=== PATIENT | female | born 1990 | race African-American/Black ===

== ENCOUNTER 2016-03-29 20:14 | Emergency (ER) | payer MEDICAID ==
[~2016-03-29] VITALS: Ht 154.9 cm; Wt 78.0 kg
[~2016-03-29 20:14] MED LIST: DOXYCYCLINE100 M3 PO; DOXYCYCLINE100 M7 IV; KEPPRA XR500 MG PO
[2016-03-29 20:16] VITALS: BP 146/78
--- NOTE | 2016-03-29 21:44 | NUR ---
PT TAKEN TO BED 7
--- NOTE | 2016-03-29 21:50 | NUR ---
Patient being evaluated by at bedside.
--- NOTE | 2016-03-29 21:51 | NUR ---
25Y/F PATIENT PRESENTS TO ED WITH C/O CHEST PAIN X 5 DAYS . PT STATES PAIN START 5 DAYS AGO, ONAND OFF, ALSO STATES FEELING DIZZINESS. DENIES N/V/D; SKIN IS PINK/WARM/DRY; AAOX4 WITH EVEN AND STEADY GAIT; LUNGS CLEAR BL; HR EVEN AND REGULAR; PT DENIES ANY FEVER, SOB, OR COUGH AT THIS TIME; PATIENT STATES PAIN OF 6/10 AT THIS TIME; VSS; PATIENT POSITIONED FOR COMFORT; HOB ELEVATED; BEDRAILS UP X2; BED DOWN. ER MD MADE AWARE OF PT STATUS.
[2016-03-29 22:30] VITALS: BP 130/80
--- NOTE | 2016-03-29 22:30 | NUR ---
Patient discharged with v/s stable. Written and verbal after care instructions given and explained. Patient verbalized understanding. Ambulatory with steady gait. All questions addressed prior to discharge. Advised to follow up with PMD.
== END 2016-03-29 22:30 | disposition home or self-care (01) ==
LOC: MED 20:14
DX: R07.89 Other chest pain (principal); F17.200 Nicotine dependence, unspecified, uncomplicated; Z71.6 Tobacco abuse counseling; Z91.018 Allergy to other foods

== ENCOUNTER 2016-06-04 23:13 | Emergency (ER) | payer MEDICAID ==
[~2016-06-04] VITALS: Ht 154.9 cm; Wt 81.6 kg
[~2016-06-04 23:13] MED LIST changes: +DOXY100C9 PO; -DOXYCYCLINE100 M3 PO; -DOXYCYCLINE100 M7 IV; -KEPPRA XR500 MG PO; +LEVE500T9 PO
[2016-06-04 23:22] VITALS: BP 101/57
--- NOTE | 2016-06-05 01:20 | NUR ---
PATIENT TO ER BED 5
--- NOTE | 2016-06-05 01:23 | NUR ---
25 Y/O F W/C/O ABD PAIN WHICH RADIATES TO THE BACK, URGENCY AND FREQUENCY WITH URINATION, PAIN WITH INTERCOURSE AND BROWN VAGINAL DISCHARGE X 1 WK. ER MD MADE AWARE, NO S/S OF DISTRESS NOTED AT THE MOMENT.
[2016-06-05] MEDS ORDERED: ONDANSETRON 4 MG ODT PO ONE (02:15)
[2016-06-05] MEDS ORDERED: KETOROLAC 30 MG/ML VIAL IM ONE (02:15)
[2016-06-05 02:26] LABS: APPEARANCE,URINE CLEAR (CLEAR); BILIRUBIN,URINE NEGATIVE (NEGATIVE); BLOOD, URINE TRACE-I (NEGATIVE); COLOR,URINE YELLOW (YELLOW); LEUKOCYTE ESTERASE ,URINE NEGATIVE (NEGATIVE); NITRITE, URINE NEGATIVE (NEGATIVE); PROTEIN,URINE NEGATIVE (NEGATIVE); UGLUCOSE NEGATIVE (NEGATIVE); UROBILINOGEN,URINE 0.2 EU/dL (0.2 - 1)
--- NOTE | 2016-06-05 02:30 | NUR ---
Patient being evaluated by at bedside.
--- NOTE | 2016-06-05 02:35 | NUR ---
Female Visitor Services Assistant accompanied female patient for Pelvic Exam. DR. LOZADA
[2016-06-05 02:38] LABS: BACTERIA,URINE 3+ /HPF (None Seen); WBC,URINE 0-5 (RARE) /HPF (0-5)
[2016-06-05 02:39] LABS: MUCUS,URINE 4+ /LPF (None Seen)
[2016-06-05] MEDS ORDERED: HYDROcodone/APAP 5/325 MG 1 TAB TAB PO ONE (03:00)
--- NOTE | 2016-06-05 03:18 | NUR ---
PT TAKEN FOR ULTRASOUND VIA WHEEL CHAIR.
--- NOTE | 2016-06-05 03:50 | NUR ---
RECEIVED REPORT FROM JOCELYN BOWER FOR TRANSFER OF CARE. PT JUST ARRIVED BACK ON UNIT FROM US. TAKEN TO BED 8.
--- NOTE | 2016-06-05 03:50 | NUR ---
TAKEN TO ER BED 8 FROM
--- NOTE | 2016-06-05 03:59 | NUR ---
PT STATING STOMACH PAIN OF 12/04. ER MD MADE AWARE. WILL FOLLOW UP WITH ORDERS.
[2016-06-05] MEDS ORDERED: HYDROmorphone 1 MG/ML AMP IM ONE (04:00)
[2016-06-05] MEDS ORDERED: DICYCLOMINE HCL LIQUID 20 MG, ALUMINUM HYD/MAG/SIMETHICONE 30 ML, LIDOCAINE VISCOUS 2% ... PO ONE ×3 (05:20)
[2016-06-05] MEDS ORDERED: LIDOCAINE VISCOUS 2% 20 ML UDC ONE (05:34)
[2016-06-05] MEDS ORDERED: ALUMINUM HYD/MAG/SIMETHICONE 30 ML UDC ONE (05:34)
[2016-06-05] MEDS ORDERED: DICYCLOMINE HCL LIQUID 10 MG/5 ML UDC ONE (05:44)
--- NOTE | 2016-06-05 05:51 | NUR ---
PT RESTING IN BED. NO SOB NOTED AT THIS TIME. MOTHER AT BEDSIDE. WILL CONTINUE TO MONITOR.
[2016-06-05 06:44] VITALS: BP 116/58
--- NOTE | 2016-06-05 06:45 | NUR ---
Patient discharged with v/s stable. Written and verbal after care instructions given and explained. Patient alert, oriented and verbalized understanding of instructions. Ambulatory with steady gait. All questions addressed prior to discharge. ID band removed. Patient advised to follow up with PMD. Rx of NORCO AND MYLANTA given. Patient educated on indication of medication including possible reaction and side effects. Opportunity to ask questions provided and answered.
[2016-06-07 07:15] LABS: CHLAMYDIA TRACHOMATIS AMP DNA NEGATIVE (NEGATIVE)
== END 2016-06-05 06:44 | disposition home or self-care (01) ==
LOC: MED 23:13
DX: R10.2 Pelvic and perineal pain (principal); Z91.018 Allergy to other foods; R10.30 Lower abdominal pain, unspecified; R10.10 Upper abdominal pain, unspecified
CPT/HCPCS: 36415; 76830; 81001; 81025; 87086; 87210; 87491; 96372; 99285; J1170; J1885; J7030; S0119

== ENCOUNTER 2016-06-13 21:16 | Emergency (ER) | payer MEDICAID ==
[~2016-06-13] VITALS: Ht 154.9 cm; Wt 82.6 kg
[2016-06-13 21:25] VITALS: BP 120/70
--- NOTE | 2016-06-13 23:16 | NUR ---
PATIENT LEFT WITHOUT BEING SEEN BY DR. Alonzo. NO FURTHER CARE PROVIDED FOR PATIENT.
== END 2016-06-13 23:16 | disposition left against medical advice (07) ==
LOC: MED 21:16
DX: R10.30 Lower abdominal pain, unspecified (principal); Z53.21 Procedure and treatment not carried out due to patient leaving prior to being seen by health care provider

== ENCOUNTER 2016-06-14 22:11 | Emergency (ER) | payer SELFPAY ==
--- NOTE | 2016-06-14 22:30 | NUR ---
PATIENT LEFT WITHOUT BEING SEEN BY DR. LOZADA. NO FURTHER CARE PROVIDED FOR PATIENT.
== END 2016-06-14 22:30 | disposition left against medical advice (07) ==
LOC: MED 22:11
DX: R10.9 Unspecified abdominal pain (principal); Z53.21 Procedure and treatment not carried out due to patient leaving prior to being seen by health care provider

== ENCOUNTER 2016-08-13 09:50 | Emergency (ER) | payer MEDICAID ==
[~2016-08-13] VITALS: Ht 154.9 cm; Wt 82.3 kg
[2016-08-13 09:52] VITALS: BP 121/63
--- NOTE | 2016-08-13 10:00 | NUR ---
25/F PRESENT TO ER C/O ABD PAIN x ONE WEEK. . DENIES V/D; SKIN IS PINK/WARM/DRY; AAOX4 WITH EVEN AND STEADY GAIT; LUNGS CLEAR BL; HR EVEN AND REGULAR; PT DENIES ANY FEVER, CP, SOB, OR COUGH AT THIS TIME; PATIENT STATES PAIN OF 10/10 AT THIS TIME; VSS; PATIENT POSITIONED FOR COMFORT; HOB ELEVATED; BEDRAILS UP X2; BED DOWN. ER MD MADE AWARE OF PT STATUS.
--- NOTE | 2016-08-13 10:20 | NUR ---
AAO PT BEING ASSESS BY DR HEATH AT BEDSIDE
[2016-08-13] MEDS ORDERED: KETOROLAC 60 MG/2 ML VIAL IM ONE ×2 (10:30→10:37)
--- NOTE | 2016-08-13 10:50 | NUR ---
Patient discharged with v/s stable. Written and verbal after care instructions given and explained. Patient alert, oriented and verbalized understanding of instructions. Ambulatory with steady gait. All questions addressed prior to discharge. ID band removed. Patient advised to follow up with PMD. Rx of PRILOSEC given. Patient educated on indication of medication including possible reaction and side effects. Opportunity to ask questions provided and answered.
[2016-08-13 10:55] VITALS: BP 130/76
== END 2016-08-13 10:50 | disposition home or self-care (01) ==
LOC: MED 09:50
DX: R10.32 Left lower quadrant pain (principal); F17.200 Nicotine dependence, unspecified, uncomplicated; Z90.49 Acquired absence of other specified parts of digestive tract
CPT/HCPCS: 81002; 81025; 99283; J1885

== ENCOUNTER 2016-09-10 22:08 | Emergency (ER) | payer MEDICAID ==
[~2016-09-10] VITALS: Ht 157.5 cm; Wt 85.4 kg
[2016-09-10 22:14] VITALS: BP 137/86
--- NOTE | 2016-09-10 23:23 | NUR ---
PT TAKEN TO BED 6
--- NOTE | 2016-09-10 23:30 | NUR ---
25F BIB MOTHER C/O RIGHT ABDOMINAL PAIN, SORE THROAT, LOWER BACK PAIN, AND MIGRAINE HEADACHE X TODAY. HX: ASTHMA, OVARIAN CYST, RX: PT DENIES. SKIN IS PINK/WARM/DRY; AAOX4 WITH EVEN AND STEADY GAIT; PATIENT STATES PAIN OF 10/10 AT THIS TIME; VSS; PATIENT POSITIONED FOR COMFORT; HOB ELEVATED; BEDRAILS UP X2; BED DOWN. ER MD MADE AWARE OF PT STATUS.
--- NOTE | 2016-09-10 23:40 | NUR ---
Dr. Antonio evaluating patient at bedside.
[2016-09-10] MEDS ORDERED: KETOROLAC 30 MG/ML VIAL IM ONE (23:45)
[2016-09-10] MEDS ORDERED: ACETAMIN/CODEINE 120/12MG-5ML 5 ML UDC PO ONE (23:45)
--- NOTE | 2016-09-11 | NUR ---
PT TOLERATED MED WELL
[2016-09-11 00:28] VITALS: BP 131/91
--- NOTE | 2016-09-11 00:28 | NUR ---
Patient discharged with v/s stable. Written and verbal after care instructions given and explained. Patient alert, oriented and verbalized understanding of instructions. Ambulatory with steady gait. All questions addressed prior to discharge. ID band removed. Patient advised to follow up with PMD. Rx of NAPROSYN 500MG TAB, TYLENOL WITH CODEINE NO. 3 TAB, AMOXICILLIN 500MG TAB given. Patient educated on indication of medication including possible reaction and side effects. Opportunity to ask questions provided and answered.
== END 2016-09-11 00:28 | disposition home or self-care (01) ==
LOC: MED 22:08
DX: J02.9 Acute pharyngitis, unspecified (principal); Z91.018 Allergy to other foods; Z90.49 Acquired absence of other specified parts of digestive tract
CPT/HCPCS: 81002; 81025; 96372; 99283; J1885

== ENCOUNTER 2017-03-10 22:32 | Emergency (ER) | payer MEDICAID ==
[~2017-03-10] VITALS: Ht 154.9 cm; Wt 84.8 kg
[2017-03-10 22:35] VITALS: BP 127/80
--- NOTE | 2017-03-10 22:44 | NUR ---
TO LOBBY, A/W BED, VSDomo ,ELVA , ERMGraciela NOTED
--- NOTE | 2017-03-10 23:25 | NUR ---
PATIENT LEFT WITHOUT BEING SEEN BY DR. Alonzo. NO FURTHER CARE PROVIDED FOR PATIENT.
== END 2017-03-10 23:25 | disposition left against medical advice (07) ==
LOC: MED 22:32
DX: F41.9 Anxiety disorder, unspecified (principal); Z53.21 Procedure and treatment not carried out due to patient leaving prior to being seen by health care provider

== ENCOUNTER 2017-05-05 01:46 | Emergency (ER) | payer MEDICAID ==
[~2017-05-05] VITALS: Ht 157.5 cm; Wt 86.2 kg
[2017-05-05 01:48] VITALS: BP 149/78
--- NOTE | 2017-05-05 03:05 | NUR ---
PT TAKEN TO CHAIR D
--- NOTE | 2017-05-05 03:07 | NUR ---
PATIENT IS A 26 Y/O FEMALE WHO PRESENTS TO THE ED C/O OVERDOSE. PT STATES, "I TOOK AN EXTRA SEROQUEL AND MY HEART IS BEATING. PT REPORTS 7/10 SORE THROAT PAIN THAT DOES NOT RADIATE. PT DENIES CP, SOB, N/V/D. PT AAOX3, RR EVEN/UNLABORED. PT REPOSITIONED FOR COMFORT, PT SITTING IN CHAIR. RAMON SANTIAGO NOTIFIED. WILL CONTINUE TO MONITOR. Addendum: 05/05/17 at 0338 by [email or web address] PATIENT IS A 26 Y/O FEMALE WHO PRESENTS TO THE ED C/O OVERDOSE. PT STATES, "I TOOK AN EXTRA SEROQUEL AND MY HEART IS BEATING. PT REPORTS TAKING 8 SEROQUEL. PT REPORTS 7/10 SORE THROAT PAIN THAT DOES NOT RADIATE. PT DENIES CP, SOB, N/V/D. PT AAOX3, RR EVEN/UNLABORED. PT REPOSITIONED FOR COMFORT, PT SITTING IN CHAIR. RAMON SANTIAGO NOTIFIED. WILL CONTINUE TO MONITOR. Addendum: 05/05/17 at 0641 by [email or web address] PATIENT IS A 26 Y/O FEMALE WHO PRESENTS TO THE ED C/O OVERDOSE. PT STATES, "I TOOK AN EXTRA SEROQUEL AND MY HEART IS BEATING. PT REPORTS TAKING 800MG SEROQUEL. PT REPORTS 710 SORE THROAT PAIN THAT DOES NOT RADIATE. PT DENIES CP, SOB, N/V/D. PT AAOX3, RR EVEN/UNLABORED. PT REPOSITIONED FOR COMFORT, PT SITTING IN CHAIR. ER MD DR. SANTIAGO NOTIFIED. WILL CONTINUE TO MONITOR.
--- NOTE | 2017-05-05 03:10 | NUR ---
Poison control recommendations forwarded to Dr Tapia.
--- NOTE | 2017-05-05 03:10 | NUR ---
Call to poison control. Recommended EKG, spinning machine operator, drug screen, tylenol, and aspirin levels. Seroguel is a alpha chely and a Na+ hcely, so observe for hypotension and intervals of wide QRS. If wide QRS is observed, treat with Na bicarb.
--- NOTE | 2017-05-05 03:25 | NUR ---
PT MOVED TO BED 1
[2017-05-05 03:27] LABS: BARBITURATE, URINE NEG. ng/ml (NEG <=200); BENZODIAZEPINE, URINE NEG. ng/mL (NEG <=200); CANNABINOID, URINE NEG. ng/mL (NEG <=50); COCAINE, URINE NEG. ng/mL (NEG <=300); OPIATE, URINE NEG. ng/mL (NEG <=2000); PHENCYCLIDINE SCREEN,URINE NEG. ng/mL (NEG <=25)
[2017-05-05 03:36] LABS: BASOPHILS # (AUTO) 0.3 K/uL (0.00-0.22); BASOPHILS % (AUTO) 4.6 % (0.0-2.0); EOSINOPHILS # (AUTO) 0.2 K/uL (0-0.4); EOSINOPHILS % (AUTO) 2.9 % (0.0-4.0); HEMATOCRIT 38.9 % (36-48); HEMOGLOBIN 12.7 g/dL (12.0-16.0); LYMPHOCYTES # (AUTO) 2.1 K/uL (2.5-16.5); LYMPHOCYTES % (AUTO) 34.5 % (20.5-51.1); MEAN CORPUSCULAR HEMOGLOBIN 26 pg (27-31); MEAN CORPUSCULAR HGB CONC 33 g/dL (33-37); MEAN CORPUSCULAR VOLUME 81 fL (80-94); MONOCYTES # (AUTO) 0.4 K/uL (0.8-1.0); MONOCYTES % (AUTO) 6.3 % (1.7-9.3); NEUTROPHILS # (AUTO) 3.1 K/uL (1.8-7.7); NEUTROPHILS % (AUTO) 51.7 % (42.2-75.2); PLATELET COUNT (AUTO) 232 K/uL (140-450); RED BLOOD CELL COUNT(AUTO) 4.82 MIL/uL (4.20-5.40); RED CELL DISTRIBUTION WIDTH 13.4 % (11.6-13.7); WHITE BLOOD COUNT (AUTO) 6.1 K/uL (4.8-10.8)
--- NOTE | 2017-05-05 03:41 | NUR ---
PT RESTING IN BED, STATES FEELS DIZZY, VSS. WILL CONT TO MONITOR.
[2017-05-05 03:49] LABS: APPEARANCE,URINE CLEAR (CLEAR); BILIRUBIN,URINE NEGATIVE (NEGATIVE); BLOOD, URINE NEGATIVE (NEGATIVE); COLOR,URINE YELLOW (YELLOW); LEUKOCYTE ESTERASE ,URINE NEGATIVE (NEGATIVE); NITRITE, URINE NEGATIVE (NEGATIVE); UGLUCOSE NEGATIVE (NEGATIVE)
[2017-05-05 03:52] LABS: ANION GAP 15.5 (8-16); CHLORIDE 102 mmol/L (98-107); CREATININE 0.8 mg/dL (0.6-1.3); GFR ARICAN-AMERICAN 113 mL/min (>90); GLUCOSE 154 mg/dL (74-106); POTASSIUM 3.5 mmol/L (3.5-5.1); SODIUM SERUM 139 mmol/L (136-145); UREA NITROGEN, BLOOD 14 mg/dL (7-18)
[2017-05-05 03:58] LABS: ALBUMIN 3.8 g/dL (3.4-5.0); ASPARTATE AMINOTRANSFERASE 20 U/L (15-37); LIPASE 128 U/L (73-393); SALICYLATE < 2.8 mg/dL (2.8-20.0); TOTAL BILIRUBIN 0.3 mg/dL (0.0-1.0)
--- NOTE | 2017-05-05 05:13 | NUR ---
RESIDENT RESTING COMFORTABLY IN BED V/S T 99.5 P95 R16 B/P 93/43.
--- NOTE | 2017-05-05 06:43 | NUR ---
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 PER PT'S MOTHER SHE WILL BE HERE JEN. PT NOTIFIED.
[2017-05-05 06:53] VITALS: BP 114/56
--- NOTE | 2017-05-05 06:56 | NUR ---
Patient discharged with v/s stable. Written and verbal after care instructions given and explained. Patient alert, oriented and verbalized understanding of instructions. Ambulatory with steady gait. All questions addressed prior to discharge. ID band removed. Patient advised to follow up with PMD. Rx of AMOXICIILIN given. Patient educated on indication of medication including possible reaction and side effects. Opportunity to ask questions provided and answered.
--- NOTE | 2017-05-05 09:15 | NUR ---
SPOKE WITH POISON CONTROL; INFORMED POISON CONTROL PT D/C.
== END 2017-05-05 06:59 | disposition home or self-care (01) ==
LOC: MED 01:46
DX: T43.591A Poisoning by other antipsychotics and neuroleptics, accidental (unintentional), initial encounter (principal); J03.90 Acute tonsillitis, unspecified; J45.909 Unspecified asthma, uncomplicated; Z79.899 Other long term (current) drug therapy; Z91.018 Allergy to other foods; Y92.89 Other specified places as the place of occurrence of the external cause
CPT/HCPCS: 36415; 80053; 80305; 81003; 83690; 85025; 93005; 99285; G0480

== ENCOUNTER 2018-02-24 01:17 | Emergency (ER) | payer MEDICAID ==
[~2018-02-24] VITALS: Ht 154.9 cm; Wt 90.7 kg
[2018-02-24 01:26] VITALS: BP 142/87
--- NOTE | 2018-02-24 01:30 | NUR ---
PT TAKEN TO BED 7
--- NOTE | 2018-02-24 01:32 | NUR ---
PATIENT PRESENTS TO ED WITH C/O PAIN TO THE RIGHT UPPER Q ABDOMEN X 1 DAY . PT STATES SHE HAS A FATTY LIVER AND A POSSIBLE CYST AND HAS OPP. FOR FURTHUR TESTING. DENIES N/V/D; SKIN IS PINK/WARM/DRY; AAOX4 WITH EVEN AND STEADY GAIT;NO FEVER AT THIS TIME. PATIENT STATES PAIN OF 10/10 AT THIS TIME; VSS; PATIENT POSITIONED FOR COMFORT; HOB ELEVATED; BEDRAILS UP X2; BED DOWN. ER MD MADE AWARE OF PT STATUS.
--- NOTE | 2018-02-24 01:40 | NUR ---
Dr. Vernon evaluating patient at bedside.
[2018-02-24] MEDS ORDERED: NACL 0.9% 1,000 ML IV SCH (01:42)
[2018-02-24] MEDS ORDERED: MORPHINE SULFATE 4 MG/ML SYR IVP ONE (01:45)
[2018-02-24] MEDS ORDERED: ONDANSETRON 4 MG/2 ML VIAL IVP ONE (01:45)
[2018-02-24 02:34] LABS: BASOPHILS % (AUTO) 0.3 % (0.0-2.0); EOSINOPHILS # (AUTO) 0.1 K/uL (0-0.4); EOSINOPHILS % (AUTO) 1.6 % (0.0-4.0); HEMATOCRIT 44.4 % (36-48); HEMOGLOBIN 14.5 g/dL (12.0-16.0); LYMPHOCYTES % (AUTO) 48.6 % (20.5-51.1); MEAN CORPUSCULAR HEMOGLOBIN 27 pg (27-31); MEAN CORPUSCULAR HGB CONC 33 g/dL (33-37); MEAN CORPUSCULAR VOLUME 80.9 fL (80-94); MONOCYTES # (AUTO) 0.5 K/uL (0.8-1.0); MONOCYTES % (AUTO) 5.5 % (1.7-9.3); NEUTROPHILS # (AUTO) 3.6 K/uL (1.8-7.7); PLATELET COUNT (AUTO) 253 K/uL (140-450); RED BLOOD CELL COUNT(AUTO) 5.49 MIL/uL (4.20-5.40); RED CELL DISTRIBUTION WIDTH 13.6 % (11.6-13.7); WHITE BLOOD COUNT (AUTO) 8.2 K/uL (4.8-10.8)
[2018-02-24 02:44] LABS: ANION GAP 17.8 (8-16); CARBON DIOXIDE 24.6 mmol/L (21-32); CREATININE 0.8 mg/dL (0.6-1.3); POTASSIUM 3.4 mmol/L (3.5-5.1)
[2018-02-24 02:49] LABS: APPEARANCE,URINE CLOUDY (CLEAR); BILIRUBIN,URINE NEGATIVE (NEGATIVE); BLOOD, URINE NEGATIVE (NEGATIVE); COLOR,URINE YELLOW (YELLOW); LEUKOCYTE ESTERASE ,URINE NEGATIVE (NEGATIVE); NITRITE, URINE NEGATIVE (NEGATIVE); UGLUCOSE NEGATIVE (NEGATIVE)
[2018-02-24 02:50] LABS: ALBUMIN 4.3 g/dL (3.4-5.0); TOTAL BILIRUBIN 0.4 mg/dL (0.0-1.0)
--- NOTE | 2018-02-24 03:11 | NUR ---
PT WENT TO CT
--- NOTE | 2018-02-24 03:20 | NUR ---
PT RETURN FROM CT
--- NOTE | 2018-02-24 03:35 | NUR ---
U/S AT PT BEDSIDE.
--- NOTE | 2018-02-24 03:35 | NUR ---
Sariah mejia in [facility] - 02/24/18 at 0342 by [email or web address] PT AT U/S BEDSIDE
--- NOTE | 2018-02-24 03:43 | NUR ---
PT SLEEPING IN BED, VSS
[2018-02-24] MEDS ORDERED: KETOROLAC 30 MG/ML VIAL IVP ONE (04:55)
--- NOTE | 2018-02-24 05:04 | NUR ---
Patient discharged with v/s stable. Written and verbal after care instructions given and explained. Patient alert, oriented and verbalized understanding of instructions. Ambulatory with steady gait. All questions addressed prior to discharge. ID band removed. Patient advised to follow up with PMD. Rx of COLACE AND BENTYL WERE given. Patient educated on indication of medication including possible reaction and side effects. Opportunity to ask questions provided and answered.
[2018-02-24 05:08] VITALS: BP 138/82
== END 2018-02-24 05:04 | disposition home or self-care (01) ==
LOC: MED 01:17
DX: K59.00 Constipation, unspecified (principal); R30.0 Dysuria; Z88.8 Allergy status to other drugs, medicaments and biological substances; Z91.018 Allergy to other foods; J45.909 Unspecified asthma, uncomplicated; Z90.49 Acquired absence of other specified parts of digestive tract; Z79.899 Other long term (current) drug therapy
CPT/HCPCS: 36415; 74176; 80053; 81003; 81025; 83690; 84703; 85025; 96374; 96375; 99284; J2270; J2405; J7030; J1885

== ENCOUNTER 2018-06-18 18:37 | Emergency (ER) | payer MEDICAID ==
[~2018-06-18] VITALS: Ht 154.9 cm; Wt 94.8 kg
[2018-06-18 18:57] VITALS: BP 128/88
--- NOTE | 2018-06-18 19:35 | NUR ---
PT AMBULATED TO BED 9
--- NOTE | 2018-06-18 20:10 | NUR ---
PT PRESENTS TO ED W/C/O GENERALIZED ABD PAIN SINCE YESTERDAY ASSOCIATED WITH N/V. PT DENIES EATING ANYTHING DIFFERENT. PT STATES THE PAIN GOT WORSE TODAY WHICH PROMPTED HER TO COME IN. PT STATES 10/10 PAIN IN ABD. AAOX4, GCS 15. NAD NOTED. RR EVEN/UNLABORED. PT ON CELL PHONE AT THIS TIME. PT UPDATED ON POC WILL CONTINUE TO MONITOR
[2018-06-18] MEDS ORDERED: NACL 0.9% 500 ML IV ONE (20:52)
[2018-06-18] MEDS ORDERED: KETOROLAC 30 MG/ML VIAL IVP ONE (20:55)
[2018-06-18] MEDS ORDERED: PANTOPRAZOLE 40 MG INJ VIAL IVP ONE (20:55)
[2018-06-18] MEDS ORDERED: ONDANSETRON 4 MG/2 ML VIAL IVP ONE (20:55)
--- NOTE | 2018-06-18 21:07 | NUR ---
PT TAKEN TO XRAY
--- NOTE | 2018-06-18 21:24 | NUR ---
PT RESTING IN BED. IV FLUIDS RUNNING, PATENT AND INTACT.
[2018-06-18 21:25] LABS: BASOPHILS % (AUTO) 0.6 % (0.0-2.0); EOSINOPHILS # (AUTO) 0.1 K/uL (0-0.4); EOSINOPHILS % (AUTO) 1.5 % (0.0-4.0); HEMATOCRIT 41.9 % (36-48); LYMPHOCYTES # (AUTO) 3.2 K/uL (2.5-16.5); LYMPHOCYTES % (AUTO) 41.4 % (20.5-51.1); MEAN CORPUSCULAR HEMOGLOBIN 28 pg (27-31); MEAN CORPUSCULAR HGB CONC 33 g/dL (33-37); MEAN CORPUSCULAR VOLUME 82.7 fL (80-94); MONOCYTES # (AUTO) 0.4 K/uL (0.8-1.0); MONOCYTES % (AUTO) 5.8 % (1.7-9.3); NEUTROPHILS # (AUTO) 3.9 K/uL (1.8-7.7); NEUTROPHILS % (AUTO) 50.7 % (42.2-75.2); PLATELET COUNT (AUTO) 279 K/uL (140-450); RED BLOOD CELL COUNT(AUTO) 5.07 MIL/uL (4.20-5.40); RED CELL DISTRIBUTION WIDTH 13.9 % (11.6-13.7); WHITE BLOOD COUNT (AUTO) 7.7 K/uL (4.8-10.8)
[2018-06-18 21:45] LABS: ANION GAP 11.2 (8-16); CARBON DIOXIDE 31.9 mmol/L (21-32); CREATININE 0.9 mg/dL (0.6-1.3); POTASSIUM 4.1 mmol/L (3.5-5.1)
[2018-06-18 21:55] LABS: ALBUMIN 3.8 g/dL (3.4-5.0); TOTAL BILIRUBIN 0.2 mg/dL (0.0-1.0)
[2018-06-18] MEDS ORDERED: MORPHINE SULFATE 2 MG/ML SYR IVP ONE (22:35)
--- NOTE | 2018-06-18 22:36 | NUR ---
PT WILL RECEIVE NEW MEDICATIONS BEFORE D/C. AWAITING ORDERS FROM MD.
--- NOTE | 2018-06-18 22:42 | NUR ---
PT STATES THAT MOTHER WILL PICK HER UP.
[2018-06-18 22:58] VITALS: BP 137/47
--- NOTE | 2018-06-18 22:58 | NUR ---
Patient discharged with v/s stable. Written and verbal after care instructions given and explained. Patient alert, oriented and verbalized understanding of instructions. Ambulatory with steady gait. All questions addressed prior to discharge. ID band removed. Patient advised to follow up with PMD. Rx of BENTYL 20MG AND ZOFRAN 4MG ODT given. Patient educated on indication of medication including possible reaction and side effects. Opportunity to ask questions provided and answered.
== END 2018-06-18 22:58 | disposition home or self-care (01) ==
LOC: MED 18:37
DX: R10.84 Generalized abdominal pain (principal); R11.0 Nausea; G43.909 Migraine, unspecified, not intractable, without status migrainosus; Z90.49 Acquired absence of other specified parts of digestive tract; Z79.899 Other long term (current) drug therapy
CPT/HCPCS: 36415; 74022; 80053; 81002; 81025; 83690; 85025; 96374; 96375; 99284; C9113; J1885; J2270; J2405; J7030

== ENCOUNTER 2018-09-03 20:20 | Emergency (ER) | payer MEDICAID ==
[~2018-09-03] VITALS: Ht 154.9 cm; Wt 95.3 kg
[2018-09-03 20:46] VITALS: BP 117/72
--- NOTE | 2018-09-03 21:14 | NUR ---
PT AMBULATED TO BED 01.
--- NOTE | 2018-09-03 21:35 | NUR ---
PT BIB SELF C/O RIGHT KNEE PAIN. PT STATES SHE WAS PLAYING VOLLEYBALL ON SATURDAY AND HEARD AND SOUND AND FELT A SUDDEN ONSET OF PAIN. +MILD SWELLING, NO DEFORMITY NOTED TO SITE; AROM; CMS INTACT; CAP REFIL <2. PT ACTING APPROPRIATLY, SPEAKING IN CLEAR AND COMPLETE SENTENCES. BREATHING EQUAL AND UNLABORED. PENDING ERMD EVAL. --PT STATES SHE IS ALSO HAVING SOME ABD CRAMPING FROM TAKEN THE PLAN B PILL TODAY. PMH: ASTHMA, OVARIAN CYST
[2018-09-03] MEDS ORDERED: MORPHINE SULFATE 4 MG/ML SYR IM ONE (22:50)
--- NOTE | 2018-09-03 22:55 | NUR ---
Note roberto in EDM - 09/03/18 at 2300 by [email or web address] HEART RATE 155 BY DOPPLER TO LOWER MEDIAL ABD. ERMD AWARE.
[2018-09-03 23:20] VITALS: BP 121/73
--- NOTE | 2018-09-03 23:20 | NUR ---
Patient discharged with v/s stable. Written and verbal after care instructions given and explained. Patient alert, oriented and verbalized understanding of instructions. Ambulatory with steady gait. All questions addressed prior to discharge. ID band removed. Patient advised to follow up with PMD. Rx of MOTRIN AND NORCO given. Patient educated on indication of medication including possible reaction and side effects. Opportunity to ask questions provided and answered.
== END 2018-09-03 23:20 | disposition home or self-care (01) ==
LOC: MED 20:20
DX: S83.91XA Sprain of unspecified site of right knee, initial encounter (principal); J45.909 Unspecified asthma, uncomplicated; Z91.018 Allergy to other foods; Z91.048 Other nonmedicinal substance allergy status; Z88.1 Allergy status to other antibiotic agents; Z88.8 Allergy status to other drugs, medicaments and biological substances; Z90.49 Acquired absence of other specified parts of digestive tract; Z98.890 Other specified postprocedural states; X58.XXXA Exposure to other specified factors, initial encounter; Y93.68 Activity, volleyball (beach) (court); Y92.39 Other specified sports and athletic area as the place of occurrence of the external cause; Y99.8 Other external cause status
CPT/HCPCS: 73562; 96372; 99283; J2270; 81002; 81025

== ENCOUNTER 2018-10-10 21:50 | Emergency (ER) | payer MEDICAID ==
[~2018-10-10] VITALS: Ht 154.9 cm; Wt 91.6 kg
[2018-10-10 22:01] VITALS: BP 129/88
[2018-10-10] MEDS ORDERED: PANTOPRAZOLE 40 MG TABEC PO ONE (22:55)
[2018-10-10] MEDS ORDERED: LIDOCAINE VISCOUS 2% 20 ML UDC PO ONE (22:55)
[2018-10-10] MEDS ORDERED: DICYCLOMINE HCL LIQUID 10 MG/5 ML UDC PO ONE (22:55)
[2018-10-10] MEDS ORDERED: ALUMINUM HYD/MAG/SIMETHICONE 30 ML UDC PO ONE (22:55)
[2018-10-11] MEDS ORDERED: MORPHINE SULFATE 2 MG/ML SYR IM ONE (00:35)
[2018-10-11 01:30] VITALS: BP 124/85
== END 2018-10-11 01:30 | disposition home or self-care (01) ==
LOC: MED 21:50
DX: K29.70 Gastritis, unspecified, without bleeding (principal); N94.89 Other specified conditions associated with female genital organs and menstrual cycle; N93.9 Abnormal uterine and vaginal bleeding, unspecified; J45.909 Unspecified asthma, uncomplicated; Z79.2 Long term (current) use of antibiotics; Z79.899 Other long term (current) drug therapy; Z91.018 Allergy to other foods; Z91.09 Other allergy status, other than to drugs and biological substances
CPT/HCPCS: 74018; 76856; 81002; 81025; 96372; 99284; J2270; Q0092

== ENCOUNTER 2018-10-29 21:15 | Emergency (ER) | payer MEDICAID ==
[~2018-10-29] VITALS: Ht 154.9 cm; Wt 89.8 kg
[2018-10-29 21:25] VITALS: BP 145/79
[2018-10-29] MEDS ORDERED: cefTRIAXone 1,000 MG in LIDOCAINE MPF 1% - 5 mL VIAL 2.1 ML IM ONE (22:20)
[2018-10-29 22:43] VITALS: BP 145/79
== END 2018-10-29 22:43 | disposition home or self-care (01) ==
LOC: MED 21:15
DX: N39.0 Urinary tract infection, site not specified (principal); Z76.5 Malingerer [conscious simulation]; J45.909 Unspecified asthma, uncomplicated; Z90.49 Acquired absence of other specified parts of digestive tract; Z79.2 Long term (current) use of antibiotics; Z79.899 Other long term (current) drug therapy; Z91.018 Allergy to other foods; Z91.09 Other allergy status, other than to drugs and biological substances
CPT/HCPCS: 81002; 81025; 96372; 99283; J0696; J2001

== ENCOUNTER 2019-03-02 18:56 | Emergency (ER) | payer MEDICAID ==
[~2019-03-02] VITALS: Ht 154.9 cm; Wt 93.0 kg
[2019-03-02 19:31] VITALS: BP 143/94
[2019-03-02] MEDS: MORPHINE SULFATE 4 MG/ML SYR IM ONE (21:55)
[2019-03-02] MEDS: KETOROLAC 30 MG/ML VIAL IM ONE (21:56)
[2019-03-02 22:10] VITALS: BP 136/88
== END 2019-03-02 22:47 | disposition home or self-care (01) ==
LOC: MED 18:56
DX: G89.29 Other chronic pain (principal); G43.909 Migraine, unspecified, not intractable, without status migrainosus; R10.2 Pelvic and perineal pain; J45.909 Unspecified asthma, uncomplicated; K21.9 Gastro-esophageal reflux disease without esophagitis; Z98.890 Other specified postprocedural states; Z79.899 Other long term (current) drug therapy
CPT/HCPCS: 81025; 87804; 96372; 99283; J1885; J2270; 81002

== ENCOUNTER 2019-05-03 10:15 | Emergency (ER) | payer MEDICAID ==
[~2019-05-03] VITALS: Ht 154.9 cm; Wt 93.4 kg
[2019-05-03 10:28] VITALS: BP 112/77
--- NOTE | 2019-05-03 10:30 | NUR ---
PT AMBULATED TO ER BED 11
--- NOTE | 2019-05-03 10:35 | NUR ---
28 Y/O F PRESENTS TO ER C/O EPIGASTRIC PAIN NAUSEA AND DIARRHEA X 2 DAYS. pER PT SHE HAD 5-6 EPISODES diarrhea. Pain level 10/10. Pt awake and alert. Vital Signs Stable. Dr. Mckeon at pt bedside. Allergies: NKA Med hx: gastritis, ovarian cyst, fibroids, colecystectomy, asthma, and acid reflux.
[2019-05-03 10:37] VITALS: BP 112/77
--- NOTE | 2019-05-03 10:37 | NUR ---
Patient discharged by Dr. Mckeon with v/s stable. Written and verbal after care instructions given and explained. Patient alert, oriented and verbalized understanding of instructions. Ambulatory with steady gait. All questions addressed prior to discharge. ID band removed. Patient advised to follow up with PMD. Rx of Bactrim DS 800mg and Zofran 4mg was given. Patient educated on indication of medication including possible reaction and side effects. Opportunity to ask questions provided and answered.
== END 2019-05-03 10:37 | disposition home or self-care (01) ==
LOC: MED 10:15
DX: K52.9 Noninfective gastroenteritis and colitis, unspecified (principal); J45.909 Unspecified asthma, uncomplicated; K21.9 Gastro-esophageal reflux disease without esophagitis; R56.9 Unspecified convulsions; Z98.890 Other specified postprocedural states; Z79.899 Other long term (current) drug therapy
CPT/HCPCS: 99283

== ENCOUNTER 2019-06-03 01:06 | Emergency (ER) | payer MEDICAID ==
[~2019-06-03] VITALS: Ht 160 cm; Wt 93.9 kg
[2019-06-03 01:15] VITALS: BP 123/82
[2019-06-03] MEDS ORDERED: ONDANSETRON 4 MG ODT PO ONE (01:55)
[2019-06-03] MEDS ORDERED: MORPHINE SULFATE 4 MG/ML SYR IM ONE (01:55)
[2019-06-03 02:17] VITALS: BP 123/82
== END 2019-06-03 02:40 | disposition home or self-care (01) ==
LOC: MED 01:06
DX: R10.2 Pelvic and perineal pain (principal); J45.909 Unspecified asthma, uncomplicated; I10 Essential (primary) hypertension; D64.9 Anemia, unspecified; Z79.899 Other long term (current) drug therapy
CPT/HCPCS: 81002; 81025; 96372; 99283; J2270; Q0162

== ENCOUNTER 2019-07-24 15:57 | Emergency (ER) | payer MEDICAID ==
[~2019-07-24] VITALS: Ht 154.9 cm; Wt 96.2 kg
[2019-07-24 16:02] VITALS: BP 125/95
--- NOTE | 2019-07-24 16:19 | NUR ---
28 Y/O FEMALE FROM HOME C/O RT SIDE PAIN, LOWER ABD PAIN, AND A MIGRAINE SINCE YESTERDAY. STATES INTERMITTENT ABD CRAMPING. 9/10 SHARP CRAMPING AT THIS TIME. ABD SOFT, ROUND, NONTENDER TO PALP. STATES PHOTOPHOBIA WITH SLIGHT CHANGE IN VISION. DENIES N/V/D. AWAKE AND ALERT. POSITIONED FOR COMFORT. VSS MEDHX: FIBROIDS, MIGRAINES, ASTHMA ALLERGIES: NKA
--- NOTE | 2019-07-24 16:20 | NUR ---
PT AMBULATED TO RESTROOM, URINE COLLECTED AT THIS TIME
--- NOTE | 2019-07-24 16:31 | NUR ---
Dr. Rodriguez is evaluating the patient at bedside.
[2019-07-24] MEDS ORDERED: MORPHINE SULFATE 4 MG/ML SYR IVP ONE (16:35)
[2019-07-24] MEDS ORDERED: ONDANSETRON 4 MG/2 ML VIAL IVP ONE (16:35)
[2019-07-24 17:06] LABS: BASOPHILS % (AUTO) 0.5 % (0.0-2.0); EOSINOPHILS # (AUTO) 0.1 K/uL (0-0.4); LYMPHOCYTES # (AUTO) 2.3 K/uL (2.5-16.5); LYMPHOCYTES % (AUTO) 38.8 % (20.5-51.1); MEAN CORPUSCULAR HEMOGLOBIN 27 pg (27-31); MEAN CORPUSCULAR HGB CONC 33 g/dL (33-37); MEAN CORPUSCULAR VOLUME 81.2 fL (80-94); MONOCYTES # (AUTO) 0.4 K/uL (0.8-1.0); MONOCYTES % (AUTO) 7.3 % (1.7-9.3); NEUTROPHILS # (AUTO) 3.1 K/uL (1.8-7.7); NEUTROPHILS % (AUTO) 51.4 % (42.2-75.2); PLATELET COUNT (AUTO) 255 K/uL (140-450); RED BLOOD CELL COUNT(AUTO) 5.17 MIL/uL (4.20-5.40); RED CELL DISTRIBUTION WIDTH 13.5 % (11.6-13.7)
[2019-07-24 17:22] LABS: ANION GAP 11.6 (8-16); CARBON DIOXIDE 29.2 mmol/L (21-32); CREATININE 0.8 mg/dL (0.6-1.3); POTASSIUM 3.8 mmol/L (3.5-5.1); TOTAL BILIRUBIN 0.3 mg/dL (0.0-1.0)
[2019-07-24 17:39] LABS: BILIRUBIN,URINE NEGATIVE (NEGATIVE); BLOOD, URINE NEGATIVE (NEGATIVE); COLOR,URINE YELLOW (YELLOW); LEUKOCYTE ESTERASE ,URINE 1+ (NEGATIVE); NITRITE, URINE NEGATIVE (NEGATIVE); UGLUCOSE NEGATIVE (NEGATIVE)
[2019-07-24 17:42] VITALS: BP 125/95
--- NOTE | 2019-07-24 17:42 | NUR ---
Patient discharged with v/s stable. Written and verbal after care instructions given and explained. Patient alert, oriented and verbalized understanding of instructions. Ambulatory with steady gait. All questions addressed prior to discharge. ID band removed. Patient advised to follow up with PMD. Rx of CIPRO, MOTRIN, NORCO AND ZOFRAN given. Patient educated on indication of medication including possible reaction and side effects. Opportunity to ask questions provided and answered.
[2019-07-24 17:45] LABS: APPEARANCE,URINE HAZY (CLEAR)
[2019-07-24 17:49] LABS: RBC,URINE NONE SEEN /HPF (0-5); WBC,URINE 0-5 /HPF (0-5)
== END 2019-07-24 17:42 | disposition home or self-care (01) ==
LOC: MED 15:57
DX: N39.0 Urinary tract infection, site not specified (principal); J45.909 Unspecified asthma, uncomplicated; I10 Essential (primary) hypertension; G43.909 Migraine, unspecified, not intractable, without status migrainosus; F17.210 Nicotine dependence, cigarettes, uncomplicated; Z79.899 Other long term (current) drug therapy; Z90.49 Acquired absence of other specified parts of digestive tract
CPT/HCPCS: 36415; 80053; 81001; 81025; 83690; 85025; 87086; 96374; 96375; 99284; J2270; J2405

== ENCOUNTER 2019-08-21 14:15 | Emergency (ER) | payer MEDICAID ==
[~2019-08-21] VITALS: Ht 154.9 cm; Wt 96.2 kg
[2019-08-21 14:19] VITALS: BP 132/88
--- NOTE | 2019-08-21 14:27 | NUR ---
AMB TO BED 12
--- NOTE | 2019-08-21 14:30 | NUR ---
QUINN BOOKER EVALUATING PT AT BEDSIDE
--- NOTE | 2019-08-21 14:47 | NUR ---
28 YO FEMALE CO LOWER ABD PAIN.Denies n/v/d, fever, vaginal bleeding, UTI symptoms. States has had this pain before, is being worked up outpatient for endometriosis Hx- uterine fibroid
[2019-08-21] MEDS ORDERED: KETOROLAC 60 MG/2 ML VIAL IM ONE (14:55)
[2019-08-21 16:04] VITALS: BP 132/88
== END 2019-08-21 16:05 | disposition home or self-care (01) ==
LOC: MED 14:15
DX: R10.9 Unspecified abdominal pain (principal); F17.210 Nicotine dependence, cigarettes, uncomplicated; I10 Essential (primary) hypertension; J45.909 Unspecified asthma, uncomplicated; R56.9 Unspecified convulsions; Z79.899 Other long term (current) drug therapy; Z98.890 Other specified postprocedural states; Z90.49 Acquired absence of other specified parts of digestive tract
CPT/HCPCS: 81002; 81025; 96372; 99283; J1885

== ENCOUNTER 2019-09-05 09:11 | Emergency (ER) | payer MEDICAID ==
[~2019-09-05] VITALS: Ht 162.6 cm; Wt 93.9 kg
[2019-09-05 09:24] VITALS: BP 134/87
[2019-09-05] MEDS ORDERED: KETOROLAC 30 MG/ML VIAL IM ONE (09:40)
[2019-09-05] MEDS ORDERED: HYDROcodone/APAP 5/325 MG 1 TAB TAB PO ONE (09:40)
[2019-09-05 09:54] LABS: BASOPHILS # (AUTO) 0.1 K/uL (0.00-0.22); BASOPHILS % (AUTO) 0.7 % (0.0-2.0); EOSINOPHILS # (AUTO) 0.1 K/uL (0-0.4); EOSINOPHILS % (AUTO) 1.3 % (0.0-4.0); HEMATOCRIT 43.4 % (36-48); HEMOGLOBIN 14.6 g/dL (12.0-16.0); LYMPHOCYTES % (AUTO) 35.7 % (20.5-51.1); MEAN CORPUSCULAR HEMOGLOBIN 27 pg (27-31); MEAN CORPUSCULAR HGB CONC 34 g/dL (33-37); MEAN CORPUSCULAR VOLUME 81.2 fL (80-94); MONOCYTES # (AUTO) 0.5 K/uL (0.8-1.0); NEUTROPHILS # (AUTO) 4.7 K/uL (1.8-7.7); NEUTROPHILS % (AUTO) 56.3 % (42.2-75.2); PLATELET COUNT (AUTO) 304 K/uL (140-450); RED BLOOD CELL COUNT(AUTO) 5.35 MIL/uL (4.20-5.40); RED CELL DISTRIBUTION WIDTH 13.8 % (11.6-13.7); WHITE BLOOD COUNT (AUTO) 8.3 K/uL (4.8-10.8)
[2019-09-05 10:15] LABS: ALBUMIN 4.1 g/dL (3.4-5.0); ANION GAP 11.3 (8-16); CREATININE 0.9 mg/dL (0.6-1.3); POTASSIUM 4.3 mmol/L (3.5-5.1); PROTHROMBIN TIME 9.9 secs (10.8-13.4); TOTAL BILIRUBIN 0.2 mg/dL (0.0-1.0)
[2019-09-05 10:39] VITALS: BP 130/80
== END 2019-09-05 10:39 | disposition home or self-care (01) ==
LOC: MED 09:11
DX: R10.9 Unspecified abdominal pain (principal); I10 Essential (primary) hypertension; J45.909 Unspecified asthma, uncomplicated; K92.2 Gastrointestinal hemorrhage, unspecified; R56.9 Unspecified convulsions; Z79.899 Other long term (current) drug therapy
CPT/HCPCS: 36415; 74176; 80053; 81002; 81025; 83690; 85025; 85610; 85730; 96372; 99284; J1885

== ENCOUNTER 2019-09-16 19:16 | Emergency (ER) | payer MEDICAID ==
[~2019-09-16] VITALS: Ht 154.9 cm; Wt 93.9 kg
[2019-09-16 19:37] VITALS: BP 143/90
--- NOTE | 2019-09-16 19:44 | NUR ---
PT AMBULATED TO BED 06 WITH STEADY GAIT
--- NOTE | 2019-09-16 19:54 | NUR ---
28F PRESENTS TO ED WITH C/O LLQ RLQ ABDOMINAL ALONG WITH PELVIC PAIN X 2 WEEKS. REPORTS ACHING STABBING 9/10 PAIN THAT IS UNBEARABLE. PT REPORTS THAT THEY HAVE HAD 1 AND THAT SHE HAD AN OPERATION DONE ON THE SAME SITE OF C/S WHEN HER OVARIAN CYST RUPTURED. DENIES N/V/D. DENIES HEADACHE. DENIES SOB/COUGH. RR EVEN AND UNLABORED. CBL SOUNDS. ABDOMEN SOFT AND NONTENDER. NORMOACTIVE BOWEL SOUNDS ON ALL QUADRANTS. PMHX: C/S, OVARIAN CYST, ASTHMA. RX: DENIES NKDA NEGATIVE FOR COVID SCREENING. WEARING MASK.
--- NOTE | 2019-09-16 19:54 | NUR ---
DB HEATH AT BEDSIDE FOR EVALUATION.
[2019-09-16 19:57] VITALS: BP 143/90
[2019-09-16] MEDS ORDERED: MORPHINE SULFATE 4 MG/ML SYR IM ONE (20:00)
--- NOTE | 2019-09-16 20:10 | NUR ---
PT MEDICATED WITH MORPHINE 4MG IM TOLERATED WELL. NADR
--- NOTE | 2019-09-16 21:10 | NUR ---
Patient discharged with v/s stable. Written and verbal after care instructions given and explained. Patient alert, oriented and verbalized understanding of instructions. Ambulatory with steady gait. All questions addressed prior to discharge. ID band removed. Patient advised to follow up with PMD. Rx of ZOFRAN, NORCO, MOTRIN given. Patient educated on indication of medication including possible reaction and side effects. Opportunity to ask questions provided and answered.
== END 2019-09-16 21:10 | disposition home or self-care (01) ==
LOC: MED 19:16
DX: R10.2 Pelvic and perineal pain (principal); J45.909 Unspecified asthma, uncomplicated; R56.9 Unspecified convulsions; N83.291 Other ovarian cyst, right side; Z98.890 Other specified postprocedural states; Z90.49 Acquired absence of other specified parts of digestive tract; Z79.899 Other long term (current) drug therapy
CPT/HCPCS: 81002; 81025; 96372; 99283; J2270

== ENCOUNTER 2019-09-30 23:34 | Emergency (ER) | payer MEDICAID ==
[~2019-09-30] VITALS: Ht 154.9 cm; Wt 97.5 kg
[2019-09-30 23:40] VITALS: BP 137/99
--- NOTE | 2019-09-30 23:46 | NUR ---
PT AMBULATED TO RESTROOM WITH STEADY GAIT.
[2019-09-30] MEDS ORDERED: NACL 0.9% 1,000 ML IV ONE (23:55)
--- NOTE | 2019-10-01 00:01 | NUR ---
PT TAKEN TO BED 11
--- NOTE | 2019-10-01 00:02 | NUR ---
28 Y/O FEMALE PRESENTED TO ED C/O SUPRPUBIC PAIN X 4 HRS, MIGRAINE X 4 DAYS AND EAR CONGESTION. PT STATES SHE IS SUPPOSED TO HAVE EXPLORATORY SURGERY X 3 WEEKS FOR CONSTANT ABD PAIN . PT WAS TOLD SHE NEEDS TO GO TO ER IF HER PAIN GETS BAD PRIOR TO SURGERY. PT C/O SUPRPUBIC PAIN DURING INTERCOURSE - PT STATES THIS PAIN DURING INTERCOURSE IS SIMILAR TO WHEN SHE HAD A CYST. PT DENIES N/V/D/FEVER/CP/SOB. PT C/O PHOTOPHOBIA , DENIES BLURRY VISION. PT ABD ROUND, SOFT AND NONTENDER. NORMOACTIVE BOWEL SOUNDS IN ALL QUADS. RR EVEN AND UNLABORED, A/O X4. PT PLACED IN GOWN. PT RESTING IN BED , LOCKED AND IN LOWEST POSITION ,HOB ELEVATED, SIDE RAIL X1 . VSS, NO ACUTE DISTRESS NOTED AT THIS TIME. PMH: FIBROIDS, OVARIAN CYSTS, , ASTHMA NKA
[2019-10-01] MEDS ORDERED: MORPHINE SULFATE 10 MG/ML VIAL IVP ONE (00:25)
[2019-10-01] MEDS ORDERED: MORPHINE SULFATE 5 MG/ML VIAL IM ONE (00:30)
--- NOTE | 2019-10-01 00:32 | NUR ---
PER DR. PINTO D/C 6 MG MORPHINE IVP AND ADMINISTER 6 MG MORPHINE IM.
[2019-10-01 00:56] VITALS: BP 137/99
--- NOTE | 2019-10-01 00:57 | NUR ---
Patient discharged with v/s stable. Written and verbal after care instructions given and explained. Patient alert, oriented and verbalized understanding of instructions. Ambulatory with steady gait. All questions addressed prior to discharge. ID band removed. Patient advised to follow up with PMD. Rx of COLACE/NORCO given. Patient educated on indication of medication including possible reaction and side effects. Opportunity to ask questions provided and answered.
== END 2019-10-01 00:57 | disposition home or self-care (01) ==
LOC: MED 23:34
DX: G89.29 Other chronic pain (principal); R10.2 Pelvic and perineal pain; J45.909 Unspecified asthma, uncomplicated; R56.9 Unspecified convulsions; Z79.899 Other long term (current) drug therapy; Z98.890 Other specified postprocedural states
CPT/HCPCS: 81002; 81025; 96372; 99283; J2270

== ENCOUNTER 2019-11-03 00:55 | Emergency (ER) | payer MEDICAID ==
[~2019-11-03] VITALS: Ht 154.9 cm; Wt 95.7 kg
[2019-11-03 01:10] VITALS: BP 137/93
[2019-11-03] MEDS ORDERED: NACL 0.9% 1,000 ML IV ONE (01:34)
[2019-11-03] MEDS ORDERED: diphenhydrAMINE 50 MG/ML VIAL IVP ONE (01:35)
[2019-11-03] MEDS ORDERED: METOCLOPRAMIDE 10 MG/2 ML INJ VIAL IVP ONE (01:35)
--- NOTE | 2019-11-03 01:35 | NUR ---
PT STARTED HAVING A MIGRAINE HEADACHE AROUND 5PM YESTERDAY AND IT HAS GOTTEN PROGRESSIVELY WORSE OVER THE LAST FEW HRS. TOOK OTC MEDS WITH NO RELIEF. +NAUSEA NO VOMITING. HAVING LIGHT SENSITIVITY AND BLURRED VISION. DENIES SOB, AFEBRILE. BED IN LOWEST POSITION AND SIDERAIL UP X 1. NKDA HX - MIGRAINES, ASTHMA
--- NOTE | 2019-11-03 01:36 | NUR ---
UA COLLECTED FROM PT
--- NOTE | 2019-11-03 01:36 | NUR ---
MD HEATH AT BEDSIDE
[2019-11-03] MEDS ORDERED: KETOROLAC 30 MG/ML VIAL IVP ONE (02:05)
--- NOTE | 2019-11-03 02:40 | NUR ---
PT SLEEPING AT THIS TIME, RESPIRATIONS REGULAR, EVEN, AND UNLABORED.
[2019-11-03 03:16] VITALS: BP 123/87
--- NOTE | 2019-11-03 03:18 | NUR ---
Patient discharged with v/s stable. Written and verbal after care instructions given and explained. Patient alert, oriented and verbalized understanding of instructions. Ambulatory with steady gait. All questions addressed prior to discharge. ID band removed. Patient advised to follow up with PMD. Rx of ZOFRAN AND NORCO given. Patient educated on indication of medication including possible reaction and side effects. Opportunity to ask questions provided and answered.
== END 2019-11-03 03:17 | disposition home or self-care (01) ==
LOC: MED 00:55
DX: R51 Headache (principal); J45.909 Unspecified asthma, uncomplicated; R56.9 Unspecified convulsions; Z90.49 Acquired absence of other specified parts of digestive tract; Z90.722 Acquired absence of ovaries, bilateral; Z98.890 Other specified postprocedural states; Z79.899 Other long term (current) drug therapy
CPT/HCPCS: 81002; 81025; 96361; 96374; 96375; 99284; J1200; J1885; J2765; J7030; 99283

== ENCOUNTER 2019-12-01 08:26 | Emergency (ER) | payer MEDICAID ==
[~2019-12-01] VITALS: Ht 154.9 cm; Wt 94.9 kg
[2019-12-01 08:33] VITALS: BP 150/107
--- NOTE | 2019-12-01 08:38 | NUR ---
AMBULATED TO BED 7
--- NOTE | 2019-12-01 08:43 | NUR ---
28 y/o female from home c/o lower back and lower abd pain since 0600 today. Pt states dull, continuous cramping, 10/10 at this time. Pt states nausea when pain began. Denies vomiting/diarrhea. Pt took ibuprofen and tylenol at 0600 when pain began with no pain relief. Awake and alert, positioned for comfort. Guarding abd and back with ambulation. medhx: cyst, fibroids
--- NOTE | 2019-12-01 08:46 | NUR ---
Dr Apple at bedside examining pt
[2019-12-01] MEDS ORDERED: ONDANSETRON 4 MG/2 ML VIAL IVP ONE (09:10)
[2019-12-01] MEDS ORDERED: MORPHINE SULFATE 4 MG/ML SYR IVP ONE ×2 (09:10→10:00)
--- NOTE | 2019-12-01 09:15 | NUR ---
20G IV placed to left ac, blood drawn at this time and taken to lab. IV patent with good blood return. Pt positioned for comfort. VSS
[2019-12-01 09:25] LABS: BASOPHILS # (AUTO) 0.1 K/uL (0.00-0.22); BASOPHILS % (AUTO) 0.8 % (0.0-2.0); EOSINOPHILS # (AUTO) 0.1 K/uL (0-0.4); EOSINOPHILS % (AUTO) 1.2 % (0.0-4.0); HEMOGLOBIN 13.7 g/dL (12.0-16.0); LYMPHOCYTES # (AUTO) 2.7 K/uL (2.5-16.5); LYMPHOCYTES % (AUTO) 35.6 % (20.5-51.1); MEAN CORPUSCULAR HEMOGLOBIN 28 pg (27-31); MEAN CORPUSCULAR HGB CONC 34 g/dL (33-37); MEAN CORPUSCULAR VOLUME 80.9 fL (80-94); MONOCYTES # (AUTO) 0.5 K/uL (0.8-1.0); MONOCYTES % (AUTO) 6.4 % (1.7-9.3); NEUTROPHILS # (AUTO) 4.3 K/uL (1.8-7.7); PLATELET COUNT (AUTO) 277 K/uL (140-450); RED BLOOD CELL COUNT(AUTO) 4.94 MIL/uL (4.20-5.40); RED CELL DISTRIBUTION WIDTH 13.4 % (11.6-13.7); WHITE BLOOD COUNT (AUTO) 7.6 K/uL (4.8-10.8)
[2019-12-01 09:40] LABS: ANION GAP 14.9 (8-16); CARBON DIOXIDE 26.9 mmol/L (21-32); CREATININE 0.7 mg/dL (0.6-1.3); POTASSIUM 3.8 mmol/L (3.5-5.1); TOTAL BILIRUBIN 0.3 mg/dL (0.0-1.0)
--- NOTE | 2019-12-01 09:46 | NUR ---
Pt denies decrease in pain after Morphine, Dr Apple made aware.
--- NOTE | 2019-12-01 09:56 | NUR ---
Pt taken to CT via [facility]
--- NOTE | 2019-12-01 10:06 | NUR ---
Pt returned from CT via [facility].
--- NOTE | 2019-12-01 10:34 | NUR ---
Dr Apple at bedside re-evaluating patient.
[2019-12-01] MEDS ORDERED: cefTRIAXone 500 MG VIAL ONE (10:43)
[2019-12-01 10:59] LABS: APPEARANCE,URINE HAZY (CLEAR); BILIRUBIN,URINE NEGATIVE (NEGATIVE); BLOOD, URINE TRACE-I (NEGATIVE); COLOR,URINE YELLOW (YELLOW); LEUKOCYTE ESTERASE ,URINE NEGATIVE (NEGATIVE); NITRITE, URINE NEGATIVE (NEGATIVE); UGLUCOSE NEGATIVE (NEGATIVE)
[2019-12-01 11:15] LABS: CALCIUM OXALATE CRYSTALS,UR 0-10 /HPF (None Seen); RBC,URINE 0-5 /HPF (0-5); WBC,URINE 0-5 /HPF (0-5)
--- NOTE | 2019-12-01 11:15 | NUR ---
IV removed, 2x2 gauze placed to IV site.
[2019-12-01 11:16] VITALS: BP 148/98
--- NOTE | 2019-12-01 11:17 | NUR ---
Patient discharged with v/s stable. Written and verbal after care instructions given and explained. Patient alert, oriented and verbalized understanding of instructions. Ambulatory with steady gait. All questions addressed prior to discharge. ID band removed. Patient advised to follow up with PMD. Rx of Doxycycline 100mg, Naprosyn 500mg, [place] 10mg-325mg given. Patient educated on indication of medication including possible reaction and side effects. Opportunity to ask questions provided and answered.
== END 2019-12-01 11:17 | disposition home or self-care (01) ==
LOC: MED 08:26
DX: M54.5 Low back pain (principal); R10.2 Pelvic and perineal pain; D25.9 Leiomyoma of uterus, unspecified; J45.909 Unspecified asthma, uncomplicated; L72.3 Sebaceous cyst; R56.9 Unspecified convulsions; Z91.018 Allergy to other foods; Z91.09 Other allergy status, other than to drugs and biological substances; Z79.899 Other long term (current) drug therapy
CPT/HCPCS: 36415; 74176; 80053; 81001; 81025; 83690; 85025; 96365; 96375; 96376; 99284; J0696; J2270; J2405; J7060; 96367

== ENCOUNTER 2019-12-10 16:19 | Emergency (ER) | payer MEDICAID ==
[~2019-12-10] VITALS: Ht 157.5 cm; Wt 94.8 kg
[2019-12-10 16:22] VITALS: BP 140/118
--- NOTE | 2019-12-10 16:28 | NUR ---
Patient ambulated to bed 4. RN evaluating patient at bedside.
--- NOTE | 2019-12-10 16:35 | NUR ---
28 Y/O FEMALE PRESENTS TO ER WITH C/O LEFT LEG PAIN X 1 HR. 8/10 PAIN. A&O X4, VSS, R/R EQUAL, AND UNLABORED. ALSO C/O TTP KNEE, AND CHAPPELL. DENIES INJURY/TRAUMA, N/V/D, COUGH, FEVER, CHILLS, NUMBNESS, TINGLING. PT STATES SHE TRIED TO STRETCH, AND WALK TO MAKE THE LEG FEEL BETTER, ONLY MADE PAIN WORSE. NO VISIBLE INFLAMMATION, EDEMA, REDNESS, OR DEFORMITIES NOTED ON VISUAL INSPECTION. DORSALIS PEDIS, AND POSTERIOR TIBIALIS PALPABLE, AND STRONG, CAP REFILL <3 SEC. PT STATES SHE TOOK TRAMADOL, AND IBU 800MG X 1HR BEFORE COMING INTO ER. SIDE RAIL X1, BED IN LOW POSITION WILL CONTINUE TO MONITOR. PMH: ASTHMA NKDA
--- NOTE | 2019-12-10 16:55 | NUR ---
proof technician at bedside.
[2019-12-10] MEDS ORDERED: KETOROLAC 30 MG/ML VIAL IM ONE (17:45)
[2019-12-10 18:06] VITALS: BP 137/98
--- NOTE | 2019-12-10 18:12 | NUR ---
APPLIED KNEE IMMOBILIZER TO LEFT KNEE WITHOUT ANY ISSUES
== END 2019-12-10 18:05 | disposition home or self-care (01) ==
LOC: MED 16:19
DX: M79.622 Pain in left upper arm (principal); J45.909 Unspecified asthma, uncomplicated; Z91.018 Allergy to other foods; Z79.899 Other long term (current) drug therapy; X58.XXXA Exposure to other specified factors, initial encounter; Y93.89 Activity, other specified; Y92.89 Other specified places as the place of occurrence of the external cause; Y99.8 Other external cause status
CPT/HCPCS: 29515; 73590; 81002; 81025; 96372; 99283; J1885; Q0092

== ENCOUNTER 2020-01-03 16:43 | Emergency (ER) | payer MEDICAID ==
[~2020-01-03] VITALS: Ht 154.9 cm; Wt 93.9 kg
[2020-01-03 16:49] VITALS: BP 114/40
--- NOTE | 2020-01-03 16:55 | NUR ---
Patient ambulated with steady gait to bed 6.
--- NOTE | 2020-01-03 17:05 | NUR ---
PATIENT PRESENTS TO ED WITH C/O ABDOMINAL PAIN X SEVERAL MONTHS. TODAY DESCRIBES A FEELING LIKE SOMETHING POPPED INSIDE . DENIES N/V/D; SKIN IS PINK/WARM/DRY; AAOX4 WITH EVEN AND STEADY GAIT; LUNGS CLEAR BL; HR EVEN AND REGULAR; PT DENIES ANY FEVER, CP, SOB, OR COUGH AT THIS TIME; PATIENT STATES PAIN OF 9/10 AT THIS TIME; VSS; PATIENT POSITIONED FOR COMFORT; HOB ELEVATED; BEDRAILS UP X2; BED DOWN. ER MD MADE AWARE OF PT STATUS.
[2020-01-03] MEDS ORDERED: ONDANSETRON 4 MG/2 ML VIAL IVP ONE (17:15)
[2020-01-03] MEDS ORDERED: MORPHINE SULFATE 4 MG/ML SYR IVP STA (17:15)
[2020-01-03] MEDS ORDERED: KETOROLAC 15 MG/ML VIAL IVP ONE (17:15)
[2020-01-03 17:56] LABS: BASOPHILS # (AUTO) 0.1 K/uL (0.00-0.22); BASOPHILS % (AUTO) 0.9 % (0.0-2.0); EOSINOPHILS # (AUTO) 0.1 K/uL (0-0.4); EOSINOPHILS % (AUTO) 1.9 % (0.0-4.0); HEMATOCRIT 39.3 % (36-48); HEMOGLOBIN 13.3 g/dL (12.0-16.0); LYMPHOCYTES % (AUTO) 34.5 % (20.5-51.1); MEAN CORPUSCULAR HEMOGLOBIN 27 pg (27-31); MEAN CORPUSCULAR HGB CONC 34 g/dL (33-37); MONOCYTES # (AUTO) 0.3 K/uL (0.8-1.0); MONOCYTES % (AUTO) 5.9 % (1.7-9.3); NEUTROPHILS # (AUTO) 3.2 K/uL (1.8-7.7); NEUTROPHILS % (AUTO) 56.8 % (42.2-75.2); PLATELET COUNT (AUTO) 248 K/uL (140-450); RED BLOOD CELL COUNT(AUTO) 4.91 MIL/uL (4.20-5.40); RED CELL DISTRIBUTION WIDTH 13.4 % (11.6-13.7); WHITE BLOOD COUNT (AUTO) 5.7 K/uL (4.8-10.8)
--- NOTE | 2020-01-03 17:59 | NUR ---
US IN PROGRESS
[2020-01-03 18:10] LABS: PROTHROMBIN TIME 10.2 secs (10.8-13.4)
[2020-01-03 18:12] LABS: ALBUMIN 3.7 g/dL (3.4-5.0); ANION GAP 14.2 (8-16); CARBON DIOXIDE 26.6 mmol/L (21-32); CREATININE 0.8 mg/dL (0.6-1.3); POTASSIUM 3.8 mmol/L (3.5-5.1); TOTAL BILIRUBIN 0.2 mg/dL (0.0-1.0)
[2020-01-03] MEDS ORDERED: HYDROcodone/APAP 10/325 MG 1 TAB TAB PO STA (18:20)
[2020-01-03 18:31] LABS: APPEARANCE,URINE CLEAR (CLEAR); BILIRUBIN,URINE NEGATIVE (NEGATIVE); BLOOD, URINE 2+ (NEGATIVE); COLOR,URINE YELLOW (YELLOW); LEUKOCYTE ESTERASE ,URINE NEGATIVE (NEGATIVE); NITRITE, URINE NEGATIVE (NEGATIVE); UGLUCOSE NEGATIVE (NEGATIVE)
--- NOTE | 2020-01-03 19:15 | NUR ---
RECIVED REPORT FROM OUMAR BANKS. TRANSFER OF CARE.
[2020-01-03 19:17] LABS: RBC,URINE 11-20 (MOD) /HPF (0-5)
--- NOTE | 2020-01-03 19:18 | NUR ---
PT STATES PAIN DECREASED FROM 10/10 TO 5 /10 IN LOWER PELVIS. Patient is currently ambulatory with steady gait, able to walk unassisted. Alert and oriented. Is not driving self for discharge out of facility. IV removed, catheter intact and site benign. Applied folded 4x4 gauze and tape to stop bleeding.
[2020-01-03 19:26] VITALS: BP 114/80
== END 2020-01-03 19:20 | disposition home or self-care (01) ==
LOC: MED 16:43
DX: G89.29 Other chronic pain (principal); R10.2 Pelvic and perineal pain; I10 Essential (primary) hypertension
CPT/HCPCS: 36415; 76856; 80053; 81001; 84702; 85025; 85610; 86886; 86900; 86901; 87086; 96374; 96375; 99284; J1885; J2270; J2405; Q0092

== ENCOUNTER 2020-01-06 05:28 | Emergency (ER) | payer MEDICAID ==
[~2020-01-06] VITALS: Ht 154.9 cm; Wt 94.8 kg
[2020-01-06 05:30] VITALS: BP 138/100
--- NOTE | 2020-01-06 05:35 | NUR ---
PT AMBULATED TO RESTROOM W/ STEADY GAIT.
--- NOTE | 2020-01-06 05:38 | NUR ---
PT AMBULATED TO ER BED 11 W/ STEADY GAIT.
--- NOTE | 2020-01-06 05:38 | NUR ---
Sariah mejia in [facility] - 01/06/20 at 0540 by ZAIDA PT AMBULATED TO RESTROOM W/ STEADY GAIT.
--- NOTE | 2020-01-06 05:39 | NUR ---
ermd at bedside.
--- NOTE | 2020-01-06 05:40 | NUR ---
29 Y/O FEMALE PRESENTED TO THE ED C/O 12/04 CONSTANT CRAMPING & SHOOTING RLQ PAIN. PT WAS SEEN HERE 2 DAYS AGO FOR THE SAME COMPLAINT. PT ADMIT TO TAKING HYDROCODONE AND HAS MINIMAL RELIEF. PT IS NAUSEOUS BUT DENIES VOMITING. PT DENIES FEVER, DIARRHEA, SOB. UPON ASSESSMENT PT HAS INCREASED PAIN WITH PALPATION, NO REDNESS, OR SWELLING NOTED TO THE AREA. BOWEL SOUNDS ARE NORMOACTIVEX4 QUADRANTS. PT IS SITTING IN UPRIGHT POSITION, NOT ACUTE DISTRESS NOTED, SIDE RAILS X1, BED IS LOCKED AND IN LOWEST POSITION. PMH: ASTHMA, ISOLATED SEIZURE, SEIZURES, HTN, OVARIAN CYSTS NKDA, ALLERGIES NOTED IN CHART
[2020-01-06] MEDS ORDERED: ONDANSETRON 4 MG/2 ML VIAL IVP ONE (05:45)
[2020-01-06] MEDS ORDERED: KETOROLAC 30 MG/ML VIAL IVP ONE (05:45)
[2020-01-06] MEDS ORDERED: NACL 0.9% 1,000 ML IV ONE (05:45)
--- NOTE | 2020-01-06 06:10 | NUR ---
BLOOD CULTURES AND LABS COLLECTED AND WALKED TO LAB.
--- NOTE | 2020-01-06 06:11 | NUR ---
blood labs collected
--- NOTE | 2020-01-06 06:20 | NUR ---
PT TAKEN TO CT
[2020-01-06 06:27] LABS: BASOPHILS % (AUTO) 0.6 % (0.0-2.0); EOSINOPHILS # (AUTO) 0.1 K/uL (0-0.4); EOSINOPHILS % (AUTO) 1.4 % (0.0-4.0); HEMATOCRIT 39.8 % (36-48); HEMOGLOBIN 13.5 g/dL (12.0-16.0); LYMPHOCYTES # (AUTO) 3.2 K/uL (2.5-16.5); LYMPHOCYTES % (AUTO) 43.3 % (20.5-51.1); MEAN CORPUSCULAR HEMOGLOBIN 27 pg (27-31); MEAN CORPUSCULAR HGB CONC 34 g/dL (33-37); MEAN CORPUSCULAR VOLUME 80.1 fL (80-94); MONOCYTES # (AUTO) 0.4 K/uL (0.8-1.0); MONOCYTES % (AUTO) 5.7 % (1.7-9.3); NEUTROPHILS # (AUTO) 3.6 K/uL (1.8-7.7); PLATELET COUNT (AUTO) 265 K/uL (140-450); RED BLOOD CELL COUNT(AUTO) 4.97 MIL/uL (4.20-5.40); RED CELL DISTRIBUTION WIDTH 13.6 % (11.6-13.7); WHITE BLOOD COUNT (AUTO) 7.4 K/uL (4.8-10.8)
--- NOTE | 2020-01-06 06:28 | NUR ---
PT RETURNEDF ROM CT VIA WHEELCHAIR
--- NOTE | 2020-01-06 06:29 | NUR ---
PT RECONNECTED TO IV FLUIDS
[2020-01-06 06:42] LABS: ALBUMIN 4.1 g/dL (3.4-5.0); ANION GAP 16.5 (8-16); CARBON DIOXIDE 24.3 mmol/L (21-32); CREATININE 0.7 mg/dL (0.6-1.3); POTASSIUM 3.8 mmol/L (3.5-5.1); TOTAL BILIRUBIN 0.2 mg/dL (0.0-1.0)
--- NOTE | 2020-01-06 06:54 | NUR ---
PT STATED THAT SHE IN STILL IN 10/10 PAIN, ERMD MADE AWARE.
--- NOTE | 2020-01-06 07:08 | NUR ---
REPORT RECEIVED FROM JOCELYN PATEL. TX OF CARE AT THIS TIME.
--- NOTE | 2020-01-06 07:15 | NUR ---
PT IS CRYING FOR PAIN. DR. INIGUEZ MADE AWARE.
--- NOTE | 2020-01-06 07:16 | NUR ---
DR. INIGUEZ IS EVALUATING PT AT BEDSIDE.
[2020-01-06] MEDS ORDERED: MORPHINE SULFATE 4 MG/ML SYR IVP ONE (07:20)
[2020-01-06 07:57] VITALS: BP 118/91
== END 2020-01-06 07:57 | disposition home or self-care (01) ==
LOC: MED 05:28
DX: R10.2 Pelvic and perineal pain (principal); R03.0 Elevated blood-pressure reading, without diagnosis of hypertension; J45.909 Unspecified asthma, uncomplicated; R56.9 Unspecified convulsions; Z79.899 Other long term (current) drug therapy; Z91.018 Allergy to other foods; Z91.09 Other allergy status, other than to drugs and biological substances
CPT/HCPCS: 36415; 74176; 80053; 81002; 81025; 85025; 87040; 96361; 96374; 96375; 99284; J1885; J2270; J2405; J7030

== ENCOUNTER 2020-01-18 15:01 | Emergency (ER) | payer MEDICAID ==
[~2020-01-18] VITALS: Ht 154.9 cm; Wt 90.7 kg
[2020-01-18 15:18] VITALS: BP 122/88
--- NOTE | 2020-01-18 15:20 | NUR ---
29 YEAR OLD FEMALE COMPLAINS OF NAUSEA, VOMITTING, LOWER ABDOMINAL PAIN, AND HEADACHE X TODAY. PT DENIES BLOOD IN STOOL, PT DENIES DIARRHEA. PT DENIES CP, DENIES SOB. PT AOX4, BREATHING EVEN AND UNLABORED, SKIN WARM AND DRY. BED IN LOWEST POSITION, LOCKED, BED RAIL UPX1. PMH - OVARIAN CYST, HTN, ASTHMA, MIGRAINE ALLERGIES - NKA
[2020-01-18] MEDS ORDERED: ONDANSETRON 4 MG ODT PO ONE (15:50)
[2020-01-18] MEDS ORDERED: HYDROcodone/APAP 5/325 MG 1 TAB TAB PO ONE (15:50)
[2020-01-18 16:03] LABS: APPEARANCE,URINE HAZY (CLEAR); BILIRUBIN,URINE 1+ (NEGATIVE); BLOOD, URINE TRACE-I (NEGATIVE); COLOR,URINE DARK YELLOW (YELLOW); LEUKOCYTE ESTERASE ,URINE NEGATIVE (NEGATIVE); NITRITE, URINE NEGATIVE (NEGATIVE); UGLUCOSE NEGATIVE (NEGATIVE)
[2020-01-18 16:31] LABS: BASOPHILS % (AUTO) 0.6 % (0.0-2.0); EOSINOPHILS % (AUTO) 0.6 % (0.0-4.0); HEMATOCRIT 40.6 % (36-48); HEMOGLOBIN 13.7 g/dL (12.0-16.0); LYMPHOCYTES # (AUTO) 1.7 K/uL (2.5-16.5); MEAN CORPUSCULAR HEMOGLOBIN 27 pg (27-31); MEAN CORPUSCULAR HGB CONC 34 g/dL (33-37); MEAN CORPUSCULAR VOLUME 80.9 fL (80-94); MONOCYTES # (AUTO) 0.4 K/uL (0.8-1.0); MONOCYTES % (AUTO) 5.9 % (1.7-9.3); NEUTROPHILS # (AUTO) 4.3 K/uL (1.8-7.7); NEUTROPHILS % (AUTO) 66.9 % (42.2-75.2); PLATELET COUNT (AUTO) 259 K/uL (140-450); RED BLOOD CELL COUNT(AUTO) 5.01 MIL/uL (4.20-5.40); RED CELL DISTRIBUTION WIDTH 13.5 % (11.6-13.7); WHITE BLOOD COUNT (AUTO) 6.4 K/uL (4.8-10.8)
--- NOTE | 2020-01-18 16:50 | NUR ---
PT ALERT AND AWAKE, BREATHING EVEN AND UNLABORED. PT STATES SHE IS STILL HAVING ABDOMINAL PAIN, ERMD MADE AWARE
[2020-01-18 17:03] LABS: ALBUMIN 4.3 g/dL (3.4-5.0); ANION GAP 15.1 (8-16); CARBON DIOXIDE 25.9 mmol/L (21-32); CREATININE 0.8 mg/dL (0.6-1.3); TOTAL BILIRUBIN 0.3 mg/dL (0.0-1.0)
[2020-01-18] MEDS ORDERED: oxyCODONE/APAP 5/325 MG 1 TAB TAB PO ONE (17:05)
--- NOTE | 2020-01-18 17:55 | NUR ---
Patient discharged with v/s stable. Written and verbal after care instructions about abdominal pain given and explained. Patient alert, oriented and verbalized understanding of instructions. Ambulatory with steady gait. All questions addressed prior to discharge. ID band removed. Patient advised to follow up with PMD. Rx of zofran, miralax, and percocet given. Patient educated on indication of medication including possible reaction and side effects. Opportunity to ask questions provided and answered.
[2020-01-18 17:59] VITALS: BP 129/96
== END 2020-01-18 17:55 | disposition home or self-care (01) ==
LOC: MED 15:01
DX: R10.31 Right lower quadrant pain (principal); R51.9 Headache, unspecified; R11.0 Nausea; J45.909 Unspecified asthma, uncomplicated; I10 Essential (primary) hypertension; G43.909 Migraine, unspecified, not intractable, without status migrainosus; Z79.899 Other long term (current) drug therapy; Z88.8 Allergy status to other drugs, medicaments and biological substances; Z91.018 Allergy to other foods
CPT/HCPCS: 36415; 76856; 80053; 81003; 81025; 85025; 93976; 99284; Q0162

== ENCOUNTER 2020-01-26 02:20 | Emergency (ER) | payer MEDICAID ==
[~2020-01-26] VITALS: Ht 154.9 cm; Wt 90.7 kg
[2020-01-26 02:31] VITALS: BP 137/90
--- NOTE | 2020-01-26 02:31 | NUR ---
TO BED # 12 AMBULATORY
--- NOTE | 2020-01-26 02:47 | NUR ---
PATIENT PRESENTS TO ED WITH LOWER ABD PAIN THAT STARTED TODAY. PT STATES NO PAIN WITH URINATION AND NO HEMATURIA. DENIES N/V/D; SKIN IS PINK/WARM/DRY; AAOX4 WITH EVEN AND STEADY GAIT; LUNGS CLEAR BL; HR EVEN AND REGULAR; PT DENIES ANY FEVER, CP, SOB, OR COUGH AT THIS TIME; PATIENT STATES PAIN OF 6/10 AT THIS TIME; VSS; PATIENT POSITIONED FOR COMFORT; HOB ELEVATED; BEDRAILS UP X2; BED DOWN. ER MD MADE AWARE OF PT STATUS.
[2020-01-26] MEDS ORDERED: MORPHINE SULFATE 4 MG/ML SYR IM ONE ×2 (02:50→04:05)
--- NOTE | 2020-01-26 03:35 | NUR ---
RESTING MORE COMFORTABLY. PAIN RATED 7/10
--- NOTE | 2020-01-26 04:15 | NUR ---
PAIN IS RETURNING, RATED 9/10. MEDICATED ORDERED
[2020-01-26 04:25] VITALS: BP 156/99
== END 2020-01-26 04:25 | disposition home or self-care (01) ==
LOC: MED 02:20
DX: R10.31 Right lower quadrant pain (principal); I10 Essential (primary) hypertension; J45.909 Unspecified asthma, uncomplicated; R56.9 Unspecified convulsions; Z79.899 Other long term (current) drug therapy; Z98.890 Other specified postprocedural states; Z90.49 Acquired absence of other specified parts of digestive tract; Z90.721 Acquired absence of ovaries, unilateral
CPT/HCPCS: 81002; 96372; 99284; J2270

== ENCOUNTER 2020-02-25 07:48 | Emergency (ER) | payer MEDICAID ==
[~2020-02-25] VITALS: Ht 154.9 cm; Wt 93.9 kg
[2020-02-25 07:54] VITALS: BP 154/101
--- NOTE | 2020-02-25 08:01 | NUR ---
TENT1
--- NOTE | 2020-02-25 08:04 | NUR ---
29 y/o female from home c/o LLQ abd pain x 4 days. Denies N/V/D. Pt states she tested + for covid approx 2 wks ago. Father and sister covid + in the home. Mild tenderness to palpation. Skin warm, dry, intact. Bowel sounds present. VSS medhx: asthma, HTN
[2020-02-25] MEDS ORDERED: MORPHINE SULFATE 4 MG/ML SYR IM ONE (08:20)
[2020-02-25 08:29] VITALS: BP 146/99
--- NOTE | 2020-02-25 08:29 | NUR ---
Patient discharged with v/s stable. Written and verbal after care instructions given and explained. Patient alert, oriented and verbalized understanding of instructions. Ambulatory with steady gait. All questions addressed prior to discharge. ID band removed. Patient advised to follow up with PMD. Rx of Motrin 800mg and [place] 5mg-325mg given. Patient educated on indication of medication including possible reaction and side effects. Opportunity to ask questions provided and answered.
== END 2020-02-25 08:29 | disposition home or self-care (01) ==
LOC: MED 07:48
DX: R10.32 Left lower quadrant pain (principal); J45.909 Unspecified asthma, uncomplicated; I10 Essential (primary) hypertension; Z91.018 Allergy to other foods; Z79.899 Other long term (current) drug therapy; Z98.890 Other specified postprocedural states
CPT/HCPCS: 81002; 81025; 96372; 99283; J2270

== ENCOUNTER 2020-03-01 08:54 | Emergency (ER) | payer MEDICAID ==
[~2020-03-01] VITALS: Ht 154.9 cm; Wt 93.9 kg
[2020-03-01 09:15] VITALS: BP 128/90
--- NOTE | 2020-03-01 09:18 | NUR ---
TO LOBBY A/W BED AMBULATORY
--- NOTE | 2020-03-01 10:40 | NUR ---
SEEN AND EXAMINED BY DB WITH ORDERS AND CARRIED OUT
[2020-03-01] MEDS ORDERED: KETOROLAC 30 MG/ML VIAL IM/IVP ONE (10:50)
[2020-03-01 11:04] LABS: BASOPHILS % (AUTO) 0.6 % (0.0-2.0); EOSINOPHILS # (AUTO) 0.1 K/uL (0-0.4); EOSINOPHILS % (AUTO) 1.6 % (0.0-4.0); HEMATOCRIT 38.6 % (36-48); HEMOGLOBIN 13.2 g/dL (12.0-16.0); LYMPHOCYTES # (AUTO) 2.2 K/uL (2.5-16.5); LYMPHOCYTES % (AUTO) 32.2 % (20.5-51.1); MEAN CORPUSCULAR HEMOGLOBIN 27 pg (27-31); MEAN CORPUSCULAR HGB CONC 34 g/dL (33-37); MEAN CORPUSCULAR VOLUME 78.9 fL (80-94); MONOCYTES # (AUTO) 0.5 K/uL (0.8-1.0); NEUTROPHILS # (AUTO) 4.1 K/uL (1.8-7.7); NEUTROPHILS % (AUTO) 58.6 % (42.2-75.2); PLATELET COUNT (AUTO) 278 K/uL (140-450); RED BLOOD CELL COUNT(AUTO) 4.89 MIL/uL (4.20-5.40); RED CELL DISTRIBUTION WIDTH 13.4 % (11.6-13.7)
[2020-03-01 11:22] LABS: BILIRUBIN,DIRECT 0.1 mg/dL (0.0-0.3); TOTAL BILIRUBIN 0.4 mg/dL (0.0-1.0)
--- NOTE | 2020-03-01 11:29 | NUR ---
Patient refusing CT requesting and ultrasound instead. Dr Nunez made aware
[2020-03-01 13:32] LABS: ANION GAP 13.3 (8-16); CARBON DIOXIDE 26.3 mmol/L (21-32); CREATININE 0.8 mg/dL (0.6-1.3); POTASSIUM 3.6 mmol/L (3.5-5.1)
[2020-03-01] MEDS ORDERED: HYDROcodone/APAP 5/325 MG 1 TAB TAB PO ONE (16:10)
[2020-03-01 16:15] VITALS: BP 120/87
== END 2020-03-01 16:15 | disposition home or self-care (01) ==
LOC: MED 08:54
DX: D25.9 Leiomyoma of uterus, unspecified (principal)
CPT/HCPCS: 36415; 74176; 76830; 80048; 80076; 81002; 81025; 83690; 85025; 96372; 99285; J1885

== ENCOUNTER 2020-03-14 10:38 | Emergency (ER) | payer MEDICAID ==
[~2020-03-14] VITALS: Ht 154.9 cm; Wt 91.6 kg
[2020-03-14 10:54] VITALS: BP 183/80
--- NOTE | 2020-03-14 10:55 | NUR ---
Patient ambulated to bed 6. RN evaluating the patient at bedside.
[2020-03-14] MEDS ORDERED: NACL 0.9% 500 ML IV ONE (11:10)
[2020-03-14] MEDS ORDERED: MORPHINE SULFATE 2 MG/ML SYR IVP ONE (11:10)
--- NOTE | 2020-03-14 12:30 | NUR ---
US tech at bedside for exam.
[2020-03-14] MEDS ORDERED: KETOROLAC 30 MG/ML VIAL IVP ONE (14:40)
[2020-03-14 14:56] VITALS: BP 142/78
--- NOTE | 2020-03-14 14:57 | NUR ---
cleared for d/c by DR Alonzo; d/c with prescription & instructions on Pelvic Pain; pt fully understands all materials given re c/; has no further questions; aox4; VSS; ambulatory with steady gait; no signs of acute distress
--- NOTE | 2020-03-16 17:38 | NUR ---
LATE ENTRY -- NS INFUSION COMPLETED AT 1234 03/14/20
== END 2020-03-14 14:57 | disposition home or self-care (01) ==
LOC: MED 10:38
DX: R10.2 Pelvic and perineal pain (principal); J45.909 Unspecified asthma, uncomplicated; I10 Essential (primary) hypertension; Z91.018 Allergy to other foods; Z91.048 Other nonmedicinal substance allergy status
CPT/HCPCS: 74018; 76856; 81002; 81025; 96361; 96374; 96375; 99284; J1885; J2270; J7030

== ENCOUNTER 2020-03-21 06:54 | Emergency (ER) | payer MEDICAID ==
[~2020-03-21] VITALS: Ht 154.9 cm; Wt 90.7 kg
[2020-03-21 06:59] VITALS: BP 140/98
[2020-03-21 07:40] VITALS: BP 169/69
== END 2020-03-21 07:40 | disposition home or self-care (01) ==
LOC: MED 06:54
DX: G89.29 Other chronic pain (principal); R10.9 Unspecified abdominal pain; I10 Essential (primary) hypertension; J45.909 Unspecified asthma, uncomplicated; Z91.018 Allergy to other foods
CPT/HCPCS: 99281

== ENCOUNTER 2020-04-22 00:15 | Emergency (ER) | payer MEDICAID ==
[~2020-04-22] VITALS: Ht 154.9 cm; Wt 93.9 kg
[2020-04-22 00:21] VITALS: BP 140/80
--- NOTE | 2020-04-22 00:21 | NUR ---
TO BED AMBULATORY
--- NOTE | 2020-04-22 00:30 | NUR ---
PATIENT PRESENTS TO ED WITH C/O ABDOMINAL PAIN, CHRONIC . PT STATES I HAVE FIBROIDS . DENIES N/V/D; SKIN IS PINK/WARM/DRY; AAOX4,ISVERY TEARFUL WITH EVEN AND STEADY GAIT; LUNGS CLEAR BL; HR EVEN AND REGULAR; PT DENIES ANY FEVER, CP, SOB, OR COUGH AT THIS TIME; VSS; PATIENT POSITIONED FOR COMFORT; HOB ELEVATED; BEDRAILS UP X2; BED DOWN. ER MD MADE AWARE OF PT STATUS.
--- NOTE | 2020-04-22 00:57 | NUR ---
Dr. Alonzo examining patient.
[2020-04-22] MEDS ORDERED: MORPHINE SULFATE 2 MG/ML SYR IM ONE (01:00)
--- NOTE | 2020-04-22 01:20 | NUR ---
TO BE DISCHARGE. SLIGHT RELIEF FROM PAIN WITH EARLIER PAIN MEDICATION
[2020-04-22 01:25] VITALS: BP 140/80
== END 2020-04-22 01:25 | disposition home or self-care (01) ==
LOC: MED 00:15
DX: G89.29 Other chronic pain (principal); R10.9 Unspecified abdominal pain; F11.10 Opioid abuse, uncomplicated; J45.909 Unspecified asthma, uncomplicated; I10 Essential (primary) hypertension; Z91.018 Allergy to other foods; Z79.899 Other long term (current) drug therapy
CPT/HCPCS: 96372; 99283; J2270

== ENCOUNTER 2020-05-05 19:27 | Emergency (ER) | payer MEDICAID ==
[~2020-05-05] VITALS: Ht 154.9 cm; Wt 94.8 kg
[2020-05-05 19:31] VITALS: BP 144/93
--- NOTE | 2020-05-05 19:38 | NUR ---
PT AMBULATORY TO BED 07, STEADY GAIT
--- NOTE | 2020-05-05 19:47 | NUR ---
29 Y/O FEMALE BIB SELF FOR C/O ABD PAIN AND INSOMNIA. PT STATES 10/10 SHARP RLQ PAIN. + NAUSEA. PT STATES SHE HAS BEEN UNABLE TO SLEEP FOR X2DAYS. MEDHX: ASTHMA, HTN, BIPOLAR RX: IBUPROFEN 800MG ALLERGIES: CHICKEN, POLLEN
--- NOTE | 2020-05-05 19:54 | NUR ---
Dr. Love examining patient.
[2020-05-05] MEDS ORDERED: MORPHINE SULFATE 4 MG/ML SYR IVP ONE (20:20)
--- NOTE | 2020-05-05 21:03 | NUR ---
ULTRASOUND AT BEDSIDE
[2020-05-05 22:12] LABS: BASOPHILS % (AUTO) 0.8 % (0.0-2.0); EOSINOPHILS # (AUTO) 0.1 K/uL (0-0.4); EOSINOPHILS % (AUTO) 1.2 % (0.0-4.0); HEMATOCRIT 43.4 % (36-48); HEMOGLOBIN 14.5 g/dL (12.0-16.0); LYMPHOCYTES # (AUTO) 2.2 K/uL (2.5-16.5); LYMPHOCYTES % (AUTO) 36.2 % (20.5-51.1); MEAN CORPUSCULAR HEMOGLOBIN 27 pg (27-31); MEAN CORPUSCULAR HGB CONC 33 g/dL (33-37); MEAN CORPUSCULAR VOLUME 79.9 fL (80-94); MONOCYTES # (AUTO) 0.4 K/uL (0.8-1.0); MONOCYTES % (AUTO) 7.2 % (1.7-9.3); NEUTROPHILS # (AUTO) 3.4 K/uL (1.8-7.7); NEUTROPHILS % (AUTO) 54.6 % (42.2-75.2); PLATELET COUNT (AUTO) 305 K/uL (140-450); RED BLOOD CELL COUNT(AUTO) 5.43 MIL/uL (4.20-5.40); RED CELL DISTRIBUTION WIDTH 13.8 % (11.6-13.7); WHITE BLOOD COUNT (AUTO) 6.2 K/uL (4.8-10.8)
[2020-05-05 22:53] LABS: APPEARANCE,URINE HAZY (CLEAR); BILIRUBIN,URINE NEGATIVE (NEGATIVE); BLOOD, URINE 3+ (NEGATIVE); COLOR,URINE YELLOW (YELLOW); LEUKOCYTE ESTERASE ,URINE NEGATIVE (NEGATIVE); NITRITE, URINE NEGATIVE (NEGATIVE); UGLUCOSE NEGATIVE (NEGATIVE)
--- NOTE | 2020-05-05 22:53 | NUR ---
PT TAKEN TO CT SCAN VIA W/C
[2020-05-05 23:00] LABS: RBC,URINE 11-20 (MOD) /HPF (0-5); WBC,URINE 0-5 /HPF (0-5)
[2020-05-05 23:15] LABS: ALBUMIN 4.4 g/dL (3.4-5.0); ANION GAP 12.2 (8-16); CREATININE 0.8 mg/dL (0.6-1.3); POTASSIUM 4.2 mmol/L (3.5-5.1); TOTAL BILIRUBIN 0.1 mg/dL (0.0-1.0)
--- NOTE | 2020-05-05 23:20 | NUR ---
PT REQUESTED FOR FOOD; JE AND HARRIET GIVEN Addendum: 05/05/20 at 2321 by KEREN MAX BALTAZAR PER DR. SALGUERO
[2020-05-05] MEDS ORDERED: MIRABULK PO (23:25)
[2020-05-05] MEDS ORDERED: ZOLP5TAB1 PO (23:26)
[2020-05-05] MEDS ORDERED: CEPH500C16 PO (23:30)
[2020-05-06 00:13] VITALS: BP 130/90
--- NOTE | 2020-05-06 00:13 | NUR ---
Patient discharged with v/s stable. Written and verbal after care instructions given and explained. Patient alert, oriented and verbalized understanding of instructions. Ambulatory with steady gait. All questions addressed prior to discharge. ID band removed. Patient advised to follow up with PMD. Rx of KEFLEX, MIRALAX, AND AMBIEN given. Patient educated on indication of medication including possible reaction and side effects. Opportunity to ask questions provided and answered.
== END 2020-05-06 00:13 | disposition home or self-care (01) ==
LOC: MED 19:27
DX: K76.89 Other specified diseases of liver (principal)
CPT/HCPCS: 36415; 74177; 76856; 80053; 81001; 81025; 83690; 85025; 87086; 93976; 96374; 99285; J2270; Q9967

== ENCOUNTER 2020-06-10 19:37 | Emergency (ER) | payer MEDICAID ==
[~2020-06-10] VITALS: Ht 154.9 cm; Wt 93.9 kg
[~2020-06-10 19:37] MED LIST changes: +CEPH500C16 PO; +MIRABULK PO; +ZOLP5TAB1 PO
[2020-06-10 19:44] VITALS: BP 137/90
[2020-06-10] MEDS ORDERED: NACL 0.9% 1,000 ML IV ONE (20:30)
[2020-06-10] MEDS ORDERED: ONDANSETRON 4 MG/2 ML VIAL IVP ONE (20:30)
[2020-06-10] MEDS ORDERED: MORPHINE SULFATE 4 MG/ML SYR IVP ONE (20:30)
[2020-06-10] MEDS ORDERED: HYDR-4924 PO (22:48)
[2020-06-10 23:07] VITALS: BP 123/74
== END 2020-06-10 23:05 | disposition home or self-care (01) ==
LOC: MED 19:37
DX: D25.9 Leiomyoma of uterus, unspecified (principal); J45.909 Unspecified asthma, uncomplicated; I10 Essential (primary) hypertension; Z91.018 Allergy to other foods; Z79.899 Other long term (current) drug therapy
CPT/HCPCS: 76856; 93976; 96361; 96374; 96375; 99284; J2270; J2405; J7030

== ENCOUNTER 2020-07-03 20:37 | Emergency (ER) | payer MEDICAID ==
[~2020-07-03] VITALS: Ht 154.9 cm; Wt 96.2 kg
[~2020-07-03 20:37] MED LIST changes: +ACYC400T1 PO; +ALBU0.0912 INH; +HYDR-4924 PO; +NAPR-54 PO
[2020-07-03 20:56] VITALS: BP 145/100
--- NOTE | 2020-07-03 20:56 | NUR ---
TO BED AMBULATORY
--- NOTE | 2020-07-03 21:10 | NUR ---
29/F BIB SELF C/O LOWER ABDOMINAL AND VAGINAL PAIN 10/10 X2 DAYS. PT DESCRIBES PAIN CRAMPING/THROBBING. PT DENIES ANY N/V/D, PAINFUL URINATION. LMP WAS LAST YEAR. PT AOX4, AMBULATORY, ABLE TO MAKE NEEDS KNOWN. SAFETY MEASURES IN PLACE, WILL CONTINUE TO MONITOR. PMH: OVARIAN CYSTS, FIBROSIS, ASTHMA ALLERGY: CHICKEN, POLLEN EXTRACTS
[2020-07-03] MEDS ORDERED: ONDANSETRON 4 MG ODT PO ONE (22:00)
[2020-07-03] MEDS ORDERED: MORPHINE SULFATE 4 MG/ML SYR IM ONE (22:00)
[2020-07-03] MEDS ORDERED: KETOROLAC 15 MG/ML VIAL IM ONE (22:00)
[2020-07-03 22:08] LABS: APPEARANCE,URINE CLEAR (CLEAR); BILIRUBIN,URINE NEGATIVE (NEGATIVE); BLOOD, URINE NEGATIVE (NEGATIVE); COLOR,URINE YELLOW (YELLOW); LEUKOCYTE ESTERASE ,URINE NEGATIVE (NEGATIVE); NITRITE, URINE NEGATIVE (NEGATIVE); PH,URINE 6.5 (5.0-9.0); UGLUCOSE NEGATIVE (NEGATIVE)
--- NOTE | 2020-07-03 23:15 | NUR ---
URINE SENT TO LAB
[2020-07-03] MEDS ORDERED: METR-435 PO (23:20)
[2020-07-03] MEDS ORDERED: ACET-9527 PO (23:20)
[2020-07-03 23:40] VITALS: BP 145/100
--- NOTE | 2020-07-03 23:40 | NUR ---
Patient discharged with v/s stable. Written and verbal after care instructions given and explained. Patient alert, oriented and verbalized understanding of instructions. Ambulatory with steady gait. All questions addressed prior to discharge. ID band removed. Patient advised to follow up with PMD. Rx of NORCO, METRONIDAZOLE given. Patient educated on indication of medication including possible reaction and side effects. Opportunity to ask questions provided and answered.
== END 2020-07-03 23:40 | disposition home or self-care (01) ==
LOC: MED 20:37
DX: N76.0 Acute vaginitis (principal); G89.29 Other chronic pain; R10.2 Pelvic and perineal pain; J45.909 Unspecified asthma, uncomplicated; I10 Essential (primary) hypertension; Z91.013 Allergy to seafood
CPT/HCPCS: 81003; 81025; 87086; 87210; 96372; 99284; J1885; J2270; Q0162

== ENCOUNTER 2020-07-20 23:47 | Emergency (ER) | payer MEDICAID ==
[~2020-07-20] VITALS: Ht 154.9 cm; Wt 96.2 kg
[~2020-07-20 23:47] MED LIST changes: +ACET-9527 PO; +METR-435 PO
[2020-07-20 23:51] VITALS: BP 155/112
[2020-07-21] MEDS ORDERED: PANTOPRAZOLE 40 MG TABEC PO ONE (01:05)
[2020-07-21] MEDS ORDERED: PANT40EC PO (01:07)
[2020-07-21] MEDS ORDERED: ONDANSETRON 4 MG ODT PO ONE (01:30)
[2020-07-21] MEDS ORDERED: MORPHINE SULFATE 2 MG/ML SYR IM ONE (01:30)
[2020-07-21 02:00] VITALS: BP 150/90
== END 2020-07-21 02:00 | disposition home or self-care (01) ==
LOC: MED 23:47
DX: K92.2 Gastrointestinal hemorrhage, unspecified (principal); R11.2 Nausea with vomiting, unspecified; J45.909 Unspecified asthma, uncomplicated; I10 Essential (primary) hypertension; Z88.8 Allergy status to other drugs, medicaments and biological substances; Z91.018 Allergy to other foods; Z79.899 Other long term (current) drug therapy
CPT/HCPCS: 74018; 81002; 81025; 96372; 99283; J2270; Q0162

== ENCOUNTER 2020-07-23 12:45 | Emergency (ER) | payer MEDICAID ==
[~2020-07-23] VITALS: Ht 154.9 cm; Wt 96.2 kg
[~2020-07-23 12:45] MED LIST changes: +PANT40EC PO
[2020-07-23 13:00] VITALS: BP 156/95
--- NOTE | 2020-07-23 13:04 | NUR ---
PT AMBULATED TO BED 09.
--- NOTE | 2020-07-23 13:10 | NUR ---
29 y/o F brought in from home with c/c abdominal pain and rectal bleeding x 2 days. Patient A&Ox4, ambulatory and states 10 RLQ pain, cramping/constant, non-radiating that worsens when sitting. Patient states she has been having this pain for a few months; recently seen here two days ago for rectal bleeding. Patient took Naproxen, Ibuprofen, and prescribed pantoprazole without relief. Pt denies N/V/D, fever, chills, back pain. Last BM today; normal semi formed. Pt placed into a gown and radiation monitor. Bed locked in lowest position, side rails x1, call light in reach. PMH: Asthma, HTN Meds: Amlodipine Allergies: Chicken food, pollen Sx: L ovary mass removal, cholecystectomy,
[2020-07-23] MEDS: MORPHINE SULFATE 4 MG/ML SYR IVP ONE (13:37)
[2020-07-23] MEDS: NACL 0.9% 1,000 ML IV ONE (13:38)
[2020-07-23 13:44] LABS: BASOPHILS % (AUTO) 0.6 % (0.0-2.0); EOSINOPHILS # (AUTO) 0.1 K/uL (0-0.4); EOSINOPHILS % (AUTO) 1.7 % (0.0-4.0); HEMOGLOBIN 13.6 g/dL (12.0-16.0); LYMPHOCYTES # (AUTO) 3.3 K/uL (2.5-16.5); LYMPHOCYTES % (AUTO) 44.9 % (20.5-51.1); MEAN CORPUSCULAR HEMOGLOBIN 27 pg (27-31); MEAN CORPUSCULAR HGB CONC 34 g/dL (33-37); MEAN CORPUSCULAR VOLUME 79.7 fL (80-94); MONOCYTES # (AUTO) 0.5 K/uL (0.8-1.0); MONOCYTES % (AUTO) 6.4 % (1.7-9.3); NEUTROPHILS # (AUTO) 3.4 K/uL (1.8-7.7); NEUTROPHILS % (AUTO) 46.4 % (42.2-75.2); PLATELET COUNT (AUTO) 281 K/uL (140-450); RED BLOOD CELL COUNT(AUTO) 5.02 MIL/uL (4.20-5.40); WHITE BLOOD COUNT (AUTO) 7.3 K/uL (4.8-10.8)
[2020-07-23 14:02] LABS: ALBUMIN 4.2 g/dL (3.4-5.0); ANION GAP 9.9 (8-16); CARBON DIOXIDE 29.7 mmol/L (21-32); CREATININE 0.7 mg/dL (0.6-1.3); POTASSIUM 3.6 mmol/L (3.5-5.1); TOTAL BILIRUBIN 0.4 mg/dL (0.0-1.0)
--- NOTE | 2020-07-23 14:05 | NUR ---
Patient ambulated to restroom for urine sample.
--- NOTE | 2020-07-23 14:27 | NUR ---
Pt transported to CT via rney.
[2020-07-23 14:50] LABS: APPEARANCE,URINE CLEAR (CLEAR); BILIRUBIN,URINE NEGATIVE (NEGATIVE); BLOOD, URINE TRACE-I (NEGATIVE); COLOR,URINE YELLOW (YELLOW); LEUKOCYTE ESTERASE ,URINE NEGATIVE (NEGATIVE); NITRITE, URINE NEGATIVE (NEGATIVE); PH,URINE 6.5 (5.0-9.0); UGLUCOSE NEGATIVE (NEGATIVE)
--- NOTE | 2020-07-23 14:55 | NUR ---
Patient returned from CT via [facility].
[2020-07-23 15:02] LABS: RBC,URINE 0-5 /HPF (0-5); WBC,URINE 0-5 /HPF (0-5)
[2020-07-23] MEDS: KETOROLAC 15 MG/ML VIAL IVP ONE (15:11)
--- NOTE | 2020-07-23 15:15 | NUR ---
Dr. Hdz is reevaluating patient at bedside.
[2020-07-23] MEDS ORDERED: SULF-59 PO (15:24)
[2020-07-23] MEDS ORDERED: ACET-9527 PO (15:24)
--- NOTE | 2020-07-23 15:35 | NUR ---
Patient states positive relief after Toradol 15mg IVP; rates pain 8/10. No nausea at this time.
--- NOTE | 2020-07-23 15:55 | NUR ---
Patient discharged with v/s stable. Written and verbal after care instructions about UTI, abdominal pain given and explained. Patient alert, oriented and verbalized understanding of instructions. Ambulatory with steady gait. All questions addressed prior to discharge. ID band removed. Patient advised to follow up with PMD. Rx of bactrim, norco given. Patient educated on indication of medication including possible reaction and side effects. Opportunity to ask questions provided and answered.
[2020-07-23 15:58] VITALS: BP 156/95
== END 2020-07-23 15:55 | disposition home or self-care (01) ==
LOC: MED 12:45
DX: N39.0 Urinary tract infection, site not specified (principal); K64.9 Unspecified hemorrhoids; J45.909 Unspecified asthma, uncomplicated; I10 Essential (primary) hypertension; Z91.018 Allergy to other foods
CPT/HCPCS: 36415; 74176; 80053; 81001; 81025; 83690; 85025; 96361; 96374; 96375; 99284; J1885; J2270; J7030

== ENCOUNTER 2020-08-03 21:07 | Emergency (ER) | payer MEDICAID ==
[~2020-08-03] VITALS: Ht 154.9 cm; Wt 96.2 kg
[~2020-08-03 21:07] MED LIST changes: +SULF-59 PO
[2020-08-03 21:15] VITALS: BP 158/98
--- NOTE | 2020-08-03 21:20 | NUR ---
PT W/C ASSISTED TO BED #9
[2020-08-03 21:28] VITALS: BP 158/98
--- NOTE | 2020-08-03 21:29 | NUR ---
29 y/o female bib self c/o of pelvic pain x 1 day. Pain is a 10/10 acute, sharp; nonradiating pain. A/ox4 GCS 15; Respirations are labored; breathsounds clear; GI-Denies n/v-soft nondistended abdomen. -denies any dysuria; no bleeding; Skin is intact. Musculoskeletal- anterior pelvic pain note and tenderness upon touch; amb with assistance-ERMD made aware. Bed placed on lowest setting; side railx1. Pmh: Asthma; HTN; ovarian cyst/ fibroids GTPAL-1,1,0,0,1
[2020-08-03] MEDS ORDERED: ACETAMINOPHEN EXTRA STRENGTH 500 MG TAB ONE (21:58)
--- NOTE | 2020-08-03 22:39 | NUR ---
Patient still c/o of pain. Pain is still a 10/10. ERMD made aware
[2020-08-03] MEDS ORDERED: ACETAMINOPHEN EXTRA STRENGTH 500 MG TAB PO ONE (22:45)
[2020-08-03] MEDS ORDERED: diphenhydrAMINE 50 MG/ML VIAL IM ONE (23:30)
[2020-08-03] MEDS ORDERED: KETOROLAC 60 MG/2 ML VIAL IM ONE (23:30)
--- NOTE | 2020-08-03 23:30 | NUR ---
ERMD at bedside evaluating
--- NOTE | 2020-08-03 23:50 | NUR ---
Sariah mejia in ED - 08/04/20 at 0203 by SPENCER Patient refused labs. DB aware.
--- NOTE | 2020-08-03 23:57 | NUR ---
Patient refused pelvic ultrasound. ANDREAD made aware.
[2020-08-04 00:11] LABS: APPEARANCE,URINE CLEAR (CLEAR); BILIRUBIN,URINE NEGATIVE (NEGATIVE); BLOOD, URINE NEGATIVE (NEGATIVE); COLOR,URINE YELLOW (YELLOW); LEUKOCYTE ESTERASE ,URINE NEGATIVE (NEGATIVE); NITRITE, URINE NEGATIVE (NEGATIVE); UGLUCOSE NEGATIVE (NEGATIVE)
[2020-08-04 00:26] LABS: BARBITURATE, URINE NEGATIVE ng/ml (NEG <=200); BENZODIAZEPINE, URINE NEGATIVE ng/mL (NEG <=200); CANNABINOID, URINE NEGATIVE ng/mL (NEG <=50); COCAINE, URINE NEGATIVE ng/mL (NEG <=300); OPIATE, URINE NEGATIVE ng/mL (NEG <=2000); PHENCYCLIDINE SCREEN,URINE NEGATIVE ng/mL (NEG <=25)
--- NOTE | 2020-08-04 00:51 | NUR ---
Patient refused lab work. ERMD aware
--- NOTE | 2020-08-04 01:40 | NUR ---
Sariah mejia in [facility] - 08/04/20 at 0206 by SPENCER Patient narendra holland
--- NOTE | 2020-08-04 01:40 | NUR ---
Patient refused going to CT. made aware.
--- NOTE | 2020-08-04 01:50 | NUR ---
PATIENT ELOPED FROM FACILITY. DISCHARGE INSTRUCTIONS NOT GIVEN TO PATIENT. DR. Jama NOTIFIED.
--- NOTE | 2020-08-04 01:50 | NUR ---
Patient eloped. ERMD aware
== END 2020-08-04 01:50 | disposition left against medical advice (07) ==
LOC: MED 21:07
DX: G89.29 Other chronic pain (principal); R10.31 Right lower quadrant pain; J45.909 Unspecified asthma, uncomplicated; I10 Essential (primary) hypertension; Z91.018 Allergy to other foods; Z79.899 Other long term (current) drug therapy
CPT/HCPCS: 80305; 81003; 81025; 96372; 99283; J1885; J1200

== ENCOUNTER 2020-08-10 12:14 | Emergency (ER) | payer MEDICAID ==
[~2020-08-10] VITALS: Ht 154.9 cm; Wt 99.3 kg
[2020-08-10 12:41] VITALS: BP 137/103
--- NOTE | 2020-08-10 14:25 | NUR ---
LABS WERE DRAWN IN TRIAGE BY JOÃO PHLEB.
[2020-08-10 14:41] LABS: BASOPHILS % (AUTO) 0.5 % (0.0-2.0); EOSINOPHILS # (AUTO) 0.1 K/uL (0-0.4); EOSINOPHILS % (AUTO) 1.8 % (0.0-4.0); HEMATOCRIT 38.8 % (36-48); LYMPHOCYTES # (AUTO) 1.9 K/uL (2.5-16.5); LYMPHOCYTES % (AUTO) 32.5 % (20.5-51.1); MEAN CORPUSCULAR HEMOGLOBIN 27 pg (27-31); MEAN CORPUSCULAR HGB CONC 33 g/dL (33-37); MEAN CORPUSCULAR VOLUME 81.6 fL (80-94); MONOCYTES # (AUTO) 0.5 K/uL (0.8-1.0); MONOCYTES % (AUTO) 8.3 % (1.7-9.3); NEUTROPHILS # (AUTO) 3.4 K/uL (1.8-7.7); NEUTROPHILS % (AUTO) 56.9 % (42.2-75.2); PLATELET COUNT (AUTO) 280 K/uL (140-450); RED BLOOD CELL COUNT(AUTO) 4.76 MIL/uL (4.20-5.40); RED CELL DISTRIBUTION WIDTH 14.3 % (11.6-13.7); WHITE BLOOD COUNT (AUTO) 5.9 K/uL (4.8-10.8)
[2020-08-10 14:57] LABS: ANION GAP 12.9 (8-16); CARBON DIOXIDE 28.6 mmol/L (21-32); CREATININE 0.9 mg/dL (0.6-1.3); POTASSIUM 4.5 mmol/L (3.5-5.1); TOTAL BILIRUBIN 0.2 mg/dL (0.0-1.0)
[2020-08-10] MEDS ORDERED: MORPHINE SULFATE 4 MG/ML SYR IVP ONE (15:10)
[2020-08-10] MEDS ORDERED: ONDANSETRON 4 MG/2 ML VIAL IVP ONE (15:10)
[2020-08-10] MEDS ORDERED: ONDANSETRON 4 MG/2 ML VIAL ONE (15:14)
[2020-08-10] MEDS ORDERED: MORPHINE SULFATE 4 MG/ML SYR ONE (15:15)
--- NOTE | 2020-08-10 15:20 | NUR ---
US AT BEDSIDE
--- NOTE | 2020-08-10 16:11 | NUR ---
MOTHER CALLED FOR UPDATE, WAITING ON RESULTS FOR US AND LABS.
[2020-08-10] MEDS ORDERED: HYDROcodone/APAP 5/325 MG 1 TAB TAB PO ONE (16:35)
[2020-08-10] MEDS ORDERED: ACET-8386 PO (17:09)
[2020-08-10 17:24] VITALS: BP 131/86
--- NOTE | 2020-08-10 17:24 | NUR ---
IV removed, catheter intact and site benign. Applied folded 4x4 gauze and tape to stop bleeding.
== END 2020-08-10 17:20 | disposition home or self-care (01) ==
LOC: MED 12:14
DX: R10.31 Right lower quadrant pain (principal); J45.909 Unspecified asthma, uncomplicated; I10 Essential (primary) hypertension; Z91.018 Allergy to other foods; Z79.899 Other long term (current) drug therapy
CPT/HCPCS: 36415; 76856; 80053; 81002; 81025; 83690; 85025; 96374; 96375; 99284; J2270; J2405

== ENCOUNTER 2020-08-25 | Emergency (ER) | payer MEDICAID ==
[~2020-08-25] VITALS: Ht 154.9 cm; Wt 98.0 kg
[~2020-08-25] MED LIST changes: +ACET-8386 PO; +ACYC-276 PO; -ACYC400T1 PO
[2020-08-25 00:06] VITALS: BP 132/107
[2020-08-25] MEDS ORDERED: HYDROcodone/APAP 5/325 MG 1 TAB TAB PO ONE ×2 (00:50→04:25)
[2020-08-25] MEDS ORDERED: KETOROLAC 30 MG/ML VIAL IM ONE (00:50)
[2020-08-25 01:52] LABS: APPEARANCE,URINE CLEAR (CLEAR); BILIRUBIN,URINE NEGATIVE (NEGATIVE); BLOOD, URINE TRACE-I (NEGATIVE); COLOR,URINE YELLOW (YELLOW); LEUKOCYTE ESTERASE ,URINE NEGATIVE (NEGATIVE); NITRITE, URINE NEGATIVE (NEGATIVE); PH,URINE 5.5 (5.0-9.0); UGLUCOSE NEGATIVE (NEGATIVE)
[2020-08-25] MEDS ORDERED: METR500T1 PO (04:21)
[2020-08-25] MEDS ORDERED: IBUP-2213 PO (04:21)
[2020-08-25] MEDS ORDERED: FAMO20TA99 PO (04:21)
[2020-08-25] MEDS ORDERED: HYDROcodone/APAP 5/325 MG 1 TAB TAB ONE (04:24)
[2020-08-25 04:40] VITALS: BP 128/84
== END 2020-08-25 04:40 | disposition home or self-care (01) ==
LOC: MED
DX: N76.0 Acute vaginitis (principal)
CPT/HCPCS: 36415; 76830; 81003; 81025; 87210; 87491; 96372; 99284; J1885

== ENCOUNTER 2020-08-30 14:49 | Emergency (ER) | payer MEDICAID ==
[~2020-08-30] VITALS: Ht 152.4 cm; Wt 98.4 kg
[~2020-08-30 14:49] MED LIST changes: +FAMO20TA99 PO; +IBUP-2213 PO; +METR500T1 PO
[2020-08-30 15:08] VITALS: BP 145/93
--- NOTE | 2020-08-30 15:14 | NUR ---
PT AMBULATED TO RESTROOM FOR URINE SAMPLE THEN ASKED TO WAIT IN LOBBY
--- NOTE | 2020-08-30 15:37 | NUR ---
29 Y/O FEMALE C/O LOWER ABDOMINAL/PELVIC PAIN ALONG WITH LOWER BACK PAIN SINCE LAST NIGHT. PT WAS SEEN HERE 08/25 WITH DX OF BACTERIAL VAGINOSIS AND WAS PRESCRICED ABX. PT STILL TAKING THEM. PT STATES PAIN AND SYMPTOMS HAS WORSENED AND NOW HAS CHILLS AND MIGRAINE. PT STATES SHE IS EXPERINCING BROWN DISCHARGE, LIGHTHEADNESS, CHILLS, AND STATES "SHE FEELS DEHYDRATED." PMH:ASTHMA, OVARIAN CYSTS, HTN, UTERINE FIBROIDS NKDA
--- NOTE | 2020-08-30 15:37 | NUR ---
PT AMBULATED TO BEDSIDE
[2020-08-30] MEDS ORDERED: KETOROLAC 30 MG/ML VIAL ONE (16:48)
[2020-08-30] MEDS ORDERED: KETOROLAC 30 MG/ML VIAL IM ONE (16:50)
--- NOTE | 2020-08-30 16:54 | NUR ---
LAB BEDSIDE WITH PATIENT
[2020-08-30 17:00] LABS: APPEARANCE,URINE CLEAR (CLEAR); BILIRUBIN,URINE NEGATIVE (NEGATIVE); BLOOD, URINE 2+ (NEGATIVE); COLOR,URINE YELLOW (YELLOW); LEUKOCYTE ESTERASE ,URINE NEGATIVE (NEGATIVE); NITRITE, URINE NEGATIVE (NEGATIVE); UGLUCOSE NEGATIVE (NEGATIVE)
[2020-08-30 17:03] LABS: BASOPHILS # (AUTO) 0.1 K/uL (0.00-0.22); BASOPHILS % (AUTO) 0.8 % (0.0-2.0); EOSINOPHILS # (AUTO) 0.1 K/uL (0-0.4); EOSINOPHILS % (AUTO) 0.8 % (0.0-4.0); HEMATOCRIT 37.5 % (36-48); HEMOGLOBIN 12.7 g/dL (12.0-16.0); LYMPHOCYTES # (AUTO) 2.4 K/uL (2.5-16.5); LYMPHOCYTES % (AUTO) 32.8 % (20.5-51.1); MEAN CORPUSCULAR HEMOGLOBIN 27 pg (27-31); MEAN CORPUSCULAR HGB CONC 34 g/dL (33-37); MEAN CORPUSCULAR VOLUME 80.2 fL (80-94); MONOCYTES # (AUTO) 0.4 K/uL (0.8-1.0); MONOCYTES % (AUTO) 5.5 % (1.7-9.3); NEUTROPHILS # (AUTO) 4.4 K/uL (1.8-7.7); NEUTROPHILS % (AUTO) 60.1 % (42.2-75.2); PLATELET COUNT (AUTO) 276 K/uL (140-450); RED BLOOD CELL COUNT(AUTO) 4.67 MIL/uL (4.20-5.40); RED CELL DISTRIBUTION WIDTH 13.9 % (11.6-13.7); WHITE BLOOD COUNT (AUTO) 7.3 K/uL (4.8-10.8)
[2020-08-30 17:18] LABS: RBC,URINE 0-5 /HPF (0-5); WBC,URINE NONE SEEN /HPF (0-5)
[2020-08-30 17:25] LABS: ALBUMIN 4.1 g/dL (3.4-5.0); ANION GAP 12.3 (8-16); CARBON DIOXIDE 27.6 mmol/L (21-32); CREATININE 0.7 mg/dL (0.6-1.3); POTASSIUM 3.9 mmol/L (3.5-5.1); TOTAL BILIRUBIN 0.2 mg/dL (0.0-1.0)
[2020-08-30] MEDS ORDERED: traMADol 50 MG TAB PO ONE (17:35)
[2020-08-30] MEDS ORDERED: cefTRIAXone 500 MG in LIDOCAINE MPF 1% 1 ML IM ONE (17:45)
[2020-08-30] MEDS ORDERED: HYDROcodone/APAP 5/325 MG 1 TAB TAB PO ONE (17:45)
[2020-08-30] MEDS ORDERED: [UNRECOGNIZED DRUG - CODE] PO (17:59)
[2020-08-30] MEDS ORDERED: cefTRIAXone 500 MG VIAL ONE (18:05)
[2020-08-30] MEDS ORDERED: LIDOCAINE MPF 1% 0 ML ONE (18:06)
[2020-08-30 18:25] VITALS: BP 149/100
--- NOTE | 2020-08-30 18:25 | NUR ---
Patient discharged with v/s stable. Written and verbal after care instructions given and explained. Patient alert, oriented and verbalized understanding of instructions. Ambulatory with steady gait. All questions addressed prior to discharge. ID band removed. Patient advised to follow up with PMD. Rx of DOXYCYCLINE 100 MG PO BID FOR 7 DAYS, IBUPROFEN 600 MG PO PRN FOR PAIN, FAMOTIDINE 20 MG PO, METRONIDAZOLE 500 MG PO BID, HYDROCODONE/ACETAMINOPHEN 5-325 MG PO Q6 HRS PRN FOR PAIN, BACTRIM 1 TAB BID PO, AND PANTOPRAZOLE 40 MG PO DAILY given. Patient educated on indication of medication including possible reaction and side effects. Opportunity to ask questions provided and answered.
== END 2020-08-30 18:25 | disposition home or self-care (01) ==
LOC: MED 14:49
DX: R10.2 Pelvic and perineal pain (principal); M54.9 Dorsalgia, unspecified; R11.0 Nausea; J45.909 Unspecified asthma, uncomplicated; I10 Essential (primary) hypertension; Z79.899 Other long term (current) drug therapy; Z88.8 Allergy status to other drugs, medicaments and biological substances; Z91.018 Allergy to other foods
CPT/HCPCS: 36415; 80053; 81001; 81025; 85025; 87086; 96372; 99283; J1885; J0696; J2001

== ENCOUNTER 2020-09-18 02:39 | Emergency (ER) | payer MEDICAID ==
[~2020-09-18] VITALS: Ht 154.9 cm; Wt 98.4 kg
[~2020-09-18 02:39] MED LIST changes: +[UNRECOGNIZED DRUG - CODE] PO
[2020-09-18 02:42] VITALS: BP 132/98
[2020-09-18] MEDS ORDERED: ACETAMINOPHEN EXTRA STRENGTH 500 MG TAB PO ONE (03:05)
[2020-09-18 04:36] VITALS: BP 132/98
== END 2020-09-18 04:34 | disposition home or self-care (01) ==
LOC: MED 02:39
DX: M25.561 Pain in right knee (principal); J45.909 Unspecified asthma, uncomplicated; I10 Essential (primary) hypertension; E66.9 Obesity, unspecified; Z68.41 Body mass index [BMI] 40.0-44.9, adult; Z79.899 Other long term (current) drug therapy; Z91.018 Allergy to other foods
CPT/HCPCS: 73562; 99283

== ENCOUNTER 2020-09-20 17:17 | Emergency (ER) | payer MEDICAID ==
[~2020-09-20] VITALS: Ht 154.9 cm; Wt 98.4 kg
[2020-09-20] MEDS ORDERED: KETOROLAC 30 MG/ML VIAL IM ONE (17:45)
[2020-09-20 17:48] VITALS: BP 100/46
--- NOTE | 2020-09-20 17:52 | NUR ---
Pt W/C to lobby.
--- NOTE | 2020-09-20 18:07 | NUR ---
29 Y/O FEMALE C/O RIGHT KNEE PAIN 12/04 DESCRIBES CRAMPING/POPPING X1DAY. PT STATES SHE WAS SEEN HERE IN THE ER X2DAYS, XR RESULT SHOWED NO FRACTURE, WAS PRESCRIBED IBUPROFEN, AND TOLD TO FOLLOW UP WITH ORTHO. PT STATES TODAY SHE WAS SITTING WITH LEGS CROSSED AND HEARD "A POP" AND RIGHT KNE HAS BEEN CRAMPING CONSTANT WITH SWELLING NOTED. DENIES N/V, DENIES FEVER/CHILLS. PMH: 2019 MENISCUS TEAR NKA
[2020-09-20] MEDS ORDERED: HYDROcodone/APAP 5/325 MG 1 TAB TAB PO ONE (18:25)
[2020-09-20] MEDS ORDERED: ACET-9526 PO (18:32)
--- NOTE | 2020-09-20 18:35 | NUR ---
QUINN Sullivan is evaluating the patient.
[2020-09-20 18:52] VITALS: BP 100/46
--- NOTE | 2020-09-20 18:52 | NUR ---
Patient discharged with v/s stable. Written and verbal after care instructions given and explained. Patient alert, oriented and verbalized understanding of instructions. Wheel Chair Assisted with to car. All questions addressed prior to discharge. ID band removed. Patient advised to follow up with PMD. Rx of HYDROCODONE/ACETAMINOPHEN given. Patient educated on indication of medication including possible reaction and side effects. Opportunity to ask questions provided and answered.
== END 2020-09-20 18:52 | disposition home or self-care (01) ==
LOC: MED 17:17
DX: M23.206 Derangement of unspecified meniscus due to old tear or injury, right knee (principal); J45.909 Unspecified asthma, uncomplicated; I10 Essential (primary) hypertension; Z79.899 Other long term (current) drug therapy; Z91.018 Allergy to other foods
CPT/HCPCS: 99283; J1885

== ENCOUNTER 2020-10-15 17:53 | Emergency (ER) | payer MEDICAID ==
[~2020-10-15] VITALS: Ht 154.9 cm; Wt 98.4 kg
[~2020-10-15 17:53] MED LIST changes: +ACET-9526 PO; -DOXY100C9 PO; +[UNRECOGNIZED DRUG - CODE] PO
[2020-10-15 18:00] VITALS: BP 149/95
--- NOTE | 2020-10-15 18:10 | NUR ---
Note roberto in EDM - 10/15/20 at 1844 by MED1 BIB SELF C/O 12/04 LEFT CHEST PAIN , MIGRAINE HEADACHE X TODAY, LLQ ABD PAIN X X 2 DAYS, C/O DIARRHEA X 4 DAYS. COVID TESTED + LAST YEAR AND LAST COVID TESTED IN APRIL NEGATIVE. PMH: ASTHMA, HTN, LEFT OVARIAN CYST
--- NOTE | 2020-10-15 18:10 | NUR ---
BIB SELF C/O 10/10 LEFT CHEST PAIN , MIGRAINE HEADACHE X TODAY, LLQ ABD PAIN X 2 DAYS, C/O DIARRHEA X 4 DAYS. COVID TESTED + LAST YEAR AND LAST COVID TESTED IN APRIL NEGATIVE. PMH: ASTHMA, HTN, LEFT OVARIAN CYST
[2020-10-15 18:28] LABS: BASOPHILS % (AUTO) 0.5 % (0.0-2.0); EOSINOPHILS % (AUTO) 0.7 % (0.0-4.0); HEMATOCRIT 39.9 % (36-48); HEMOGLOBIN 13.4 g/dL (12.0-16.0); LYMPHOCYTES # (AUTO) 2.1 K/uL (2.5-16.5); LYMPHOCYTES % (AUTO) 31.6 % (20.5-51.1); MEAN CORPUSCULAR HEMOGLOBIN 27 pg (27-31); MEAN CORPUSCULAR HGB CONC 34 g/dL (33-37); MONOCYTES # (AUTO) 0.5 K/uL (0.8-1.0); MONOCYTES % (AUTO) 6.9 % (1.7-9.3); NEUTROPHILS # (AUTO) 4.1 K/uL (1.8-7.7); NEUTROPHILS % (AUTO) 60.3 % (42.2-75.2); PLATELET COUNT (AUTO) 268 K/uL (140-450); RED BLOOD CELL COUNT(AUTO) 4.98 MIL/uL (4.20-5.40); RED CELL DISTRIBUTION WIDTH 13.8 % (11.6-13.7); WHITE BLOOD COUNT (AUTO) 6.8 K/uL (4.8-10.8)
[2020-10-15] MEDS ORDERED: METOCLOPRAMIDE 10 MG/2 ML INJ VIAL IM ONE (18:35)
--- NOTE | 2020-10-15 18:46 | NUR ---
EKG AT TRIAGE ROOM
[2020-10-15] MEDS ORDERED: KETOROLAC 15 MG/ML VIAL IM ONE (19:10)
--- NOTE | 2020-10-15 19:12 | NUR ---
PATIENT AMBULATED TO BED 9 WITH STEADY GAIT.
--- NOTE | 2020-10-15 19:15 | NUR ---
RECEIVED IN BED 9 WITH C/O LEFT BREAST, LEFT LOWER A/P, MIGRAINE X 3 DAYS & DIARRHEA AFTER EATING. IS AWAKE , ALERT, AND TEARFUL. STATES ALLERGY TO TORADOL. SKIN IS WARM AND DRY. RESPIRATIONS REGULAR AND UNLABORED.
[2020-10-15 19:36] LABS: APPEARANCE,URINE CLEAR (CLEAR); BILIRUBIN,URINE NEGATIVE (NEGATIVE); BLOOD, URINE TRACE-I (NEGATIVE); COLOR,URINE YELLOW (YELLOW); LEUKOCYTE ESTERASE ,URINE NEGATIVE (NEGATIVE); NITRITE, URINE NEGATIVE (NEGATIVE); UGLUCOSE NEGATIVE (NEGATIVE)
[2020-10-15 19:52] LABS: CARBON DIOXIDE 24.9 mmol/L (21-32); CREATININE 0.7 mg/dL (0.6-1.3); POTASSIUM 3.9 mmol/L (3.5-5.1); TOTAL BILIRUBIN 0.3 mg/dL (0.0-1.0)
[2020-10-15] MEDS ORDERED: MORPHINE SULFATE 4 MG/ML SYR IM ONE ×2 (20:05→22:20)
--- NOTE | 2020-10-15 20:30 | NUR ---
US AT BEDSIDE
[2020-10-15 22:35] VITALS: BP 149/95
== END 2020-10-15 22:35 | disposition home or self-care (01) ==
LOC: MED 17:53
DX: R10.32 Left lower quadrant pain (principal); R51.9 Headache, unspecified; J45.909 Unspecified asthma, uncomplicated; I10 Essential (primary) hypertension; Z91.018 Allergy to other foods; Z88.8 Allergy status to other drugs, medicaments and biological substances
CPT/HCPCS: 36415; 76856; 80053; 81003; 81025; 83690; 84484; 85025; 93005; 93976; 96372; 99285; J2270; J2765

== ENCOUNTER 2020-10-18 09:24 | Emergency (ER) | payer MEDICAID ==
[~2020-10-18] VITALS: Ht 154.9 cm; Wt 93.9 kg
[2020-10-18 09:35] VITALS: BP 179/113
[2020-10-18] MEDS ORDERED: MORPHINE SULFATE 4 MG/ML SYR IM ONE (10:15)
[2020-10-18 11:03] LABS: BASOPHILS % (AUTO) 0.3 % (0.0-2.0); EOSINOPHILS # (AUTO) 0.1 K/uL (0-0.4); HEMATOCRIT 38.7 % (36-48); HEMOGLOBIN 12.9 g/dL (12.0-16.0); LYMPHOCYTES # (AUTO) 2.8 K/uL (2.5-16.5); LYMPHOCYTES % (AUTO) 37.4 % (20.5-51.1); MEAN CORPUSCULAR HEMOGLOBIN 27 pg (27-31); MEAN CORPUSCULAR HGB CONC 33 g/dL (33-37); MEAN CORPUSCULAR VOLUME 80.5 fL (80-94); MONOCYTES # (AUTO) 0.5 K/uL (0.8-1.0); MONOCYTES % (AUTO) 6.4 % (1.7-9.3); NEUTROPHILS # (AUTO) 4.1 K/uL (1.8-7.7); NEUTROPHILS % (AUTO) 54.9 % (42.2-75.2); PLATELET COUNT (AUTO) 264 K/uL (140-450); RED BLOOD CELL COUNT(AUTO) 4.81 MIL/uL (4.20-5.40); RED CELL DISTRIBUTION WIDTH 13.4 % (11.6-13.7); WHITE BLOOD COUNT (AUTO) 7.5 K/uL (4.8-10.8)
[2020-10-18 11:16] LABS: ALBUMIN 4.2 g/dL (3.4-5.0); ANION GAP 13.5 (8-16); CREATININE 0.7 mg/dL (0.6-1.3); POTASSIUM 3.5 mmol/L (3.5-5.1); TOTAL BILIRUBIN 0.2 mg/dL (0.0-1.0)
[2020-10-18] MEDS ORDERED: BEN10 PO (11:56)
[2020-10-18 12:00] VITALS: BP 179/113
== END 2020-10-19 00:24 | disposition home or self-care (01) ==
LOC: MED 09:24
DX: G89.29 Other chronic pain (principal); R10.2 Pelvic and perineal pain; J45.909 Unspecified asthma, uncomplicated; I10 Essential (primary) hypertension; Z79.899 Other long term (current) drug therapy; Z91.018 Allergy to other foods; Z88.8 Allergy status to other drugs, medicaments and biological substances
CPT/HCPCS: 36415; 80053; 81002; 81025; 85025; 99284; J2270

== ENCOUNTER 2020-10-30 20:30 | Emergency (ER) | payer MEDICAID ==
[~2020-10-30] VITALS: Ht 154.9 cm; Wt 98.4 kg
[~2020-10-30 20:30] MED LIST changes: +BEN10 PO
[2020-10-30 20:40] VITALS: BP 145/99
--- NOTE | 2020-10-30 20:43 | NUR ---
TO LOBBY A/W BED VIA W/C
[2020-10-30] MEDS ORDERED: ONDANSETRON 4 MG ODT PO ONE (23:55)
[2020-10-30] MEDS ORDERED: MORPHINE SULFATE 2 MG/ML SYR IM ONE (23:55)
[2020-10-31 00:06] LABS: APPEARANCE,URINE CLEAR (CLEAR); BILIRUBIN,URINE NEGATIVE (NEGATIVE); BLOOD, URINE NEGATIVE (NEGATIVE); COLOR,URINE YELLOW (YELLOW); LEUKOCYTE ESTERASE ,URINE NEGATIVE (NEGATIVE); NITRITE, URINE NEGATIVE (NEGATIVE); PH,URINE 6.5 (5.0-9.0); UGLUCOSE NEGATIVE (NEGATIVE)
[2020-10-31 00:23] VITALS: BP 145/99
--- NOTE | 2020-11-07 12:50 | NUR ---
LATE ENTRY---MORPHINE AND ZOFRAN WAS GIVEN TO THE PATIENT BUT NOT CHARTED AT TIME OF ADMINISTRATION.
== END 2020-10-31 00:23 | disposition home or self-care (01) ==
LOC: MED 20:30
DX: G89.29 Other chronic pain (principal); R10.30 Lower abdominal pain, unspecified; J45.909 Unspecified asthma, uncomplicated; I10 Essential (primary) hypertension; Z88.6 Allergy status to analgesic agent; Z91.048 Other nonmedicinal substance allergy status; Z79.899 Other long term (current) drug therapy
CPT/HCPCS: 81003; 81025; 99283; J2270; Q0162

== ENCOUNTER 2020-11-10 02:19 | Emergency (ER) | payer MEDICAID ==
[~2020-11-10] VITALS: Ht 154.9 cm; Wt 94.3 kg
[2020-11-10 02:20] VITALS: BP 152/87
--- NOTE | 2020-11-10 02:20 | NUR ---
TO BED VIA WHEELCHAIR
--- NOTE | 2020-11-10 02:30 | NUR ---
RECEIVED IN BED 4 WITH C/O ABDOMINAL PAIN WITH N/V WHICH STARTED AFTER EATING BURRITO AND FRUITS 45 MINUTES UTILIZATION REVIEW COORDINATOR. IS TEARFUL AND MOANING.
[2020-11-10 03:03] LABS: BASOPHILS % (AUTO) 0.3 % (0.0-2.0); EOSINOPHILS # (AUTO) 0.2 K/uL (0-0.4); HEMATOCRIT 38.2 % (36-48); HEMOGLOBIN 12.7 g/dL (12.0-16.0); LYMPHOCYTES % (AUTO) 35.6 % (20.5-51.1); MEAN CORPUSCULAR HEMOGLOBIN 27 pg (27-31); MEAN CORPUSCULAR HGB CONC 33 g/dL (33-37); MEAN CORPUSCULAR VOLUME 81.2 fL (80-94); MONOCYTES # (AUTO) 0.6 K/uL (0.8-1.0); MONOCYTES % (AUTO) 7.5 % (1.7-9.3); NEUTROPHILS # (AUTO) 4.5 K/uL (1.8-7.7); NEUTROPHILS % (AUTO) 54.6 % (42.2-75.2); PLATELET COUNT (AUTO) 272 K/uL (140-450); RED CELL DISTRIBUTION WIDTH 13.9 % (11.6-13.7); WHITE BLOOD COUNT (AUTO) 8.3 K/uL (4.8-10.8)
[2020-11-10 03:26] LABS: ALBUMIN 4.1 g/dL (3.4-5.0); ANION GAP 12.2 (8-16); CARBON DIOXIDE 28.6 mmol/L (21-32); CREATININE 0.8 mg/dL (0.6-1.3); POTASSIUM 3.8 mmol/L (3.5-5.1); TOTAL BILIRUBIN 0.2 mg/dL (0.0-1.0)
[2020-11-10] MEDS ORDERED: METOCLOPRAMIDE 10 MG/2 ML INJ VIAL IVP ONE (03:40)
[2020-11-10] MEDS ORDERED: HALOPERIDOL IM 5 MG/ML VIAL IVP ONE (03:40)
[2020-11-10] MEDS ORDERED: ONDANSETRON 4 MG/2 ML VIAL IVP ONE (03:40)
[2020-11-10] MEDS ORDERED: ONDA4TAB PO (04:27)
--- NOTE | 2020-11-10 05:01 | NUR ---
OBTAINED MUCH RELIEF FROM EARLIER MEDSPatient discharged with v/s stable. Written and verbal after care instructions given and explained. Patient verbalized understanding. Ambulatory with steady gait. All questions addressed prior to discharge. Advised to follow up with PMD.
== END 2020-11-10 04:57 | disposition home or self-care (01) ==
LOC: MED 02:19
DX: R10.31 Right lower quadrant pain (principal); R11.2 Nausea with vomiting, unspecified; J45.909 Unspecified asthma, uncomplicated; I10 Essential (primary) hypertension; Z79.899 Other long term (current) drug therapy; Z88.8 Allergy status to other drugs, medicaments and biological substances; Z91.018 Allergy to other foods
CPT/HCPCS: 36415; 80053; 85025; 86140; 96374; 96375; 99284; J1630; J2405; J2765

== ENCOUNTER 2020-11-19 15:44 | Emergency (ER) | payer MEDICAID ==
[~2020-11-19] VITALS: Ht 154.9 cm; Wt 98.4 kg
[~2020-11-19 15:44] MED LIST changes: +ONDA4TAB PO
[2020-11-19 15:51] VITALS: BP 147/105
--- NOTE | 2020-11-19 15:59 | NUR ---
PT SENT TO LOBBY
--- NOTE | 2020-11-19 16:04 | NUR ---
PT TAKEN TO BED 3.
[2020-11-19] MEDS ORDERED: MORPHINE SULFATE 4 MG/ML SYR IVP ONE (16:15)
[2020-11-19] MEDS ORDERED: NACL 0.9% 1,000 ML IV ONE (16:15)
[2020-11-19 16:41] LABS: BASOPHILS # (AUTO) 0.2 K/uL (0.00-0.22); BASOPHILS % (AUTO) 4.5 % (0.0-2.0); EOSINOPHILS # (AUTO) 0.1 K/uL (0-0.4); EOSINOPHILS % (AUTO) 2.6 % (0.0-4.0); HEMATOCRIT 39.9 % (36-48); HEMOGLOBIN 13.4 g/dL (12.0-16.0); LYMPHOCYTES # (AUTO) 0.7 K/uL (2.5-16.5); LYMPHOCYTES % (AUTO) 13.9 % (20.5-51.1); MEAN CORPUSCULAR HEMOGLOBIN 27 pg (27-31); MEAN CORPUSCULAR HGB CONC 34 g/dL (33-37); MEAN CORPUSCULAR VOLUME 80.6 fL (80-94); MONOCYTES # (AUTO) 0.2 K/uL (0.8-1.0); MONOCYTES % (AUTO) 3.6 % (1.7-9.3); NEUTROPHILS % (AUTO) 75.4 % (42.2-75.2); PLATELET COUNT (AUTO) 271 K/uL (140-450); RED BLOOD CELL COUNT(AUTO) 4.95 MIL/uL (4.20-5.40); RED CELL DISTRIBUTION WIDTH 13.8 % (11.6-13.7); WHITE BLOOD COUNT (AUTO) 5.3 K/uL (4.8-10.8)
--- NOTE | 2020-11-19 16:50 | NUR ---
29 y/o F BIB self from home c/o abdominal pain. Patient A&ox4, ambulatory, reports suprapubic abdominal pain that has not relieved with prescribed Bentyl and Motrin. Patient reports LLQ 10/10, sharp/constant, non-rdaiating pain. Patient states history of ovarian cysts. Denies fever, chills, nausea, vomiting, diarrhea, dysuria, chest pain, urinary symptoms, vaginal bleeding/discharge. Patient states MRI scheduled 11/27/2020. Pt placed into gown and finisher card tender. Bed locked in lowest position, side rails x 1, call light in reach. PMH: ovarian cyst Meds: Bentyl, Motrin
[2020-11-19 16:56] LABS: ALBUMIN 4.3 g/dL (3.4-5.0); ANION GAP 13.5 (8-16); CARBON DIOXIDE 27.5 mmol/L (21-32); CREATININE 0.8 mg/dL (0.6-1.3); TOTAL BILIRUBIN 0.4 mg/dL (0.0-1.0)
--- NOTE | 2020-11-19 17:05 | NUR ---
Patient states + relief to pain, 8/ at this time denies nausea.
--- NOTE | 2020-11-19 17:48 | NUR ---
QUINN Foreman is evaluating patient at bedside
[2020-11-19 17:50] VITALS: BP 142/92
[2020-11-19] MEDS ORDERED: ACET-8386 PO (17:50)
--- NOTE | 2020-11-19 17:58 | NUR ---
Patient discharged with v/s stable. Written and verbal after care instructions given and explained. Patient alert, oriented and verbalized understanding of instructions. Ambulatory with steady gait. All questions addressed prior to discharge. ID band removed. Patient advised to follow up with PMD. Rx of Hydrocodone/Acetaminophen given. Patient educated on indication of medication including possible reaction and side effects. Opportunity to ask questions provided and answered.
== END 2020-11-19 17:58 | disposition home or self-care (01) ==
LOC: MED 15:44
DX: G89.29 Other chronic pain (principal); R10.9 Unspecified abdominal pain; J45.909 Unspecified asthma, uncomplicated; I10 Essential (primary) hypertension; Z90.49 Acquired absence of other specified parts of digestive tract; Z79.899 Other long term (current) drug therapy; Z98.890 Other specified postprocedural states; Z88.8 Allergy status to other drugs, medicaments and biological substances; Z91.018 Allergy to other foods
CPT/HCPCS: 36415; 80053; 81002; 81025; 83690; 85025; 96361; 96374; 99283; J2270; J7030

== ENCOUNTER 2020-12-01 16:30 | Emergency (ER) | payer MEDICAID ==
[~2020-12-01] VITALS: Ht 152.4 cm; Wt 93.9 kg
[2020-12-01 16:56] VITALS: BP 128/68
--- NOTE | 2020-12-01 16:59 | NUR ---
TENT 3.
--- NOTE | 2020-12-01 17:05 | NUR ---
BIB SELF C/O 9/10 HEADACHE, RUNNY NOSE, BODY ACHE X 2 DAYS.PMH: ASTHMA, HTN, OVARFIAN CYST.
--- NOTE | 2020-12-01 17:32 | NUR ---
COVID SAJAN SWAB DONE.
--- NOTE | 2020-12-01 21:14 | NUR ---
PT MOVED TO CHAIR B
[2020-12-01] MEDS ORDERED: MORPHINE SULFATE 4 MG/ML SYR IM ONE (21:15)
--- NOTE | 2020-12-01 21:18 | NUR ---
PT TAKEN TO RADIOLOGY
--- NOTE | 2020-12-01 21:22 | NUR ---
PT RETURN FROM RADIOLOGY
[2020-12-01] MEDS ORDERED: ONDANSETRON 4 MG ODT PO ONE (21:30)
[2020-12-01] MEDS ORDERED: ONDANSETRON 4 MG ODT ONE (21:34)
[2020-12-01] MEDS ORDERED: ONDA-24 PO ×2 (21:40→22:27)
[2020-12-01] MEDS ORDERED: ACET-8386 PO ×2 (21:40→22:27)
--- NOTE | 2020-12-01 22:07 | NUR ---
Patient discharged with v/s stable. Written and verbal after care instructions ABOUT MUSCLE PAIN AND GENERAL HEADACHE WITHOUT CAUSE given and explained. Patient alert, oriented and verbalized understanding of instructions. Ambulatory with steady gait. All questions addressed prior to discharge. ID band removed. Patient advised to follow up with PMD. Rx of NORCO 5-325MG AND ZOFRAN given. Patient educated on indication of medication including possible reaction and side effects. Opportunity to ask questions provided and answered.
== END 2020-12-01 22:07 | disposition home or self-care (01) ==
LOC: MED 16:30
DX: M79.10 Myalgia, unspecified site (principal); R51.9 Headache, unspecified; J45.909 Unspecified asthma, uncomplicated; I10 Essential (primary) hypertension; Z88.0 Allergy status to penicillin; Z88.8 Allergy status to other drugs, medicaments and biological substances; Z91.018 Allergy to other foods; Z20.822 Contact with and (suspected) exposure to COVID-19
CPT/HCPCS: 71045; 87426; 96372; 99284; J2270; Q0162

== ENCOUNTER 2020-12-12 21:42 | Emergency (ER) | payer MEDICAID ==
[~2020-12-12] VITALS: Ht 152.4 cm; Wt 98.4 kg
[~2020-12-12 21:42] MED LIST changes: +ONDA-188 PO
[2020-12-12 21:46] VITALS: BP 147/103
--- NOTE | 2020-12-12 22:03 | NUR ---
PT SENT TO LOBBY
--- NOTE | 2020-12-12 23:56 | NUR ---
PT AMBULATED TO BED 11.
[2020-12-13] MEDS ORDERED: IBUPROFEN 600 MG TAB PO ONE (00:05)
--- NOTE | 2020-12-13 00:05 | NUR ---
29/F BIB MOTHER WITH C/O LOWER ABDOMINAL CRAMPING SINCE TODAY. PATIENT STATES SHE WAS SEEN AT [facility] ONE WEEK AGO AND WAS TOLD SHE HAD A CYST ON HER OVARY. PATIENT STATING "I THINK THE CYST RUPTURED." REPORTS TAKING TYLENOL, MOTRIN AND NAPROSYN WITH NO RELIEF, STATES DYSURIA, NAUSEA AND DIARRHEA. DENIES CP, SOB, FEVER, CHILLS. MEDHX: ASTHMA, HTN, OVARIAN CYSTS ALLERGIES: PENICILLINS, KETOROLAC
[2020-12-13 00:26] LABS: APPEARANCE,URINE CLEAR (CLEAR); BILIRUBIN,URINE NEGATIVE (NEGATIVE); BLOOD, URINE NEGATIVE (NEGATIVE); COLOR,URINE YELLOW (YELLOW); LEUKOCYTE ESTERASE ,URINE NEGATIVE (NEGATIVE); NITRITE, URINE NEGATIVE (NEGATIVE); PH,URINE 6.5 (5.0-9.0); UGLUCOSE NEGATIVE (NEGATIVE)
[2020-12-13 01:08] VITALS: BP 147/103
== END 2020-12-13 01:08 | disposition home or self-care (01) ==
LOC: MED 21:42
DX: R10.9 Unspecified abdominal pain (principal); J45.909 Unspecified asthma, uncomplicated; I10 Essential (primary) hypertension; Z88.0 Allergy status to penicillin; Z88.8 Allergy status to other drugs, medicaments and biological substances; Z91.018 Allergy to other foods
CPT/HCPCS: 81003; 81025; 99282; 99283

== ENCOUNTER 2020-12-16 21:11 | Inpatient (IN) | payer MEDICAID ==
[~2020-12-16] VITALS: Ht 152.4 cm; Wt 98.0 kg
[~2020-12-16 21:11] MED LIST changes: -ONDA-188 PO; +ONDA-24 PO
[2020-12-16 21:20] VITALS: BP 146/89
--- NOTE | 2020-12-16 21:23 | NUR ---
to lobby a/w bed ambulatory
--- NOTE | 2020-12-16 22:14 | NUR ---
seen and examined by DB
[2020-12-16] MEDS ORDERED: ONDANSETRON 4 MG/2 ML VIAL IVP ONE (22:20)
[2020-12-16] MEDS ORDERED: NACL 0.9% 1,000 ML IV ONE (22:20)
[2020-12-16] MEDS ORDERED: MORPHINE SULFATE 4 MG/ML SYR IVP ONE (22:20)
--- NOTE | 2020-12-16 22:39 | NUR ---
PT IN RR, URINE SPECIMEN CUP GIVEN.
--- NOTE | 2020-12-16 22:40 | NUR ---
29 YO F BIB SELF WITH C/C OF CRAMPING 10/10 LOWER ABD PAIN S/P FALL AT 6:30 PMAND HITTING SELF WITH DOOR KNOB. PT STATES SHE ALREADY FELT CRAPMING BUT IT INTENSIFIED WITH FALL. PT DENIES HITTING HEAD. NO LOC. +N/V, PT REPORTS RED EMESIS. ABD IS SOFT AND ROUND, BOWEL SOUNDS X4. TENDER TO TOUCH. PT PLACED ON VITALS MACHINE FOR MORPHINE ADMINISTRATION. BED LOCKED IN LOWEST POSITION, SIDE RAILS X2. PROVIDED WITH BLANKET. ALL NEEDS MET AT THIS TIME. HX: ASTHMA, HTN, ALLERG: PCN, TORADOL, POLLEN AND CHICKEN FOOD DENIES RX
[2020-12-16 23:07] LABS: BASOPHILS % (AUTO) 0.3 % (0.0-2.0); EOSINOPHILS # (AUTO) 0.1 K/uL (0-0.4); EOSINOPHILS % (AUTO) 1.1 % (0.0-4.0); HEMOGLOBIN 13.6 g/dL (12.0-16.0); LYMPHOCYTES # (AUTO) 1.7 K/uL (2.5-16.5); LYMPHOCYTES % (AUTO) 32.4 % (20.5-51.1); MEAN CORPUSCULAR HEMOGLOBIN 27 pg (27-31); MEAN CORPUSCULAR HGB CONC 33 g/dL (33-37); MEAN CORPUSCULAR VOLUME 81.6 fL (80-94); MONOCYTES # (AUTO) 0.3 K/uL (0.8-1.0); MONOCYTES % (AUTO) 5.8 % (1.7-9.3); NEUTROPHILS # (AUTO) 3.3 K/uL (1.8-7.7); NEUTROPHILS % (AUTO) 60.4 % (42.2-75.2); PLATELET COUNT (AUTO) 291 K/uL (140-450); RED BLOOD CELL COUNT(AUTO) 5.03 MIL/uL (4.20-5.40); RED CELL DISTRIBUTION WIDTH 13.2 % (11.6-13.7); WHITE BLOOD COUNT (AUTO) 5.4 K/uL (4.8-10.8)
[2020-12-16 23:07] LABS: BILIRUBIN,URINE NEGATIVE (NEGATIVE); BLOOD, URINE TRACE-I (NEGATIVE); COLOR,URINE YELLOW (YELLOW); LEUKOCYTE ESTERASE ,URINE NEGATIVE (NEGATIVE); NITRITE, URINE NEGATIVE (NEGATIVE); PH,URINE 6.5 (5.0-9.0); UGLUCOSE NEGATIVE (NEGATIVE)
[2020-12-16 23:11] LABS: APPEARANCE,URINE SLIGHTLY HAZY (CLEAR)
[2020-12-16 23:18] LABS: RBC,URINE 0-5 /HPF (0-5); WBC,URINE 0-5 /HPF (0-5)
[2020-12-16 23:26] LABS: ALBUMIN 4.2 g/dL (3.4-5.0); CARBON DIOXIDE 26.1 mmol/L (21-32); CREATININE 0.8 mg/dL (0.6-1.3); POTASSIUM 4.1 mmol/L (3.5-5.1); TOTAL BILIRUBIN 0.2 mg/dL (0.0-1.0)
--- NOTE | 2020-12-16 23:48 | NUR ---
PT TAKEN TO CT VIA W/C
[2020-12-17 00:16] LABS: BARBITURATE, URINE NEGATIVE ng/ml (NEG <=200); BENZODIAZEPINE, URINE NEGATIVE ng/mL (NEG <=200); CANNABINOID, URINE NEGATIVE ng/mL (NEG <=50); COCAINE, URINE NEGATIVE ng/mL (NEG <=300); OPIATE, URINE POSITIVE ng/mL (NEG <=2000); PHENCYCLIDINE SCREEN,URINE NEGATIVE ng/mL (NEG <=25)
[2020-12-17] MEDS ORDERED: MORPHINE SULFATE 4 MG/ML SYR IVP ONE (00:20)
--- NOTE | 2020-12-17 01:24 | NUR ---
PT IS RESTING. EQUAL RISE AND FALL OF CHEST WALL. VSS.PT IS IN STABLE CONDITION. OPENS EYES TO SOUND. BED LOCKED IN LOWEST POSITION, SIDE RAILS X2.
--- NOTE | 2020-12-17 02:34 | NUR ---
PT ASKED IF SHE CAN HAVE MORE FLUIDS RUNNING AND PAIN MEDICATION. ERMD MADE AWARE.
[2020-12-17] MEDS ORDERED: NACL 0.9% 1,000 ML IV ONE (02:50)
--- NOTE | 2020-12-17 03:52 | NUR ---
PT REPORTED PAIN 12/04 IN ABD. CALLED , WAITING FOR CALL BACK.
[2020-12-17] MEDS ORDERED: HYDROcodone/APAP 5/325 MG 1 TAB TAB PO PRN (04:00)
[2020-12-17] MEDS ORDERED: HYDROcodone/APAP 10/325 MG 1 TAB TAB PO PRN (04:00)
--- NOTE | 2020-12-17 04:00 | NUR ---
CALLED BACK, ORDERS CARRIED OUT.
[2020-12-17] MEDS ORDERED: AMLO5TAB PO (04:23)
[2020-12-17] MEDS ORDERED: PANTOPRAZOLE 40 MG INJ VIAL IVP SCH (04:28)
[2020-12-17] MEDS ORDERED: cefTRIAXone 1,000 MG VIAL ONE (04:42)
--- NOTE | 2020-12-17 05:35 | NUR ---
PT REPORTED 10/10 ABD PAIN, STATED PROTONIX DID NOT HELP WITH PAIN. PT AMBULATED TO WITH STEADY GAIT AND BACK TO BED.
--- NOTE | 2020-12-17 06:17 | NUR ---
REPORT GIVEN TO JOCELYN CEDILLO.
--- NOTE | 2020-12-17 06:30 | NUR ---
Patient will be admitted to care of . Admited to [facility]. Will go to room 104A. Belongings list completed. Report to JOCELYN CEDILLO.
--- NOTE | 2020-12-17 07:00 | NUR ---
NURSE REPORT REPORT OBTAINED FROM ER NURSE WARREN AT 0645 AND PATIENT SEEN BY THIS NURSE AT 0700. IN BED, WITHOUT ANY SXS OF PAIN OR DISCOMFORT.
[2020-12-17] MEDS ORDERED: POTASSIUM CHLORIDE 10 MEQ TABER PO PRN (07:35)
[2020-12-17] MEDS ORDERED: ALBUTEROL HFA MDI 90 MCG/ACTUATION 8 GM INH PRN (07:35)
[2020-12-17] MEDS: NACL 0.9% 1,000 ML IV SCH ×3 (07:35→22:59)
[2020-12-17] MEDS ORDERED: DOCUSATE SODIUM 100 MG GELCAP PO PRN (07:35)
[2020-12-17] MEDS ORDERED: ALUMINUM HYD/MAG/SIMETHICONE 30 ML UDC PO ONE (07:35)
[2020-12-17] MEDS ORDERED: ACETAMINOPHEN 325 MG TAB PO PRN (07:35)
[2020-12-17] MEDS ORDERED: MAG SULF 2000 MG/WATER PREMIX 50 ML IV PRN (07:35)
[2020-12-17] MEDS ORDERED: DICYCLOMINE HCL LIQUID 10 MG/5 ML UDC PO ONE (07:35)
[2020-12-17] MEDS ORDERED: LORazepam 2 MG/ML VIAL IM/IVP PRN (07:35)
[2020-12-17] MEDS ORDERED: ZOLPIDEM 5 MG TAB PO PRN (07:35)
--- NOTE | 2020-12-17 07:40 | NUR ---
NURSE REPORT TO DAYSHIFT REPORT GIVEN TO DAYSHIFT NURSE NANDA TO ASSUME CARE AND ADMIT THE PATIENT.
--- NOTE | 2020-12-17 07:41 | NUR ---
RECEIVED REPORT FROM GEOLOGICAL SCIENCE TEACHER NURSE FOR CONTINUITY OF CARE. PATIENT IS IN BED AT THIS TIME. PATIENT IS ALERT AND ORIENTED X4. RESPIRATIONS ARE EVEN AND UNLABORED. NO SIGNS OF DISTRESS NOTED. WILL CONTINUE TO MONITOR. CALL LIGHT WITHIN REACH. ALL SAFETY MEASURES IN PLACE.
[2020-12-17 08:00] VITALS: BP 130/72
--- NOTE | 2020-12-17 08:07 | NUR ---
PATIENT HAS BEEN SCREENED AND CATEGORIZED LOW NUTRITION RISK. PATIENT WILL BE SEEN WITHIN 7 DAYS OF ADMISSION. 12/23/[address]
[2020-12-17] MEDS: FAMOTIDINE 20 MG TAB PO SCH (08:48)
[2020-12-17] MEDS: DICYCLOMINE 10 MG CAP PO PRN (08:48)
[2020-12-17] MEDS: amLODIPine 5 MG TAB PO SCH (08:48)
--- NOTE | 2020-12-17 08:48 | NUR ---
ALL SCHEDULED MEDICATIONS ADMINISTERED. PATIENT TOLERATED WELL. NO SIGNS OF DISTRESS NOTED. WILL CONTINUE TO MONITOR. CALL LIGHT WITHIN REACH. ALL SAFETY MEASURES IN PLACE.
[2020-12-17] MEDS: POLYETHYLENE GLYCOL 17 GM/PKT PO SCH (08:49)
[2020-12-17] MEDS: PANTOPRAZOLE 40 MG TABEC PO SCH (09:05)
[2020-12-17 10:56] LABS: BASOPHILS % (AUTO) 0.5 % (0.0-2.0); EOSINOPHILS # (AUTO) 0.1 K/uL (0-0.4); EOSINOPHILS % (AUTO) 1.2 % (0.0-4.0); HEMATOCRIT 33.8 % (36-48); HEMOGLOBIN 11.4 g/dL (12.0-16.0); LYMPHOCYTES # (AUTO) 2.4 K/uL (2.5-16.5); LYMPHOCYTES % (AUTO) 43.8 % (20.5-51.1); MEAN CORPUSCULAR HEMOGLOBIN 27 pg (27-31); MEAN CORPUSCULAR HGB CONC 34 g/dL (33-37); MEAN CORPUSCULAR VOLUME 80.5 fL (80-94); MONOCYTES # (AUTO) 0.4 K/uL (0.8-1.0); MONOCYTES % (AUTO) 7.3 % (1.7-9.3); NEUTROPHILS # (AUTO) 2.5 K/uL (1.8-7.7); NEUTROPHILS % (AUTO) 47.2 % (42.2-75.2); PLATELET COUNT (AUTO) 231 K/uL (140-450); RED CELL DISTRIBUTION WIDTH 13.3 % (11.6-13.7); WHITE BLOOD COUNT (AUTO) 5.4 K/uL (4.8-10.8)
[2020-12-17 11:20] LABS: ANION GAP 14.5 (8-16); CARBON DIOXIDE 24.1 mmol/L (21-32); CREATININE 0.7 mg/dL (0.6-1.3); POTASSIUM 3.6 mmol/L (3.5-5.1)
[2020-12-17 11:27] LABS: PROTHROMBIN TIME 10.4 secs (10.8-13.4)
[2020-12-17 11:50] LABS: CHOL/HDL RATIO 2.3 (1-4.5); PHOSPHORUS 2.8 mg/dL (2.5-4.9); THYROID STIMULATING HORMONE 2.39 uIU/mL (0.34-3.74)
--- NOTE | 2020-12-17 11:50 | NUR ---
DID ROUNDS ON PATIENT. PATIENT IN BED SLEEPING AT THIS TIME. RESPIRATIONS EVEN AND UNLABORED. NO SIGNS OF DISTRESS NOTED. WILL CONTINUE TO MONITOR. CALL LIGHT WITHIN REACH. ALL SAFETY MEASURES IN PLACE.
[2020-12-17 12:02] LABS: MAGNESIUM 1.9 mg/dL (1.8-2.4)
--- NOTE | 2020-12-17 14:30 | NUR ---
DID ROUNDS ON PATIENT. PATIENT IN BED STATED SHE FELT VERY TIRED AND JUST WANTED TO SLEEP A BIT. BROUGHT PATIENT A NEW BLANKET. ALL NEEDS MET AT THIS TIME. CALL LIGHT WITHIN REACH. ALL SAFETY MEASURES IN PLACE. WILL CONTINUE TO MONITOR.
[2020-12-17 16:00] VITALS: BP 127/82
[2020-12-17] MEDS: HYDROcodone/APAP 5/325 MG 1 TAB TAB PO PRN ×2 (16:14→21:01)
--- NOTE | 2020-12-17 16:14 | NUR ---
PATIENT COMPLAIN OF PAIN. RATED PAIN 6/10. MEDICATED. WILL CONTINUE TO MONITOR. ALL SAFETY MEASURES IN PLACE. CALL LIGHT WITHIN REACH.
--- NOTE | 2020-12-17 19:17 | NUR ---
ENDORSED PATIENT TO METAL SPRAYING MACHINE OPERATOR NURSE FOR CONTINUITY OF CARE. ALL NEEDS MET THROUGHOUT SHIFT. PATIENT IS STABLE.
--- NOTE | 2020-12-17 19:18 | NUR ---
RECD. RESTING IN BED, AWAKE, A/OX4. RESPIRATION EVEN AND UNLABORED. IV OF NS INFUSING AT 130 ML/HR, RIGHT HAND G22. INDEPENDENT, AMBULATORY TO THE BR. VERBALIZED THAT SHE HAS NO NAUSEA/VOMITING NOR DIARRHEA TODAY AND WANT STO HAVE AN ADVANCE DIET, WILL INFORM MD. COMPLAINT OF HEADACHE, , WAS MEDICATED BY MA NURSE AT 1854. COLD COMPRESS APPLIED ON FOREHEAD. MEDICATIONS AND CARE FOR THE SHIFT DISCUSSED WITH PATIENT. VERBALIZED UNDERSTANDING.
--- NOTE | 2020-12-17 20:00 | NUR ---
PATIENT'S PLAN OF CARE WAS DISCUSSED AND REVIEWED WITH MOTOR VEHICLE ESCORT DRIVER: TIFFANIE WELLS.
--- NOTE | 2020-12-17 20:15 | NUR ---
VACCINE SPECIALIST CAME TO DO ULTRASOUND OF THE ABDOMEN. WILL FOLLOW UP WITH RESULT.
--- NOTE | 2020-12-17 22:05 | NUR ---
IV LINE AT THE AC G20 NEEDED FOR ABDOMEN/PELVIS CT WITH CONTRAST. NEW IV LINE INSERTED BY NURSE CUT OUT MARKER LOLA AT THE LEFT AC G20.
[2020-12-17] MEDS: ZOLPIDEM 5 MG TAB PO PRN (22:52)
--- NOTE | 2020-12-17 22:52 | NUR ---
UNABLE TO SLEEP, MEDICATED WITH AMBIEN PER MD ORDER. TEACHINGS GIVEN ON OTHER ALTERNATIVE MEASURES TO PROMOTE SLEEPING. VERBALIZED UNDERSTANDING.
--- NOTE | 2020-12-17 23:52 | NUR ---
STILL AWAKE IN BED, CONVERSING WITH SOMEBODY IN HER CELLPHONE. RESPIRATION EVEN AND UNLABORED.
[2020-12-18] VITALS: BP 141/98
--- NOTE | 2020-12-18 | NUR ---
MOANING, COMPLAINING OF PAIN 7/10 IN THE LOWER ABDOMEN, WILL MEDICATE PER MD ORDER.
--- NOTE | 2020-12-18 00:30 | NUR ---
CHECKED PATIENT, FOUND SLEEPING COMFORTABLY IN BED, NO APPEARANCE OF PAIN OR DISTRESS NOTED.
[2020-12-18] MEDS: NACL 0.9% 1,000 ML IV SCH ×4 (00:39→15:40)
--- NOTE | 2020-12-18 02:30 | NUR ---
ANSWERED CALL LIGHT. PATIENT C/O OF PAIN 10/10 IN ABDOMINAL REGION. NOTIFIED MAMADOU BANKS TO ADMINISTER MORPHINE SULFATE.
[2020-12-18] MEDS: MORPHINE SULFATE 2 MG/ML SYR IVP PRN ×4 (02:35→21:00)
--- NOTE | 2020-12-18 04:00 | NUR ---
CHECKED ON PATIENT. RECORDED SCHEDULED VITAL SIGNS. WNL. DENIES PAIN 0/10. PATIENT C/O OF SLEEPING AID. ENDORSED TO TIFFANIE KEEN REGARDING SLEEPING INTERVENTIONS.
--- NOTE | 2020-12-18 06:00 | NUR ---
ANSWERED CALL LIGHT. PATIENT CONCERNED ABOUT UPCOMING PROCEDURE. EDUCATED PATIENT FOR READINESS. WILL ENDORSE TO MORNING SHIFT.
[2020-12-18] MEDS: HYDROcodone/APAP 5/325 MG 1 TAB TAB PO PRN ×2 (06:33→14:14)
--- NOTE | 2020-12-18 07:10 | NUR ---
ENDORSED TO MORNING SHIFT REGARDING PATIENT'S DEE DEE. PATIENT IS STABLE. Addendum: 12/18/20 at 0734 by Danelle Wilson LVN CORRECTION OF ENTRY: UNABLE TO ENDORSED PT, AM NURSE DID NOT COME YET.
--- NOTE | 2020-12-18 07:20 | NUR ---
REPORT RECEIVED FROM PM SHIFT RN FOR CONTINUITY OF CARE. PT IS A&OX4. ABLE TO MAKE NEEDS KNOWN. PT C/O IV SITE RHAND 22G, IS PAINFUL, REMOVED IV PLACED GAUZED. LT AC 22G, INTACT, PATENT GOOD BLOOD RETURN INFUSING 130 ML/HR. SKIN INTACT, WARM AND DRY. BED LOCKED IN LOWEST POSITION. SAFETY PRECAUTIONS IN PLACE. WILL CONTINUE TO MONITOR.
--- NOTE | 2020-12-18 07:20 | NUR ---
ENDORSED TO AM SHIFT NURSE FOR CONTINUITY OF CARE.
[2020-12-18 07:43] LABS: MAGNESIUM 2.1 mg/dL (1.8-2.4); PHOSPHORUS 3.2 mg/dL (2.5-4.9)
[2020-12-18 07:49] LABS: ANION GAP 14.4 (8-16); CARBON DIOXIDE 23.4 mmol/L (21-32); CREATININE 0.6 mg/dL (0.6-1.3); POTASSIUM 3.8 mmol/L (3.5-5.1)
[2020-12-18 08:00] VITALS: BP 132/72
[2020-12-18 08:06] LABS: T4 (THYROXINE) 6.5 ug/dL (4.5-12.0)
[2020-12-18 08:12] LABS: BASOPHILS % (AUTO) 0.5 % (0.0-2.0); EOSINOPHILS # (AUTO) 0.1 K/uL (0-0.4); EOSINOPHILS % (AUTO) 1.8 % (0.0-4.0); HEMATOCRIT 36.6 % (36-48); HEMOGLOBIN 12.2 g/dL (12.0-16.0); LYMPHOCYTES # (AUTO) 2.1 K/uL (2.5-16.5); LYMPHOCYTES % (AUTO) 43.3 % (20.5-51.1); MEAN CORPUSCULAR HEMOGLOBIN 27 pg (27-31); MEAN CORPUSCULAR HGB CONC 33 g/dL (33-37); MEAN CORPUSCULAR VOLUME 80.7 fL (80-94); MONOCYTES # (AUTO) 0.4 K/uL (0.8-1.0); MONOCYTES % (AUTO) 8.1 % (1.7-9.3); NEUTROPHILS # (AUTO) 2.3 K/uL (1.8-7.7); NEUTROPHILS % (AUTO) 46.3 % (42.2-75.2); PLATELET COUNT (AUTO) 241 K/uL (140-450); RED BLOOD CELL COUNT(AUTO) 4.53 MIL/uL (4.20-5.40); RED CELL DISTRIBUTION WIDTH 13.3 % (11.6-13.7); WHITE BLOOD COUNT (AUTO) 4.9 K/uL (4.8-10.8)
[2020-12-18] MEDS: FAMOTIDINE 20 MG TAB PO SCH (08:55)
[2020-12-18] MEDS: DICYCLOMINE 10 MG CAP PO PRN ×2 (08:55→12:50)
[2020-12-18] MEDS: PANTOPRAZOLE 40 MG TABEC PO SCH (08:55)
[2020-12-18] MEDS: amLODIPine 5 MG TAB PO SCH (08:56)
[2020-12-18] MEDS: POLYETHYLENE GLYCOL 17 GM/PKT PO SCH (08:56)
[2020-12-18] MEDS: ONDANSETRON 4 MG/2 ML VIAL IM/IVP PRN ×2 (12:45→17:20)
--- NOTE | 2020-12-18 12:50 | NUR ---
PATIENT COMPLAINS OF ABD PAIN. BENTYL PO PRN GIVEN AT THIS TIME. ALSO FELT NAUSEATED, ZOFRAN GIVEN AT THIS TIME. WILL CONTINUE TO MONITOR.
--- NOTE | 2020-12-18 15:42 | NUR ---
SCHEDULED MEDICATIONS DUE GIVEN. WILL CONTINUE TO MONITOR.
[2020-12-18 16:00] VITALS: BP 135/90
--- NOTE | 2020-12-18 18:16 | NUR ---
PATIENT LYING DOWN IN BED SLEEPING, AROUSABLE BY VOICE. NO DISTRESS NOTED. PAIN WITHIN TOLERABLE. WILL CONTINUE TO MONITOR.
--- NOTE | 2020-12-18 19:23 | NUR ---
GAVE REPORT TO DENSITOMETRIST NURSE FOR CONTINUITY OF CARE. PATIENT IN STABLE CONDITION.
--- NOTE | 2020-12-18 19:24 | NUR ---
RECD. RESTING IN BED, AWAKE, A/OX4. RESPIRATION EVEN AND UNLABORED. IV OF NS INFUSING AT 130 ML/HR, LEFT FOREARM G22. VERBALIZED SHE HAD DIARRHEA X3 AFTER SHE ATE SOLID FOODS TODAY. INSTRUCTED TO CALL NURSE WHEN ANOTHER EPISODE OF DIARRHEA OCCURS TO BE ABLE TO SEE HOW IT LOOKS AND WILL INFORM MD. TOLERATING FULL LIQUID DIET AT THIS TIME. DENIES PAIN 0/10.
[2020-12-18 20:00] VITALS: BP 136/98
--- NOTE | 2020-12-18 20:30 | NUR ---
HAD ANOTHER BM, CHECKED STOOLS. NOTED SOME SMALL ROUND FORMED STOOLS SCATTERED WITH URINE. NO DIARRHEA NOTED.
--- NOTE | 2020-12-18 21:30 | NUR ---
RECEIVED REPORT FROM TIFFANIE KEEN FOR CONTINUITY OF CARE. PT LAYING DOWN RESTING QUIETLY. NO APPARENT S/S OF ACUTE DISTRESS. BREATHING EVEN AND UNLABORED. BED IN LOW/LOCKED POSITION. CALL LIGHT WITHIN REACH. WILL CONTINUE TO MONITOR.
--- NOTE | 2020-12-18 21:30 | NUR ---
RESTING IN BED, COMPLAINT OF ABDOMINAL PAIN ATTENDED PROMPTLY, MEDICATED BY RN PER MD ORDER. ENDORSED TO YOLANDA BANKS FOR CONTINUITY OF CARE.
[2020-12-19] MEDS: NACL 0.9% 1,000 ML IV SCH ×3 (01:26→21:11)
[2020-12-19] MEDS: HYDROcodone/APAP 5/325 MG 1 TAB TAB PO PRN ×2 (01:28→21:23)
[2020-12-19] MEDS: ZOLPIDEM 5 MG TAB PO PRN ×2 (01:31→21:23)
[2020-12-19 07:05] LABS: BASOPHILS % (AUTO) 0.3 % (0.0-2.0); EOSINOPHILS # (AUTO) 0.1 K/uL (0-0.4); EOSINOPHILS % (AUTO) 1.4 % (0.0-4.0); HEMATOCRIT 37.4 % (36-48); HEMOGLOBIN 12.5 g/dL (12.0-16.0); LYMPHOCYTES # (AUTO) 1.8 K/uL (2.5-16.5); LYMPHOCYTES % (AUTO) 35.1 % (20.5-51.1); MEAN CORPUSCULAR HEMOGLOBIN 27 pg (27-31); MEAN CORPUSCULAR HGB CONC 33 g/dL (33-37); MEAN CORPUSCULAR VOLUME 80.6 fL (80-94); MONOCYTES # (AUTO) 0.4 K/uL (0.8-1.0); MONOCYTES % (AUTO) 6.9 % (1.7-9.3); NEUTROPHILS # (AUTO) 2.9 K/uL (1.8-7.7); NEUTROPHILS % (AUTO) 56.3 % (42.2-75.2); PLATELET COUNT (AUTO) 247 K/uL (140-450); RED BLOOD CELL COUNT(AUTO) 4.63 MIL/uL (4.20-5.40); RED CELL DISTRIBUTION WIDTH 13.4 % (11.6-13.7); WHITE BLOOD COUNT (AUTO) 5.1 K/uL (4.8-10.8)
--- NOTE | 2020-12-19 07:07 | NUR ---
REPORT GIVEN TO COLLEEN BANKS FOR CONTINUITY OF CARE. NO APPARENT S/S OF ACUTE DISTRESS. BREATHING EVEN AND UNLABORED. BED IN LOW/LOCKED POSITION. CALL LIGHT WITHIN REACH. ALL NEEDS MET AT THIS TIME.
[2020-12-19 07:27] LABS: ANION GAP 13.3 (8-16); CARBON DIOXIDE 26.1 mmol/L (21-32); CREATININE 0.7 mg/dL (0.6-1.3); POTASSIUM 3.4 mmol/L (3.5-5.1)
--- NOTE | 2020-12-19 07:36 | NUR ---
RECEVE REPORT FROM FRUIT AND VEGETABLE CLASSER NURSE.PT IS RESTING IN BED, AWAKE, A/OX4. RESPIRATION EVEN AND UNLABORED. IV OF NS INFUSING AT 130 ML/HR, RIGHT AC G22. INDEPENDENT, AMBULATORY TO THE BR. VERBALIZED THAT SHE HAS NO NAUSEA/VOMITING NOR DIARRHEA . PLAN OF CARE FOR DISCUSSED WITH PATIENT. VERBALIZED UNDERSTANDING. ALL SAFETY MEASURES ON PLACE, CALLS LIGHT WITHIN REACH
[2020-12-19 07:46] LABS: PHOSPHORUS 3.4 mg/dL (2.5-4.9)
[2020-12-19] MEDS: PANTOPRAZOLE 40 MG TABEC PO SCH (09:08)
[2020-12-19] MEDS: POLYETHYLENE GLYCOL 17 GM/PKT PO SCH (09:08)
[2020-12-19] MEDS: DICYCLOMINE 10 MG CAP PO PRN (09:08)
[2020-12-19] MEDS: amLODIPine 5 MG TAB PO SCH (09:08)
[2020-12-19] MEDS: FAMOTIDINE 20 MG TAB PO SCH (09:14)
[2020-12-19] MEDS ORDERED: METR-435 PO (09:17)
[2020-12-19] MEDS ORDERED: PANT40EC PO (09:17)
[2020-12-19] MEDS ORDERED: FAMO20TA99 PO (09:17)
[2020-12-19] MEDS ORDERED: MIRABULK PO (09:17)
[2020-12-19] MEDS ORDERED: IBUP-2213 PO (09:17)
[2020-12-19] MEDS ORDERED: ONDA4TAB PO (09:17)
[2020-12-19] MEDS: MORPHINE SULFATE 2 MG/ML SYR IVP PRN ×3 (09:19→18:24)
--- NOTE | 2020-12-19 09:28 | NUR ---
PT IN BED COMPLAINS ABOUT PAIN GOT MEDICATED PRN ORDER, PT MORNING MEDICATION GOT ADMINISTRATED TOLERATED WELL, ALL SAFETY MEASURES ON PLACE CALLS LIGHT WITHIN REACH
--- NOTE | 2020-12-19 11:22 | NUR ---
PATIENT ON BED NO COMPLAINS, NO SOD NOTED, ALL SAFETY MEASURES ON PLACE CALLS LIGHT WITHIN REACH
--- NOTE | 2020-12-19 13:00 | NUR ---
PATIENT ON BED NO COMPLAINS, F NO SOD NOTED, ALL SAFETY MEASURES ON PLACE CALLS LIGHT WITHIN REACH
--- NOTE | 2020-12-19 14:31 | NUR ---
DC [age] YRS OLD FEMALE PATIENT WAS ADMITTED FROM HOME WITH A DX OF HYPEREMESIS, PATIENT HAS A HX OF OBESITY AND HTN. US ABD/PELVIC AND CT ABD/PELVIS SHOWED NO ABNORMAL FINDINGS. ADMINISTERED IVF, PAIN MEDS AND CONTINUED HOME MEDS. PT FELT BETTER AND STABLE FOR DISCHARGE AND FOLLOW UP WITH PCP.
--- NOTE | 2020-12-19 15:13 | NUR ---
PATIENT ON BED NO COMPLAINS, NO SOD NOTED, ALL SAFETY MEASURES ON PLACE CALLS LIGHT WITHIN REACH
--- NOTE | 2020-12-19 17:04 | NUR ---
PATIENT ON BED NO COMPLAINS, SIDE, NO SOD NOTED, PLAN FOR PATIENT TO BE DISCHARGED,PATIENT ASKING FOR PAIN MEDICATION PRESCRIPTION BESIDE WHAT THE DR ALREADY PRESCRIBE FOR HER, CLAIMING THAT WHAT DR PRESCRIBE HER SHE ALREADY TAKEN AT HOME AND IT DOES NOT HELP HER, TALKED TO DR BENITO BRIGGS AND INFORMED HER WITH PATIENT CONCERNS ,WAITING FOR HER RESPONSE ALL SAFETY MEASURES ON PLACE CALLS LIGHT WITHIN REACH
--- NOTE | 2020-12-19 19:50 | NUR ---
RECEIVED REPORT FROM COLLEEN BANKS FOR CONTINUITY OF CARE. PT SITTING UP AAOX4. NO APPARENT S/S OF ACUTE DISTRESS. BREATHING EVEN AND UNLABORED ON RA WITH O2 SAT OF 99%. NO C/O CP, SOB OR PAIN. R FA 22G INTACT/PATENT. POC AND WHITE COMMUNICATION BOARD UPDATED. BED IN LOW/LOCKED POSITION. CALL LIGHT WITHIN REACH. PT ENCOURAGED TO CALL FOR ANY NEEDS/ASSISTANCE. WILL CONTINUE TO MONITOR.
--- NOTE | 2020-12-19 19:52 | NUR ---
FULL BED SIDE REPORT GIVEN TO REAL ESTATE ACQUISITION ANALYST NURSE
[2020-12-19 20:00] VITALS: BP 132/97
[2020-12-20] MEDS ORDERED: ACET-9525 PO (02:02)
[2020-12-20] MEDS: MORPHINE SULFATE 2 MG/ML SYR IVP PRN (02:33)
[2020-12-20] MEDS: NACL 0.9% 1,000 ML IV SCH ×2 (02:39→12:35)
[2020-12-20 04:00] VITALS: BP 139/103
[2020-12-20] MEDS: HYDROcodone/APAP 5/325 MG 1 TAB TAB PO PRN (06:30)
--- NOTE | 2020-12-20 06:58 | NUR ---
REPORT GIVEN TO SARAHI BANKS FOR CONTINUITY OF CARE. PT SITTING UP AAOX4. NO APPARENT S/S OF ACUTE DISTRESS. BREATHING EVEN AND UNLABORED. BED IN LOW/LOCKED POSITION. CALL LIGHT WITHIN REACH. ALL NEEDS MET AT THIS TIME.
--- NOTE | 2020-12-20 07:05 | NUR ---
RECEIVE REPORT FROM CASKET UPHOLSTERER NURSE FOR CONTINUITY OF CARE. PATIENT AWAKE AND ALERT. NO ACUTE DISTRESS NOTED. PATIENT ON ROOM AIR. ALL SAFETY MEASURES IN PLACE. CALL LIGHT WITHIN REACH. WILL CONTINUE TO MONITOR.
[2020-12-20 07:45] LABS: BASOPHILS % (AUTO) 0.3 % (0.0-2.0); EOSINOPHILS # (AUTO) 0.1 K/uL (0-0.4); EOSINOPHILS % (AUTO) 1.8 % (0.0-4.0); HEMOGLOBIN 12.4 g/dL (12.0-16.0); LYMPHOCYTES % (AUTO) 39.3 % (20.5-51.1); MEAN CORPUSCULAR HEMOGLOBIN 27 pg (27-31); MEAN CORPUSCULAR HGB CONC 33 g/dL (33-37); MEAN CORPUSCULAR VOLUME 80.8 fL (80-94); MONOCYTES # (AUTO) 0.4 K/uL (0.8-1.0); MONOCYTES % (AUTO) 8.2 % (1.7-9.3); NEUTROPHILS # (AUTO) 2.6 K/uL (1.8-7.7); NEUTROPHILS % (AUTO) 50.4 % (42.2-75.2); PLATELET COUNT (AUTO) 247 K/uL (140-450); RED BLOOD CELL COUNT(AUTO) 4.58 MIL/uL (4.20-5.40); RED CELL DISTRIBUTION WIDTH 13.4 % (11.6-13.7); WHITE BLOOD COUNT (AUTO) 5.2 K/uL (4.8-10.8)
[2020-12-20 07:52] LABS: ANION GAP 12.8 (8-16); CREATININE 0.6 mg/dL (0.6-1.3); POTASSIUM 3.8 mmol/L (3.5-5.1)
[2020-12-20 07:57] LABS: PHOSPHORUS 3.1 mg/dL (2.5-4.9)
[2020-12-20] MEDS: PANTOPRAZOLE 40 MG TABEC PO SCH (08:18)
[2020-12-20] MEDS: POLYETHYLENE GLYCOL 17 GM/PKT PO SCH (08:19)
[2020-12-20] MEDS: FAMOTIDINE 20 MG TAB PO SCH (08:19)
[2020-12-20] MEDS: amLODIPine 5 MG TAB PO SCH (08:19)
--- NOTE | 2020-12-20 08:33 | NUR ---
PATIENT AWAKE AND ALERT. NO ACUTE DISTRESS NOTED. SCHEDULED MEDIATION GIVEN. ALL SAFETY MEASURES IN PLACE. CALL LIGHT WITHIN REACH. WILL CONTINUE TO MONITOR.
--- NOTE | 2020-12-20 10:20 | NUR ---
PATIENT AWAKE AND ALERT. NO ACUTE DISTRESS NOTED. PATIENT DENIES PAIN AT THIS TIME. ALL SAFETY MEASURES IN PLACE. CALL LIGHT WITHIN REACH. WILL CONTINUE TO MONITOR.
--- NOTE | 2020-12-20 12:38 | NUR ---
PATIENT AWAKE AND ALERT. NO ACUTE DISTRESS NOTED. PATIENT VS STABLE. DISCHARGE INFORMATION GIVEN. PATIENT SIGNED ALL DISCHARGE INFORMATION AND VERBALIZE UNDERSTANDING. COPIES MADE OF ALL DISCHARGE INFORMATION. WRISTBAND AND IV REMOVED. IV CATHETER INTACT. PATIENT TAKEN TO FRONT LOBBY VIA WHEELCHAIR.
[2020-12-31] MEDS ORDERED: ONDA-24 PO (16:27)
[2021-01-04] MEDS ORDERED: HYDR-39 PO (02:43)
== END 2020-12-20 12:35 | disposition home or self-care (01) | DRG 249 ==
LOC: MED 21:11 → MTU 12-17 05:11
DX: A08.4 Viral intestinal infection, unspecified (principal); K76.89 Other specified diseases of liver; E66.9 Obesity, unspecified; E86.0 Dehydration; K92.9 Disease of digestive system, unspecified; I10 Essential (primary) hypertension; J45.909 Unspecified asthma, uncomplicated; K21.9 Gastro-esophageal reflux disease without esophagitis; Z88.0 Allergy status to penicillin; Z88.8 Allergy status to other drugs, medicaments and biological substances; Z91.09 Other allergy status, other than to drugs and biological substances; Z91.018 Allergy to other foods; Z79.899 Other long term (current) drug therapy; Z98.891 History of uterine scar from previous surgery; Z68.41 Body mass index [BMI] 40.0-44.9, adult
CPT/HCPCS: 36415; 76700; 76856; 80048; 80053; 80305; 81001; 82150; 83036; 83690; 83735; 83880; 84100; 84436; 84443; 85025; 85610; 85730; 87081; 96361; 96365; 96375; 96376; 99285; C9113; J0696; J2270; J2405; J7060; Q0092; Q9967

== ENCOUNTER 2020-12-31 03:58 | Emergency (ER) | payer MEDICAID ==
[~2020-12-31] VITALS: Ht 152.4 cm; Wt 98.4 kg
[~2020-12-31 03:58] MED LIST changes: -ACET-8386 PO; +ACET-9525 PO; -ACET-9526 PO; -ACET-9527 PO; -ACYC-276 PO; +AMLO5TAB PO; -CEPH500C16 PO; -HYDR-4924 PO; -METR500T1 PO; -ONDA-24 PO; -SULF-59 PO; -ZOLP5TAB1 PO; -[UNRECOGNIZED DRUG - CODE] PO; -[UNRECOGNIZED DRUG - CODE] PO
[2020-12-31 04:00] VITALS: BP 146/99
--- NOTE | 2020-12-31 04:10 | NUR ---
pt ambulated to bed 03 with steady gait.
--- NOTE | 2020-12-31 04:19 | NUR ---
ERMD at bedside for examination
[2020-12-31] MEDS ORDERED: MORPHINE SULFATE 4 MG/ML SYR IM ONE (04:25)
[2020-12-31] MEDS ORDERED: ONDANSETRON 4 MG ODT PO ONE (04:25)
[2020-12-31] MEDS ORDERED: ONDA8TAB87 PO (04:40)
--- NOTE | 2020-12-31 05:08 | NUR ---
Sariah mejia in EDM - 12/31/20 at 0513 by LAMBERTO Pt asked for emisis bag, and is currently gagging into emisis bag.
--- NOTE | 2020-12-31 05:08 | NUR ---
Pt asked for emisis bag, and is currently gagging into emisis bag. ERMD made aware.
--- NOTE | 2020-12-31 05:22 | NUR ---
Pt requested ice pack for migraine. provided pt with ice pack, will continue to monitor.
--- NOTE | 2020-12-31 05:36 | NUR ---
Patient discharged with v/s stable. Written and verbal after care instructions given and explained. Patient alert, oriented and verbalized understanding of instructions. Ambulatory with steady gait. All questions addressed prior to discharge. ID band removed. Patient advised to follow up with PMD. Rx of Ondansetron HCL given. Patient educated on indication of medication including possible reaction and side effects. Opportunity to ask questions provided and answered.
--- NOTE | 2020-12-31 05:36 | NUR ---
ERMD aware that patient still feels nauseated and gagging into an emesis bag after providing interventions
[2020-12-31 05:40] VITALS: BP 146/99
[2020-12-31] MEDS ORDERED: ONDA-188 PO (16:27)
[2020-12-31] MEDS ORDERED: ACET-10509 PO (16:27)
== END 2020-12-31 05:36 | disposition home or self-care (01) ==
LOC: MED 03:58
DX: G43.909 Migraine, unspecified, not intractable, without status migrainosus (principal); J45.909 Unspecified asthma, uncomplicated; I10 Essential (primary) hypertension; Z88.0 Allergy status to penicillin; Z91.018 Allergy to other foods; Z88.8 Allergy status to other drugs, medicaments and biological substances; Z79.899 Other long term (current) drug therapy; Z90.49 Acquired absence of other specified parts of digestive tract; Z98.890 Other specified postprocedural states
CPT/HCPCS: 81002; 81025; 96372; 99283; J2270; Q0162

== ENCOUNTER 2020-12-31 12:02 | Emergency (ER) | payer MEDICAID ==
[~2020-12-31] VITALS: Ht 152.4 cm; Wt 96.6 kg
[~2020-12-31 12:02] MED LIST changes: +ONDA8TAB87 PO
[2020-12-31 12:05] VITALS: BP 139/90
--- NOTE | 2020-12-31 12:20 | NUR ---
Dr. Branch is evaluating patient at bedside
--- NOTE | 2020-12-31 12:25 | NUR ---
30 y/o F BIB self from home c/o migraine headache since midnight 12/31/20. Patient A&Ox4, ambulatory, states worsening headaches that was not alleviated with typical home remedies. Patient states her migraines headache lasts "a few hours" and helped with Tylenol, dark room and a cool rag placed overhead. Patient reports 10/10, throbbing/constant, non-radiating pain. states today feels different - reports forehead and facial pain. +Photosensitivity, presenting with sunglasses in ER. States nausea and diarrhea. Denies vomiting, diarrhea, chest pain, abdominal pain, dizziness. Pt placed into a gown and UA collected. Bed locked in lowest position, side rails x 1, call light in reach. PMH/meds: ovarian cyst, OTC Tylenol and Ibuprofen A: See list
[2020-12-31] MEDS ORDERED: NACL 0.9% 1,000 ML IV ONE (12:35)
[2020-12-31] MEDS ORDERED: diphenhydrAMINE 50 MG/ML VIAL IVP ONE (12:35)
[2020-12-31] MEDS ORDERED: PROCHLORPERAZINE 10 MG/2 ML VIAL IVP ONE (12:35)
--- NOTE | 2020-12-31 13:06 | NUR ---
CT consent form signed
--- NOTE | 2020-12-31 13:15 | NUR ---
CT contacted made aware patient ready for scan. electronic equipment maint tech states he will be here shortly; has two patients to complete.
--- NOTE | 2020-12-31 14:12 | NUR ---
Assumed care of pt from JOCELYN Miles. Pt taken to CT via allen
[2020-12-31] MEDS ORDERED: MORPHINE SULFATE 4 MG/ML SYR IVP ONE (15:00)
[2020-12-31] MEDS ORDERED: ONDANSETRON 4 MG/2 ML VIAL IVP ONE (15:00)
--- NOTE | 2020-12-31 15:04 | NUR ---
BACK FROM CT SCAN.
--- NOTE | 2020-12-31 15:23 | NUR ---
gate technician contacted and advised of 18G R AC. gate technician requested to reorder CT Angio Head; QUINN Branch made aware
--- NOTE | 2020-12-31 15:30 | NUR ---
PATIENT TO CT VIA GURNEY.
--- NOTE | 2020-12-31 15:46 | NUR ---
PATIENT BACK FROM CT.
[2020-12-31] MEDS ORDERED: ONDA-188 PO (16:27)
[2020-12-31] MEDS ORDERED: ACET-10509 PO (16:27)
--- NOTE | 2020-12-31 16:37 | NUR ---
Patient discharged with v/s stable. Written and verbal after care instructions given and explained. Patient alert, oriented and verbalized understanding of instructions. Ambulatory with steady gait. All questions addressed prior to discharge. ID band removed. Patient advised to follow up with PMD. Rx of ACETAMINOPHEN, ONDANSETRON given. Opportunity to ask questions provided and answered.
[2020-12-31 16:38] VITALS: BP 144/92
--- NOTE | 2020-12-31 16:41 | NUR ---
The patient's care was reviewed and supervised by Serena Walters RN.
== END 2020-12-31 16:41 | disposition home or self-care (01) ==
LOC: MED 12:02
DX: R51.9 Headache, unspecified (principal); I10 Essential (primary) hypertension; Z88.0 Allergy status to penicillin; Z91.013 Allergy to seafood; Z88.8 Allergy status to other drugs, medicaments and biological substances; Z79.899 Other long term (current) drug therapy
CPT/HCPCS: 70450; 70496; 81025; 96361; 96374; 96375; 99285; J0780; J1200; J2270; J2405; Q9967; J7030

== ENCOUNTER 2021-01-04 02:08 | Emergency (ER) | payer MEDICAID ==
[~2021-01-04] VITALS: Ht 152.4 cm; Wt 96.6 kg
[~2021-01-04 02:08] MED LIST changes: +ACET-10509 PO; +ONDA-188 PO
[2021-01-04 02:17] VITALS: BP 159/107
--- NOTE | 2021-01-04 02:34 | NUR ---
REPORTS MIGRAINE HEADACHE, NO NAUSEA OR VOMITING.
[2021-01-04] MEDS ORDERED: CLONIDINE HYDROCHLORIDE 0.1 MG TAB PO ONE (02:35)
[2021-01-04] MEDS ORDERED: HYDR-2853 PO (02:43)
--- NOTE | 2021-01-04 02:46 | NUR ---
CLEARED FOR DISCHARGE AT THIS TIME. PATIENT WAS GIVEN DISCHARGE TEACHING AT BEDSIDE BY DR. CAIN WITH NO FURTHER QUESTIONS OR CONCERNS. ADVISED TO FOLLOW UP WITH PCP./
[2021-01-04 02:47] VITALS: BP 165/109
== END 2021-01-04 02:51 | disposition home or self-care (01) ==
LOC: MED 02:08
DX: R51.9 Headache, unspecified (principal); I10 Essential (primary) hypertension; F11.90 Opioid use, unspecified, uncomplicated; Z88.0 Allergy status to penicillin; Z91.018 Allergy to other foods; Z79.899 Other long term (current) drug therapy; Z88.8 Allergy status to other drugs, medicaments and biological substances
CPT/HCPCS: 99283

== ENCOUNTER 2021-01-16 07:51 | Emergency (ER) | payer MEDICAID ==
[~2021-01-16] VITALS: Ht 152.4 cm; Wt 96.7 kg
[~2021-01-16 07:51] MED LIST changes: +HYDR-2853 PO
[2021-01-16 07:58] VITALS: BP 150/106
[2021-01-16] MEDS ORDERED: ACETAMINOPHEN EXTRA STRENGTH 500 MG TAB PO ONE (08:20)
--- NOTE | 2021-01-16 09:00 | NUR ---
LABS DRAWN AT THIS TIME, URINE AND LABS TAKEN TO LAB
--- NOTE | 2021-01-16 09:09 | NUR ---
X-Ray at bedside.
--- NOTE | 2021-01-16 09:16 | NUR ---
30 Y/O F BIB SELF FROM HOME, PATIENT PRESENTS TO ED WITH ABD PAIN LLQ AND RLQ RADIATES TO SIDES FOR "MONTHS" CHRONIC PAIN. PT STATES SHE IS ALSOB HAVING DYSURIA, HEMATURIA AND HAD BLEEDING THIS MORNING. DENIES VOMITING AND DIARRHEA; SKIN IS PINK/WARM/DRY; AAOX4 WITH EVEN AND STEADY GAIT; LUNGS CLEAR BL; HR EVEN AND REGULAR; PT DENIES ANY FEVER, CP, SOB, OR COUGH AT THIS TIME; PATIENT STATES PAIN OF 10/10 AT THIS TIME; PATIENT POSITIONED FOR COMFORT; HOB ELEVATED; BEDRAILS UP X2; BED DOWN. ER MD MADE AWARE OF PT STATUS. DENIES VAGINAL BLEEDING OR DISCHARGE. PMH: HTN, ASTHMA ALLERGY: SEE LIST (PT STATES SHE HAS NO REACTION WITH PO IBUPROFEN, BUT ITCHING WITH TORODOL) MED: AMLODIPINE, IBUPROFEN, NAPROXEN
[2021-01-16 09:20] LABS: APPEARANCE,URINE CLEAR (CLEAR); BILIRUBIN,URINE NEGATIVE (NEGATIVE); BLOOD, URINE NEGATIVE (NEGATIVE); COLOR,URINE YELLOW (YELLOW); LEUKOCYTE ESTERASE ,URINE NEGATIVE (NEGATIVE); NITRITE, URINE NEGATIVE (NEGATIVE); UGLUCOSE NEGATIVE (NEGATIVE)
[2021-01-16 09:23] LABS: BASOPHILS % (AUTO) 0.2 % (0.0-2.0); EOSINOPHILS # (AUTO) 0.1 K/uL (0-0.4); EOSINOPHILS % (AUTO) 1.4 % (0.0-4.0); HEMATOCRIT 38.1 % (36-48); HEMOGLOBIN 12.9 g/dL (12.0-16.0); LYMPHOCYTES % (AUTO) 35.3 % (20.5-51.1); MEAN CORPUSCULAR HEMOGLOBIN 27 pg (27-31); MEAN CORPUSCULAR HGB CONC 34 g/dL (33-37); MEAN CORPUSCULAR VOLUME 78.5 fL (80-94); MONOCYTES # (AUTO) 0.3 K/uL (0.8-1.0); MONOCYTES % (AUTO) 5.3 % (1.7-9.3); NEUTROPHILS # (AUTO) 3.2 K/uL (1.8-7.7); NEUTROPHILS % (AUTO) 57.8 % (42.2-75.2); PLATELET COUNT (AUTO) 278 K/uL (140-450); RED BLOOD CELL COUNT(AUTO) 4.85 MIL/uL (4.20-5.40); RED CELL DISTRIBUTION WIDTH 13.7 % (11.6-13.7); WHITE BLOOD COUNT (AUTO) 5.6 K/uL (4.8-10.8)
[2021-01-16 09:40] LABS: ANION GAP 12.8 (8-16); CARBON DIOXIDE 28.9 mmol/L (21-32); CREATININE 0.7 mg/dL (0.6-1.3); POTASSIUM 3.7 mmol/L (3.5-5.1); TOTAL BILIRUBIN 0.3 mg/dL (0.0-1.0)
[2021-01-16 09:49] LABS: RBC,URINE 0-5 /HPF (0-5); WBC,URINE 0-5 /HPF (0-5)
[2021-01-16] MEDS ORDERED: MAGN1.7529 PO (10:06)
[2021-01-16] MEDS ORDERED: IBUPROFEN 600 MG TAB PO ONE (10:10)
[2021-01-16 10:45] VITALS: BP 150/106
--- NOTE | 2021-01-16 10:45 | NUR ---
Patient discharged with v/s stable. Written and verbal after care instructions given and explained. Patient alert, oriented and verbalized understanding of instructions. Ambulatory with steady gait. All questions addressed prior to discharge. ID band removed. Patient advised to follow up with PMD. Rx of MAGNESIUM CITRATE given. Patient educated on indication of medication including possible reaction and side effects. Opportunity to ask questions provided and answered.
== END 2021-01-16 10:45 | disposition home or self-care (01) ==
LOC: MED 07:51
DX: K59.00 Constipation, unspecified (principal); I10 Essential (primary) hypertension; Z86.69 Personal history of other diseases of the nervous system and sense organs; Z79.899 Other long term (current) drug therapy; Z79.1 Long term (current) use of non-steroidal anti-inflammatories (NSAID); Z79.2 Long term (current) use of antibiotics; Z79.891 Long term (current) use of opiate analgesic; Z79.51 Long term (current) use of inhaled steroids; Z88.0 Allergy status to penicillin; Z88.6 Allergy status to analgesic agent; Z91.018 Allergy to other foods; Z91.048 Other nonmedicinal substance allergy status
CPT/HCPCS: 36415; 74022; 80053; 81001; 81025; 83690; 85025; 87491; 99284

== ENCOUNTER 2021-01-24 20:14 | Emergency (ER) | payer MEDICAID ==
[~2021-01-24] VITALS: Ht 152.4 cm; Wt 104.3 kg
[~2021-01-24 20:14] MED LIST changes: +MAGN1.7529 PO
[2021-01-24 20:19] VITALS: BP 146/81
--- NOTE | 2021-01-24 20:43 | NUR ---
PT TAKEN TO BED 1
[2021-01-24 21:07] LABS: BASOPHILS % (AUTO) 0.5 % (0.0-2.0); EOSINOPHILS # (AUTO) 0.1 K/uL (0-0.4); EOSINOPHILS % (AUTO) 1.9 % (0.0-4.0); HEMATOCRIT 39.5 % (36-48); HEMOGLOBIN 13.3 g/dL (12.0-16.0); LYMPHOCYTES # (AUTO) 1.8 K/uL (2.5-16.5); LYMPHOCYTES % (AUTO) 34.4 % (20.5-51.1); MEAN CORPUSCULAR HEMOGLOBIN 26 pg (27-31); MEAN CORPUSCULAR HGB CONC 34 g/dL (33-37); MEAN CORPUSCULAR VOLUME 78.5 fL (80-94); MONOCYTES # (AUTO) 0.4 K/uL (0.8-1.0); MONOCYTES % (AUTO) 8.5 % (1.7-9.3); NEUTROPHILS # (AUTO) 2.8 K/uL (1.8-7.7); NEUTROPHILS % (AUTO) 54.7 % (42.2-75.2); PLATELET COUNT (AUTO) 332 K/uL (140-450); RED BLOOD CELL COUNT(AUTO) 5.03 MIL/uL (4.20-5.40); WHITE BLOOD COUNT (AUTO) 5.1 K/uL (4.8-10.8)
[2021-01-24 21:18] LABS: ALBUMIN 3.9 g/dL (3.4-5.0); ANION GAP 12.9 (8-16); CREATININE 0.8 mg/dL (0.6-1.3); POTASSIUM 3.9 mmol/L (3.5-5.1); TOTAL BILIRUBIN 0.2 mg/dL (0.0-1.0)
[2021-01-24 22:03] LABS: APPEARANCE,URINE CLEAR (CLEAR); BILIRUBIN,URINE NEGATIVE (NEGATIVE); BLOOD, URINE NEGATIVE (NEGATIVE); COLOR,URINE YELLOW (YELLOW); LEUKOCYTE ESTERASE ,URINE NEGATIVE (NEGATIVE); NITRITE, URINE NEGATIVE (NEGATIVE); UGLUCOSE NEGATIVE (NEGATIVE)
[2021-01-24] MEDS ORDERED: HYDROcodone/APAP 10/325 MG 1 TAB TAB PO ONE (22:25)
[2021-01-24] MEDS ORDERED: ONDANSETRON 4 MG ODT PO ONE (22:40)
--- NOTE | 2021-01-25 00:03 | NUR ---
PATIENT AMBULATED TO THE BATHROOM
[2021-01-25] MEDS ORDERED: METO-485 PO (00:17)
[2021-01-25] MEDS ORDERED: ACET-8386 PO (00:17)
[2021-01-25] MEDS ORDERED: IBUP-2213 PO (00:17)
[2021-01-25 00:31] VITALS: BP 140/81
--- NOTE | 2021-01-25 00:31 | NUR ---
Patient discharged with v/s stable. Written and verbal after care instructions given and explained. Patient alert, oriented and verbalized understanding of instructions. Ambulatory with steady gait. All questions addressed prior to discharge. ID band removed. Patient advised to follow up with PMD. Rx of HYDROCODON-ACETAMINOPHEN 5-325, IBUPROFEN, REGLAN given. Patient educated on indication of medication including possible reaction and side effects. Opportunity to ask questions provided and answered.
== END 2021-01-25 00:31 | disposition home or self-care (01) ==
LOC: MED 20:14
DX: R10.30 Lower abdominal pain, unspecified (principal)
CPT/HCPCS: 36415; 80053; 81003; 81025; 83690; 85025; 99283; Q0162

== ENCOUNTER 2021-02-06 17:00 | Emergency (ER) | payer MEDICAID ==
[~2021-02-06] VITALS: Ht 152.4 cm; Wt 95.7 kg
[~2021-02-06 17:00] MED LIST changes: +ACET-8386 PO; +METO-485 PO
[2021-02-06 17:50] VITALS: BP 153/114
--- NOTE | 2021-02-06 21:46 | NUR ---
PT AMBULATED TO BED 01
--- NOTE | 2021-02-06 22:07 | NUR ---
ULTRASOUND AT BEDSIDE
[2021-02-06 22:10] LABS: BASOPHILS % (AUTO) 0.3 % (0.0-2.0); EOSINOPHILS % (AUTO) 0.7 % (0.0-4.0); HEMATOCRIT 36.4 % (36-48); HEMOGLOBIN 12.4 g/dL (12.0-16.0); LYMPHOCYTES # (AUTO) 1.7 K/uL (2.5-16.5); LYMPHOCYTES % (AUTO) 27.5 % (20.5-51.1); MEAN CORPUSCULAR HEMOGLOBIN 27 pg (27-31); MEAN CORPUSCULAR HGB CONC 34 g/dL (33-37); MEAN CORPUSCULAR VOLUME 78.6 fL (80-94); MONOCYTES # (AUTO) 0.3 K/uL (0.8-1.0); MONOCYTES % (AUTO) 5.1 % (1.7-9.3); NEUTROPHILS # (AUTO) 4.2 K/uL (1.8-7.7); NEUTROPHILS % (AUTO) 66.4 % (42.2-75.2); PLATELET COUNT (AUTO) 303 K/uL (140-450); RED BLOOD CELL COUNT(AUTO) 4.63 MIL/uL (4.20-5.40); RED CELL DISTRIBUTION WIDTH 14.1 % (11.6-13.7); WHITE BLOOD COUNT (AUTO) 6.3 K/uL (4.8-10.8)
[2021-02-06 22:15] LABS: APPEARANCE,URINE CLEAR (CLEAR); BILIRUBIN,URINE NEGATIVE (NEGATIVE); BLOOD, URINE 3+ (NEGATIVE); COLOR,URINE YELLOW (YELLOW); LEUKOCYTE ESTERASE ,URINE NEGATIVE (NEGATIVE); NITRITE, URINE NEGATIVE (NEGATIVE); UGLUCOSE NEGATIVE (NEGATIVE)
[2021-02-06 22:26] LABS: RBC,URINE 0-5 /HPF (0-5); WBC,URINE 0-5 /HPF (0-5)
[2021-02-06 22:29] LABS: PROTHROMBIN TIME 10.3 secs (10.8-13.4)
--- NOTE | 2021-02-06 22:51 | NUR ---
PT IS A 30 Y/O F BIB SELF WITH C/O PELVIC PAIN FOR 3 MONTHS. PT STATED SHE HAD NO PERIOD FOR 3 MONTHS AND THEN STARTED TODAY. PT HAS A HX OF OVARIAN CYSTS AND BELIEVES ONE RUPTURED. PT HAD LEFT OVARY REMOVED IN 2011. MED HX: HTN, ASTHMA, OVARIAN CYSTS, GALLBLADDER REMOVED, C -SECTION.
[2021-02-06] MEDS ORDERED: ACETAMINOPHEN 325 MG TAB PO ONE (23:15)
[2021-02-06] MEDS ORDERED: ACETAMINOPHEN 325 MG TAB ONE (23:20)
[2021-02-06 23:46] LABS: ANION GAP 13.1 (8-16); CARBON DIOXIDE 28.7 mmol/L (21-32); POTASSIUM 3.8 mmol/L (3.5-5.1)
[2021-02-06 23:47] LABS: CREATININE 0.7 mg/dL (0.6-1.3)
[2021-02-06 23:50] VITALS: BP 153/96
[2021-02-06 23:50] LABS: TOTAL BILIRUBIN 0.2 mg/dL (0.0-1.0)
--- NOTE | 2021-02-07 00:12 | NUR ---
The patient's care was reviewed and supervised by Virginia Bergman RN.
== END 2021-02-06 23:50 | disposition home or self-care (01) ==
LOC: MED 17:00
DX: N94.6 Dysmenorrhea, unspecified (principal); J45.909 Unspecified asthma, uncomplicated; I10 Essential (primary) hypertension; Z79.1 Long term (current) use of non-steroidal anti-inflammatories (NSAID); Z79.899 Other long term (current) drug therapy; Z79.891 Long term (current) use of opiate analgesic; Z88.0 Allergy status to penicillin; Z91.018 Allergy to other foods; Z88.6 Allergy status to analgesic agent; Z91.048 Other nonmedicinal substance allergy status
CPT/HCPCS: 36415; 76856; 80053; 81001; 84702; 85025; 85610; 85730; 86886; 86900; 86901; 87086; 93976; 99284; Q0092

== ENCOUNTER 2021-02-18 07:05 | Emergency (ER) | payer MEDICAID ==
[~2021-02-18] VITALS: Ht 152.4 cm; Wt 93.9 kg
[2021-02-18 07:17] VITALS: BP 140/102
--- NOTE | 2021-02-18 07:25 | NUR ---
AIRAM. HANDED ON URINE CUP.
--- NOTE | 2021-02-18 08:17 | NUR ---
30 Y/O FEMALE C/O MID LOWER ABDOMINAL PAIN 10/10 DESCRIBES SHARP CONSTANT. PT VOMITING WITH LIGHT HEADACHE TODAY. PT TOOK IBUPROFEN 800 MG 1 HOUR AGO. DENIES FEVER/CHILLS. PMH: ASTHMA, HTN, GALL BLADDER REMOVAL, C SECTION, OVARIEN CYST REMOVAL ALLERGIES: CHICKEN, PCN, TORADOL
--- NOTE | 2021-02-18 08:28 | NUR ---
DR. SAWANT WITH PT AT BEDSIDE FOR FURTHER EVALUATION.
[2021-02-18] MEDS ORDERED: ACETAMINOPHEN 100 ML IV STA (08:32)
[2021-02-18] MEDS ORDERED: ONDANSETRON 4 MG/2 ML VIAL IVP ONE (08:35)
[2021-02-18] MEDS ORDERED: NACL 0.9% 1,000 ML IV ONE (08:35)
--- NOTE | 2021-02-18 09:18 | NUR ---
PT STATES SHE IS UNABLE TO PROVIDE UA SAMPLE AT THIS TIME. MADE AWARE.
[2021-02-18] MEDS ORDERED: MORPHINE SULFATE 2 MG/ML SYR IVP ONE (09:45)
--- NOTE | 2021-02-18 09:52 | NUR ---
PT REFUSING BLOOD DRAW FOR LACTIC, REFUSING TO PROVIDE UA SAMPLE AT THIS TIME. MADE AWARE.
[2021-02-18 09:57] LABS: ALBUMIN 4.3 g/dL (3.4-5.0); ANION GAP 14.1 (8-16); CARBON DIOXIDE 28.6 mmol/L (21-32); CREATININE 0.6 mg/dL (0.6-1.3); POTASSIUM 3.7 mmol/L (3.5-5.1); TOTAL BILIRUBIN 0.3 mg/dL (0.0-1.0)
[2021-02-18 10:01] LABS: BASOPHILS % (AUTO) 0.2 % (0.0-2.0); EOSINOPHILS % (AUTO) 0.4 % (0.0-4.0); HEMATOCRIT 36.4 % (36-48); HEMOGLOBIN 12.3 g/dL (12.0-16.0); LYMPHOCYTES # (AUTO) 1.6 K/uL (2.5-16.5); LYMPHOCYTES % (AUTO) 20.2 % (20.5-51.1); MEAN CORPUSCULAR HEMOGLOBIN 27 pg (27-31); MEAN CORPUSCULAR HGB CONC 34 g/dL (33-37); MEAN CORPUSCULAR VOLUME 79.6 fL (80-94); MONOCYTES # (AUTO) 0.4 K/uL (0.8-1.0); NEUTROPHILS # (AUTO) 5.9 K/uL (1.8-7.7); NEUTROPHILS % (AUTO) 74.2 % (42.2-75.2); PLATELET COUNT (AUTO) 315 K/uL (140-450); RED BLOOD CELL COUNT(AUTO) 4.57 MIL/uL (4.20-5.40); RED CELL DISTRIBUTION WIDTH 14.3 % (11.6-13.7)
[2021-02-18 10:47] VITALS: BP 132/84
--- NOTE | 2021-02-18 10:48 | NUR ---
Patient discharged with v/s stable. Written and verbal after care instructions given and explained. Patient verbalized understanding. Wheel Chair Assisted with to car. All questions addressed prior to discharge. Advised to follow up with PMD.
== END 2021-02-18 10:48 | disposition home or self-care (01) ==
LOC: MED 07:05
DX: R10.9 Unspecified abdominal pain (principal); R11.2 Nausea with vomiting, unspecified; J45.909 Unspecified asthma, uncomplicated; I10 Essential (primary) hypertension; Z88.0 Allergy status to penicillin; Z91.018 Allergy to other foods
CPT/HCPCS: 74022; 80053; 83690; 85025; 96361; 96374; 96375; 99284; J2270; J2405; J7030; Q0092; 96365

== ENCOUNTER 2021-03-03 07:33 | Emergency (ER) | payer MEDICAID ==
[~2021-03-03] VITALS: Ht 152.4 cm; Wt 97.5 kg
[2021-03-03 07:49] VITALS: BP 149/98
[2021-03-03] MEDS ORDERED: HYDROcodone/APAP 10/325 MG 1 TAB TAB PO STA (09:48)
--- NOTE | 2021-03-03 09:50 | NUR ---
30 y/o F BIB self from home c/o low abbdominal pain x 1 week , Nausea, vomiting x 1 episode. 12/04 abd pain. +Dysuria. Tylenol, ibuprofen without relief. PMH: asthma, HTN, ovarian cyst, fibroids Meds: naproxen, ibuprofen A: penicillin, toradol, chicken, pollen
[2021-03-03] MEDS ORDERED: NACL 0.9% 1,000 ML IV ONE (10:35)
[2021-03-03 10:53] LABS: BASOPHILS % (AUTO) 0.4 % (0.0-2.0); EOSINOPHILS # (AUTO) 0.1 K/uL (0-0.4); EOSINOPHILS % (AUTO) 1.4 % (0.0-4.0); HEMOGLOBIN 12.5 g/dL (12.0-16.0); LYMPHOCYTES # (AUTO) 2.2 K/uL (2.5-16.5); LYMPHOCYTES % (AUTO) 41.5 % (20.5-51.1); MEAN CORPUSCULAR HEMOGLOBIN 27 pg (27-31); MEAN CORPUSCULAR HGB CONC 34 g/dL (33-37); MEAN CORPUSCULAR VOLUME 78.7 fL (80-94); MONOCYTES # (AUTO) 0.4 K/uL (0.8-1.0); MONOCYTES % (AUTO) 7.1 % (1.7-9.3); NEUTROPHILS # (AUTO) 2.6 K/uL (1.8-7.7); NEUTROPHILS % (AUTO) 49.6 % (42.2-75.2); PLATELET COUNT (AUTO) 280 K/uL (140-450); RED CELL DISTRIBUTION WIDTH 14.1 % (11.6-13.7); WHITE BLOOD COUNT (AUTO) 5.3 K/uL (4.8-10.8)
[2021-03-03 11:47] LABS: ANION GAP 10.8 (8-16); CARBON DIOXIDE 29.2 mmol/L (21-32); CREATININE 0.7 mg/dL (0.6-1.3); TOTAL BILIRUBIN 0.3 mg/dL (0.0-1.0)
[2021-03-03] MEDS ORDERED: ACET-8386 PO (13:00)
[2021-03-03 13:20] VITALS: BP 122/79
--- NOTE | 2021-03-03 13:20 | NUR ---
Patient discharged with v/s stable. Written and verbal after care instructions ABOUT PELVIC PAIN given and explained. Patient alert, oriented and verbalized understanding of instructions. Ambulatory with steady gait. All questions addressed prior to discharge. ID band removed. Patient advised to follow up with PMD. Rx of NORCO 5-325 given. Patient educated on indication of medication including possible reaction and side effects. Opportunity to ask questions provided and answered.
== END 2021-03-03 13:20 | disposition home or self-care (01) ==
LOC: MED 07:33
DX: R10.2 Pelvic and perineal pain (principal); R11.2 Nausea with vomiting, unspecified; J45.909 Unspecified asthma, uncomplicated; I10 Essential (primary) hypertension; Z88.0 Allergy status to penicillin; Z91.018 Allergy to other foods; Z88.8 Allergy status to other drugs, medicaments and biological substances; Z79.899 Other long term (current) drug therapy; Z90.49 Acquired absence of other specified parts of digestive tract; Z98.890 Other specified postprocedural states
CPT/HCPCS: 36415; 80053; 81002; 81025; 85025; 99283

== ENCOUNTER 2021-03-21 21:18 | Emergency (ER) | payer MEDICAID ==
[~2021-03-21] VITALS: Ht 165.1 cm; Wt 98.4 kg
[2021-03-21 22:29] VITALS: BP 137/101
--- NOTE | 2021-03-21 22:34 | NUR ---
W/C ASSISTED TO THE LOBBY
[2021-03-21] MEDS ORDERED: KETOROLAC 60 MG/2 ML VIAL IM ONE (23:20)
[2021-03-21] MEDS ORDERED: IBUP-2218 PO (23:54)
[2021-03-22] MEDS ORDERED: IBUPROFEN 800 MG TAB PO ONE (00:15)
[2021-03-22 00:29] VITALS: BP 137/101
--- NOTE | 2021-03-22 00:29 | NUR ---
ERMD AWARE OF PATIENT VITAL SIGNS, COMFORTABLE SENDING PATIENT HOME
== END 2021-03-22 00:49 | disposition home or self-care (01) ==
LOC: MED 21:18
DX: M25.561 Pain in right knee (principal); J45.909 Unspecified asthma, uncomplicated; I10 Essential (primary) hypertension; G43.909 Migraine, unspecified, not intractable, without status migrainosus; Z79.899 Other long term (current) drug therapy; Z88.0 Allergy status to penicillin; Z91.018 Allergy to other foods; Z88.8 Allergy status to other drugs, medicaments and biological substances
CPT/HCPCS: 73562; 99283

== ENCOUNTER 2021-05-11 03:14 | Emergency (ER) | payer MEDICAID ==
[~2021-05-11] VITALS: Ht 152.4 cm; Wt 94.8 kg
[~2021-05-11 03:14] MED LIST changes: +IBUP-2218 PO
[2021-05-11 03:23] VITALS: BP 147/106
--- NOTE | 2021-05-11 03:47 | NUR ---
ER MD BEDSIDE FOR EVAL
[2021-05-11] MEDS ORDERED: IBUPROFEN 800 MG TAB PO ONE (03:50)
--- NOTE | 2021-05-11 04:34 | NUR ---
PATIENT CLEARED FOR DISHCARGE AT THIS TIME. NO OTHER COMPLAINTS OR CONCERNS AT THIS TIME FOLLOWING DISCHARGE TEACHING. ADVISED TO FOLLOW UP WITH PCP AND RETURN IF CONDITION WORSENS.
[2021-05-11 04:35] VITALS: BP 144/86
== END 2021-05-11 04:34 | disposition home or self-care (01) ==
LOC: MED 03:14
DX: G89.29 Other chronic pain (principal); R10.30 Lower abdominal pain, unspecified; J45.909 Unspecified asthma, uncomplicated; I10 Essential (primary) hypertension; Z79.899 Other long term (current) drug therapy; Z88.0 Allergy status to penicillin; Z91.018 Allergy to other foods; Z88.8 Allergy status to other drugs, medicaments and biological substances
CPT/HCPCS: 81002; 81025; 99282

== ENCOUNTER 2021-05-27 17:13 | Emergency (ER) | payer MEDICAID ==
[~2021-05-27] VITALS: Ht 152.4 cm; Wt 95.5 kg
[2021-05-27 17:27] VITALS: BP 159/106
--- NOTE | 2021-05-27 17:39 | NUR ---
Patient ambulated to bed 10.
--- NOTE | 2021-05-27 17:40 | NUR ---
30 Y/O FEMALE C/O LOWER ABDOMINAL "CRAMPING" PAIN, N/V, HEADACHE, FELT LIGHT HEADED X TODAY. SYNCOPE APPROX 2 MINS X 1 HOUR AGO WITHNESS BY MOTHER. PT STATES LOC AFTER SYNCOPE. DENIES FEVER OR CHILLS. PT DENIES DYSURIA, HEMATURIA. PT IS ALERST AND ORIENTED X4. BEDSIDE IN LOWEST POSITION, BED RAIL X1. PMH: ASTHMA, HTN, SEIZURE, DIONTE OVARIAN CYSTS ALLERGY: PENICILLIN, TORODAL
[2021-05-27] MEDS ORDERED: HYDROcodone/APAP 10/325 MG 1 TAB TAB PO ONE (18:25)
[2021-05-27] MEDS ORDERED: ONDANSETRON 4 MG ODT PO ONE (18:25)
--- NOTE | 2021-05-27 18:25 | NUR ---
AT PT BEDSIDE
--- NOTE | 2021-05-27 18:29 | NUR ---
URINE WALKED TO LAB HANDED TO AMARI
[2021-05-27 18:42] LABS: APPEARANCE,URINE CLEAR (CLEAR); BILIRUBIN,URINE NEGATIVE (NEGATIVE); BLOOD, URINE NEGATIVE (NEGATIVE); COLOR,URINE YELLOW (YELLOW); LEUKOCYTE ESTERASE ,URINE NEGATIVE (NEGATIVE); NITRITE, URINE NEGATIVE (NEGATIVE); PH,URINE 6.5 (5.0-9.0); UGLUCOSE NEGATIVE (NEGATIVE)
--- NOTE | 2021-05-27 19:29 | NUR ---
US AT PT BEDSIDE
--- NOTE | 2021-05-27 19:38 | NUR ---
Pt report given to DANIELLE BANKS. Transfer of care at this time.
[2021-05-27] MEDS ORDERED: HYDR-5080 PO ×2 (20:48→21:18)
[2021-05-27] MEDS ORDERED: ONDA-188 PO ×2 (20:48→21:18)
[2021-05-27] MEDS ORDERED: DOCU-299 PO ×2 (20:49→21:18)
--- NOTE | 2021-05-27 21:00 | NUR ---
PT REQUEST TO CHANGE PREFERRED PHARMACY TO [facility] [address] [facility] REDDY MADE AWARE AND HAVE REPRESCRIBED MEDICATION TO THIS PHARMACY.
[2021-05-27 21:28] VITALS: BP 151/94
--- NOTE | 2021-05-27 21:28 | NUR ---
Patient discharged with v/s stable. Written and verbal after care instructions given and explained. Patient alert, oriented and verbalized understanding of instructions. Ambulatory with steady gait. All questions addressed prior to discharge. ID band removed. Patient advised to follow up with PMD. Rx of COLACE, NORCO 7.5-325, AND ZOFRAN ODT given. Patient educated on indication of medication including possible reaction and side effects. Opportunity to ask questions provided and answered.
== END 2021-05-27 21:28 | disposition home or self-care (01) ==
LOC: MED 17:13
DX: R55 Syncope and collapse (principal); R11.2 Nausea with vomiting, unspecified; J45.909 Unspecified asthma, uncomplicated; I10 Essential (primary) hypertension; Z79.899 Other long term (current) drug therapy; Z88.0 Allergy status to penicillin; Z91.018 Allergy to other foods; Z88.8 Allergy status to other drugs, medicaments and biological substances
CPT/HCPCS: 76856; 81003; 81025; 93005; 99285; Q0092; Q0162

== ENCOUNTER 2021-07-03 14:39 | Emergency (ER) | payer MEDICAID ==
[~2021-07-03] VITALS: Ht 154.9 cm; Wt 96.6 kg
[~2021-07-03 14:39] MED LIST changes: +DOCU-299 PO; +HYDR-5080 PO
[2021-07-03 15:05] VITALS: BP 126/98
[2021-07-03 17:02] LABS: BASOPHILS % (AUTO) 0.4 % (0.0-2.0); EOSINOPHILS # (AUTO) 0.2 K/uL (0-0.4); EOSINOPHILS % (AUTO) 3.1 % (0.0-4.0); HEMOGLOBIN 12.3 g/dL (12.0-16.0); LYMPHOCYTES % (AUTO) 32.5 % (20.5-51.1); MEAN CORPUSCULAR HEMOGLOBIN 26 pg (27-31); MEAN CORPUSCULAR HGB CONC 33 g/dL (33-37); MEAN CORPUSCULAR VOLUME 78.4 fL (80-94); MONOCYTES # (AUTO) 0.3 K/uL (0.8-1.0); MONOCYTES % (AUTO) 5.5 % (1.7-9.3); NEUTROPHILS # (AUTO) 3.6 K/uL (1.8-7.7); NEUTROPHILS % (AUTO) 58.5 % (42.2-75.2); PLATELET COUNT (AUTO) 263 K/uL (140-450); RED BLOOD CELL COUNT(AUTO) 4.72 MIL/uL (4.20-5.40); RED CELL DISTRIBUTION WIDTH 13.7 % (11.6-13.7); WHITE BLOOD COUNT (AUTO) 6.2 K/uL (4.8-10.8)
[2021-07-03 17:17] LABS: ANION GAP 12.6 (8-16); CARBON DIOXIDE 28.4 mmol/L (21-32); CREATININE 0.7 mg/dL (0.6-1.3)
[2021-07-03 17:21] LABS: ALBUMIN 4.1 g/dL (3.4-5.0); TOTAL BILIRUBIN 0.2 mg/dL (0.0-1.0)
[2021-07-03] MEDS ORDERED: MORPHINE SULFATE 4 MG/ML SYR IM ONE (18:20)
--- NOTE | 2021-07-03 18:20 | NUR ---
PT AMBULATED TO BED
--- NOTE | 2021-07-03 18:39 | NUR ---
WALKED URINE TO LAB
--- NOTE | 2021-07-03 18:58 | NUR ---
30/F C/O LOWER ABDOMINAL PAIN X2 DAYS, DENIES N/V/D, STATES EPISODES OF DYSURIA, DENIES HEMATURIA. PATIENT STATES "I HAVEN'T SLEPT IN 3 DAYS FROM THE PAIN." REPORTS TAKING MOTRIN, NAPROXIN AND TRAMADOL WITH NO RELIEF. PTS PAIN IS 10/10 IN THE LOWER ABDOMINAL AREA. PT STATES HAS HISTORY OF OVARIAN CYSTS. PT ALSO STATES HAS CHILDHOOD INSOMNIA AND TAKE TRAZADONE FOR IT BUT IT HAS NOT BEEN WORKING. NO COMPLAINT OF ANY OTHER PAIN. PT RESTING IN BED. PMH: ASTHMA, HTN, HX OF OVARIAN CYSTS ALLERGIES: PENICILLINS, TORADOL
--- NOTE | 2021-07-03 19:24 | NUR ---
Pt report given to JOCELYN Zaragoza. Transfer of care at this time.
[2021-07-03] MEDS ORDERED: MELA10CA PO (19:32)
[2021-07-03] MEDS ORDERED: ACET-5629 PO (19:32)
[2021-07-03] MEDS ORDERED: NAPR-54 PO (19:34)
[2021-07-03] MEDS ORDERED: BEN10 PO (19:34)
[2021-07-03 19:47] VITALS: BP 126/98
--- NOTE | 2021-07-03 19:47 | NUR ---
Patient discharged with v/s stable. Written and verbal after care instructions given and explained. Patient alert, oriented and verbalized understanding of instructions. Ambulatory with steady gait. All questions addressed prior to discharge. ID band removed. Patient advised to follow up with PMD. Rx of bentyl, percocet, melatonin, and naprosyn given. Patient educated on indication of medication including possible reaction and side effects. Opportunity to ask questions provided and answered.
--- NOTE | 2021-07-03 19:47 | NUR ---
pt states her mother will be picking her up.
[2021-07-03 20:35] LABS: APPEARANCE,URINE CLEAR (CLEAR); BILIRUBIN,URINE NEGATIVE (NEGATIVE); BLOOD, URINE NEGATIVE (NEGATIVE); LEUKOCYTE ESTERASE ,URINE NEGATIVE (NEGATIVE); NITRITE, URINE NEGATIVE (NEGATIVE); UGLUCOSE NEGATIVE (NEGATIVE)
[2021-07-03 20:37] LABS: COLOR,URINE STRAW (YELLOW)
== END 2021-07-03 19:47 | disposition home or self-care (01) ==
LOC: MED 14:39
DX: N83.201 Unspecified ovarian cyst, right side (principal); N83.202 Unspecified ovarian cyst, left side; R10.31 Right lower quadrant pain; R10.32 Left lower quadrant pain; J45.909 Unspecified asthma, uncomplicated; I10 Essential (primary) hypertension; R56.9 Unspecified convulsions; Z91.02 Food additives allergy status; Z88.0 Allergy status to penicillin; Z91.018 Allergy to other foods
CPT/HCPCS: 36415; 76830; 80053; 81003; 81025; 83690; 85025; 96372; 99284; J2270; Q0092

== ENCOUNTER 2021-08-03 19:36 | Emergency (ER) | payer MEDICAID ==
[~2021-08-03] VITALS: Ht 152.4 cm; Wt 93.9 kg
[~2021-08-03 19:36] MED LIST changes: +ACET-5629 PO; -MAGN1.7529 PO; +MAGN296S2 PO; +MELA10CA PO
[2021-08-03 20:24] VITALS: BP 124/85
--- NOTE | 2021-08-03 20:30 | NUR ---
PATIENT TO LOBBY
--- NOTE | 2021-08-03 21:21 | NUR ---
PATIENT TO XR VIA W/C
--- NOTE | 2021-08-03 22:26 | NUR ---
RAMON LYONS EXAMINING PATIENT
[2021-08-03] MEDS ORDERED: MORPHINE SULFATE 4 MG/ML SYR IM ONE (22:35)
[2021-08-03] MEDS ORDERED: NAPR-54 PO (22:36)
--- NOTE | 2021-08-03 22:41 | NUR ---
PATIENT DISCHARGED BY ER .
[2021-08-04] MEDS ORDERED: ACET-8386 PO ×2 (16:04→16:57)
[2021-08-04] MEDS ORDERED: DICL100G31 TP (16:04)
== END 2021-08-03 22:41 | disposition home or self-care (01) ==
LOC: MED 19:36
DX: S83.91XA Sprain of unspecified site of right knee, initial encounter (principal); J45.909 Unspecified asthma, uncomplicated; I10 Essential (primary) hypertension; Z98.890 Other specified postprocedural states; Z86.69 Personal history of other diseases of the nervous system and sense organs; Z79.1 Long term (current) use of non-steroidal anti-inflammatories (NSAID); Z79.899 Other long term (current) drug therapy; Z79.891 Long term (current) use of opiate analgesic; Z88.0 Allergy status to penicillin; Z91.018 Allergy to other foods; Z88.6 Allergy status to analgesic agent; Z91.048 Other nonmedicinal substance allergy status; W01.0XXA Fall on same level from slipping, tripping and stumbling without subsequent striking against object, initial encounter; Y92.89 Other specified places as the place of occurrence of the external cause; Y93.G3 Activity, cooking and baking; Y99.8 Other external cause status
CPT/HCPCS: 73562; 96372; 99283; J2270

== ENCOUNTER 2021-08-04 14:48 | Emergency (ER) | payer MEDICAID ==
[~2021-08-04] VITALS: Ht 152.4 cm; Wt 93.9 kg
[2021-08-04 14:51] VITALS: BP 165/100
--- NOTE | 2021-08-04 14:58 | NUR ---
PT AMBULATED TO BED 04.
[2021-08-04] MEDS ORDERED: MORPHINE SULFATE 4 MG/ML SYR IM ONE (15:20)
--- NOTE | 2021-08-04 15:40 | NUR ---
30YO FEMALE PT C/O 09/03 THROBBING INCONSISTENT RIGHT KNEE PAIN X2 DAYS. PT STATES HAVING AC REPAIR SURGERY IN JUNE. PT STATES HEARING A "POP" WHILE WALKING 2 DAYS AGO AND STARTED HAVING PAIN SINCE. PT HAS FULL ROM OF FOOT WITH DISCOMFORT. PT STATES TAKING NAPROXEN AND APPLYING LIDOCAINE PATCHES WITH NO PAIN. PT DENIES CHEST PAIN, N/V/D OR FEVERS. PT DENIES TAKING BP MEDICATION THIS MORNING. BP AT 146/101. ALL OTHER VITALS WITHIN NORMAL RANGE. PT AAOX4. ALL NEEDS MET AT THIS TIME HX: HTN, DIABETES, HIGH CHOLESTEROL ALLERGIES: PENICILLIN , TORADOL
--- NOTE | 2021-08-04 15:44 | NUR ---
PER ER PA, PT R KNEE PLACED IN KNEE IMMOBILIZER. PT TOLERATED BRACE. + CMS AFTER APPLICATION.
[2021-08-04 15:45] VITALS: BP 146/101
--- NOTE | 2021-08-04 16:00 | NUR ---
PT STATES DECREASED PAIN : 3/10
[2021-08-04] MEDS ORDERED: DICL100G31 TP (16:04)
[2021-08-04] MEDS ORDERED: ACET-8386 PO ×2 (16:04→16:57)
--- NOTE | 2021-08-04 16:15 | NUR ---
Patient discharged with v/s stable. Written and verbal after care instructions FOR KNEE SPRAIN given and explained. Patient alert, oriented and verbalized understanding of instructions. Ambulatory with UNsteady gait. All questions addressed prior to discharge. ID band removed. Patient advised to follow up with PMD. Rx of HYDROCODONE- ACETAMINOPHEN AND ARTHRITIS PAIN given. Opportunity to ask questions provided and answered.
--- NOTE | 2021-08-04 16:16 | NUR ---
Chart checked and completed. The patient's care was reviewed and supervised by Raquel Alonzo RN.
== END 2021-08-04 16:15 | disposition home or self-care (01) ==
LOC: MED 14:48
DX: S83.91XA Sprain of unspecified site of right knee, initial encounter (principal); J45.909 Unspecified asthma, uncomplicated; I10 Essential (primary) hypertension; Z98.890 Other specified postprocedural states; Z79.899 Other long term (current) drug therapy; Z79.891 Long term (current) use of opiate analgesic; Z79.1 Long term (current) use of non-steroidal anti-inflammatories (NSAID); Z88.0 Allergy status to penicillin; Z88.6 Allergy status to analgesic agent; Z91.018 Allergy to other foods; Z91.048 Other nonmedicinal substance allergy status; X58.XXXA Exposure to other specified factors, initial encounter; Y93.01 Activity, walking, marching and hiking; Y92.89 Other specified places as the place of occurrence of the external cause; Y99.8 Other external cause status
CPT/HCPCS: 29505; 96372; 99283; J2270

== ENCOUNTER 2021-08-22 15:25 | Emergency (ER) | payer MEDICAID ==
[~2021-08-22] VITALS: Ht 152.4 cm; Wt 97.1 kg
[~2021-08-22 15:25] MED LIST changes: +DICL100G31 TP
[2021-08-22 15:47] VITALS: BP 117/68
[2021-08-22] MEDS ORDERED: MORPHINE SULFATE 4 MG/ML SYR IM ONE (17:10)
--- NOTE | 2021-08-22 17:14 | NUR ---
30 Y/O F BIB SELF C/O OF LOWER ABD PAIN 12/04 STARTED 12PM TODAY, C/O NAUSEA, BUT DENIES ANY VOMITING AND DIARRHEA ALLERGY: TORDAL, PCN, CHICKEN AND POLLEN PMH: ASTHMA, HTN, OVARIAN CYSTS, FIBROIDS, C/S X1, GALDBLADDER REMOVED 2007
[2021-08-22] MEDS ORDERED: ONDANSETRON 4 MG ODT PO ONE (18:00)
[2021-08-22] MEDS ORDERED: IBUPROFEN 400 MG TAB PO ONE (18:15)
--- NOTE | 2021-08-22 18:38 | NUR ---
The patient's care was reviewed and supervised by Sushila Santiago RN.
== END 2021-08-22 18:37 | disposition home or self-care (01) ==
LOC: MED 15:25
DX: R10.2 Pelvic and perineal pain (principal); J45.909 Unspecified asthma, uncomplicated; I10 Essential (primary) hypertension; Z88.0 Allergy status to penicillin; Z91.018 Allergy to other foods; Z88.8 Allergy status to other drugs, medicaments and biological substances; Z79.899 Other long term (current) drug therapy
CPT/HCPCS: 81002; 81025; 87491; 96372; 99283; J2270; Q0162

== ENCOUNTER 2021-09-06 16:34 | Emergency (ER) | payer MEDICAID ==
[~2021-09-06] VITALS: Ht 152.4 cm; Wt 95.7 kg
[2021-09-06 16:42] VITALS: BP 143/90
--- NOTE | 2021-09-06 19:15 | NUR ---
PT EVALUATED BY QUINN NELSON
[2021-09-06] MEDS: ONDANSETRON 4 MG ODT PO ONE (19:46)
[2021-09-06] MEDS: MORPHINE SULFATE 4 MG/ML SYR IM ONE (19:51)
[2021-09-06 20:10] VITALS: BP 142/82
--- NOTE | 2021-09-06 20:10 | NUR ---
Patient left without d/c papers.
== END 2021-09-06 20:10 | disposition home or self-care (01) ==
LOC: MED 16:34
DX: R10.32 Left lower quadrant pain (principal); I10 Essential (primary) hypertension; J45.909 Unspecified asthma, uncomplicated; N83.202 Unspecified ovarian cyst, left side; D25.9 Leiomyoma of uterus, unspecified; Z88.0 Allergy status to penicillin; Z88.1 Allergy status to other antibiotic agents; Z91.048 Other nonmedicinal substance allergy status; Z91.018 Allergy to other foods
CPT/HCPCS: 81002; 81025; 96372; 99283; J2270; Q0162

== ENCOUNTER 2021-09-26 14:22 | Emergency (ER) | payer MEDICAID ==
[~2021-09-26] VITALS: Ht 152.4 cm; Wt 103.9 kg
[2021-09-26 14:49] VITALS: BP 127/94
[2021-09-26] MEDS ORDERED: INDO-323 PO (17:31)
--- NOTE | 2021-09-26 19:26 | NUR ---
CALLED -NO SHOW IN LOBBY.
--- NOTE | 2021-09-26 20:18 | NUR ---
Called second time -no show in lobby or outside.
--- NOTE | 2021-09-26 20:30 | NUR ---
Patient D/C without D/C papers.
== END 2021-09-26 20:30 | disposition home or self-care (01) ==
LOC: MED 14:22
DX: G89.29 Other chronic pain (principal); R10.2 Pelvic and perineal pain; J45.909 Unspecified asthma, uncomplicated; I10 Essential (primary) hypertension; F17.200 Nicotine dependence, unspecified, uncomplicated; Z98.890 Other specified postprocedural states; Z79.899 Other long term (current) drug therapy; Z88.0 Allergy status to penicillin; Z91.018 Allergy to other foods; Z88.8 Allergy status to other drugs, medicaments and biological substances
CPT/HCPCS: 81002; 81025; 99283

== ENCOUNTER 2021-10-06 15:11 | Emergency (ER) | payer MEDICAID ==
[~2021-10-06] VITALS: Ht 154.9 cm; Wt 97.7 kg
[~2021-10-06 15:11] MED LIST changes: +INDO-323 PO
[2021-10-06 15:41] VITALS: BP 123/85
[2021-10-06 21:27] LABS: BASOPHILS % (AUTO) 0.3 % (0.0-2.0); EOSINOPHILS # (AUTO) 0.1 K/uL (0-0.4); EOSINOPHILS % (AUTO) 1.3 % (0.0-4.0); HEMOGLOBIN 11.8 g/dL (12.0-16.0); LYMPHOCYTES # (AUTO) 1.7 K/uL (2.5-16.5); LYMPHOCYTES % (AUTO) 23.3 % (20.5-51.1); MEAN CORPUSCULAR HEMOGLOBIN 25 pg (27-31); MEAN CORPUSCULAR HGB CONC 33 g/dL (33-37); MEAN CORPUSCULAR VOLUME 77.3 fL (80-94); MONOCYTES # (AUTO) 0.5 K/uL (0.8-1.0); MONOCYTES % (AUTO) 6.5 % (1.7-9.3); NEUTROPHILS # (AUTO) 4.9 K/uL (1.8-7.7); NEUTROPHILS % (AUTO) 68.6 % (42.2-75.2); PLATELET COUNT (AUTO) 269 K/uL (140-450); RED BLOOD CELL COUNT(AUTO) 4.66 MIL/uL (4.20-5.40); RED CELL DISTRIBUTION WIDTH 14.9 % (11.6-13.7); WHITE BLOOD COUNT (AUTO) 7.2 K/uL (4.8-10.8)
[2021-10-06 21:33] LABS: APPEARANCE,URINE CLEAR (CLEAR); BILIRUBIN,URINE NEGATIVE (NEGATIVE); BLOOD, URINE TRACE-I (NEGATIVE); COLOR,URINE YELLOW (YELLOW); LEUKOCYTE ESTERASE ,URINE NEGATIVE (NEGATIVE); NITRITE, URINE NEGATIVE (NEGATIVE); UGLUCOSE NEGATIVE (NEGATIVE)
[2021-10-06 21:45] LABS: ALBUMIN 3.6 g/dL (3.4-5.0); ANION GAP 10.1 (8-16); CARBON DIOXIDE 29.7 mmol/L (21-32); CREATININE 0.9 mg/dL (0.6-1.3); POTASSIUM 3.8 mmol/L (3.5-5.1); TOTAL BILIRUBIN 0.2 mg/dL (0.0-1.0)
[2021-10-06 21:48] LABS: RBC,URINE 0-5 /HPF (0-5); WBC,URINE 0-5 /HPF (0-5)
[2021-10-06 21:49] LABS: OTHER CASTS, URINE None Seen /LPF (None Seen)
[2021-10-06] MEDS ORDERED: HYDROcodone/APAP 10/325 MG 1 TAB TAB PO ONE (22:10)
[2021-10-06] MEDS ORDERED: HYDR-5080 PO (22:45)
[2021-10-06] MEDS ORDERED: DOCU-299 PO (22:47)
--- NOTE | 2021-10-06 22:50 | NUR ---
Patient discharged with v/s stable. Written and verbal after care instructions given and explained. Patient alert, oriented and verbalized understanding of instructions. Ambulatory with steady gait. All questions addressed prior to discharge. ID band removed. Patient advised to follow up with PMD. Rx of NORCO 5/325 given. Patient educated on indication of medication including possible reaction and side effects. Opportunity to ask questions provided and answered.
== END 2021-10-06 22:50 | disposition home or self-care (01) ==
LOC: MED 15:11
DX: R10.2 Pelvic and perineal pain (principal); I10 Essential (primary) hypertension; J45.909 Unspecified asthma, uncomplicated; Z88.0 Allergy status to penicillin; Z79.1 Long term (current) use of non-steroidal anti-inflammatories (NSAID); Z91.018 Allergy to other foods; Z88.8 Allergy status to other drugs, medicaments and biological substances
CPT/HCPCS: 36415; 80053; 81001; 81025; 83690; 85025; 99283; 99284

== ENCOUNTER 2021-11-11 10:29 | Emergency (ER) | payer MEDICAID ==
[~2021-11-11] VITALS: Ht 165.1 cm; Wt 85.7 kg
[2021-11-11 10:36] VITALS: BP 148/99
--- NOTE | 2021-11-11 10:36 | NUR ---
PT AMB TO BED 4.
--- NOTE | 2021-11-11 10:43 | NUR ---
30YO FEMALE PT C/O CRAMPING 11/04 LOWER ABDOMINAL AND PELVIC PAIN X2DAYS. PT CURRENTLY ON MENSTRUAL CYCLE AND STATES COMING TO ER DUE TO INCREASED PAIN XTHIS MORNING. LMP STARTED ON . DENIES RELIEF AFTER TAKING IBUPROFEN AT 6AM THIS MORNING. LOWER ABDOMEN TENDER TO TOUCH, NON DISTENDED , ACTIVE X4. REPORTS MILD NAUSEA, DENIES V/D, CHEST PAIN,SOB , FEVER OR CHILLS. PT AAOX4, RESPIRATIONS EVEN AND UNLABORED. HOB POSITIONED PER COMFORT, BED AT LOWEST POSITION, BED RAIL UPX1. HX:HTN, ASTHMA , OVARIAN CYST ALLERGIES: TORADOL , PENICILLIN
[2021-11-11] MEDS ORDERED: KETOROLAC 60 MG/2 ML VIAL IM ONE (10:55)
[2021-11-11] MEDS ORDERED: MORPHINE SULFATE 4 MG/ML SYR ONE (11:04)
--- NOTE | 2021-11-11 11:04 | NUR ---
MD BELLO AT BEDSIDE FOR EVALUATION
[2021-11-11] MEDS ORDERED: MORPHINE SULFATE 4 MG/ML SYR IM ONE (11:05)
[2021-11-11] MEDS ORDERED: ACET-8386 PO (11:28)
[2021-11-11] MEDS ORDERED: IBUP-2213 PO (11:28)
--- NOTE | 2021-11-11 11:37 | NUR ---
Patient discharged with v/s stable. Written and verbal after care instructions given and explained. Patient alert, oriented and verbalized understanding of instructions. Ambulatory with steady gait. All questions addressed prior to discharge. ID band removed. Patient advised to follow up with PMD. Rx of MOTRIN, NORCO given. Patient educated on indication of medication including possible reaction and side effects. Opportunity to ask questions provided and answered.
== END 2021-11-11 11:36 | disposition home or self-care (01) ==
LOC: MED 10:29
DX: R10.10 Upper abdominal pain, unspecified (principal); I10 Essential (primary) hypertension; J45.909 Unspecified asthma, uncomplicated; Z79.1 Long term (current) use of non-steroidal anti-inflammatories (NSAID); Z88.0 Allergy status to penicillin; Z90.49 Acquired absence of other specified parts of digestive tract; Z98.890 Other specified postprocedural states; Z72.89 Other problems related to lifestyle; Z91.018 Allergy to other foods
CPT/HCPCS: 81002; 81025; 96372; 99283; J2270

== ENCOUNTER 2021-12-03 16:30 | Emergency (ER) | payer MEDICAID ==
[~2021-12-03] VITALS: Ht 152.4 cm; Wt 104.3 kg
[2021-12-03 16:36] VITALS: BP 126/95
[2021-12-03] MEDS ORDERED: NACL 0.9% 1,000 ML IV SCH (16:50)
[2021-12-03] MEDS ORDERED: ONDANSETRON 4 MG/2 ML VIAL IVP ONE (17:10)
[2021-12-03] MEDS ORDERED: MORPHINE SULFATE 4 MG/ML SYR IVP ONE ×2 (17:10→18:25)
[2021-12-03 17:24] LABS: BASOPHILS # (AUTO) 0.1 K/uL (0.00-0.22); BASOPHILS % (AUTO) 0.8 % (0.0-2.0); EOSINOPHILS # (AUTO) 0.2 K/uL (0-0.4); EOSINOPHILS % (AUTO) 2.4 % (0.0-4.0); HEMATOCRIT 34.9 % (36-48); HEMOGLOBIN 11.8 g/dL (12.0-16.0); LYMPHOCYTES # (AUTO) 2.1 K/uL (2.5-16.5); LYMPHOCYTES % (AUTO) 30.1 % (20.5-51.1); MEAN CORPUSCULAR HEMOGLOBIN 25 pg (27-31); MEAN CORPUSCULAR HGB CONC 34 g/dL (33-37); MEAN CORPUSCULAR VOLUME 74.9 fL (80-94); MONOCYTES # (AUTO) 0.4 K/uL (0.8-1.0); MONOCYTES % (AUTO) 5.9 % (1.7-9.3); NEUTROPHILS # (AUTO) 4.2 K/uL (1.8-7.7); NEUTROPHILS % (AUTO) 60.8 % (42.2-75.2); PLATELET COUNT (AUTO) 281 K/uL (140-450); RED BLOOD CELL COUNT(AUTO) 4.65 MIL/uL (4.20-5.40); RED CELL DISTRIBUTION WIDTH 14.9 % (11.6-13.7); WHITE BLOOD COUNT (AUTO) 6.9 K/uL (4.8-10.8)
[2021-12-03 17:56] LABS: ALBUMIN 3.6 g/dL (3.4-5.0); ANION GAP 11.6 (8-16); ASPARTATE AMINOTRANSFERASE 17 U/L (15-37); CARBON DIOXIDE 28.3 mmol/L (21-32); CHLORIDE 105 mmol/L (98-107); CREATININE 0.8 mg/dL (0.6-1.3); GFR ARICAN-AMERICAN 110 mL/min (>90); GLUCOSE 110 mg/dL (74-106); POTASSIUM 3.9 mmol/L (3.5-5.1); SODIUM SERUM 141 mmol/L (136-145); TOTAL BILIRUBIN 0.2 mg/dL (0.0-1.0); UREA NITROGEN, BLOOD 12 mg/dL (7-18)
[2021-12-03] MEDS ORDERED: ACETAMINOPHEN 325 MG TAB PO ONE (18:25)
[2021-12-03] MEDS ORDERED: HYDR-5191 PO (19:13)
[2021-12-03 19:52] VITALS: BP 115/70
== END 2021-12-03 19:53 | disposition home or self-care (01) ==
LOC: MED 16:30
DX: R10.2 Pelvic and perineal pain (principal); J45.909 Unspecified asthma, uncomplicated; I10 Essential (primary) hypertension; F17.210 Nicotine dependence, cigarettes, uncomplicated; Z79.899 Other long term (current) drug therapy; Z88.0 Allergy status to penicillin; Z88.8 Allergy status to other drugs, medicaments and biological substances; Z91.018 Allergy to other foods
CPT/HCPCS: 36415; 74176; 76856; 80053; 81002; 81025; 83690; 85025; 93976; 96361; 96374; 96375; 96376; 99284; J2270; J2405; Q0092

== ENCOUNTER 2021-12-10 16:09 | Emergency (ER) | payer MEDICAID ==
[~2021-12-10] VITALS: Ht 152.4 cm; Wt 101.6 kg
[~2021-12-10 16:09] MED LIST changes: +HYDR-5191 PO
[2021-12-10 16:48] VITALS: BP 120/79
--- NOTE | 2021-12-10 17:00 | NUR ---
BIB SELF C/O 8/10 LOWER ABDOMINAL PAIN, DIARRHEA,NAUSEA X 2 DAYS. PMH: ASTHMA, CHRONIC INSOMNIA, HTN
[2021-12-10] MEDS ORDERED: ZOLP5TAB7 PO (17:32)
[2021-12-10] MEDS ORDERED: HYDROcodone/APAP 5/325 MG 1 TAB TAB PO ONE (17:35)
[2021-12-10 18:33] VITALS: BP 120/79
--- NOTE | 2021-12-10 18:33 | NUR ---
Patient discharged with v/s stable. Written and verbal after care instructions given and explained for Medicine refill and abdominal pain. Patient alert, oriented and verbalized understanding of instructions. Ambulatory with steady gait. All questions addressed prior to discharge. ID band removed. Patient advised to follow up with PMD. Rx of Zolpidem Tartrate given. Patient educated on indication of medication including possible reaction and side effects. Opportunity to ask questions provided and answered.
[2021-12-11] MEDS ORDERED: IBUP-2213 PO (21:58)
== END 2021-12-10 18:33 | disposition home or self-care (01) ==
LOC: MED 16:09
DX: R10.9 Unspecified abdominal pain (principal); G89.29 Other chronic pain; Z76.0 Encounter for issue of repeat prescription; J45.909 Unspecified asthma, uncomplicated; I10 Essential (primary) hypertension; Z88.0 Allergy status to penicillin; Z91.018 Allergy to other foods; Z88.8 Allergy status to other drugs, medicaments and biological substances; Z79.899 Other long term (current) drug therapy
CPT/HCPCS: 81002; 81025; 99283

== ENCOUNTER 2021-12-11 17:48 | Emergency (ER) | payer MEDICAID ==
[~2021-12-11] VITALS: Ht 152.4 cm; Wt 103.0 kg
[~2021-12-11 17:48] MED LIST changes: +ZOLP5TAB7 PO
[2021-12-11 18:01] VITALS: BP 123/77
[2021-12-11 20:01] LABS: BASOPHILS % (AUTO) 0.4 % (0.0-2.0); EOSINOPHILS # (AUTO) 0.1 K/uL (0-0.4); EOSINOPHILS % (AUTO) 1.2 % (0.0-4.0); HEMATOCRIT 36.1 % (36-48); LYMPHOCYTES # (AUTO) 2.1 K/uL (2.5-16.5); LYMPHOCYTES % (AUTO) 28.9 % (20.5-51.1); MEAN CORPUSCULAR HEMOGLOBIN 25 pg (27-31); MEAN CORPUSCULAR HGB CONC 33 g/dL (33-37); MEAN CORPUSCULAR VOLUME 75.7 fL (80-94); MONOCYTES # (AUTO) 0.5 K/uL (0.8-1.0); MONOCYTES % (AUTO) 6.3 % (1.7-9.3); NEUTROPHILS # (AUTO) 4.7 K/uL (1.8-7.7); NEUTROPHILS % (AUTO) 63.2 % (42.2-75.2); PLATELET COUNT (AUTO) 336 K/uL (140-450); RED BLOOD CELL COUNT(AUTO) 4.77 MIL/uL (4.20-5.40); RED CELL DISTRIBUTION WIDTH 15.3 % (11.6-13.7); WHITE BLOOD COUNT (AUTO) 7.4 K/uL (4.8-10.8)
--- NOTE | 2021-12-11 20:25 | NUR ---
PT'S MOM TAKEN TO US, PT IS STAYING WITH ME IN TRIAGE INTIL MOM IS BACK.
[2021-12-11 20:27] LABS: ALBUMIN 3.7 g/dL (3.4-5.0); ANION GAP 12.3 (8-16); POTASSIUM 4.3 mmol/L (3.5-5.1); TOTAL BILIRUBIN 0.2 mg/dL (0.0-1.0)
--- NOTE | 2021-12-11 20:34 | NUR ---
PT'S BACK FROM US. DAUGHTER IN LOBBY WITH MOM.
[2021-12-11 20:46] LABS: CREATININE 0.8 mg/dL (0.6-1.3)
--- NOTE | 2021-12-11 21:30 | NUR ---
2 pts in room 5. Mother and daughter.
--- NOTE | 2021-12-11 21:42 | NUR ---
Lab collected urine from pt while in lobby. UA and UA preg ordered for lab to complete.
[2021-12-11 21:52] LABS: APPEARANCE,URINE CLEAR (CLEAR); BILIRUBIN,URINE NEGATIVE (NEGATIVE); BLOOD, URINE NEGATIVE (NEGATIVE); COLOR,URINE YELLOW (YELLOW); LEUKOCYTE ESTERASE ,URINE NEGATIVE (NEGATIVE); NITRITE, URINE NEGATIVE (NEGATIVE); UGLUCOSE NEGATIVE (NEGATIVE)
[2021-12-11] MEDS ORDERED: IBUP-2213 PO (21:58)
[2021-12-11 22:18] VITALS: BP 123/77
--- NOTE | 2021-12-11 22:19 | NUR ---
Patient discharged with v/s stable. Written and verbal after care instructions given and explained. Patient alert, oriented and verbalized understanding of instructions. Ambulatory with steady gait. All questions addressed prior to discharge. ID band removed. Patient advised to follow up with PMD. Rx given. Patient educated on indication of medication including possible reaction and side effects. Opportunity to ask questions provided and answered.
== END 2021-12-11 22:05 | disposition home or self-care (01) ==
LOC: MED 17:48
DX: R10.2 Pelvic and perineal pain (principal); J45.909 Unspecified asthma, uncomplicated; I10 Essential (primary) hypertension; Z79.899 Other long term (current) drug therapy; Z88.0 Allergy status to penicillin; Z79.1 Long term (current) use of non-steroidal anti-inflammatories (NSAID); Z88.8 Allergy status to other drugs, medicaments and biological substances; Z91.018 Allergy to other foods
CPT/HCPCS: 36415; 76856; 80053; 81003; 81025; 84702; 85025; 87491; 99284

== ENCOUNTER 2021-12-31 14:17 | Emergency (ER) | payer MEDICAID ==
[~2021-12-31] VITALS: Ht 152.4 cm; Wt 102.1 kg
[2021-12-31 14:39] VITALS: BP 142/96
--- NOTE | 2021-12-31 15:53 | NUR ---
PT C/O RLQ ABDOMINAL PAIN RADIATING TO RIGHT FLANK 2 DAYS. DENIES N/V. STATES HAS TAKEN MOTRIN WITHOUT ANY RELIEF. DENIES ANY URINARY SYMPTOMS.
[2021-12-31] MEDS ORDERED: MORPHINE SULFATE 4 MG/ML SYR IM ONE (16:05)
[2021-12-31] MEDS ORDERED: ONDANSETRON 4 MG ODT PO ONE (16:05)
[2021-12-31] MEDS ORDERED: ONDANSETRON 4 MG ODT ONE (16:07)
[2021-12-31] MEDS ORDERED: MORPHINE SULFATE 4 MG/ML SYR ONE (16:07)
[2021-12-31] MEDS ORDERED: ONDA8TAB87 PO (16:41)
[2021-12-31] MEDS ORDERED: ACET-8386 PO (16:41)
--- NOTE | 2021-12-31 16:44 | NUR ---
Patient discharged with v/s stable. Written and verbal after care instructions given and explained. Patient alert, oriented and verbalized understanding of instructions. Ambulatory with steady gait. All questions addressed prior to discharge. ID band removed. Patient advised to follow up with PMD. Rx of NORCO ZOFRAN given. Patient educated on indication of medication including possible reaction and side effects. Opportunity to ask questions provided and answered.
== END 2021-12-31 16:44 | disposition home or self-care (01) ==
LOC: MED 14:17
DX: R10.30 Lower abdominal pain, unspecified (principal); R11.0 Nausea; M54.9 Dorsalgia, unspecified; F17.200 Nicotine dependence, unspecified, uncomplicated; J45.909 Unspecified asthma, uncomplicated; I10 Essential (primary) hypertension; Z88.0 Allergy status to penicillin; Z88.8 Allergy status to other drugs, medicaments and biological substances; Z91.018 Allergy to other foods; Z79.899 Other long term (current) drug therapy; Z90.49 Acquired absence of other specified parts of digestive tract; Z98.890 Other specified postprocedural states
CPT/HCPCS: 81002; 81025; 99283; J2270; Q0162

== ENCOUNTER 2022-01-10 18:37 | Emergency (ER) | payer MEDICAID ==
[~2022-01-10] VITALS: Ht 152.4 cm; Wt 101.6 kg
[2022-01-10 18:42] VITALS: BP 162/97
--- NOTE | 2022-01-10 18:49 | NUR ---
AIRAM. HANDED ON URINE CUP.
--- NOTE | 2022-01-10 22:17 | NUR ---
Dr. Mckeon examining patient.
[2022-01-10] MEDS ORDERED: HYDROcodone/APAP 5/325 MG 1 TAB TAB PO ONE (22:25)
[2022-01-10 22:48] LABS: BASOPHILS # (AUTO) 0.1 K/uL (0.00-0.22); BASOPHILS % (AUTO) 0.6 % (0.0-2.0); EOSINOPHILS % (AUTO) 0.4 % (0.0-4.0); HEMATOCRIT 35.1 % (36-48); HEMOGLOBIN 11.6 g/dL (12.0-16.0); LYMPHOCYTES # (AUTO) 1.5 K/uL (2.5-16.5); LYMPHOCYTES % (AUTO) 17.6 % (20.5-51.1); MEAN CORPUSCULAR HEMOGLOBIN 25 pg (27-31); MEAN CORPUSCULAR HGB CONC 33 g/dL (33-37); MEAN CORPUSCULAR VOLUME 76.6 fL (80-94); MONOCYTES # (AUTO) 0.4 K/uL (0.8-1.0); MONOCYTES % (AUTO) 4.2 % (1.7-9.3); NEUTROPHILS # (AUTO) 6.7 K/uL (1.8-7.7); NEUTROPHILS % (AUTO) 77.2 % (42.2-75.2); PLATELET COUNT (AUTO) 275 K/uL (140-450); RED BLOOD CELL COUNT(AUTO) 4.58 MIL/uL (4.20-5.40); RED CELL DISTRIBUTION WIDTH 15.6 % (11.6-13.7); WHITE BLOOD COUNT (AUTO) 8.7 K/uL (4.8-10.8)
[2022-01-10 22:55] LABS: APPEARANCE,URINE CLEAR (CLEAR); BILIRUBIN,URINE NEGATIVE (NEGATIVE); BLOOD, URINE NEGATIVE (NEGATIVE); COLOR,URINE YELLOW (YELLOW); LEUKOCYTE ESTERASE ,URINE NEGATIVE (NEGATIVE); NITRITE, URINE NEGATIVE (NEGATIVE); PH,URINE 6.5 (5.0-9.0); UGLUCOSE NEGATIVE (NEGATIVE)
[2022-01-10 23:12] LABS: ALBUMIN 3.9 g/dL (3.4-5.0); ANION GAP 14.1 (8-16); CREATININE 0.8 mg/dL (0.6-1.3); POTASSIUM 4.1 mmol/L (3.5-5.1); TOTAL BILIRUBIN 0.2 mg/dL (0.0-1.0)
--- NOTE | 2022-01-10 23:25 | NUR ---
Patient taken to bed 7.
[2022-01-10] MEDS ORDERED: NACL 0.9% 1,000 ML IV ONE (23:30)
[2022-01-10] MEDS ORDERED: MORPHINE SULFATE 4 MG/ML SYR IVP ONE (23:30)
[2022-01-11] MEDS ORDERED: metroNIDAZOLE 500 MG/NS PREMIX 100 ML IV ONE (00:50)
[2022-01-11] MEDS ORDERED: ONDANSETRON 4 MG/2 ML VIAL IVP ONE (01:35)
[2022-01-11] MEDS ORDERED: MORPHINE SULFATE 4 MG/ML SYR IVP ONE (01:35)
--- NOTE | 2022-01-11 01:35 | NUR ---
Patient reported, pain 11/04, Dr. Mckeon notified.
--- NOTE | 2022-01-11 03:26 | NUR ---
Dr. Mckeon explained results and treatment plans.
[2022-01-11] MEDS ORDERED: METR-435 PO (03:49)
[2022-01-11 03:53] VITALS: BP 132/80
--- NOTE | 2022-01-11 03:53 | NUR ---
Patient discharged with v/s stable. Written and verbal after care instructions given and explained by Dr. Mckeon. Patient alert, oriented and verbalized understanding of instructions. Ambulatory with steady gait. All questions addressed prior to discharge. ID band removed. Patient advised to follow up with PMD. Rx of Metronidazole given. Patient educated on indication of medication including possible reaction and side effects. Opportunity to ask questions provided and answered.
== END 2022-01-11 03:52 | disposition home or self-care (01) ==
LOC: MED 18:37
DX: K52.9 Noninfective gastroenteritis and colitis, unspecified (principal); N76.0 Acute vaginitis; B96.89 Other specified bacterial agents as the cause of diseases classified elsewhere; J45.909 Unspecified asthma, uncomplicated; I10 Essential (primary) hypertension; Z88.0 Allergy status to penicillin; Z91.018 Allergy to other foods; Z88.8 Allergy status to other drugs, medicaments and biological substances; Z79.899 Other long term (current) drug therapy; Z90.49 Acquired absence of other specified parts of digestive tract
CPT/HCPCS: 36415; 74176; 80053; 81003; 81025; 83605; 85025; 87040; 87210; 96365; 96375; 96376; 99285; J2270; J2405; J3490; J7030

== ENCOUNTER 2022-01-29 18:32 | Emergency (ER) | payer MEDICAID ==
[~2022-01-29] VITALS: Ht 152.4 cm; Wt 100.7 kg
[2022-01-29 19:11] VITALS: BP 147/80
--- NOTE | 2022-01-29 19:36 | NUR ---
ER MD EXAMINING PT IN TRIAGE
[2022-01-29 20:14] LABS: BASOPHILS % (AUTO) 0.5 % (0.0-2.0); EOSINOPHILS # (AUTO) 0.1 K/uL (0-0.4); EOSINOPHILS % (AUTO) 1.2 % (0.0-4.0); HEMATOCRIT 37.9 % (36-48); HEMOGLOBIN 12.6 g/dL (12.0-16.0); LYMPHOCYTES # (AUTO) 1.9 K/uL (2.5-16.5); LYMPHOCYTES % (AUTO) 25.6 % (20.5-51.1); MEAN CORPUSCULAR HEMOGLOBIN 25 pg (27-31); MEAN CORPUSCULAR HGB CONC 33 g/dL (33-37); MEAN CORPUSCULAR VOLUME 75.2 fL (80-94); MONOCYTES # (AUTO) 0.5 K/uL (0.8-1.0); MONOCYTES % (AUTO) 6.2 % (1.7-9.3); NEUTROPHILS # (AUTO) 4.9 K/uL (1.8-7.7); NEUTROPHILS % (AUTO) 66.5 % (42.2-75.2); PLATELET COUNT (AUTO) 318 K/uL (140-450); RED BLOOD CELL COUNT(AUTO) 5.04 MIL/uL (4.20-5.40); RED CELL DISTRIBUTION WIDTH 15.4 % (11.6-13.7); WHITE BLOOD COUNT (AUTO) 7.4 K/uL (4.8-10.8)
[2022-01-29 20:38] LABS: ALBUMIN 3.9 g/dL (3.4-5.0); ANION GAP 12.1 (8-16); CARBON DIOXIDE 27.9 mmol/L (21-32); CREATININE 0.8 mg/dL (0.6-1.3); TOTAL BILIRUBIN 0.2 mg/dL (0.0-1.0)
--- NOTE | 2022-01-29 21:23 | NUR ---
PT TAKEN TO RADIOLOGY
[2022-01-29 21:34] LABS: APPEARANCE,URINE SL CLOUDY (CLEAR); BILIRUBIN,URINE NEGATIVE (NEGATIVE); BLOOD, URINE NEGATIVE (NEGATIVE); COLOR,URINE YELLOW (YELLOW); LEUKOCYTE ESTERASE ,URINE NEGATIVE (NEGATIVE); NITRITE, URINE NEGATIVE (NEGATIVE); PH,URINE 6.5 (5.0-9.0); UGLUCOSE NEGATIVE (NEGATIVE)
[2022-01-29] MEDS ORDERED: ACETAMINOPHEN EXTRA STRENGTH 500 MG TAB PO ONE (23:00)
[2022-01-29] MEDS ORDERED: DICYCLOMINE 10 MG CAP PO ONE (23:00)
[2022-01-29] MEDS ORDERED: HYDROcodone/APAP 5/325 MG 1 TAB TAB PO ONE (23:00)
--- NOTE | 2022-01-29 23:38 | NUR ---
ALL RESULTS BACK AND NOTED BY ERMGraciela
[2022-01-29 23:45] VITALS: BP 119/80
== END 2022-01-29 23:45 | disposition home or self-care (01) ==
LOC: MED 18:32
DX: R10.2 Pelvic and perineal pain (principal); J45.909 Unspecified asthma, uncomplicated; I10 Essential (primary) hypertension; Z88.0 Allergy status to penicillin; Z79.1 Long term (current) use of non-steroidal anti-inflammatories (NSAID); Z91.014 Allergy to mammalian meats; Z88.8 Allergy status to other drugs, medicaments and biological substances
CPT/HCPCS: 36415; 76856; 80053; 81003; 81025; 83690; 85025; 99284

== ENCOUNTER 2022-01-31 20:10 | Emergency (ER) | payer MEDICAID ==
[~2022-01-31] VITALS: Ht 152.4 cm; Wt 99.8 kg
[~2022-01-31 20:10] MED LIST changes: -ACET-8386 PO; +ACET-8905 PO
[2022-01-31 20:42] VITALS: BP 155/76
[2022-02-01] MEDS ORDERED: TRAM-748 PO (11:01)
[2022-02-01] MEDS ORDERED: ONDA-188 PO (11:01)
== END 2022-01-31 21:22 | disposition left against medical advice (07) ==
LOC: MED 20:10
DX: R10.9 Unspecified abdominal pain (principal); J02.9 Acute pharyngitis, unspecified; Z53.21 Procedure and treatment not carried out due to patient leaving prior to being seen by health care provider

== ENCOUNTER 2022-02-01 08:14 | Emergency (ER) | payer MEDICAID ==
[~2022-02-01] VITALS: Ht 152.4 cm; Wt 100.2 kg
[~2022-02-01 08:14] MED LIST changes: +ACET-8386 PO; -ACET-8905 PO
[2022-02-01 08:30] VITALS: BP 175/134
--- NOTE | 2022-02-01 08:33 | NUR ---
PT AMB TO BED 2. HANDED ON URINE CUP.
[2022-02-01] MEDS ORDERED: MORPHINE SULFATE 4 MG/ML SYR IM ONE (08:40)
[2022-02-01] MEDS ORDERED: ONDANSETRON 4 MG ODT PO ONE (08:40)
[2022-02-01] MEDS ORDERED: CLONIDINE HYDROCHLORIDE 0.1 MG TAB PO ONE (08:40)
--- NOTE | 2022-02-01 08:44 | NUR ---
PATIENT PRESENTS TO ED WITH WOER ABDOMINAL PAIN . PT STATES PAIN IS 10/10 AND HAS HISTORY OF OVARIAN CYST BUT IS UNSURE TO WHICH SIDE . DENIES N/V/D; SKIN IS PINK/WARM/DRY; AAOX4 WITH EVEN AND STEADY GAIT; LUNGS CLEAR BL; HR EVEN AND REGULAR; PT DENIES ANY FEVER, CP, SOB, OR COUGH AT THIS TIME; PATIENT STATES PAIN OF 0/10 AT THIS TIME; VSS; PATIENT POSITIONED FOR COMFORT; HOB ELEVATED; BEDRAILS UP X2; BED DOWN. ER MD MADE AWARE OF PT STATUS.
[2022-02-01 08:50] VITALS: BP 175/122
[2022-02-01 10:45] LABS: APPEARANCE,URINE CLEAR (CLEAR); BILIRUBIN,URINE NEGATIVE (NEGATIVE); BLOOD, URINE NEGATIVE (NEGATIVE); COLOR,URINE YELLOW (YELLOW); LEUKOCYTE ESTERASE ,URINE NEGATIVE (NEGATIVE); NITRITE, URINE NEGATIVE (NEGATIVE); UGLUCOSE NEGATIVE (NEGATIVE)
[2022-02-01] MEDS ORDERED: TRAM-748 PO (11:01)
[2022-02-01] MEDS ORDERED: ONDA-188 PO (11:01)
--- NOTE | 2022-02-01 11:14 | NUR ---
Patient discharged with v/s stable. Written and verbal after care instructions given and explained. Patient alert, oriented and verbalized understanding of instructions. Ambulatory with steady gait. All questions addressed prior to discharge. ID band removed. Patient advised to follow up with PMD. Rx of ZOFRAN TRAMADOL given. Patient educated on indication of medication including possible reaction and side effects. Opportunity to ask questions provided and answered.
== END 2022-02-01 11:14 | disposition home or self-care (01) ==
LOC: MED 08:14
DX: G89.29 Other chronic pain (principal); R10.30 Lower abdominal pain, unspecified; R11.2 Nausea with vomiting, unspecified; J45.909 Unspecified asthma, uncomplicated; I10 Essential (primary) hypertension; Z90.49 Acquired absence of other specified parts of digestive tract; Z88.0 Allergy status to penicillin; Z91.018 Allergy to other foods; Z79.899 Other long term (current) drug therapy
CPT/HCPCS: 81003; 81025; 96372; 99283; J2270; Q0162

== ENCOUNTER 2022-02-03 01:04 | Emergency (ER) | payer MEDICAID ==
[~2022-02-03] VITALS: Ht 152.4 cm; Wt 100.2 kg
[~2022-02-03 01:04] MED LIST changes: +TRAM-748 PO
[2022-02-03 01:05] VITALS: BP 170/100
--- NOTE | 2022-02-03 01:08 | NUR ---
TO LOBBY A/W BED AMBULATORY
[2022-02-03] MEDS ORDERED: MORPHINE SULFATE 4 MG/ML SYR IM ONE (03:15)
[2022-02-03 03:24] VITALS: BP 142/98
== END 2022-02-03 03:24 | disposition home or self-care (01) ==
LOC: MED 01:04
DX: G89.29 Other chronic pain (principal); R10.84 Generalized abdominal pain; J44.9 Chronic obstructive pulmonary disease, unspecified; I10 Essential (primary) hypertension; Z79.899 Other long term (current) drug therapy; Z79.891 Long term (current) use of opiate analgesic; Z79.1 Long term (current) use of non-steroidal anti-inflammatories (NSAID); Z79.2 Long term (current) use of antibiotics; Z88.0 Allergy status to penicillin; Z88.6 Allergy status to analgesic agent; Z91.09 Other allergy status, other than to drugs and biological substances; Z91.018 Allergy to other foods
CPT/HCPCS: 96372; 99283; J2270

== ENCOUNTER 2022-02-10 21:02 | Emergency (ER) | payer MEDICAID ==
[~2022-02-10] VITALS: Ht 152.4 cm; Wt 100.2 kg
[~2022-02-10 21:02] MED LIST changes: -ACET-8386 PO; +ACET-8905 PO
[2022-02-10 21:29] VITALS: BP 156/99
--- NOTE | 2022-02-10 21:32 | NUR ---
TO LOBBY A/W BED AMBULATORY
--- NOTE | 2022-02-10 21:55 | NUR ---
PT T0 BED #5
[2022-02-10 23:06] LABS: BASOPHILS % (AUTO) 0.7 % (0.0-2.0); EOSINOPHILS % (AUTO) 0.4 % (0.0-4.0); HEMATOCRIT 38.1 % (36-48); HEMOGLOBIN 12.5 g/dL (12.0-16.0); LYMPHOCYTES # (AUTO) 1.4 K/uL (2.5-16.5); LYMPHOCYTES % (AUTO) 22.3 % (20.5-51.1); MEAN CORPUSCULAR HEMOGLOBIN 25 pg (27-31); MEAN CORPUSCULAR HGB CONC 33 g/dL (33-37); MEAN CORPUSCULAR VOLUME 75.4 fL (80-94); MONOCYTES # (AUTO) 0.3 K/uL (0.8-1.0); MONOCYTES % (AUTO) 5.3 % (1.7-9.3); NEUTROPHILS # (AUTO) 4.6 K/uL (1.8-7.7); NEUTROPHILS % (AUTO) 71.3 % (42.2-75.2); PLATELET COUNT (AUTO) 348 K/uL (140-450); RED BLOOD CELL COUNT(AUTO) 5.05 MIL/uL (4.20-5.40); RED CELL DISTRIBUTION WIDTH 15.2 % (11.6-13.7); WHITE BLOOD COUNT (AUTO) 6.5 K/uL (4.8-10.8)
[2022-02-10] MEDS ORDERED: ONDANSETRON 4 MG ODT PO ONE (23:25)
[2022-02-10] MEDS ORDERED: MORPHINE SULFATE 5 MG/ML VIAL IM ONE (23:25)
[2022-02-10 23:27] LABS: ANION GAP 11.6 (8-16); CARBON DIOXIDE 30.3 mmol/L (21-32); CREATININE 0.8 mg/dL (0.6-1.3); POTASSIUM 3.9 mmol/L (3.5-5.1); TOTAL BILIRUBIN 0.2 mg/dL (0.0-1.0)
[2022-02-10] MEDS ORDERED: MORPHINE SULFATE 10 MG/ML VIAL ONE (23:34)
[2022-02-11] MEDS ORDERED: TRAM-748 PO (00:22)
[2022-02-11 00:30] VITALS: BP 156/99
--- NOTE | 2022-02-11 00:30 | NUR ---
Patient discharged with v/s stable. Written and verbal after care instructions given and explained. Patient alert, oriented and verbalized understanding of instructions. Ambulatory with steady gait. All questions addressed prior to discharge. ID band removed. Patient advised to follow up with PMD. Rx of TRAMADOL given. Patient educated on indication of medication including possible reaction and side effects. Opportunity to ask questions provided and answered. DX: ENDOMETRIOSIS, ABDOMINAL PAIN, ADULT
[2022-02-11 00:57] LABS: APPEARANCE,URINE SL CLOUDY (CLEAR); BILIRUBIN,URINE NEGATIVE (NEGATIVE); BLOOD, URINE 3+ (NEGATIVE); COLOR,URINE YELLOW (YELLOW); LEUKOCYTE ESTERASE ,URINE NEGATIVE (NEGATIVE); NITRITE, URINE NEGATIVE (NEGATIVE); UGLUCOSE NEGATIVE (NEGATIVE)
[2022-02-11 01:21] LABS: RBC,URINE 0-5 /HPF (0-5)
== END 2022-02-11 00:30 | disposition home or self-care (01) ==
LOC: MED 21:02
DX: R10.30 Lower abdominal pain, unspecified (principal); J45.909 Unspecified asthma, uncomplicated; J44.9 Chronic obstructive pulmonary disease, unspecified; I10 Essential (primary) hypertension; Z79.899 Other long term (current) drug therapy; Z88.0 Allergy status to penicillin; Z79.1 Long term (current) use of non-steroidal anti-inflammatories (NSAID); Z88.8 Allergy status to other drugs, medicaments and biological substances; Z90.49 Acquired absence of other specified parts of digestive tract; Z98.890 Other specified postprocedural states
CPT/HCPCS: 36415; 80053; 81001; 81025; 83690; 85025; 87086; 96372; 99283; J2270; Q0162

== ENCOUNTER 2022-03-03 00:55 | Emergency (ER) | payer MEDICAID ==
[~2022-03-03] VITALS: Ht 152.4 cm; Wt 100.2 kg
[2022-03-03 01:07] VITALS: BP 137/90
--- NOTE | 2022-03-03 01:10 | NUR ---
to lobby a/w bed ambulatory
--- NOTE | 2022-03-03 02:00 | NUR ---
PER ER ADMITTING PT LEFT THE FACILITY WITHOUT BEING SEEN BY PHYSICIAN.
== END 2022-03-03 02:00 | disposition left against medical advice (07) ==
LOC: MED 00:55
DX: R10.30 Lower abdominal pain, unspecified (principal); Z53.21 Procedure and treatment not carried out due to patient leaving prior to being seen by health care provider

== ENCOUNTER 2022-03-07 10:27 | Emergency (ER) | payer MEDICAID ==
[~2022-03-07] VITALS: Ht 152.4 cm; Wt 99.8 kg
[2022-03-07 10:32] VITALS: BP 154/108
[2022-03-07 11:27] LABS: BASOPHILS # (AUTO) 0.1 K/uL (0.00-0.22); BASOPHILS % (AUTO) 0.9 % (0.0-2.0); EOSINOPHILS # (AUTO) 0.2 K/uL (0-0.4); EOSINOPHILS % (AUTO) 2.2 % (0.0-4.0); HEMATOCRIT 34.5 % (36-48); HEMOGLOBIN 11.9 g/dL (12.0-16.0); LYMPHOCYTES # (AUTO) 2.7 K/uL (2.5-16.5); LYMPHOCYTES % (AUTO) 31.7 % (20.5-51.1); MEAN CORPUSCULAR HEMOGLOBIN 26 pg (27-31); MEAN CORPUSCULAR HGB CONC 35 g/dL (33-37); MEAN CORPUSCULAR VOLUME 73.8 fL (80-94); MONOCYTES # (AUTO) 0.5 K/uL (0.8-1.0); MONOCYTES % (AUTO) 5.5 % (1.7-9.3); NEUTROPHILS # (AUTO) 5.1 K/uL (1.8-7.7); NEUTROPHILS % (AUTO) 59.7 % (42.2-75.2); PLATELET COUNT (AUTO) 278 K/uL (140-450); RED BLOOD CELL COUNT(AUTO) 4.68 MIL/uL (4.20-5.40); RED CELL DISTRIBUTION WIDTH 15.7 % (11.6-13.7); WHITE BLOOD COUNT (AUTO) 8.6 K/uL (4.8-10.8)
--- NOTE | 2022-03-07 12:24 | NUR ---
31/F PRESENTS TO ED REQUESTING REFILL OF HER AMBIEN. PATIENT REPORTS SHE HAS BEEN UNABLE TO SLEEP D/T RUNNING OUT OF HER MEDICATIONS AND WAS ADVISED BY HER PSYCHIATRIST TO COME TO ED FOR A REFILL AND ALSO REQUESTED BASIC LAB WORK TO TAKE TO HER PSYCHOLOGIST. PATIENT DENIES, HEADACHE, DIZZINESS, VISION CHANGES, N/V/D.
[2022-03-07 12:29] LABS: ALBUMIN 3.5 g/dL (3.4-5.0); ANION GAP 12.5 (8-16); CARBON DIOXIDE 26.4 mmol/L (21-32); CREATININE 0.8 mg/dL (0.6-1.3); POTASSIUM 3.9 mmol/L (3.5-5.1); TOTAL BILIRUBIN 0.1 mg/dL (0.0-1.0)
[2022-03-07 12:53] VITALS: BP 133/85
--- NOTE | 2022-03-07 12:53 | NUR ---
Patient discharged with v/s stable. Written and verbal after care instructions ABOUT INSOMNIA given and explained. Patient verbalized understanding. Ambulatory with steady gait. All questions addressed prior to discharge. Advised to follow up with PMD.
== END 2022-03-07 12:53 | disposition home or self-care (01) ==
LOC: MED 10:27
DX: G47.00 Insomnia, unspecified (principal); I10 Essential (primary) hypertension; J45.909 Unspecified asthma, uncomplicated; Z88.0 Allergy status to penicillin; Z79.1 Long term (current) use of non-steroidal anti-inflammatories (NSAID); Z88.8 Allergy status to other drugs, medicaments and biological substances; Z91.02 Food additives allergy status; Z79.899 Other long term (current) drug therapy
CPT/HCPCS: 36415; 80053; 85025; 99283

== ENCOUNTER 2022-03-20 17:44 | Emergency (ER) | payer MEDICAID ==
[~2022-03-20] VITALS: Ht 157.5 cm; Wt 86.2 kg
[2022-03-20 17:50] VITALS: BP 129/92
[2022-03-20 18:25] LABS: APPEARANCE,URINE CLEAR (CLEAR); BILIRUBIN,URINE NEGATIVE (NEGATIVE); BLOOD, URINE NEGATIVE (NEGATIVE); COLOR,URINE YELLOW (YELLOW); LEUKOCYTE ESTERASE ,URINE NEGATIVE (NEGATIVE); NITRITE, URINE NEGATIVE (NEGATIVE); UGLUCOSE NEGATIVE (NEGATIVE)
[2022-03-20] MEDS: MORPHINE SULFATE 4 MG/ML SYR IVP ONE (18:43)
[2022-03-20] MEDS: ONDANSETRON 4 MG/2 ML VIAL IVP ONE (18:43)
[2022-03-20] MEDS: NACL 0.9% 1,000 ML IV ONE (18:43)
[2022-03-20] MEDS ORDERED: ONDA8TAB87 PO (19:11)
[2022-03-20] MEDS ORDERED: ACET-8905 PO (19:11)
--- NOTE | 2022-03-20 19:30 | NUR ---
ER physician with patient.
[2022-03-20 19:45] VITALS: BP 135/93
--- NOTE | 2022-03-20 19:46 | NUR ---
Patient discharged with v/s stable. Written and verbal after care instructions given and explained. Patient alert, oriented and verbalized understanding of instructions. Ambulatory with steady gait. All questions addressed prior to discharge. ID band removed. Patient advised to follow up with PMD. Rx given to patient. Patient educated on indication of medication including possible reaction and side effects. Opportunity to ask questions provided and answered.
--- NOTE | 2022-03-23 09:08 | NUR ---
LATE ENTRY -- CONFIRMED WITH NURSE NS INFUSION COMPLETED AT 1943 03/20/22
== END 2022-03-20 19:46 | disposition home or self-care (01) ==
LOC: MED 17:44
DX: R10.32 Left lower quadrant pain (principal); R11.2 Nausea with vomiting, unspecified; J45.909 Unspecified asthma, uncomplicated; I10 Essential (primary) hypertension; F17.200 Nicotine dependence, unspecified, uncomplicated; Z98.890 Other specified postprocedural states; Z79.899 Other long term (current) drug therapy; Z79.891 Long term (current) use of opiate analgesic; Z79.1 Long term (current) use of non-steroidal anti-inflammatories (NSAID); Z79.2 Long term (current) use of antibiotics; Z88.0 Allergy status to penicillin; Z88.6 Allergy status to analgesic agent; Z91.018 Allergy to other foods; Z91.048 Other nonmedicinal substance allergy status
CPT/HCPCS: 81003; 81025; 96361; 96374; 96375; 99284; J2270; J2405; J7030

== ENCOUNTER 2022-04-09 20:47 | Observation (INO) | payer MEDICAID ==
[~2022-04-09] VITALS: Ht 152.4 cm; Wt 100.2 kg
[2022-04-09 21:10] VITALS: BP 103/72
--- NOTE | 2022-04-09 21:13 | NUR ---
TO LOBBY A/W BED AMBULATORY
--- NOTE | 2022-04-09 21:33 | NUR ---
PT RETURN FROM XRAY. HIGH SPEED PRINTER OPERATOR WITH PT
[2022-04-09 21:41] LABS: BASOPHILS % (AUTO) 0.7 % (0.0-2.0); EOSINOPHILS # (AUTO) 0.1 K/uL (0-0.4); EOSINOPHILS % (AUTO) 1.4 % (0.0-4.0); HEMATOCRIT 37.7 % (36-48); HEMOGLOBIN 12.6 g/dL (12.0-16.0); LYMPHOCYTES # (AUTO) 1.5 K/uL (2.5-16.5); LYMPHOCYTES % (AUTO) 26.3 % (20.5-51.1); MEAN CORPUSCULAR HEMOGLOBIN 26 pg (27-31); MEAN CORPUSCULAR HGB CONC 33 g/dL (33-37); MEAN CORPUSCULAR VOLUME 76.4 fL (80-94); MONOCYTES # (AUTO) 0.4 K/uL (0.8-1.0); NEUTROPHILS # (AUTO) 3.6 K/uL (1.8-7.7); NEUTROPHILS % (AUTO) 64.6 % (42.2-75.2); PLATELET COUNT (AUTO) 324 K/uL (140-450); RED BLOOD CELL COUNT(AUTO) 4.93 MIL/uL (4.20-5.40); RED CELL DISTRIBUTION WIDTH 15.1 % (11.6-13.7); WHITE BLOOD COUNT (AUTO) 5.6 K/uL (4.8-10.8)
[2022-04-09 21:56] LABS: ALBUMIN 4.2 g/dL (3.4-5.0); ANION GAP 13.2 (8-16); ASPARTATE AMINOTRANSFERASE 53 U/L (15-37); CARBON DIOXIDE 28.7 mmol/L (21-32); CHLORIDE 101 mmol/L (98-107); GFR ARICAN-AMERICAN 84 mL/min (>90); GLUCOSE 121 mg/dL (74-106); POTASSIUM 3.9 mmol/L (3.5-5.1); SODIUM SERUM 139 mmol/L (136-145); TOTAL BILIRUBIN 0.4 mg/dL (0.0-1.0); UREA NITROGEN, BLOOD 10 mg/dL (7-18)
--- NOTE | 2022-04-09 22:58 | NUR ---
PT TO BED 9
--- NOTE | 2022-04-09 23:04 | NUR ---
BELONGINGS LIST DONE.
--- NOTE | 2022-04-09 23:18 | NUR ---
PT COMPLAINING OF CP AND DIZZINESS AFTER TAKING 4-7MG OF GUANFACINE PRESCRIBED FOR ANXIETY. PT TOOK INITIAL DOSE OF 2MG WITHOUT RELIEF AND TOOK APPROX 2-3 MORE PILLS. DENIES SI/HI. APPEARS DROWSY. ORIENTED X4. NAD NOTED AT THIS TIME. PT CALM AND COOPERATIVE. RESP E/U. SKIN WDL. SPEAKING IN FULL CLEAR SENTENCES. NAD NOTED AT THIS TIME. HX ANXIETY, ASTHMA, HTN
--- NOTE | 2022-04-09 23:22 | NUR ---
AMBULATED TO RESTROOM W/ STEADY GAIT TO GIVE URINE SPECIMEN
[2022-04-09 23:24] LABS: ACETAMINOPHEN < 0.5 ug/ml (10-30)
[2022-04-09] MEDS ORDERED: KETOROLAC 15 MG/ML VIAL IVP ONE (23:50)
[2022-04-10] MEDS ORDERED: MORPHINE SULFATE 4 MG/ML SYR IVP ONE (00:05)
[2022-04-10 00:14] LABS: BARBITURATE, URINE NEGATIVE ng/ml (NEG <=200); BENZODIAZEPINE, URINE NEGATIVE ng/mL (NEG <=200); CANNABINOID, URINE NEGATIVE ng/mL (NEG <=50); COCAINE, URINE NEGATIVE ng/mL (NEG <=300); OPIATE, URINE POSITIVE ng/mL (NEG <=2000); PHENCYCLIDINE SCREEN,URINE NEGATIVE ng/mL (NEG <=25)
--- NOTE | 2022-04-10 00:29 | NUR ---
PT MEDICATED PER EMAR
[2022-04-10] MEDS ORDERED: OXYCARBAZEPINE (00:39)
[2022-04-10] MEDS ORDERED: GUANFACINE (00:39)
[2022-04-10] MEDS ORDERED: NACL 0.9% 1,000 ML IV SCH (02:40)
[2022-04-10] MEDS ORDERED: HYDROcodone/APAP 5/325 MG 1 TAB TAB PO PRN (02:40)
[2022-04-10] MEDS ORDERED: ED NON STOCK ORDER 1 EA MISC MC ONE (02:40)
[2022-04-10] MEDS ORDERED: ACETAMINOPHEN 325 MG TAB PO PRN (02:40)
[2022-04-10] MEDS ORDERED: KCL 20 MEQ/WATER INJ PREMIX 200 ML IV PRN (02:40)
[2022-04-10] MEDS ORDERED: MAG SULF 2000 MG/WATER PREMIX 50 ML IV PRN (02:40)
[2022-04-10] MEDS ORDERED: ONDANSETRON 4 MG/2 ML VIAL IVP PRN (02:40)
[2022-04-10] MEDS ORDERED: MAGNESIUM OXIDE 400 MG TAB PO PRN (02:40)
[2022-04-10] MEDS ORDERED: POTASSIUM CHLORIDE 10 MEQ TABER PO PRN (02:40)
--- NOTE | 2022-04-10 03:08 | NUR ---
CALLED TRACTOR DRILL OPERATOR TO REQUEST MEDICATION NOT STOCKED
[2022-04-10] MEDS ORDERED: LIDOCAINE 5% 1 EA PATCH TP ONE (03:24)
--- NOTE | 2022-04-10 03:46 | NUR ---
Sariah mejia in [facility] - 04/10/22 at 0347 by [email or web address] BELONGINGS DONE.
--- NOTE | 2022-04-10 04:12 | NUR ---
PT STATES LIDO PATCH DID NOT HELP FOR PAIN WILL MEDICATE WITH PRN
[2022-04-10] MEDS: MORPHINE SULFATE 4 MG/ML SYR IVP PRN ×3 (04:19→12:56)
--- NOTE | 2022-04-10 04:37 | NUR ---
PT MEDICATED WITH PRN ON PHONE WITH FAMILY MEMBER IN [facility]
--- NOTE | 2022-04-10 05:43 | NUR ---
PT REQUESTED FOOD. GIVEN SIGRID.
--- NOTE | 2022-04-10 07:30 | NUR ---
Received report from JOCELYN Landon, assumed care at this time.
--- NOTE | 2022-04-10 07:31 | NUR ---
Pt report given to GM BANKS. Transfer of care at this time.
--- NOTE | 2022-04-10 07:50 | NUR ---
Patient will be admitted to care of DR. DOMINGUEZ. Admited to TELE. Will go to room 104 B. Belongings list completed. Report to RICARDO, BEDSIDE.
[2022-04-10] MEDS ORDERED: DOCUSATE SODIUM 100 MG GELCAP PO SCH (09:00)
--- NOTE | 2022-04-10 09:24 | NUR ---
PATIENT HAS BEEN SCREENED AND CATEGORIZED LOW NUTRITION RISK. PATIENT WILL BE SEEN WITHIN 7 DAYS OF ADMISSION. 04/17/22 REVIEWED BY JULIO CESAR ZIEGLER RD
[2022-04-10 12:00] VITALS: BP 94/54
[2022-04-10 12:44] VITALS: BP 94/54
--- NOTE | 2022-04-10 15:19 | NUR ---
PT DISCHARGED HOME DISCHARGE INSTRUCTION GIVEN, IV AND ID BAND REMOVED, WALKED PT OUTSIDE WITHOUT SOB.[id number]
== END 2022-04-10 15:05 | disposition home or self-care (01) ==
LOC: MED 20:47 → MTU 04-10 02:37
PROVIDERS: ADMIT Student in an Organized Health Care Education/Training Program; ATTEND Student in an Organized Health Care Education/Training Program
DX: T46.5X1A Poisoning by other antihypertensive drugs, accidental (unintentional), initial encounter (principal); Z20.822 Contact with and (suspected) exposure to COVID-19; E86.1 Hypovolemia; J45.909 Unspecified asthma, uncomplicated; I10 Essential (primary) hypertension; E66.01 Morbid (severe) obesity due to excess calories; R41.82 Altered mental status, unspecified; R73.9 Hyperglycemia, unspecified; Z79.899 Other long term (current) drug therapy; Z88.0 Allergy status to penicillin
CPT/HCPCS: 36415; 71045; 80053; 80305; 84484; 85025; 87426; 93005; 96361; 96374; 96376; 99285; G0378; G0480; G0482; J2270; J1885

== ENCOUNTER 2022-04-21 11:56 | Emergency (ER) | payer MEDICAID ==
[~2022-04-21] VITALS: Ht 152.4 cm; Wt 100.2 kg
[~2022-04-21 11:56] MED LIST changes: -ACET-5629 PO; -ACET-8905 PO; -ACET-9525 PO; -BEN10 PO; -DICL100G31 TP; -DOCU-299 PO; -FAMO20TA99 PO; +GUANFACINE; -HYDR-2853 PO; -HYDR-5080 PO; -HYDR-5191 PO; -IBUP-2213 PO; -IBUP-2218 PO; -INDO-323 PO; -LEVE500T9 PO; -MAGN296S2 PO; -METO-485 PO; -METR-435 PO; -MIRABULK PO; -NAPR-54 PO; -ONDA-188 PO; -ONDA8TAB87 PO; +OXYCARBAZEPINE; -PANT40EC PO; -TRAM-748 PO; -ZOLP5TAB7 PO
[2022-04-21 12:02] VITALS: BP 142/94
--- NOTE | 2022-04-21 12:14 | NUR ---
here for lower abd pain 12/04, type colics at bs
[2022-04-21] MEDS ORDERED: MORPHINE SULFATE 4 MG/ML SYR IVP ONE (12:20)
[2022-04-21] MEDS ORDERED: NACL 0.9% 1,000 ML IV SCH (12:20)
[2022-04-21 12:44] LABS: BASOPHILS % (AUTO) 0.6 % (0.0-2.0); EOSINOPHILS # (AUTO) 0.1 K/uL (0-0.4); EOSINOPHILS % (AUTO) 1.1 % (0.0-4.0); HEMATOCRIT 40.4 % (36-48); HEMOGLOBIN 13.3 g/dL (12.0-16.0); LYMPHOCYTES # (AUTO) 2.1 K/uL (2.5-16.5); LYMPHOCYTES % (AUTO) 35.4 % (20.5-51.1); MEAN CORPUSCULAR HEMOGLOBIN 25 pg (27-31); MEAN CORPUSCULAR HGB CONC 33 g/dL (33-37); MEAN CORPUSCULAR VOLUME 76.8 fL (80-94); MONOCYTES # (AUTO) 0.5 K/uL (0.8-1.0); MONOCYTES % (AUTO) 8.1 % (1.7-9.3); NEUTROPHILS # (AUTO) 3.3 K/uL (1.8-7.7); NEUTROPHILS % (AUTO) 54.8 % (42.2-75.2); PLATELET COUNT (AUTO) 295 K/uL (140-450); RED BLOOD CELL COUNT(AUTO) 5.26 MIL/uL (4.20-5.40); RED CELL DISTRIBUTION WIDTH 15.5 % (11.6-13.7)
--- NOTE | 2022-04-21 12:49 | NUR ---
medicated for lower abd pain 10/04, o2 sat 99% ra, sr up times 2
[2022-04-21 12:57] LABS: BILIRUBIN,URINE 1+ (NEGATIVE); BLOOD, URINE NEGATIVE (NEGATIVE); COLOR,URINE YELLOW (YELLOW); LEUKOCYTE ESTERASE ,URINE NEGATIVE (NEGATIVE); NITRITE, URINE NEGATIVE (NEGATIVE); UGLUCOSE NEGATIVE (NEGATIVE)
[2022-04-21 12:59] LABS: ALBUMIN 4.6 g/dL (3.4-5.0); ANION GAP 15.3 (8-16); CARBON DIOXIDE 28.1 mmol/L (21-32); CREATININE 0.8 mg/dL (0.6-1.3); POTASSIUM 4.4 mmol/L (3.5-5.1); TOTAL BILIRUBIN 0.3 mg/dL (0.0-1.0)
[2022-04-21 13:14] LABS: APPEARANCE,URINE SLIGHTLY HAZY (CLEAR)
[2022-04-21 13:15] LABS: RBC,URINE 0-5 /HPF (0-5)
[2022-04-21] MEDS ORDERED: MORPHINE SULFATE 10 MG/ML VIAL IVP ONE (13:55)
--- NOTE | 2022-04-21 14:06 | NUR ---
medicated for lower abd pain, 10/04, o2 sat 99% ra,s r up times 2
[2022-04-21] MEDS ORDERED: ACET-8905 PO (15:04)
[2022-04-21 15:22] VITALS: BP 132/86
== END 2022-04-21 15:22 | disposition home or self-care (01) ==
LOC: MED 11:56
DX: R10.30 Lower abdominal pain, unspecified (principal); I10 Essential (primary) hypertension; F17.200 Nicotine dependence, unspecified, uncomplicated; Z88.0 Allergy status to penicillin; Z88.1 Allergy status to other antibiotic agents; Z88.8 Allergy status to other drugs, medicaments and biological substances; Z79.899 Other long term (current) drug therapy; Z90.49 Acquired absence of other specified parts of digestive tract; Z98.890 Other specified postprocedural states
CPT/HCPCS: 36415; 74176; 80053; 81001; 81025; 83690; 85025; 87086; 96361; 96374; 96375; 99285; J2270; J7030

== ENCOUNTER 2022-05-06 03:10 | Emergency (ER) | payer MEDICAID ==
[~2022-05-06] VITALS: Ht 152.4 cm; Wt 100.7 kg
[~2022-05-06 03:10] MED LIST changes: +ACET-8905 PO
[2022-05-06 03:40] VITALS: BP 160/90
--- NOTE | 2022-05-06 03:43 | NUR ---
TO LOBBY A/W BED AMBULATORY
--- NOTE | 2022-05-06 05:30 | NUR ---
PT TO BED 2
--- NOTE | 2022-05-06 05:32 | NUR ---
Patient resting in bed, A/Ox4, chest rise and fall symmetrical, no s/s of distress, patient on monitor.
--- NOTE | 2022-05-06 06:06 | NUR ---
Note vanessaone in EDM - 05/06/22 at 0608 by [email or web address] Patient discharged with v/s stable. Written and verbal after care instructions given and explained. Patient alert, oriented and verbalized understanding of instructions. Ambulatory with steady gait. All questions addressed prior to discharge. ID band removed. Patient advised to follow up with PMD. Rx given to patient. Patient educated on indication of medication including possible reaction and side effects. Opportunity to ask questions provided and answered.
[2022-05-06 06:07] LABS: APPEARANCE,URINE CLEAR (CLEAR); BILIRUBIN,URINE 1+ (NEGATIVE); BLOOD, URINE 3+ (NEGATIVE); COLOR,URINE YELLOW (YELLOW); LEUKOCYTE ESTERASE ,URINE TRACE (NEGATIVE); NITRITE, URINE NEGATIVE (NEGATIVE); UGLUCOSE NEGATIVE (NEGATIVE)
[2022-05-06] MEDS ORDERED: MORPHINE SULFATE 4 MG/ML SYR IM ONE (06:25)
[2022-05-06] MEDS ORDERED: MORPHINE SULFATE 4 MG/ML SYR ONE (06:27)
[2022-05-06 07:09] LABS: RBC,URINE 50-80 /HPF (0-5)
--- NOTE | 2022-05-06 07:22 | NUR ---
Change of shift report given to AM shift Nurse Hakeem BANKS. AM shift Nurse Hakeem RN verbalized understanding of report, no further questions.
--- NOTE | 2022-05-06 07:31 | NUR ---
ASSUMED PATIENT CARE, CONCUR WITH PRIOR NURSING ASSESSMENTS.
[2022-05-06] MEDS ORDERED: LORazepam 1 MG TAB PO ONE (09:45)
[2022-05-06] MEDS ORDERED: MORPHINE SULFATE 4 MG/ML SYR IVP ONE (09:45)
[2022-05-06 10:49] VITALS: BP 123/74
[2022-05-06] MEDS ORDERED: SULF-59 PO (10:50)
[2022-05-06] MEDS ORDERED: ACET-10509 PO (10:50)
--- NOTE | 2022-05-06 10:52 | NUR ---
Patient discharged with v/s stable. Written and verbal after care instructions given and explained. Patient alert, oriented and verbalized understanding of instructions. Ambulatory with steady gait. All questions addressed prior to discharge. ID band removed. Patient advised to follow up with PMD. Rx of BACTRIM, TYLENOL given. Patient educated on indication of medication including possible reaction and side effects. Opportunity to ask questions provided and answered.
== END 2022-05-06 10:55 | disposition home or self-care (01) ==
LOC: MED 03:10
DX: N39.0 Urinary tract infection, site not specified (principal); J45.909 Unspecified asthma, uncomplicated; I10 Essential (primary) hypertension; Z88.0 Allergy status to penicillin; Z79.1 Long term (current) use of non-steroidal anti-inflammatories (NSAID); Z88.8 Allergy status to other drugs, medicaments and biological substances; Z79.899 Other long term (current) drug therapy; Z91.018 Allergy to other foods
CPT/HCPCS: 76830; 81001; 81025; 87086; 96372; 96374; 99285; J2270; Q0092

== ENCOUNTER 2022-05-08 19:11 | Emergency (ER) | payer MEDICAID ==
[~2022-05-08] VITALS: Ht 152.4 cm; Wt 100.2 kg
[~2022-05-08 19:11] MED LIST changes: +SULF-59 PO
[2022-05-08 19:54] VITALS: BP 142/78
--- NOTE | 2022-05-08 20:00 | NUR ---
C/O PAINFUL URINATION. DX WITH UTI 2 DAYS AGO, WAS GIVEN ABX AND PAIN MED
--- NOTE | 2022-05-08 20:01 | NUR ---
TO LOBBY FOLLOWING TRIAGE AFTER OBTAINING UA
[2022-05-08 20:49] LABS: APPEARANCE,URINE CLEAR (CLEAR); BILIRUBIN,URINE 1+ (NEGATIVE); BLOOD, URINE 1+ (NEGATIVE); COLOR,URINE YELLOW (YELLOW); LEUKOCYTE ESTERASE ,URINE TRACE (NEGATIVE); NITRITE, URINE NEGATIVE (NEGATIVE); UGLUCOSE NEGATIVE (NEGATIVE)
[2022-05-08] MEDS ORDERED: LEVO750T75 PO (21:40)
[2022-05-08] MEDS ORDERED: HYDR-5080 PO (21:40)
[2022-05-08] MEDS ORDERED: levoFLOXacin 750 MG TAB PO ONE (22:00)
[2022-05-08] MEDS ORDERED: IBUPROFEN 600 MG TAB PO ONE (22:00)
[2022-05-08 22:10] VITALS: BP 142/78
--- NOTE | 2022-05-08 22:12 | NUR ---
Patient discharged with v/s stable. Written and verbal after care instructions given and explained. Patient verbalized understanding. Ambulatory with steady gait. All questions addressed prior to discharge. Advised to follow up with PMD. pt left with her belongings
== END 2022-05-08 22:12 | disposition home or self-care (01) ==
LOC: MED 19:11
DX: N12 Tubulo-interstitial nephritis, not specified as acute or chronic (principal); J45.909 Unspecified asthma, uncomplicated; I10 Essential (primary) hypertension; Z86.69 Personal history of other diseases of the nervous system and sense organs; Z90.49 Acquired absence of other specified parts of digestive tract; Z98.890 Other specified postprocedural states; Z79.891 Long term (current) use of opiate analgesic; Z79.2 Long term (current) use of antibiotics; Z79.899 Other long term (current) drug therapy; Z88.0 Allergy status to penicillin; Z88.6 Allergy status to analgesic agent; Z91.018 Allergy to other foods; Z91.09 Other allergy status, other than to drugs and biological substances
CPT/HCPCS: 81001; 81025; 87086; 99283

== ENCOUNTER 2022-05-28 20:02 | Emergency (ER) | payer MEDICAID ==
[~2022-05-28] VITALS: Ht 152.4 cm; Wt 93.9 kg
[~2022-05-28 20:02] MED LIST changes: +HYDR-5080 PO; +LEVO750T75 PO
[2022-05-28 20:14] VITALS: BP 113/70
[2022-05-28 23:01] LABS: APPEARANCE,URINE CLOUDY (CLEAR); BILIRUBIN,URINE NEGATIVE (NEGATIVE); BLOOD, URINE TRACE-I (NEGATIVE); COLOR,URINE YELLOW (YELLOW); LEUKOCYTE ESTERASE ,URINE TRACE (NEGATIVE); NITRITE, URINE NEGATIVE (NEGATIVE); PH,URINE 5.5 (5.0-9.0); UGLUCOSE NEGATIVE (NEGATIVE)
[2022-05-28 23:10] LABS: RBC,URINE 0-5 /HPF (0-5); WBC,URINE 0-5 /HPF (0-5)
[2022-05-29] MEDS ORDERED: HYDROcodone/APAP 5/325 MG 1 TAB TAB PO ONE (00:05)
[2022-05-29] MEDS ORDERED: ACET-8905 PO (00:16)
[2022-05-29] MEDS ORDERED: LID5T TP (00:16)
[2022-05-29] MEDS ORDERED: METH-1681 PO (00:16)
[2022-05-29] MEDS ORDERED: CIPR250T6 PO (00:16)
[2022-05-29 00:28] VITALS: BP 113/70
--- NOTE | 2022-05-29 00:29 | NUR ---
Patient discharged with v/s stable. Written and verbal after care instructions given and explained. Patient alert, oriented and verbalized understanding of instructions. Ambulatory with steady gait. Accompanied by parent. All questions addressed prior to discharge. ID band removed. Patient advised to follow up with PMD. Rx norco, ciprofloxacin, lidoderm, methocarbamol given. Patient educated on indication of medication including possible reaction and side effects. Opportunity to ask questions provided and answered.
== END 2022-05-29 00:28 | disposition home or self-care (01) ==
LOC: MED 20:02
DX: N30.00 Acute cystitis without hematuria (principal); J45.909 Unspecified asthma, uncomplicated; I10 Essential (primary) hypertension; Z86.69 Personal history of other diseases of the nervous system and sense organs; Z79.899 Other long term (current) drug therapy; Z79.2 Long term (current) use of antibiotics; Z79.891 Long term (current) use of opiate analgesic; Z88.0 Allergy status to penicillin; Z88.6 Allergy status to analgesic agent; Z91.018 Allergy to other foods; Z91.09 Other allergy status, other than to drugs and biological substances
CPT/HCPCS: 81001; 81025; 87086; 99283

== ENCOUNTER 2022-06-13 12:46 | Emergency (ER) | payer MEDICAID ==
[~2022-06-13] VITALS: Ht 152.4 cm; Wt 99.8 kg
[~2022-06-13 12:46] MED LIST changes: +CIPR250T6 PO; +LID5T TP; +METH-1681 PO
[2022-06-13 12:52] VITALS: BP 152/84
--- NOTE | 2022-06-13 12:59 | NUR ---
AMBULATED TO BED 9
[2022-06-13] MEDS ORDERED: ONDANSETRON 4 MG ODT PO ONE (13:40)
--- NOTE | 2022-06-13 14:10 | NUR ---
Patient does not wish to proceed with medical care recommended by . Patient given information related to possible complications, up to and including , which could occur as a result of leaving hospital at this time. Patient verbalizes understanding of risks involved leaving against medical advice. Patient refused to signed AMA form.
[2022-06-13 14:44] LABS: APPEARANCE,URINE CLEAR (CLEAR); BILIRUBIN,URINE NEGATIVE (NEGATIVE); BLOOD, URINE TRACE-I (NEGATIVE); COLOR,URINE YELLOW (YELLOW); LEUKOCYTE ESTERASE ,URINE NEGATIVE (NEGATIVE); NITRITE, URINE NEGATIVE (NEGATIVE); PH,URINE 6.5 (5.0-9.0); UGLUCOSE NEGATIVE (NEGATIVE)
== END 2022-06-13 14:11 | disposition left against medical advice (07) ==
LOC: MED 12:46
DX: R10.32 Left lower quadrant pain (principal); R11.0 Nausea; J45.909 Unspecified asthma, uncomplicated; I10 Essential (primary) hypertension; Z86.69 Personal history of other diseases of the nervous system and sense organs; Z90.49 Acquired absence of other specified parts of digestive tract; Z98.890 Other specified postprocedural states; Z79.899 Other long term (current) drug therapy; Z79.2 Long term (current) use of antibiotics; Z79.891 Long term (current) use of opiate analgesic; Z79.1 Long term (current) use of non-steroidal anti-inflammatories (NSAID); Z88.0 Allergy status to penicillin; Z88.6 Allergy status to analgesic agent; Z91.018 Allergy to other foods; Z91.09 Other allergy status, other than to drugs and biological substances
CPT/HCPCS: 81001; 81025; 87086; 99283; Q0162

== ENCOUNTER 2022-06-20 19:35 | Emergency (ER) | payer MEDICAID ==
[~2022-06-20] VITALS: Ht 152.4 cm; Wt 94.8 kg
[2022-06-20 19:44] VITALS: BP 155/104
[2022-06-20 20:26] LABS: APPEARANCE,URINE CLEAR (CLEAR); BILIRUBIN,URINE NEGATIVE (NEGATIVE); BLOOD, URINE NEGATIVE (NEGATIVE); COLOR,URINE YELLOW (YELLOW); LEUKOCYTE ESTERASE ,URINE NEGATIVE (NEGATIVE); NITRITE, URINE NEGATIVE (NEGATIVE); PH,URINE 6.5 (5.0-9.0); UGLUCOSE NEGATIVE (NEGATIVE)
[2022-06-20] MEDS ORDERED: HYDROcodone/APAP 5/325 MG 1 TAB TAB PO ONE (20:40)
--- NOTE | 2022-06-20 20:43 | NUR ---
PT AMBULATORY TO BED
--- NOTE | 2022-06-20 20:50 | NUR ---
Patient resting in bed, A/Ox4, chest rise and fall symmetrical, no s/s of distress, on monitor.
--- NOTE | 2022-06-20 21:04 | NUR ---
photovoltaic installation technician at bedside perfomring procedure, patient on [facility]. Addendum: 06/20/22 at 2105 by [email or web address] photovoltaic installation technician at bedside performing procedure, patient on [facility].
[2022-06-20 21:05] LABS: BASOPHILS % (AUTO) 0.7 % (0.0-2.0); EOSINOPHILS # (AUTO) 0.1 K/uL (0-0.4); EOSINOPHILS % (AUTO) 0.9 % (0.0-4.0); HEMATOCRIT 35.6 % (36-48); LYMPHOCYTES # (AUTO) 2.1 K/uL (2.5-16.5); LYMPHOCYTES % (AUTO) 30.7 % (20.5-51.1); MEAN CORPUSCULAR HEMOGLOBIN 26 pg (27-31); MEAN CORPUSCULAR HGB CONC 34 g/dL (33-37); MEAN CORPUSCULAR VOLUME 75.4 fL (80-94); MONOCYTES # (AUTO) 0.4 K/uL (0.8-1.0); MONOCYTES % (AUTO) 5.6 % (1.7-9.3); NEUTROPHILS # (AUTO) 4.1 K/uL (1.8-7.7); NEUTROPHILS % (AUTO) 62.1 % (42.2-75.2); PLATELET COUNT (AUTO) 268 K/uL (140-450); RED BLOOD CELL COUNT(AUTO) 4.72 MIL/uL (4.20-5.40); RED CELL DISTRIBUTION WIDTH 14.8 % (11.6-13.7); WHITE BLOOD COUNT (AUTO) 6.7 K/uL (4.8-10.8)
[2022-06-20 21:17] LABS: ALBUMIN 3.8 g/dL (3.4-5.0); ANION GAP 11.6 (8-16); CARBON DIOXIDE 27.6 mmol/L (21-32); CREATININE 0.8 mg/dL (0.6-1.3); POTASSIUM 4.2 mmol/L (3.5-5.1); TOTAL BILIRUBIN 0.2 mg/dL (0.0-1.0)
[2022-06-20 21:44] VITALS: BP 138/93
--- NOTE | 2022-06-20 21:58 | NUR ---
Dr. Marr explained results and treatment plans.
[2022-06-20] MEDS ORDERED: IBUP-2213 PO (21:59)
--- NOTE | 2022-06-20 22:10 | NUR ---
Patient discharged but patient refused to sign DC paperwork, however written and verbal after care instructions given and explained. Patient continues to refuse to sign DC paperwork.
--- NOTE | 2022-06-20 22:11 | NUR ---
Note vanessavalerie in EDM - 06/20/22 at 2245 by [email or web address] Patient discharged with v/s stable. Written and verbal after care instructions given and explained. Patient alert, oriented and verbalized understanding of instructions. Ambulatory with steady gait. All questions addressed prior to discharge. ID band removed. Patient advised to follow up with PMD. Rx given to patient. Patient educated on indication of medication including possible reaction and side effects. Opportunity to ask questions provided and answered.
== END 2022-06-20 22:11 | disposition home or self-care (01) ==
LOC: MED 19:35
DX: R10.2 Pelvic and perineal pain (principal); J45.909 Unspecified asthma, uncomplicated; I10 Essential (primary) hypertension; Z86.69 Personal history of other diseases of the nervous system and sense organs; Z79.899 Other long term (current) drug therapy; Z79.1 Long term (current) use of non-steroidal anti-inflammatories (NSAID); Z79.891 Long term (current) use of opiate analgesic; Z79.2 Long term (current) use of antibiotics; Z88.0 Allergy status to penicillin; Z91.018 Allergy to other foods; Z88.6 Allergy status to analgesic agent; Z91.09 Other allergy status, other than to drugs and biological substances
CPT/HCPCS: 36415; 76856; 80053; 81003; 81025; 85025; 93976; 99284; Q0092

== ENCOUNTER 2022-06-27 19:51 | Emergency (ER) | payer MEDICAID ==
[~2022-06-27] VITALS: Ht 152.4 cm; Wt 91.6 kg
[~2022-06-27 19:51] MED LIST changes: +IBUP-2213 PO
[2022-06-27 20:43] VITALS: BP 145/101
[2022-06-27 21:21] LABS: APPEARANCE,URINE CLEAR (CLEAR); BILIRUBIN,URINE 1+ (NEGATIVE); BLOOD, URINE 3+ (NEGATIVE); COLOR,URINE YELLOW (YELLOW); LEUKOCYTE ESTERASE ,URINE TRACE (NEGATIVE); NITRITE, URINE POSITIVE (NEGATIVE); PH,URINE 6.5 (5.0-9.0); UGLUCOSE NEGATIVE (NEGATIVE)
--- NOTE | 2022-06-27 21:23 | NUR ---
PT TAKEN TO BED 11
--- NOTE | 2022-06-27 21:31 | NUR ---
Patient resting in bed, A/Ox4, chest rise and fall symmetrical, no s/s of distress, on monitor.
[2022-06-27 21:37] LABS: RBC,URINE 20-50 /HPF (0-5); WBC,URINE 0-5 /HPF (0-5)
--- NOTE | 2022-06-27 22:56 | NUR ---
Dr. Salas examining patient.
[2022-06-27] MEDS ORDERED: [UNRECOGNIZED DRUG - CODE] PO (23:13)
[2022-06-27] MEDS ORDERED: NAPR-54 PO (23:15)
[2022-06-27] MEDS ORDERED: ACET-10509 PO (23:15)
[2022-06-27 23:25] VITALS: BP 128/74
== END 2022-06-27 23:26 | disposition home or self-care (01) ==
LOC: MED 19:51
DX: N94.6 Dysmenorrhea, unspecified (principal); G89.29 Other chronic pain; R10.2 Pelvic and perineal pain; N80.9 Endometriosis, unspecified; J45.909 Unspecified asthma, uncomplicated; I10 Essential (primary) hypertension; Z86.69 Personal history of other diseases of the nervous system and sense organs; Z79.899 Other long term (current) drug therapy; Z79.1 Long term (current) use of non-steroidal anti-inflammatories (NSAID); Z79.2 Long term (current) use of antibiotics; Z88.0 Allergy status to penicillin; Z91.018 Allergy to other foods; Z88.6 Allergy status to analgesic agent; Z91.09 Other allergy status, other than to drugs and biological substances
CPT/HCPCS: 81001; 81025; 99283

== ENCOUNTER 2022-07-04 01:19 | Emergency (ER) | payer MEDICAID ==
[~2022-07-04] VITALS: Ht 152.4 cm; Wt 94.8 kg
[~2022-07-04 01:19] MED LIST changes: +NAPR-54 PO; +[UNRECOGNIZED DRUG - CODE] PO
[2022-07-04 01:30] VITALS: BP 153/100
--- NOTE | 2022-07-04 01:33 | NUR ---
TO LOBBY A/W BED AMBULATORY
--- NOTE | 2022-07-04 01:46 | NUR ---
Patient taken to bed 11.
--- NOTE | 2022-07-04 02:00 | NUR ---
Dr. Salas examining patient.
--- NOTE | 2022-07-04 02:11 | NUR ---
patient left without discharge paperwork
== END 2022-07-04 02:11 | disposition home or self-care (01) ==
LOC: MED 01:19
DX: G89.29 Other chronic pain (principal); R10.2 Pelvic and perineal pain; J45.909 Unspecified asthma, uncomplicated; I10 Essential (primary) hypertension; Z88.0 Allergy status to penicillin; Z91.018 Allergy to other foods; Z88.8 Allergy status to other drugs, medicaments and biological substances; Z79.899 Other long term (current) drug therapy
CPT/HCPCS: 99281

== ENCOUNTER 2022-07-16 05:40 | Emergency (ER) | payer MEDICAID ==
[~2022-07-16] VITALS: Ht 160 cm; Wt 92.1 kg
[2022-07-16 05:55] VITALS: BP 165/129
[2022-07-16] MEDS ORDERED: DICYCLOMINE 10 MG CAP PO ONE (07:00)
[2022-07-16] MEDS ORDERED: ONDANSETRON 4 MG ODT PO ONE (07:00)
[2022-07-16] MEDS ORDERED: FAMOTIDINE 20 MG TAB PO ONE (07:00)
--- NOTE | 2022-07-16 07:59 | NUR ---
PT. NOT FOUND IN LOBBY. CALLED PT.S NAME OUTSIDE ER. CHECKED BATHROOMS. PT. NOT FOUND. PT. LEFT WITHOUT BEING SEEN. NOTIFIED.
--- NOTE | 2022-07-16 08:21 | NUR ---
PT. NOT FOUND IN LOBBY. CALLED PT.S NAME OUTSIDE ER. CHECKED BATHROOMS. PT. NOT FOUND. PT. LEFT WITHOUT BEING SEEN. NOTIFIED.
--- NOTE | 2022-07-16 08:32 | NUR ---
PT. NOT FOUND IN LOBBY. CALLED PT.S NAME OUTSIDE ER. CHECKED BATHROOMS. PT. NOT FOUND. PT. LEFT WITHOUT BEING SEEN. NOTIFIED.
== END 2022-07-16 07:59 | disposition left against medical advice (07) ==
LOC: MED 05:40
DX: R11.2 Nausea with vomiting, unspecified (principal); R10.84 Generalized abdominal pain; Z53.21 Procedure and treatment not carried out due to patient leaving prior to being seen by health care provider; J45.909 Unspecified asthma, uncomplicated; I10 Essential (primary) hypertension; Z86.69 Personal history of other diseases of the nervous system and sense organs; Z79.899 Other long term (current) drug therapy; Z79.1 Long term (current) use of non-steroidal anti-inflammatories (NSAID); Z79.2 Long term (current) use of antibiotics; Z88.0 Allergy status to penicillin; Z91.018 Allergy to other foods; Z88.6 Allergy status to analgesic agent; Z91.09 Other allergy status, other than to drugs and biological substances
CPT/HCPCS: 99281

== ENCOUNTER 2022-07-21 01:24 | Emergency (ER) | payer MEDICAID ==
[~2022-07-21] VITALS: Ht 165.1 cm; Wt 99.8 kg
[2022-07-21 01:55] VITALS: BP 165/125
[2022-07-21] MEDS ORDERED: HYDROcodone/APAP 5/325 MG 1 TAB TAB PO ONE (02:20)
[2022-07-21] MEDS ORDERED: diphenhydrAMINE 50 MG/ML VIAL IM ONE (02:20)
[2022-07-21 02:48] LABS: APPEARANCE,URINE CLEAR (CLEAR); BILIRUBIN,URINE NEGATIVE (NEGATIVE); BLOOD, URINE NEGATIVE (NEGATIVE); COLOR,URINE YELLOW (YELLOW); LEUKOCYTE ESTERASE ,URINE NEGATIVE (NEGATIVE); NITRITE, URINE NEGATIVE (NEGATIVE); PH,URINE 5.5 (5.0-9.0); UGLUCOSE NEGATIVE (NEGATIVE)
[2022-07-21 03:05] LABS: BASOPHILS % (AUTO) 0.7 % (0.0-2.0); EOSINOPHILS # (AUTO) 0.2 K/uL (0-0.4); EOSINOPHILS % (AUTO) 3.5 % (0.0-4.0); HEMATOCRIT 34.8 % (36-48); HEMOGLOBIN 11.9 g/dL (12.0-16.0); LYMPHOCYTES # (AUTO) 2.6 K/uL (2.5-16.5); LYMPHOCYTES % (AUTO) 40.1 % (20.5-51.1); MEAN CORPUSCULAR HEMOGLOBIN 26 pg (27-31); MEAN CORPUSCULAR HGB CONC 34 g/dL (33-37); MONOCYTES # (AUTO) 0.4 K/uL (0.8-1.0); MONOCYTES % (AUTO) 6.4 % (1.7-9.3); NEUTROPHILS # (AUTO) 3.2 K/uL (1.8-7.7); NEUTROPHILS % (AUTO) 49.3 % (42.2-75.2); PLATELET COUNT (AUTO) 235 K/uL (140-450); RED BLOOD CELL COUNT(AUTO) 4.57 MIL/uL (4.20-5.40); RED CELL DISTRIBUTION WIDTH 15.1 % (11.6-13.7); WHITE BLOOD COUNT (AUTO) 6.4 K/uL (4.8-10.8)
[2022-07-21 03:33] LABS: ALBUMIN 4.3 g/dL (3.4-5.0); ANION GAP 12.3 (8-16); CARBON DIOXIDE 27.5 mmol/L (21-32); CREATININE 0.6 mg/dL (0.6-1.3); POTASSIUM 3.8 mmol/L (3.5-5.1); TOTAL BILIRUBIN 0.3 mg/dL (0.0-1.0)
[2022-07-21] MEDS ORDERED: LID5T TP (03:41)
[2022-07-21 03:44] VITALS: BP 122/85
== END 2022-07-21 03:45 | disposition home or self-care (01) ==
LOC: MED 01:24
DX: S39.012A Strain of muscle, fascia and tendon of lower back, initial encounter (principal); J45.909 Unspecified asthma, uncomplicated; I10 Essential (primary) hypertension; Z86.69 Personal history of other diseases of the nervous system and sense organs; Z79.899 Other long term (current) drug therapy; Z79.2 Long term (current) use of antibiotics; Z79.1 Long term (current) use of non-steroidal anti-inflammatories (NSAID); Z88.0 Allergy status to penicillin; Z91.02 Food additives allergy status; Z91.048 Other nonmedicinal substance allergy status; Z88.6 Allergy status to analgesic agent
CPT/HCPCS: 36415; 80053; 81003; 81025; 85025; 96372; 99283; J1200

== ENCOUNTER 2022-08-04 10:26 | Emergency (ER) | payer MEDICAID ==
[~2022-08-04] VITALS: Ht 152.4 cm; Wt 90.7 kg
[2022-08-04 10:28] VITALS: BP 157/92
--- NOTE | 2022-08-04 10:36 | NUR ---
URINE COLLECTED AT THIS TIME
--- NOTE | 2022-08-04 11:04 | NUR ---
Patient ambulated to bed 8.
--- NOTE | 2022-08-04 11:17 | NUR ---
Patient being evaluated by physician at bedside.
[2022-08-04] MEDS ORDERED: ONDANSETRON 4 MG ODT PO ONE (11:20)
[2022-08-04] MEDS ORDERED: MORPHINE SULFATE 4 MG/ML SYR IM ONE (11:20)
[2022-08-04 11:31] LABS: APPEARANCE,URINE CLEAR (CLEAR); BILIRUBIN,URINE NEGATIVE (NEGATIVE); BLOOD, URINE NEGATIVE (NEGATIVE); COLOR,URINE YELLOW (YELLOW); LEUKOCYTE ESTERASE ,URINE NEGATIVE (NEGATIVE); NITRITE, URINE NEGATIVE (NEGATIVE); PH,URINE 6.5 (5.0-9.0); UGLUCOSE NEGATIVE (NEGATIVE)
[2022-08-04 12:21] LABS: BASOPHILS % (AUTO) 0.4 % (0.0-2.0); EOSINOPHILS # (AUTO) 0.1 K/uL (0-0.4); EOSINOPHILS % (AUTO) 1.5 % (0.0-4.0); HEMATOCRIT 33.1 % (36-48); HEMOGLOBIN 11.3 g/dL (12.0-16.0); LYMPHOCYTES # (AUTO) 1.2 K/uL (2.5-16.5); LYMPHOCYTES % (AUTO) 18.1 % (20.5-51.1); MEAN CORPUSCULAR HEMOGLOBIN 26 pg (27-31); MEAN CORPUSCULAR HGB CONC 34 g/dL (33-37); MEAN CORPUSCULAR VOLUME 75.9 fL (80-94); MONOCYTES # (AUTO) 0.4 K/uL (0.8-1.0); MONOCYTES % (AUTO) 6.2 % (1.7-9.3); NEUTROPHILS % (AUTO) 73.8 % (42.2-75.2); PLATELET COUNT (AUTO) 246 K/uL (140-450); RED BLOOD CELL COUNT(AUTO) 4.36 MIL/uL (4.20-5.40); RED CELL DISTRIBUTION WIDTH 15.1 % (11.6-13.7); WHITE BLOOD COUNT (AUTO) 6.8 K/uL (4.8-10.8)
[2022-08-04 12:38] LABS: ALBUMIN 3.9 g/dL (3.4-5.0); ANION GAP 12.2 (8-16); CARBON DIOXIDE 27.1 mmol/L (21-32); CREATININE 0.7 mg/dL (0.6-1.3); POTASSIUM 3.3 mmol/L (3.5-5.1); TOTAL BILIRUBIN 0.2 mg/dL (0.0-1.0)
[2022-08-04] MEDS ORDERED: MAGN400S60 PO (12:44)
--- NOTE | 2022-08-04 12:49 | NUR ---
Patient being re-evaluated by Dr. Reddy.
[2022-08-04 12:53] VITALS: BP 123/83
--- NOTE | 2022-08-04 12:53 | NUR ---
Patient discharged with v/s stable. Written and verbal after care instructions given and explained. Patient alert, oriented and verbalized understanding of instructions. Ambulatory with steady gait. All questions addressed prior to discharge. ID band removed. Patient advised to follow up with PMD. Rx of MILK OF MAGNESIA given. Patient educated on indication of medication including possible reaction and side effects. Opportunity to ask questions provided and answered.
[2022-08-04] MEDS ORDERED: ACET-8905 PO (22:59)
== END 2022-08-04 12:52 | disposition home or self-care (01) ==
LOC: MED 10:26
DX: K59.00 Constipation, unspecified (principal); J45.909 Unspecified asthma, uncomplicated; I10 Essential (primary) hypertension; Z88.0 Allergy status to penicillin; Z91.018 Allergy to other foods; Z88.8 Allergy status to other drugs, medicaments and biological substances; Z90.49 Acquired absence of other specified parts of digestive tract; Z79.899 Other long term (current) drug therapy
CPT/HCPCS: 36415; 74018; 80053; 81003; 81025; 85025; 87086; 96372; 99284; J2270; Q0162

== ENCOUNTER 2022-08-04 19:59 | Emergency (ER) | payer MEDICAID ==
[~2022-08-04] VITALS: Ht 152.4 cm; Wt 91.2 kg
[~2022-08-04 19:59] MED LIST changes: +MAGN400S60 PO
[2022-08-04 20:27] VITALS: BP 153/101
--- NOTE | 2022-08-04 20:35 | NUR ---
PT. WALKED TO BED 02.
[2022-08-04] MEDS ORDERED: NACL 0.9% 1,000 ML IV ONE (20:40)
[2022-08-04] MEDS ORDERED: ONDANSETRON 4 MG/2 ML VIAL IVP ONE (20:40)
[2022-08-04] MEDS ORDERED: MORPHINE SULFATE 4 MG/ML SYR IVP ONE (20:40)
--- NOTE | 2022-08-04 21:10 | NUR ---
PT. BEING TAKEN TO CT
--- NOTE | 2022-08-04 21:15 | NUR ---
Sariah mejia in [facility] - 08/04/22 at 2126 by [email or web address] PT OFF UNIT TO CT.
--- NOTE | 2022-08-04 21:20 | NUR ---
PT BACK FROM CT.
--- NOTE | 2022-08-04 21:23 | NUR ---
Patient being evaluated by physician at bedside.
--- NOTE | 2022-08-04 22:32 | NUR ---
PT STATES 10/[address] PA[address] KEY MADE AWARE.
[2022-08-04] MEDS ORDERED: ACETAMINOPHEN EXTRA STRENGTH 500 MG TAB PO ONE (22:35)
--- NOTE | 2022-08-04 22:36 | NUR ---
DR. KEY AT BEDSIDE FOR EVAL.
[2022-08-04] MEDS ORDERED: ACET-8905 PO (22:59)
[2022-08-04 23:34] VITALS: BP 149/94
--- NOTE | 2022-08-04 23:34 | NUR ---
Patient discharged with v/s stable. Written and verbal after care instructions given and explained. Patient alert, oriented and verbalized understanding of instructions. Ambulatory with steady gait. All questions addressed prior to discharge. ID band removed. Patient advised to follow up with PMD. Rx of hydrocodone-acetaminophen 5-325 given. Patient educated on indication of medication including possible reaction and side effects. Opportunity to ask questions provided and answered.
== END 2022-08-04 23:34 | disposition home or self-care (01) ==
LOC: MED 19:59
DX: R10.32 Left lower quadrant pain (principal); F17.200 Nicotine dependence, unspecified, uncomplicated; J45.909 Unspecified asthma, uncomplicated; Z79.899 Other long term (current) drug therapy; Z90.49 Acquired absence of other specified parts of digestive tract; Z98.890 Other specified postprocedural states; Z88.0 Allergy status to penicillin; Z91.018 Allergy to other foods; Z88.8 Allergy status to other drugs, medicaments and biological substances
CPT/HCPCS: 36415; 74176; 83690; 84703; 96361; 96374; 96375; 99285; J2270; J2405; J7030

== ENCOUNTER 2022-08-05 10:37 | Emergency (ER) | payer MEDICAID ==
[~2022-08-05] VITALS: Ht 152.4 cm; Wt 90.7 kg
[2022-08-05 10:45] VITALS: BP 142/106
--- NOTE | 2022-08-05 10:49 | NUR ---
PT STATED SHE IS CONCERNED ABOUT HER B/P, STATED SHE IS NOT HERE FOR MEDS CAUSE SHE GOT NORCOS LAST NIGHT FROM HERE.
--- NOTE | 2022-08-05 11:00 | NUR ---
PATIENT LEFT WITHOUT BEING SEEN BY . NO FURTHER CARE PROVIDED FOR PATIENT.
--- NOTE | 2022-08-05 11:00 | NUR ---
PT WAS CALLED , NO ANSWER, PRESUMED LEFT WITHOUT BEING SEEN
== END 2022-08-05 11:00 | disposition left against medical advice (07) ==
LOC: MED 10:37
DX: R51.9 Headache, unspecified (principal); Z53.21 Procedure and treatment not carried out due to patient leaving prior to being seen by health care provider
CPT/HCPCS: 99281

== ENCOUNTER 2022-09-03 07:56 | Emergency (ER) | payer MEDICAID ==
[~2022-09-03] VITALS: Ht 154.9 cm; Wt 88.5 kg
[2022-09-03 08:27] VITALS: BP 165/112; PULSE 84; RESP 20; TEMP 97.6; O2SAT 98
[2022-09-03] MEDS ORDERED: diphenhydrAMINE 50 MG/ML VIAL IVP ONE (08:50)
[2022-09-03] MEDS ORDERED: METOCLOPRAMIDE 10 MG/2 ML INJ VIAL IVP ONE (08:50)
[2022-09-03] MEDS ORDERED: NACL 0.9% 1,000 ML IV ONE ×2 (08:50→10:10)
[2022-09-03 08:58] VITALS: BP 165/112
--- NOTE | 2022-09-03 09:03 | NUR ---
Note undone in EDM - 09/03/22 at 0907 by [email or web address] PATIENT 31/F PRESENTS TO ED WITH ABD PAIN THAT RADIATS TO HER CHEST. PT STATES PAIN HAS BEEN GOING ON FOR 2 DAYS. DENIES VOMITTING. PT STATES SHE HAS HAD DIARREHA FOR 3 DAYS. NAUSEA FOR 1 DAY; SKIN IS PINK/WARM/DRY; AAOX4 WITH EVEN AND STEADY GAIT; LUNGS CLEAR BL; HR EVEN AND REGULAR; PT DENIES ANY FEVER, CP, SOB, OR COUGH AT THIS TIME; PATIENT STATES PAIN OF 10/10 AT THIS TIME; VSS; PATIENT POSITIONED FOR COMFORT; HOB ELEVATED; BEDRAILS UP X2; CALL LIGHT WITH IN REACH. BED DOWN. ER MD MADE AWARE OF PT STATUS. CYST ABD PAIN ENDOMETRIOSIS HTN
--- NOTE | 2022-09-03 09:07 | NUR ---
PATIENT 31/F PRESENTS TO ED WITH ABD PAIN THAT RADIATS TO HER CHEST. PT STATES PAIN HAS BEEN GOING ON FOR 2 DAYS. DENIES VOMITTING. PT STATES SHE HAS HAD DIARREHA FOR 3 DAYS. NAUSEA FOR 1 DAY; SKIN IS PINK/WARM/DRY; AAOX4 WITH EVEN AND STEADY GAIT; LUNGS CLEAR BL; HR EVEN AND REGULAR; PT DENIES ANY FEVER, CP, SOB, OR COUGH AT THIS TIME; PATIENT STATES PAIN OF 10/10 AT THIS TIME; VSS; PATIENT POSITIONED FOR COMFORT; HOB ELEVATED; BEDRAILS UP X2; CALL LIGHT WITH IN REACH. BED DOWN. ER MD MADE AWARE OF PT STATUS. PMHX: CYST ABD PAIN ENDOMETRIOSIS HTN ANXITEY ALLERGIES: TORODAL INSIDS PCN POLLEN CHICKEN
[2022-09-03 09:09] VITALS: O2SAT 97
[2022-09-03] MEDS ORDERED: METOCLOPRAMIDE 10 MG TAB PO ONE (09:20)
[2022-09-03] MEDS ORDERED: diphenhydrAMINE 50 MG CAP PO ONE (09:20)
[2022-09-03 09:32] LABS: BASOPHILS % (AUTO) 0.5 % (0.0-2.0); EOSINOPHILS # (AUTO) 0.1 K/uL (0-0.4); EOSINOPHILS % (AUTO) 1.4 % (0.0-4.0); HEMATOCRIT 34.6 % (36-48); HEMOGLOBIN 11.6 g/dL (12.0-16.0); LYMPHOCYTES # (AUTO) 2.3 K/uL (2.5-16.5); LYMPHOCYTES % (AUTO) 44.3 % (20.5-51.1); MEAN CORPUSCULAR HEMOGLOBIN 26 pg (27-31); MEAN CORPUSCULAR HGB CONC 34 g/dL (33-37); MEAN CORPUSCULAR VOLUME 76.4 fL (80-94); MONOCYTES # (AUTO) 0.3 K/uL (0.8-1.0); MONOCYTES % (AUTO) 6.4 % (1.7-9.3); NEUTROPHILS # (AUTO) 2.5 K/uL (1.8-7.7); NEUTROPHILS % (AUTO) 47.4 % (42.2-75.2); PLATELET COUNT (AUTO) 253 K/uL (140-450); RED BLOOD CELL COUNT(AUTO) 4.53 MIL/uL (4.20-5.40); RED CELL DISTRIBUTION WIDTH 15.1 % (11.6-13.7); WHITE BLOOD COUNT (AUTO) 5.3 K/uL (4.8-10.8)
--- NOTE | 2022-09-03 09:50 | NUR ---
PT HAS BEEN MEDICATED PER PROVIDERS ORDERS.
[2022-09-03] MEDS ORDERED: MORPHINE SULFATE 4 MG/ML SYR IVP ONE (09:55)
[2022-09-03] MEDS ORDERED: ONDANSETRON 4 MG/2 ML VIAL IVP ONE (09:55)
--- NOTE | 2022-09-03 10:05 | NUR ---
ULTRA SOUND AT BEDSIDE.
--- NOTE | 2022-09-03 10:09 | NUR ---
20 G LEFT AC IV ESTABLISH. PT STATES SHE STILL IN PAIN AND WOULD LIKE STRONGER MEDS. MADE AWARE.
[2022-09-03 10:19] LABS: ALBUMIN 3.8 g/dL (3.4-5.0); ANION GAP 10.2 (8-16); ASPARTATE AMINOTRANSFERASE 23 U/L (15-37); CARBON DIOXIDE 30.3 mmol/L (21-32); CHLORIDE 105 mmol/L (98-107); CREATININE 0.7 mg/dL (0.6-1.3); GFR ARICAN-AMERICAN 127 mL/min (>90); GLUCOSE 101 mg/dL (74-106); LIPASE 89 U/L (73-393); POTASSIUM 3.5 mmol/L (3.5-5.1); SODIUM SERUM 142 mmol/L (136-145); TOTAL BILIRUBIN 0.2 mg/dL (0.0-1.0); UREA NITROGEN, BLOOD 10 mg/dL (7-18)
--- NOTE | 2022-09-03 10:19 | NUR ---
C/O LOWER ABDO PAIN , SHARP IN NATURE, MEDS GIVEN ORDEREDS
--- NOTE | 2022-09-03 10:20 | NUR ---
The patient's care was reviewed and supervised by ZHOU MELGAR RN.
--- NOTE | 2022-09-03 10:39 | NUR ---
IV HAS BEEN DC PT STATES SHE DOES NOT WANT IV FLUIDS. PROVIDER MADE AWARE.
[2022-09-03] MEDS ORDERED: ONDANSETRON 4 MG/2 ML VIAL ONE (10:59)
--- NOTE | 2022-09-03 11:00 | NUR ---
PT NS D/C DUE TO PT STATING IV WAS HURTING. PT HAD 100 MLS OF IV NS INFUSED BEFORE IV WAS D/C
--- NOTE | 2022-09-03 11:00 | NUR ---
PT STATES HER CRAMPS ARE STARTING TO DIMINISH AND PAIN HAS REDUCED TO A 7
[2022-09-03] MEDS ORDERED: ONDA-188 SL (11:46)
[2022-09-03] MEDS ORDERED: BEN10 PO (11:46)
[2022-09-03 12:02] VITALS: PULSE 13; RESP 14; TEMP 97.7; O2SAT 99
--- NOTE | 2022-09-03 12:07 | NUR ---
DPatient discharged with v/s stable. Written and verbal after care instructions given and explained. Patient verbalized understanding. Ambulatory with steady gait. All questions addressed prior to discharge. Advised to follow up with PMD.
== END 2022-09-03 12:13 | disposition home or self-care (01) ==
LOC: MED 07:56
DX: R10.9 Unspecified abdominal pain (principal); R51.9 Headache, unspecified; R07.9 Chest pain, unspecified; G43.909 Migraine, unspecified, not intractable, without status migrainosus; I10 Essential (primary) hypertension; Z88.0 Allergy status to penicillin; Z88.8 Allergy status to other drugs, medicaments and biological substances; Z79.899 Other long term (current) drug therapy; Z91.018 Allergy to other foods
CPT/HCPCS: 36415; 71045; 76830; 80053; 83690; 84484; 85025; 93005; 96374; 96375; 99285; J2270; J2405; J7030; J8597; Q0092; Q0163; 96361

== ENCOUNTER 2022-09-21 01:27 | Emergency (ER) | payer MEDICAID ==
[~2022-09-21] VITALS: Ht 152.4 cm; Wt 86.6 kg
[~2022-09-21 01:27] MED LIST changes: +BEN10 PO; +ONDA-188 SL
[2022-09-21 01:38] VITALS: BP 151/100; PULSE 90; RESP 16; TEMP 98; O2SAT 100
--- NOTE | 2022-09-21 01:41 | NUR ---
TO LOBBY A/W BED AMBULATORY
--- NOTE | 2022-09-21 02:12 | NUR ---
pt to bed 05 ambulatory
--- NOTE | 2022-09-21 02:15 | NUR ---
FIRST CONTACT WITH PT. ASSESSMENT COMPLETED. AWAITING ADDITIONAL EVAL AND ORDERS.
[2022-09-21] MEDS ORDERED: HYDROcodone/APAP 5/325 MG 1 TAB TAB PO ONE (02:25)
[2022-09-21 03:41] VITALS: BP 151/90; PULSE 84; RESP 16; TEMP 98.4; O2SAT 97
== END 2022-09-21 03:40 | disposition home or self-care (01) ==
LOC: MED 01:27
DX: R10.2 Pelvic and perineal pain (principal); G89.29 Other chronic pain; J45.909 Unspecified asthma, uncomplicated; I10 Essential (primary) hypertension; Z88.0 Allergy status to penicillin; Z91.018 Allergy to other foods; Z79.899 Other long term (current) drug therapy; Z88.8 Allergy status to other drugs, medicaments and biological substances
CPT/HCPCS: 81002; 81025; 99283

== ENCOUNTER 2022-10-01 19:09 | Emergency (ER) | payer MEDICAID ==
[~2022-10-01] VITALS: Ht 152.4 cm; Wt 87.1 kg
[2022-10-01 20:35] VITALS: BP 140/98; PULSE 75; RESP 17; TEMP 98; O2SAT 99
[2022-10-01 21:25] LABS: BASOPHILS # (AUTO) 0.1 K/uL (0.00-0.22); BASOPHILS % (AUTO) 0.7 % (0.0-2.0); EOSINOPHILS % (AUTO) 0.6 % (0.0-4.0); HEMATOCRIT 37.1 % (36-48); HEMOGLOBIN 12.4 g/dL (12.0-16.0); LYMPHOCYTES % (AUTO) 26.3 % (20.5-51.1); MEAN CORPUSCULAR HEMOGLOBIN 26 pg (27-31); MEAN CORPUSCULAR HGB CONC 33 g/dL (33-37); MEAN CORPUSCULAR VOLUME 76.4 fL (80-94); MONOCYTES # (AUTO) 0.5 K/uL (0.8-1.0); MONOCYTES % (AUTO) 6.8 % (1.7-9.3); NEUTROPHILS # (AUTO) 4.9 K/uL (1.8-7.7); NEUTROPHILS % (AUTO) 65.6 % (42.2-75.2); PLATELET COUNT (AUTO) 322 K/uL (140-450); RED BLOOD CELL COUNT(AUTO) 4.86 MIL/uL (4.20-5.40); RED CELL DISTRIBUTION WIDTH 15.2 % (11.6-13.7); WHITE BLOOD COUNT (AUTO) 7.5 K/uL (4.8-10.8)
[2022-10-01 22:53] LABS: APPEARANCE,URINE CLEAR (CLEAR); BILIRUBIN,URINE NEGATIVE (NEGATIVE); BLOOD, URINE NEGATIVE (NEGATIVE); COLOR,URINE YELLOW (YELLOW); LEUKOCYTE ESTERASE ,URINE NEGATIVE (NEGATIVE); NITRITE, URINE NEGATIVE (NEGATIVE); UGLUCOSE NEGATIVE (NEGATIVE)
--- NOTE | 2022-10-01 22:59 | NUR ---
SEEN AND EXAMINED BY DB
--- NOTE | 2022-10-02 00:10 | NUR ---
seen and examined by DB
[2022-10-02 00:28] VITALS: BP 133/74; PULSE 80; RESP 14; TEMP 98; O2SAT 99
== END 2022-10-02 00:28 | disposition home or self-care (01) ==
LOC: MED 19:09
DX: O26.891 Other specified pregnancy related conditions, first trimester (principal); R10.2 Pelvic and perineal pain; O99.511 Diseases of the respiratory system complicating pregnancy, first trimester; J45.909 Unspecified asthma, uncomplicated; O16.1 Unspecified maternal hypertension, first trimester; Z3A.01 Less than 8 weeks gestation of pregnancy; Z87.42 Personal history of other diseases of the female genital tract; Z79.899 Other long term (current) drug therapy; Z79.1 Long term (current) use of non-steroidal anti-inflammatories (NSAID); Z79.2 Long term (current) use of antibiotics; Z88.0 Allergy status to penicillin; Z88.6 Allergy status to analgesic agent; Z91.018 Allergy to other foods; Z91.09 Other allergy status, other than to drugs and biological substances
CPT/HCPCS: 36415; 76817; 81003; 81025; 84702; 85025; 86900; 86901; 99284; Q0092

== ENCOUNTER 2022-10-08 15:24 | Emergency (ER) | payer MEDICAID ==
[~2022-10-08] VITALS: Ht 152.4 cm; Wt 87.5 kg
[2022-10-08 15:39] VITALS: BP 145/86; PULSE 77; RESP 18; TEMP 97.3; O2SAT 100
[2022-10-08] MEDS ORDERED: MORPHINE SULFATE 4 MG/ML SYR IVP ONE ×2 (16:15→17:40)
[2022-10-08 16:52] LABS: BASOPHILS % (AUTO) 0.7 % (0.0-2.0); EOSINOPHILS # (AUTO) 0.1 K/uL (0-0.4); EOSINOPHILS % (AUTO) 1.2 % (0.0-4.0); HEMATOCRIT 34.8 % (36-48); HEMOGLOBIN 11.5 g/dL (12.0-16.0); LYMPHOCYTES # (AUTO) 1.6 K/uL (2.5-16.5); LYMPHOCYTES % (AUTO) 25.6 % (20.5-51.1); MEAN CORPUSCULAR HEMOGLOBIN 25 pg (27-31); MEAN CORPUSCULAR HGB CONC 33 g/dL (33-37); MEAN CORPUSCULAR VOLUME 76.2 fL (80-94); MONOCYTES # (AUTO) 0.3 K/uL (0.8-1.0); MONOCYTES % (AUTO) 5.3 % (1.7-9.3); NEUTROPHILS # (AUTO) 4.2 K/uL (1.8-7.7); NEUTROPHILS % (AUTO) 67.2 % (42.2-75.2); PLATELET COUNT (AUTO) 283 K/uL (140-450); RED BLOOD CELL COUNT(AUTO) 4.57 MIL/uL (4.20-5.40); WHITE BLOOD COUNT (AUTO) 6.3 K/uL (4.8-10.8)
[2022-10-08 17:04] LABS: INR 1.03 (0.8-1.2); PARTIAL THROMBOPLASTIN TIME 27.3 secs (22-35.6); PROTHROMBIN TIME 10.8 secs (10.8-13.4)
[2022-10-08 17:07] LABS: ALBUMIN 3.3 g/dL (3.4-5.0); CARBON DIOXIDE 28.9 mmol/L (21-32); CREATININE 0.7 mg/dL (0.6-1.3); POTASSIUM 3.9 mmol/L (3.5-5.1); TOTAL BILIRUBIN 0.4 mg/dL (0.0-1.0); TOTAL PROTEIN, SERUM 7.8 g/dL (6.4-8.2)
[2022-10-08 18:58] VITALS: TEMP 97.8; O2SAT 99
[2022-10-08] MEDS ORDERED: ACET-8905 PO ×3 (19:19→21:07)
[2022-10-08] MEDS ORDERED: CEPH-588 PO ×2 (19:19→21:06)
[2022-10-08 19:32] VITALS: BP 130/83; PULSE 81; RESP 16
== END 2022-10-08 19:32 | disposition home or self-care (01) ==
LOC: MED 15:24
DX: O03.9 Complete or unspecified spontaneous abortion without complication (principal); O26.891 Other specified pregnancy related conditions, first trimester; I10 Essential (primary) hypertension; Z3A.01 Less than 8 weeks gestation of pregnancy; Z88.0 Allergy status to penicillin; Z88.8 Allergy status to other drugs, medicaments and biological substances; Z91.018 Allergy to other foods; Z79.1 Long term (current) use of non-steroidal anti-inflammatories (NSAID)
CPT/HCPCS: 36415; 76817; 80053; 84702; 85025; 85610; 85730; 86886; 86900; 86901; 96374; 96376; 99285; J2270; Q0092

== ENCOUNTER 2022-10-30 14:02 | Emergency (ER) | payer MEDICAID ==
[~2022-10-30] VITALS: Ht 152.4 cm; Wt 84.8 kg
[~2022-10-30 14:02] MED LIST changes: +CEPH-588 PO; +DIPH25TA41 PO; +KETO5SOL OP; +METO-485 PO; +NITR100C7 PO; +TOBR5SOL38 RIGHT EYE; +ZOLP5TAB1 PO
[2022-10-30 14:20] VITALS: BP 148/54; PULSE 80; RESP 18; TEMP 98.2; O2SAT 100
== END 2022-10-30 15:48 | disposition left against medical advice (07) ==
LOC: MERGE 14:02 → MED 14:02
DX: R10.2 Pelvic and perineal pain (principal); Z53.21 Procedure and treatment not carried out due to patient leaving prior to being seen by health care provider
CPT/HCPCS: 99281

== ENCOUNTER 2022-11-01 19:57 | Emergency (ER) | payer MEDICAID ==
[~2022-11-01] VITALS: Ht 152.4 cm; Wt 84.8 kg
[2022-11-01 21:04] VITALS: BP 154/100; PULSE 89; RESP 20; TEMP 98.5; O2SAT 100
[2022-11-01 21:16] VITALS: BP 154/100; PULSE 89; RESP 20; TEMP 98.5; O2SAT 100
[2022-11-01] MEDS ORDERED: MORPHINE SULFATE 4 MG/ML SYR IM ONE (23:10)
[2022-11-01] MEDS ORDERED: ONDANSETRON 4 MG/2 ML VIAL IM ONE (23:10)
[2022-11-01 23:17] LABS: APPEARANCE,URINE CLEAR (CLEAR); BILIRUBIN,URINE NEGATIVE (NEGATIVE); BLOOD, URINE NEGATIVE (NEGATIVE); COLOR,URINE YELLOW (YELLOW); LEUKOCYTE ESTERASE ,URINE NEGATIVE (NEGATIVE); NITRITE, URINE NEGATIVE (NEGATIVE); PROTEIN,URINE NEGATIVE (NEGATIVE); UGLUCOSE NEGATIVE (NEGATIVE); UROBILINOGEN,URINE 0.2 EU/dL (0.2 - 1)
[2022-11-02] MEDS ORDERED: ACET-10509 PO (01:10)
[2022-11-02] MEDS ORDERED: METR-435 PO (01:10)
== END 2022-11-02 01:14 | disposition home or self-care (01) ==
LOC: MED 19:57
DX: N76.0 Acute vaginitis (principal); B96.89 Other specified bacterial agents as the cause of diseases classified elsewhere; J45.909 Unspecified asthma, uncomplicated; I10 Essential (primary) hypertension; Z88.0 Allergy status to penicillin; Z88.8 Allergy status to other drugs, medicaments and biological substances; Z91.018 Allergy to other foods; Z79.899 Other long term (current) drug therapy
CPT/HCPCS: 81003; 87210; 96372; 99284; J2270; J2405

== ENCOUNTER 2022-11-14 21:22 | Emergency (ER) | payer MEDICAID ==
[~2022-11-14] VITALS: Ht 152.4 cm; Wt 82.1 kg
[~2022-11-14 21:22] MED LIST changes: +METR-435 PO
[2022-11-14 21:53] VITALS: BP 146/78; PULSE 81; RESP 19; TEMP 98.3; O2SAT 100
[2022-11-14 23:19] LABS: APPEARANCE,URINE CLEAR (CLEAR); BILIRUBIN,URINE NEGATIVE (NEGATIVE); BLOOD, URINE NEGATIVE (NEGATIVE); COLOR,URINE YELLOW (YELLOW); LEUKOCYTE ESTERASE ,URINE NEGATIVE (NEGATIVE); NITRITE, URINE NEGATIVE (NEGATIVE); PROTEIN,URINE NEGATIVE (NEGATIVE); UGLUCOSE NEGATIVE (NEGATIVE); UROBILINOGEN,URINE 0.2 EU/dL (0.2 - 1)
[2022-11-14] MEDS ORDERED: ACETAMINOPHEN EXTRA STRENGTH 500 MG TAB PO ONE (23:40)
[2022-11-15 00:19] LABS: BASOPHILS % (AUTO) 0.4 % (0.0-2.0); EOSINOPHILS % (AUTO) 0.6 % (0.0-4.0); HEMATOCRIT 35.8 % (36-48); HEMOGLOBIN 11.7 g/dL (12.0-16.0); LYMPHOCYTES # (AUTO) 1.7 K/uL (2.5-16.5); LYMPHOCYTES % (AUTO) 21.8 % (20.5-51.1); MEAN CORPUSCULAR HEMOGLOBIN 25 pg (27-31); MEAN CORPUSCULAR HGB CONC 33 g/dL (33-37); MEAN CORPUSCULAR VOLUME 76.7 fL (80-94); MONOCYTES # (AUTO) 0.4 K/uL (0.8-1.0); MONOCYTES % (AUTO) 4.9 % (1.7-9.3); NEUTROPHILS # (AUTO) 5.6 K/uL (1.8-7.7); NEUTROPHILS % (AUTO) 72.3 % (42.2-75.2); PLATELET COUNT (AUTO) 304 K/uL (140-450); RED BLOOD CELL COUNT(AUTO) 4.66 MIL/uL (4.20-5.40); RED CELL DISTRIBUTION WIDTH 14.8 % (11.6-13.7); WHITE BLOOD COUNT (AUTO) 7.8 K/uL (4.8-10.8)
[2022-11-15 00:39] LABS: ALBUMIN 3.9 g/dL (3.4-5.0); ANION GAP 12.5 (8-16); CALCIUM 9.5 mg/dL (8.5-10.1); CREATININE 0.7 mg/dL (0.6-1.3); POTASSIUM 4.5 mmol/L (3.5-5.1); TOTAL BILIRUBIN 0.2 mg/dL (0.0-1.0); TOTAL PROTEIN, SERUM 8.2 g/dL (6.4-8.2)
[2022-11-15 03:00] VITALS: BP 131/79; PULSE 80; RESP 17; TEMP 98.3; O2SAT 100
== END 2022-11-15 03:00 | disposition home or self-care (01) ==
LOC: MED 21:22
DX: R10.30 Lower abdominal pain, unspecified (principal); R11.2 Nausea with vomiting, unspecified; R68.83 Chills (without fever); J45.909 Unspecified asthma, uncomplicated; I10 Essential (primary) hypertension; Z98.890 Other specified postprocedural states; Z79.899 Other long term (current) drug therapy; Z79.2 Long term (current) use of antibiotics; Z88.0 Allergy status to penicillin; Z88.6 Allergy status to analgesic agent; Z91.09 Other allergy status, other than to drugs and biological substances; Z91.018 Allergy to other foods
CPT/HCPCS: 36415; 76856; 80053; 81003; 81025; 83690; 85025; 99284

== ENCOUNTER 2022-12-07 17:50 | Emergency (ER) | payer MEDICAID ==
[~2022-12-07] VITALS: Ht 152.4 cm; Wt 83.5 kg
[2022-12-07 18:14] VITALS: BP 147/100; PULSE 91; RESP 20; TEMP 98.2; O2SAT 100
[2022-12-07 20:23] LABS: APPEARANCE,URINE CLEAR (CLEAR); BILIRUBIN,URINE NEGATIVE (NEGATIVE); BLOOD, URINE NEGATIVE (NEGATIVE); COLOR,URINE YELLOW (YELLOW); LEUKOCYTE ESTERASE ,URINE NEGATIVE (NEGATIVE); NITRITE, URINE NEGATIVE (NEGATIVE); PH,URINE 6.5 (5.0-9.0); PROTEIN,URINE NEGATIVE (NEGATIVE); UGLUCOSE NEGATIVE (NEGATIVE); UROBILINOGEN,URINE 0.2 EU/dL (0.2 - 1)
[2022-12-07 21:05] VITALS: BP 135/97; PULSE 98; RESP 19; TEMP 97.8; O2SAT 98
[2022-12-07] MEDS ORDERED: MORPHINE SULFATE 4 MG/ML SYR IM ONE (21:20)
[2022-12-07] MEDS ORDERED: ONDANSETRON 4 MG ODT PO ONE (21:20)
[2022-12-07] MEDS ORDERED: ACET-8905 PO (21:42)
[2022-12-07] MEDS ORDERED: ONDA8TAB87 PO (21:42)
== END 2022-12-07 22:35 | disposition home or self-care (01) ==
LOC: MED 17:50
DX: R10.30 Lower abdominal pain, unspecified (principal); R11.0 Nausea; J45.909 Unspecified asthma, uncomplicated; I10 Essential (primary) hypertension; F17.210 Nicotine dependence, cigarettes, uncomplicated; Z90.49 Acquired absence of other specified parts of digestive tract; Z98.890 Other specified postprocedural states; Z79.899 Other long term (current) drug therapy; Z79.2 Long term (current) use of antibiotics; Z79.1 Long term (current) use of non-steroidal anti-inflammatories (NSAID); Z88.0 Allergy status to penicillin; Z91.018 Allergy to other foods; Z88.6 Allergy status to analgesic agent; Z91.048 Other nonmedicinal substance allergy status
CPT/HCPCS: 81003; 81025; 96372; 99283; J2270; Q0162

== ENCOUNTER 2022-12-13 21:09 | Emergency (ER) | payer MEDICAID ==
[~2022-12-13] VITALS: Ht 152.4 cm; Wt 82.1 kg
[~2022-12-13 21:09] MED LIST changes: +ONDA8TAB87 PO
[2022-12-13 21:17] VITALS: BP 150/101; PULSE 81; RESP 16; TEMP 97.5; O2SAT 98
[2022-12-14] MEDS ORDERED: NACL 0.9% 1,000 ML IV ONE (04:10)
[2022-12-14] MEDS ORDERED: MORPHINE SULFATE 10 MG/ML VIAL IVP ONE (04:10)
[2022-12-14 05:03] VITALS: BP 138/74; PULSE 88; RESP 16; O2SAT 99
[2022-12-14 05:12] LABS: APPEARANCE,URINE CLEAR (CLEAR); BILIRUBIN,URINE NEGATIVE (NEGATIVE); BLOOD, URINE TRACE-I (NEGATIVE); COLOR,URINE YELLOW (YELLOW); LEUKOCYTE ESTERASE ,URINE NEGATIVE (NEGATIVE); NITRITE, URINE NEGATIVE (NEGATIVE); PROTEIN,URINE NEGATIVE (NEGATIVE); UGLUCOSE NEGATIVE (NEGATIVE); UROBILINOGEN,URINE 0.2 EU/dL (0.2 - 1)
[2022-12-14 05:33] LABS: BACTERIA,URINE >30 (MANY) /HPF (None Seen); WBC,URINE 0-5 /HPF (0-5)
[2022-12-14 05:34] LABS: MUCUS,URINE 1+ /LPF (None Seen)
[2022-12-14] MEDS ORDERED: MORPHINE SULFATE 4 MG/ML SYR IVP ONE (06:10)
== END 2022-12-14 06:49 | disposition home or self-care (01) ==
LOC: MED 21:09
DX: R10.2 Pelvic and perineal pain (principal); R51.9 Headache, unspecified; R11.0 Nausea; J45.909 Unspecified asthma, uncomplicated; I10 Essential (primary) hypertension; Z88.0 Allergy status to penicillin; Z88.8 Allergy status to other drugs, medicaments and biological substances; Z79.899 Other long term (current) drug therapy; Z90.49 Acquired absence of other specified parts of digestive tract
CPT/HCPCS: 81001; 81025; 87086; 96374; 96376; 99284; J2270; J7030

== ENCOUNTER 2023-01-01 08:31 | Emergency (ER) | payer MEDICAID ==
[~2023-01-01] VITALS: Ht 152.4 cm; Wt 81.2 kg
[2023-01-01 08:47] VITALS: BP 143/98; PULSE 102; RESP 15; TEMP 98.4; O2SAT 98
[2023-01-01] MEDS ORDERED: ONDANSETRON 4 MG ODT PO ONE (09:15)
[2023-01-01] MEDS ORDERED: HYDROcodone/APAP 5/325 MG 1 TAB TAB PO ONE ×2 (09:15→11:05)
[2023-01-01 09:34] LABS: BASOPHILS % (AUTO) 0.4 % (0.0-2.0); EOSINOPHILS # (AUTO) 0.1 K/uL (0-0.4); EOSINOPHILS % (AUTO) 1.3 % (0.0-4.0); HEMATOCRIT 35.8 % (36-48); HEMOGLOBIN 11.8 g/dL (12.0-16.0); LYMPHOCYTES # (AUTO) 2.5 K/uL (2.5-16.5); LYMPHOCYTES % (AUTO) 39.3 % (20.5-51.1); MEAN CORPUSCULAR HEMOGLOBIN 25 pg (27-31); MEAN CORPUSCULAR HGB CONC 33 g/dL (33-37); MEAN CORPUSCULAR VOLUME 75.2 fL (80-94); MONOCYTES # (AUTO) 0.4 K/uL (0.8-1.0); MONOCYTES % (AUTO) 5.6 % (1.7-9.3); NEUTROPHILS # (AUTO) 3.4 K/uL (1.8-7.7); NEUTROPHILS % (AUTO) 53.4 % (42.2-75.2); PLATELET COUNT (AUTO) 270 K/uL (140-450); RED BLOOD CELL COUNT(AUTO) 4.76 MIL/uL (4.20-5.40); RED CELL DISTRIBUTION WIDTH 14.8 % (11.6-13.7); WHITE BLOOD COUNT (AUTO) 6.3 K/uL (4.8-10.8)
[2023-01-01 09:58] LABS: ALBUMIN 3.9 g/dL (3.4-5.0); CREATININE 0.9 mg/dL (0.6-1.3); TOTAL BILIRUBIN 0.1 mg/dL (0.0-1.0); TOTAL PROTEIN, SERUM 7.8 g/dL (6.4-8.2)
[2023-01-01 10:01] LABS: APPEARANCE,URINE CLEAR (CLEAR); BILIRUBIN,URINE NEGATIVE (NEGATIVE); BLOOD, URINE NEGATIVE (NEGATIVE); COLOR,URINE YELLOW (YELLOW); LEUKOCYTE ESTERASE ,URINE NEGATIVE (NEGATIVE); NITRITE, URINE NEGATIVE (NEGATIVE); PROTEIN,URINE TRACE (NEGATIVE); UGLUCOSE NEGATIVE (NEGATIVE); UROBILINOGEN,URINE 0.2 EU/dL (0.2 - 1)
[2023-01-01 10:21] LABS: RBC,URINE 0-5 /HPF (0-5); WBC,URINE 0-5 /HPF (0-5)
[2023-01-01 10:22] LABS: BACTERIA,URINE 0-2 /HPF (None Seen); MUCUS,URINE None Seen /LPF (None Seen); SQUAMOUS EPITHELIAL CELL,UR 0-3 (FEW) /LPF (0-3 (FEW)); YEAST,URINE None Seen /HPF (None Seen)
[2023-01-01] MEDS ORDERED: HYDROcodone/APAP 5/325 MG 1 TAB TAB ONE (10:38)
[2023-01-01 10:52] VITALS: O2SAT 98
[2023-01-01] MEDS ORDERED: fentaNYL citrate 0.05 MG/ML VIAL IM ONE (12:25)
[2023-01-01] MEDS ORDERED: ACET-8905 PO (12:59)
== END 2023-01-01 13:52 | disposition home or self-care (01) ==
LOC: MED 08:31
DX: G89.29 Other chronic pain (principal); R10.2 Pelvic and perineal pain; J45.909 Unspecified asthma, uncomplicated; I10 Essential (primary) hypertension; Z79.899 Other long term (current) drug therapy; Z79.2 Long term (current) use of antibiotics; Z79.1 Long term (current) use of non-steroidal anti-inflammatories (NSAID); Z88.0 Allergy status to penicillin; Z91.018 Allergy to other foods; Z88.6 Allergy status to analgesic agent; Z91.048 Other nonmedicinal substance allergy status
CPT/HCPCS: 36415; 76856; 80053; 81001; 81025; 83690; 85025; 93976; 96372; 99285; J3010; Q0092; Q0162

== ENCOUNTER 2023-01-08 02:30 | Emergency (ER) | payer MEDICAID ==
[~2023-01-08] VITALS: Ht 162.6 cm; Wt 80.7 kg
[2023-01-08 02:45] VITALS: BP 158/96; PULSE 88; RESP 20; TEMP 97.4; O2SAT 98
[2023-01-08] MEDS ORDERED: ONDANSETRON 4 MG ODT PO ONE (03:35)
[2023-01-08] MEDS ORDERED: MORPHINE SULFATE 4 MG/ML SYR IM ONE (03:35)
[2023-01-08 03:47] LABS: BASOPHILS % (AUTO) 0.5 % (0.0-2.0); EOSINOPHILS # (AUTO) 0.1 K/uL (0-0.4); EOSINOPHILS % (AUTO) 1.4 % (0.0-4.0); HEMATOCRIT 34.6 % (36-48); HEMOGLOBIN 11.4 g/dL (12.0-16.0); LYMPHOCYTES # (AUTO) 2.1 K/uL (2.5-16.5); LYMPHOCYTES % (AUTO) 40.1 % (20.5-51.1); MEAN CORPUSCULAR HEMOGLOBIN 25 pg (27-31); MEAN CORPUSCULAR HGB CONC 33 g/dL (33-37); MEAN CORPUSCULAR VOLUME 74.6 fL (80-94); MONOCYTES # (AUTO) 0.3 K/uL (0.8-1.0); NEUTROPHILS # (AUTO) 2.7 K/uL (1.8-7.7); PLATELET COUNT (AUTO) 258 K/uL (140-450); RED BLOOD CELL COUNT(AUTO) 4.64 MIL/uL (4.20-5.40); RED CELL DISTRIBUTION WIDTH 14.9 % (11.6-13.7); WHITE BLOOD COUNT (AUTO) 5.1 K/uL (4.8-10.8)
[2023-01-08 04:01] LABS: ALBUMIN 3.9 g/dL (3.4-5.0); ANION GAP 10.1 (8-16); CALCIUM 8.6 mg/dL (8.5-10.1); CREATININE 0.8 mg/dL (0.6-1.3); POTASSIUM 4.1 mmol/L (3.5-5.1); TOTAL BILIRUBIN 0.2 mg/dL (0.0-1.0); TOTAL PROTEIN, SERUM 7.9 g/dL (6.4-8.2)
[2023-01-08 04:10] LABS: APPEARANCE,URINE CLEAR (CLEAR); BILIRUBIN,URINE NEGATIVE (NEGATIVE); BLOOD, URINE 1+ (NEGATIVE); COLOR,URINE YELLOW (YELLOW); LEUKOCYTE ESTERASE ,URINE NEGATIVE (NEGATIVE); NITRITE, URINE NEGATIVE (NEGATIVE); PROTEIN,URINE NEGATIVE (NEGATIVE); UGLUCOSE NEGATIVE (NEGATIVE); UROBILINOGEN,URINE 0.2 EU/dL (0.2 - 1)
[2023-01-08] MEDS ORDERED: ONDANSETRON 4 MG ODT ONE (04:21)
[2023-01-08 04:23] LABS: BACTERIA,URINE 10-30 (MOD) /HPF (None Seen); MUCUS,URINE 1+ /LPF (None Seen); SQUAMOUS EPITHELIAL CELL,UR 4-10 (MOD) /LPF (0-3 (FEW))
[2023-01-08] MEDS ORDERED: CEPH-588 PO (04:45)
[2023-01-08 05:05] VITALS: BP 150/86; PULSE 88; RESP 20; TEMP 97.4; O2SAT 98
== END 2023-01-08 05:05 | disposition home or self-care (01) ==
LOC: MED 02:30
DX: N30.01 Acute cystitis with hematuria (principal); J45.909 Unspecified asthma, uncomplicated; I10 Essential (primary) hypertension; Z88.0 Allergy status to penicillin; Z88.5 Allergy status to narcotic agent; Z79.899 Other long term (current) drug therapy
CPT/HCPCS: 36415; 76830; 80053; 81001; 81025; 85025; 87086; 96372; 99285; J2270; Q0162

== ENCOUNTER 2023-01-08 10:32 | Emergency (ER) | payer MEDICAID ==
[~2023-01-08] VITALS: Ht 152.4 cm; Wt 86.4 kg
[2023-01-08 10:57] VITALS: BP 148/106; PULSE 88; RESP 19; TEMP 97.7; O2SAT 100
[2023-01-08] MEDS ORDERED: cefTRIAXone 500 MG in LIDOCAINE MPF 1% 1 ML IM ONE (12:35)
[2023-01-08] MEDS ORDERED: MORPHINE SULFATE 4 MG/ML SYR IM ONE (12:35)
[2023-01-08 12:55] LABS: BASOPHILS % (AUTO) 0.8 % (0.0-2.0); EOSINOPHILS # (AUTO) 0.1 K/uL (0-0.4); EOSINOPHILS % (AUTO) 1.4 % (0.0-4.0); HEMATOCRIT 34.7 % (36-48); HEMOGLOBIN 11.6 g/dL (12.0-16.0); LYMPHOCYTES # (AUTO) 2.1 K/uL (2.5-16.5); LYMPHOCYTES % (AUTO) 38.4 % (20.5-51.1); MEAN CORPUSCULAR HEMOGLOBIN 25 pg (27-31); MEAN CORPUSCULAR HGB CONC 33 g/dL (33-37); MEAN CORPUSCULAR VOLUME 74.8 fL (80-94); MONOCYTES # (AUTO) 0.4 K/uL (0.8-1.0); MONOCYTES % (AUTO) 6.4 % (1.7-9.3); NEUTROPHILS # (AUTO) 2.9 K/uL (1.8-7.7); PLATELET COUNT (AUTO) 282 K/uL (140-450); RED BLOOD CELL COUNT(AUTO) 4.64 MIL/uL (4.20-5.40); RED CELL DISTRIBUTION WIDTH 15.1 % (11.6-13.7); WHITE BLOOD COUNT (AUTO) 5.5 K/uL (4.8-10.8)
[2023-01-08] MEDS ORDERED: cefTRIAXone 500 MG VIAL ONE (13:05)
[2023-01-08] MEDS ORDERED: LIDOCAINE MPF 1% 5 ML ONE (13:13)
[2023-01-08 13:48] LABS: APPEARANCE,URINE CLEAR (CLEAR); BILIRUBIN,URINE NEGATIVE (NEGATIVE); BLOOD, URINE 1+ (NEGATIVE); COLOR,URINE YELLOW (YELLOW); LEUKOCYTE ESTERASE ,URINE NEGATIVE (NEGATIVE); NITRITE, URINE NEGATIVE (NEGATIVE); PROTEIN,URINE NEGATIVE (NEGATIVE); UGLUCOSE NEGATIVE (NEGATIVE); UROBILINOGEN,URINE 0.2 EU/dL (0.2 - 1)
[2023-01-08 13:55] LABS: BACTERIA,URINE OCCASSIONAL /HPF (None Seen); WBC,URINE 0-5 /HPF (0-5)
[2023-01-08 13:57] LABS: SQUAMOUS EPITHELIAL CELL,UR 0-3 (FEW) /LPF (0-3 (FEW))
== END 2023-01-08 13:42 | disposition home or self-care (01) ==
LOC: MED 10:32
DX: N39.0 Urinary tract infection, site not specified (principal); K08.89 Other specified disorders of teeth and supporting structures; R10.2 Pelvic and perineal pain; J45.909 Unspecified asthma, uncomplicated; I10 Essential (primary) hypertension; Z79.899 Other long term (current) drug therapy; Z88.0 Allergy status to penicillin; Z79.1 Long term (current) use of non-steroidal anti-inflammatories (NSAID)
CPT/HCPCS: 36415; 81001; 81025; 85025; 87491; 96372; 99284; J0696; J2001; J2270

== ENCOUNTER 2023-01-24 03:06 | Emergency (ER) | payer MEDICAID ==
[~2023-01-24] VITALS: Ht 152.4 cm; Wt 86.2 kg
[2023-01-24 03:10] VITALS: BP 150/90; PULSE 89; RESP 16; TEMP 97.8; O2SAT 100
[2023-01-24 03:40] LABS: BASOPHILS % (AUTO) 0.4 % (0.0-2.0); EOSINOPHILS % (AUTO) 0.6 % (0.0-4.0); HEMATOCRIT 35.3 % (36-48); HEMOGLOBIN 11.5 g/dL (12.0-16.0); LYMPHOCYTES # (AUTO) 2.8 K/uL (2.5-16.5); LYMPHOCYTES % (AUTO) 36.7 % (20.5-51.1); MEAN CORPUSCULAR HEMOGLOBIN 24 pg (27-31); MEAN CORPUSCULAR HGB CONC 33 g/dL (33-37); MEAN CORPUSCULAR VOLUME 74.5 fL (80-94); MONOCYTES # (AUTO) 0.4 K/uL (0.8-1.0); MONOCYTES % (AUTO) 5.3 % (1.7-9.3); NEUTROPHILS # (AUTO) 4.3 K/uL (1.8-7.7); PLATELET COUNT (AUTO) 290 K/uL (140-450); RED BLOOD CELL COUNT(AUTO) 4.73 MIL/uL (4.20-5.40); RED CELL DISTRIBUTION WIDTH 15.3 % (11.6-13.7); WHITE BLOOD COUNT (AUTO) 7.5 K/uL (4.8-10.8)
[2023-01-24 04:19] LABS: ALBUMIN 4.1 g/dL (3.4-5.0); ANION GAP 13.2 (8-16); CALCIUM 8.6 mg/dL (8.5-10.1); CARBON DIOXIDE 27.1 mmol/L (21-32); CREATININE 0.7 mg/dL (0.6-1.3); POTASSIUM 4.3 mmol/L (3.5-5.1); TOTAL BILIRUBIN 0.2 mg/dL (0.0-1.0); TOTAL PROTEIN, SERUM 7.8 g/dL (6.4-8.2)
[2023-01-24 07:05] LABS: APPEARANCE,URINE CLEAR (CLEAR); BILIRUBIN,URINE NEGATIVE (NEGATIVE); BLOOD, URINE TRACE-I (NEGATIVE); COLOR,URINE YELLOW (YELLOW); LEUKOCYTE ESTERASE ,URINE NEGATIVE (NEGATIVE); NITRITE, URINE NEGATIVE (NEGATIVE); PROTEIN,URINE NEGATIVE (NEGATIVE); UGLUCOSE NEGATIVE (NEGATIVE); UROBILINOGEN,URINE 0.2 EU/dL (0.2 - 1)
[2023-01-24] MEDS ORDERED: METOCLOPRAMIDE 10 MG/2 ML INJ VIAL IM ONE (07:05)
[2023-01-24] MEDS ORDERED: MORPHINE SULFATE 4 MG/ML SYR IM ONE (07:05)
[2023-01-24] MEDS ORDERED: ONDANSETRON 4 MG/2 ML VIAL IM ONE (07:40)
[2023-01-24] MEDS ORDERED: ONDA-188 PO (08:17)
[2023-01-24 08:58] VITALS: BP 127/80; PULSE 64; RESP 18; TEMP 97.8; O2SAT 100
== END 2023-01-24 08:58 | disposition home or self-care (01) ==
LOC: MED 03:06
DX: G89.29 Other chronic pain (principal); R10.2 Pelvic and perineal pain; D50.9 Iron deficiency anemia, unspecified; J45.909 Unspecified asthma, uncomplicated; I10 Essential (primary) hypertension; Z79.899 Other long term (current) drug therapy; Z79.2 Long term (current) use of antibiotics; Z79.1 Long term (current) use of non-steroidal anti-inflammatories (NSAID); Z88.0 Allergy status to penicillin; Z91.018 Allergy to other foods; Z88.6 Allergy status to analgesic agent; Z91.048 Other nonmedicinal substance allergy status
CPT/HCPCS: 36415; 80053; 81003; 83690; 84702; 85025; 96372; 99284; J2270; J2405; J2765

== ENCOUNTER 2023-02-02 16:50 | Emergency (ER) | payer MEDICAID ==
[~2023-02-02] VITALS: Ht 152.4 cm; Wt 86.2 kg
[~2023-02-02 16:50] MED LIST changes: +ONDA-188 PO
[2023-02-02 16:56] VITALS: BP 126/91; PULSE 93; RESP 18; TEMP 96; O2SAT 100
[2023-02-02] MEDS ORDERED: MORPHINE SULFATE 4 MG/ML SYR IVP ONE (17:35)
[2023-02-02] MEDS ORDERED: NACL 0.9% 1,000 ML IV ONE (17:35)
[2023-02-02] MEDS ORDERED: ONDANSETRON 4 MG/2 ML VIAL IVP ONE (17:35)
[2023-02-02] MEDS ORDERED: ACET-503 PO (17:46)
[2023-02-02] MEDS ORDERED: ONDA8TAB87 PO (17:46)
== END 2023-02-02 18:38 | disposition home or self-care (01) ==
LOC: MED 16:50
DX: R10.32 Left lower quadrant pain (principal); R11.0 Nausea; J45.909 Unspecified asthma, uncomplicated; I10 Essential (primary) hypertension; Z79.1 Long term (current) use of non-steroidal anti-inflammatories (NSAID); Z88.8 Allergy status to other drugs, medicaments and biological substances; Z91.018 Allergy to other foods; Z79.899 Other long term (current) drug therapy
CPT/HCPCS: 81002; 81025; 96361; 96374; 96375; 99284; J2270; J2405

== ENCOUNTER 2023-02-03 20:39 | Emergency (ER) | payer MEDICAID ==
[~2023-02-03] VITALS: Ht 152.4 cm; Wt 86.2 kg
[~2023-02-03 20:39] MED LIST changes: +ACET-503 PO
[2023-02-03 21:41] VITALS: BP 139/86; PULSE 92; RESP 20; TEMP 98; O2SAT 98
[2023-02-03] MEDS ORDERED: NACL 0.9% 1,000 ML IV ONE (21:50)
[2023-02-03 22:22] LABS: BASOPHILS % (AUTO) 0.2 % (0.0-2.0); EOSINOPHILS # (AUTO) 0.1 K/uL (0-0.4); EOSINOPHILS % (AUTO) 0.5 % (0.0-4.0); HEMATOCRIT 39.3 % (36-48); HEMOGLOBIN 12.6 g/dL (12.0-16.0); LYMPHOCYTES % (AUTO) 8.5 % (20.5-51.1); MEAN CORPUSCULAR HEMOGLOBIN 24 pg (27-31); MEAN CORPUSCULAR HGB CONC 32 g/dL (33-37); MEAN CORPUSCULAR VOLUME 75.4 fL (80-94); MONOCYTES # (AUTO) 0.6 K/uL (0.8-1.0); MONOCYTES % (AUTO) 5.1 % (1.7-9.3); NEUTROPHILS # (AUTO) 9.6 K/uL (1.8-7.7); NEUTROPHILS % (AUTO) 85.7 % (42.2-75.2); PLATELET COUNT (AUTO) 339 K/uL (140-450); RED BLOOD CELL COUNT(AUTO) 5.21 MIL/uL (4.20-5.40); RED CELL DISTRIBUTION WIDTH 15.3 % (11.6-13.7); WHITE BLOOD COUNT (AUTO) 11.2 K/uL (4.8-10.8)
[2023-02-03 22:30] LABS: APPEARANCE,URINE CLEAR (CLEAR); BILIRUBIN,URINE NEGATIVE (NEGATIVE); BLOOD, URINE 1+ (NEGATIVE); COLOR,URINE YELLOW (YELLOW); LEUKOCYTE ESTERASE ,URINE NEGATIVE (NEGATIVE); NITRITE, URINE NEGATIVE (NEGATIVE); PROTEIN,URINE NEGATIVE (NEGATIVE); UGLUCOSE NEGATIVE (NEGATIVE); UROBILINOGEN,URINE 0.2 EU/dL (0.2 - 1)
[2023-02-03 22:45] LABS: BACTERIA,URINE FEW /HPF (None Seen); MUCUS,URINE None Seen /LPF (None Seen); RBC,URINE 0-5 /HPF (0-5); SQUAMOUS EPITHELIAL CELL,UR 0-3 (FEW) /LPF (0-3 (FEW)); WBC,URINE 0-5 /HPF (0-5)
[2023-02-03 22:55] LABS: ANION GAP 13.3 (8-16); CALCIUM 8.4 mg/dL (8.5-10.1); CREATININE 0.7 mg/dL (0.6-1.3); POTASSIUM 4.3 mmol/L (3.5-5.1)
[2023-02-03 22:59] LABS: ACETAMINOPHEN < 0.5 ug/ml (10-30); ALANINE AMINOTRANSFERASE 26 U/L (12-78); ALBUMIN 4.1 g/dL (3.4-5.0); ALKALINE PHOSPHATASE 136 U/L (50-136); AMYLASE 61 U/L (25-115); ASPARTATE AMINOTRANSFERASE 23 U/L (15-37); BILIRUBIN,DIRECT 0.1 mg/dL (0.0-0.3); LIPASE 22 U/L (16-77); TOTAL BILIRUBIN 0.4 mg/dL (0.0-1.0); TOTAL PROTEIN, SERUM 8.7 g/dL (6.4-8.2)
[2023-02-03 23:33] LABS: INR 0.91 (0.8-1.2); PROTHROMBIN TIME 9.6 secs (10.8-13.4)
[2023-02-03 23:36] VITALS: BP 146/81; PULSE 86; RESP 17; TEMP 98.1; O2SAT 97
== END 2023-02-03 23:37 | disposition home or self-care (01) ==
LOC: MED 20:39
DX: T39.1X1A Poisoning by 4-Aminophenol derivatives, accidental (unintentional), initial encounter (principal); J45.909 Unspecified asthma, uncomplicated; I10 Essential (primary) hypertension; Z79.899 Other long term (current) drug therapy; Z79.2 Long term (current) use of antibiotics; Z79.1 Long term (current) use of non-steroidal anti-inflammatories (NSAID); Z88.0 Allergy status to penicillin; Z91.018 Allergy to other foods; Z88.6 Allergy status to analgesic agent; Z91.09 Other allergy status, other than to drugs and biological substances; Y92.89 Other specified places as the place of occurrence of the external cause
CPT/HCPCS: 36415; 80048; 80076; 81001; 81025; 82150; 83690; 85025; 85610; 85730; 96360; 99285; G0480; J7030

== ENCOUNTER 2023-02-28 20:11 | Emergency (ER) | payer MEDICAID ==
[~2023-02-28] VITALS: Ht 152.4 cm; Wt 88.5 kg
[2023-02-28 20:27] VITALS: BP 149/93; PULSE 87; RESP 16; TEMP 98.5; O2SAT 100
== END 2023-02-28 22:30 | disposition home or self-care (01) ==
LOC: MED 20:11
DX: R10.31 Right lower quadrant pain (principal); F11.90 Opioid use, unspecified, uncomplicated; J45.909 Unspecified asthma, uncomplicated; I10 Essential (primary) hypertension; Z88.5 Allergy status to narcotic agent; Z88.0 Allergy status to penicillin; Z88.8 Allergy status to other drugs, medicaments and biological substances; Z91.018 Allergy to other foods; Z79.899 Other long term (current) drug therapy
CPT/HCPCS: 81025; 99282

== ENCOUNTER 2023-04-26 11:43 | Emergency (ER) | payer MEDICAID ==
[~2023-04-26] VITALS: Ht 152.4 cm; Wt 87.1 kg
[2023-04-26 12:02] VITALS: BP 149/101; PULSE 81; RESP 18; TEMP 99.8; O2SAT 100
[2023-04-26] MEDS: ONDANSETRON 4 MG ODT PO ONE (12:44)
[2023-04-26] MEDS: MORPHINE SULFATE 4 MG/ML SYR IM ONE (13:22)
== END 2023-04-26 14:00 | disposition home or self-care (01) ==
LOC: MED 11:43
DX: R10.30 Lower abdominal pain, unspecified (principal); R11.0 Nausea; J45.909 Unspecified asthma, uncomplicated; I10 Essential (primary) hypertension; F17.200 Nicotine dependence, unspecified, uncomplicated; Z91.018 Allergy to other foods; Z88.0 Allergy status to penicillin; Z88.5 Allergy status to narcotic agent; Z72.89 Other problems related to lifestyle; Z79.899 Other long term (current) drug therapy; Z90.49 Acquired absence of other specified parts of digestive tract
CPT/HCPCS: 81002; 81025; 96372; 99283; J2270; Q0162

== ENCOUNTER 2023-05-11 23:15 | Emergency (ER) | payer MEDICAID ==
[~2023-05-11] VITALS: Ht 152.4 cm; Wt 85.3 kg
[2023-05-11 23:22] VITALS: BP 151/115; PULSE 102; RESP 20; TEMP 98.2; O2SAT 99
[2023-05-12] MEDS: MORPHINE SULFATE 4 MG/ML SYR IM ONE (06:49)
[2023-05-12] MEDS: ONDANSETRON 4 MG ODT PO ONE (06:50)
[2023-05-12 08:20] LABS: BASOPHILS % (AUTO) 0.4 % (0.0-2.0); EOSINOPHILS # (AUTO) 0.1 K/uL (0-0.4); EOSINOPHILS % (AUTO) 0.9 % (0.0-4.0); HEMATOCRIT 33.1 % (36-48); LYMPHOCYTES # (AUTO) 2.1 K/uL (2.5-16.5); LYMPHOCYTES % (AUTO) 34.1 % (20.5-51.1); MEAN CORPUSCULAR HEMOGLOBIN 24 pg (27-31); MEAN CORPUSCULAR HGB CONC 33 g/dL (33-37); MONOCYTES # (AUTO) 0.4 K/uL (0.8-1.0); MONOCYTES % (AUTO) 5.8 % (1.7-9.3); NEUTROPHILS # (AUTO) 3.6 K/uL (1.8-7.7); NEUTROPHILS % (AUTO) 58.8 % (42.2-75.2); PLATELET COUNT (AUTO) 337 K/uL (140-450); RED CELL DISTRIBUTION WIDTH 15.1 % (11.6-13.7); WHITE BLOOD COUNT (AUTO) 6.1 K/uL (4.8-10.8)
[2023-05-12 08:29] LABS: ANION GAP 16.7 (8-16); CALCIUM 9.2 mg/dL (8.5-10.1); CARBON DIOXIDE 25.1 mmol/L (21-32); CREATININE 0.7 mg/dL (0.6-1.3); POTASSIUM 3.8 mmol/L (3.5-5.1)
[2023-05-12] MEDS ORDERED: CLIN300C2 PO (09:21)
[2023-05-12] MEDS: HYDROcodone/APAP 5/325 MG 1 TAB TAB PO ONE (09:34)
[2023-05-12 09:49] VITALS: BP 139/80; PULSE 89; RESP 16; TEMP 98.2; O2SAT 99
== END 2023-05-12 09:49 | disposition home or self-care (01) ==
LOC: MED 23:15
DX: N83.201 Unspecified ovarian cyst, right side (principal); K08.89 Other specified disorders of teeth and supporting structures; J45.909 Unspecified asthma, uncomplicated; I10 Essential (primary) hypertension; Z88.0 Allergy status to penicillin; Z79.1 Long term (current) use of non-steroidal anti-inflammatories (NSAID); Z88.8 Allergy status to other drugs, medicaments and biological substances; Z79.899 Other long term (current) drug therapy
CPT/HCPCS: 36415; 76856; 80048; 81002; 81025; 85025; 93976; 96372; 99285; J2270; Q0162

== ENCOUNTER 2023-05-15 01:00 | Emergency (ER) | payer MEDICAID ==
[~2023-05-15] VITALS: Ht 152.4 cm; Wt 85.3 kg
[~2023-05-15 01:00] MED LIST changes: +CLIN300C2 PO
[2023-05-15 01:27] VITALS: BP 178/118; PULSE 97; RESP 22; TEMP 98.2; O2SAT 100
[2023-05-15 03:52] LABS: APPEARANCE,URINE SL CLOUDY (CLEAR); BILIRUBIN,URINE NEGATIVE (NEGATIVE); BLOOD, URINE NEGATIVE (NEGATIVE); COLOR,URINE YELLOW (YELLOW); LEUKOCYTE ESTERASE ,URINE NEGATIVE (NEGATIVE); NITRITE, URINE NEGATIVE (NEGATIVE); PROTEIN,URINE NEGATIVE (NEGATIVE); UGLUCOSE NEGATIVE (NEGATIVE); UROBILINOGEN,URINE 0.2 EU/dL (0.2 - 1)
[2023-05-15] MEDS: MORPHINE SULFATE 10 MG/ML VIAL IM ONE (03:56)
[2023-05-15] MEDS: ONDANSETRON 4 MG ODT PO ONE (04:06)
[2023-05-15] MEDS ORDERED: HYDROcodone/APAP 5/325 MG 1 TAB TAB ONE (04:38)
[2023-05-15] MEDS: HYDROcodone/APAP 5/325 MG 1 TAB TAB PO ONE (04:41)
[2023-05-15] MEDS ORDERED: ACET-8905 PO (04:41)
[2023-05-15 05:08] VITALS: BP 124/72; PULSE 72; RESP 18; TEMP 98; O2SAT 98
== END 2023-05-15 05:07 | disposition home or self-care (01) ==
LOC: MED 01:00
DX: N83.201 Unspecified ovarian cyst, right side (principal); I10 Essential (primary) hypertension; J45.909 Unspecified asthma, uncomplicated; Z88.0 Allergy status to penicillin; Z88.8 Allergy status to other drugs, medicaments and biological substances; Z91.018 Allergy to other foods; Z79.899 Other long term (current) drug therapy
CPT/HCPCS: 81003; 81025; 96372; 99283; J2270; Q0162

== ENCOUNTER 2023-06-04 08:52 | Emergency (ER) | payer MEDICAID ==
[~2023-06-04] VITALS: Ht 152.4 cm; Wt 82.6 kg
[2023-06-04 09:01] VITALS: BP 141/83; PULSE 91; RESP 15; TEMP 98.1; O2SAT 99
[2023-06-04 09:37] LABS: APPEARANCE,URINE CLEAR (CLEAR); BILIRUBIN,URINE NEGATIVE (NEGATIVE); BLOOD, URINE 2+ (NEGATIVE); COLOR,URINE YELLOW (YELLOW); LEUKOCYTE ESTERASE ,URINE 2+ (NEGATIVE); NITRITE, URINE POSITIVE (NEGATIVE); PROTEIN,URINE TRACE (NEGATIVE); UGLUCOSE NEGATIVE (NEGATIVE); UROBILINOGEN,URINE 0.2 EU/dL (0.2 - 1)
[2023-06-04] MEDS: HYDROcodone/APAP 5/325 MG 1 TAB TAB PO ONE (09:48)
[2023-06-04 09:57] LABS: BACTERIA,URINE >30 (MANY) /HPF (None Seen); MUCUS,URINE None Seen /LPF (None Seen); SQUAMOUS EPITHELIAL CELL,UR 0-3 (FEW) /LPF (0-3 (FEW))
[2023-06-04 09:58] LABS: TRICHOMONAS,URINE None Seen /HPF (None Seen); WHITE BLOOD CELL CASTS,URINE None Seen /LPF (None Seen); YEAST,URINE None Seen /HPF (None Seen)
[2023-06-04] MEDS: MORPHINE SULFATE 4 MG/ML SYR IM ONE (10:20)
[2023-06-04] MEDS ORDERED: PHEN-1877 PO (10:22)
[2023-06-04] MEDS ORDERED: CIPR500T4 PO (10:22)
[2023-06-04] MEDS ORDERED: BEN10 PO (10:22)
[2023-06-04] MEDS: ONDANSETRON 4 MG ODT PO ONE (10:28)
[2023-06-04] MEDS ORDERED: LID5T TP (10:55)
[2023-06-04 11:20] VITALS: BP 141/83; PULSE 91; RESP 15; TEMP 98.1; O2SAT 99
== END 2023-06-04 11:21 | disposition home or self-care (01) ==
LOC: MED 08:52
DX: N39.0 Urinary tract infection, site not specified (principal); J45.909 Unspecified asthma, uncomplicated; I10 Essential (primary) hypertension; N80.9 Endometriosis, unspecified; E28.2 Polycystic ovarian syndrome; Z79.1 Long term (current) use of non-steroidal anti-inflammatories (NSAID); Z79.899 Other long term (current) drug therapy; Z88.0 Allergy status to penicillin; Z91.018 Allergy to other foods
CPT/HCPCS: 81001; 81025; 87086; 96372; 99283; J2270; Q0162

== ENCOUNTER 2023-06-07 23:05 | Emergency (ER) | payer MEDICAID ==
[~2023-06-07] VITALS: Ht 152.4 cm; Wt 82.6 kg
[~2023-06-07 23:05] MED LIST changes: +CIPR500T4 PO; +PHEN-1877 PO
[2023-06-07 23:20] VITALS: BP 150/75; PULSE 81; RESP 17; TEMP 97.7; O2SAT 100
[2023-06-07 23:43] VITALS: BP 150/75; PULSE 81; RESP 17; TEMP 97.7; O2SAT 100
== END 2023-06-07 23:43 | disposition left against medical advice (07) ==
LOC: MED 23:05
DX: O26.891 Other specified pregnancy related conditions, first trimester (principal); M54.6 Pain in thoracic spine; Z53.21 Procedure and treatment not carried out due to patient leaving prior to being seen by health care provider; Z3A.01 Less than 8 weeks gestation of pregnancy
CPT/HCPCS: 99281

== ENCOUNTER 2023-06-08 23:24 | Emergency (ER) | payer MEDICAID ==
[~2023-06-08] VITALS: Ht 152.4 cm; Wt 82.6 kg
[2023-06-08 23:25] VITALS: BP 150/90; PULSE 82; RESP 17; TEMP 97.9; O2SAT 100
[2023-06-09 00:20] VITALS: O2SAT 99
[2023-06-09] MEDS: NACL 0.9% 1,000 ML IV ONE (00:47)
[2023-06-09] MEDS: MORPHINE SULFATE 4 MG/ML SYR IVP ONE ×2 (00:48→01:36)
[2023-06-09 00:53] LABS: BASOPHILS % (AUTO) 0.4 % (0.0-2.0); EOSINOPHILS # (AUTO) 0.1 K/uL (0-0.4); EOSINOPHILS % (AUTO) 1.3 % (0.0-4.0); HEMATOCRIT 33.6 % (36-48); HEMOGLOBIN 11.2 g/dL (12.0-16.0); LYMPHOCYTES # (AUTO) 2.2 K/uL (2.5-16.5); LYMPHOCYTES % (AUTO) 28.6 % (20.5-51.1); MEAN CORPUSCULAR HEMOGLOBIN 24 pg (27-31); MEAN CORPUSCULAR HGB CONC 33 g/dL (33-37); MEAN CORPUSCULAR VOLUME 71.9 fL (80-94); MONOCYTES # (AUTO) 0.4 K/uL (0.8-1.0); MONOCYTES % (AUTO) 5.6 % (1.7-9.3); NEUTROPHILS # (AUTO) 4.9 K/uL (1.8-7.7); NEUTROPHILS % (AUTO) 64.1 % (42.2-75.2); PLATELET COUNT (AUTO) 323 K/uL (140-450); RED BLOOD CELL COUNT(AUTO) 4.68 MIL/uL (4.20-5.40); RED CELL DISTRIBUTION WIDTH 16.6 % (11.6-13.7); WHITE BLOOD COUNT (AUTO) 7.7 K/uL (4.8-10.8)
[2023-06-09 01:09] LABS: APPEARANCE,URINE CLEAR (CLEAR); BILIRUBIN,URINE NEGATIVE (NEGATIVE); BLOOD, URINE NEGATIVE (NEGATIVE); COLOR,URINE YELLOW (YELLOW); LEUKOCYTE ESTERASE ,URINE NEGATIVE (NEGATIVE); NITRITE, URINE NEGATIVE (NEGATIVE); PROTEIN,URINE NEGATIVE (NEGATIVE); UGLUCOSE NEGATIVE (NEGATIVE); UROBILINOGEN,URINE 0.2 EU/dL (0.2 - 1)
[2023-06-09 03:18] VITALS: BP 139/89; PULSE 74; RESP 17; TEMP 97.9; O2SAT 100
[2023-06-10] MEDS ORDERED: PRETAB PO (15:23)
== END 2023-06-09 03:18 | disposition home or self-care (01) ==
LOC: MED 23:24
DX: O20.0 Threatened abortion (principal); J45.909 Unspecified asthma, uncomplicated; I10 Essential (primary) hypertension; Z3A.01 Less than 8 weeks gestation of pregnancy; Z88.0 Allergy status to penicillin; Z79.1 Long term (current) use of non-steroidal anti-inflammatories (NSAID); Z88.8 Allergy status to other drugs, medicaments and biological substances; Z79.899 Other long term (current) drug therapy
CPT/HCPCS: 36415; 76817; 81003; 81025; 84702; 85025; 86900; 86901; 96361; 96374; 96376; 99285; J2270; J7030

== ENCOUNTER 2023-06-10 13:51 | Emergency (ER) | payer MEDICAID ==
[~2023-06-10] VITALS: Ht 152.4 cm; Wt 82.6 kg
[2023-06-10 14:18] VITALS: BP 156/100; PULSE 83; RESP 18; TEMP 98.6; O2SAT 100
[2023-06-10 14:35] LABS: BASOPHILS % (AUTO) 0.5 % (0.0-2.0); EOSINOPHILS # (AUTO) 0.1 K/uL (0-0.4); EOSINOPHILS % (AUTO) 1.5 % (0.0-4.0); HEMATOCRIT 33.6 % (36-48); HEMOGLOBIN 11.1 g/dL (12.0-16.0); LYMPHOCYTES # (AUTO) 1.6 K/uL (2.5-16.5); LYMPHOCYTES % (AUTO) 26.5 % (20.5-51.1); MEAN CORPUSCULAR HEMOGLOBIN 24 pg (27-31); MEAN CORPUSCULAR HGB CONC 33 g/dL (33-37); MEAN CORPUSCULAR VOLUME 71.7 fL (80-94); MONOCYTES # (AUTO) 0.3 K/uL (0.8-1.0); NEUTROPHILS # (AUTO) 3.9 K/uL (1.8-7.7); NEUTROPHILS % (AUTO) 66.5 % (42.2-75.2); PLATELET COUNT (AUTO) 307 K/uL (140-450); RED BLOOD CELL COUNT(AUTO) 4.69 MIL/uL (4.20-5.40); RED CELL DISTRIBUTION WIDTH 16.6 % (11.6-13.7); WHITE BLOOD COUNT (AUTO) 5.9 K/uL (4.8-10.8)
[2023-06-10] MEDS ORDERED: PRETAB PO (15:23)
[2023-06-10 15:28] LABS: APPEARANCE,URINE CLEAR (CLEAR); BILIRUBIN,URINE NEGATIVE (NEGATIVE); BLOOD, URINE NEGATIVE (NEGATIVE); COLOR,URINE YELLOW (YELLOW); LEUKOCYTE ESTERASE ,URINE NEGATIVE (NEGATIVE); NITRITE, URINE NEGATIVE (NEGATIVE); PROTEIN,URINE NEGATIVE (NEGATIVE); UGLUCOSE NEGATIVE (NEGATIVE); UROBILINOGEN,URINE 0.2 EU/dL (0.2 - 1)
== END 2023-06-10 15:36 | disposition home or self-care (01) ==
LOC: MED 13:51
DX: O26.891 Other specified pregnancy related conditions, first trimester (principal); O99.011 Anemia complicating pregnancy, first trimester; J45.909 Unspecified asthma, uncomplicated; I10 Essential (primary) hypertension; Z3A.01 Less than 8 weeks gestation of pregnancy; Z88.0 Allergy status to penicillin; Z79.1 Long term (current) use of non-steroidal anti-inflammatories (NSAID); Z88.8 Allergy status to other drugs, medicaments and biological substances; Z79.899 Other long term (current) drug therapy
CPT/HCPCS: 36415; 81003; 84702; 85025; 99283

== ENCOUNTER 2023-06-10 17:29 | Inpatient (IN) | payer MEDICAID ==
[~2023-06-10] VITALS: Ht 152.4 cm; Wt 82.6 kg
[~2023-06-10 17:29] MED LIST changes: +NAPR-337 PO; -NAPR-54 PO; +PRETAB PO
[2023-06-10 18:02] VITALS: BP 161/120; PULSE 79; RESP 18; TEMP 99.6; O2SAT 97
[2023-06-10 18:46] LABS: ANION GAP 12.9 (8-16); CALCIUM 8.8 mg/dL (8.5-10.1); CARBON DIOXIDE 24.6 mmol/L (21-32); CREATININE 0.9 mg/dL (0.6-1.3); POTASSIUM 4.5 mmol/L (3.5-5.1)
[2023-06-10] MEDS ORDERED: MORPHINE SULFATE 4 MG/ML SYR ONE (20:03)
[2023-06-10] MEDS: MORPHINE SULFATE 4 MG/ML SYR IVP ONE ×2 (20:30→21:06)
[2023-06-10] MEDS: NACL 0.9% 1,000 ML IV ONE (20:33)
[2023-06-10] MEDS: ONDANSETRON 4 MG/2 ML VIAL IVP ONE ×2 (20:35→21:08)
[2023-06-10 22:26] VITALS: BP 147/95; PULSE 73; RESP 19; TEMP 98.9; O2SAT 100
[2023-06-10] MEDS ORDERED: ACETAMINOPHEN 325 MG TAB PO PRN (22:40)
[2023-06-10] MEDS ORDERED: MELATONIN 3 MG TAB PO PRN (22:40)
[2023-06-10] MEDS ORDERED: POLYETHYLENE GLYCOL 17 GM/PKT PO PRN (22:40)
[2023-06-10] MEDS ORDERED: POTASSIUM CHLORIDE 10 MEQ TABER PO PRN (22:40)
[2023-06-10] MEDS ORDERED: HYDROcodone/APAP 5/325 MG 1 TAB TAB PO PRN (22:40)
[2023-06-10] MEDS ORDERED: MAG SULF 2000 MG/WATER PREMIX 50 ML IV PRN (22:40)
[2023-06-10] MEDS: MORPHINE SULFATE 2 MG/ML SYR IVP PRN (23:35)
[2023-06-11 04:00] VITALS: BP 158/100; PULSE 71; RESP 22; TEMP 97; O2SAT 100
[2023-06-11 07:22] LABS: BASOPHILS % (AUTO) 0.3 % (0.0-2.0); EOSINOPHILS # (AUTO) 0.1 K/uL (0-0.4); EOSINOPHILS % (AUTO) 0.9 % (0.0-4.0); HEMATOCRIT 30.5 % (36-48); HEMOGLOBIN 10.3 g/dL (12.0-16.0); LYMPHOCYTES # (AUTO) 2.2 K/uL (2.5-16.5); LYMPHOCYTES % (AUTO) 26.1 % (20.5-51.1); MEAN CORPUSCULAR HEMOGLOBIN 24 pg (27-31); MEAN CORPUSCULAR HGB CONC 34 g/dL (33-37); MEAN CORPUSCULAR VOLUME 70.5 fL (80-94); MONOCYTES # (AUTO) 0.5 K/uL (0.8-1.0); MONOCYTES % (AUTO) 5.5 % (1.7-9.3); NEUTROPHILS # (AUTO) 5.8 K/uL (1.8-7.7); NEUTROPHILS % (AUTO) 67.2 % (42.2-75.2); PLATELET COUNT (AUTO) 276 K/uL (140-450); RED BLOOD CELL COUNT(AUTO) 4.33 MIL/uL (4.20-5.40); RED CELL DISTRIBUTION WIDTH 16.2 % (11.6-13.7); WHITE BLOOD COUNT (AUTO) 8.6 K/uL (4.8-10.8)
[2023-06-11 07:43] LABS: ALBUMIN 3.4 g/dL (3.4-5.0); ANION GAP 13.2 (8-16); CALCIUM 8.2 mg/dL (8.5-10.1); CARBON DIOXIDE 24.2 mmol/L (21-32); CREATININE 0.7 mg/dL (0.6-1.3); MAGNESIUM 2.1 mg/dL (1.8-2.4); PHOSPHORUS 3.3 mg/dL (2.5-4.9); POTASSIUM 3.4 mmol/L (3.5-5.1); TOTAL BILIRUBIN 0.2 mg/dL (0.0-1.0); TOTAL PROTEIN, SERUM 6.8 g/dL (6.4-8.2)
[2023-06-11 08:00] VITALS: BP 121/81; PULSE 79; RESP 18; TEMP 97.8; O2SAT 98
[2023-06-11] MEDS: ONDANSETRON 4 MG/2 ML VIAL IVP PRN (13:44)
[2023-06-11] MEDS: MORPHINE SULFATE 4 MG/ML SYR IVP PRN (15:32)
[2023-06-11] MEDS ORDERED: LABETALOL 20 MG/4 ML VIAL IVP PRN (16:15)
[2023-06-11] MEDS ORDERED: ALBUTEROL HFA MDI 90 MCG/ACTUATION 8 GM INH PRN (16:15)
[2023-06-11] MEDS: POTASSIUM CHLORIDE 10 MEQ TABER PO SCH (16:30)
[2023-06-11] MEDS ORDERED: ALBUTEROL SULFATE/IPRATROPIU 3 ML SOL IH PRN (16:40)
[2023-06-11] MEDS: POTASSIUM CHL 20 MEQ/NACL 0.9% 1,000 ML IV SCH (18:58)
[2023-06-11 19:50] VITALS: O2SAT 100
[2023-06-11 20:00] VITALS: BP 123/86; PULSE 84; RESP 18; TEMP 97.9; O2SAT 99
[2023-06-12 04:00] VITALS: BP 131/93; PULSE 82; RESP 18; TEMP 97.6; O2SAT 98
[2023-06-12 06:57] LABS: BASOPHILS % (AUTO) 0.3 % (0.0-2.0); EOSINOPHILS # (AUTO) 0.1 K/uL (0-0.4); EOSINOPHILS % (AUTO) 1.1 % (0.0-4.0); HEMOGLOBIN 10.2 g/dL (12.0-16.0); LYMPHOCYTES # (AUTO) 1.3 K/uL (2.5-16.5); LYMPHOCYTES % (AUTO) 12.9 % (20.5-51.1); MEAN CORPUSCULAR HEMOGLOBIN 24 pg (27-31); MEAN CORPUSCULAR HGB CONC 34 g/dL (33-37); MEAN CORPUSCULAR VOLUME 70.8 fL (80-94); MONOCYTES # (AUTO) 0.6 K/uL (0.8-1.0); NEUTROPHILS # (AUTO) 7.9 K/uL (1.8-7.7); NEUTROPHILS % (AUTO) 79.7 % (42.2-75.2); PLATELET COUNT (AUTO) 284 K/uL (140-450); RED BLOOD CELL COUNT(AUTO) 4.23 MIL/uL (4.20-5.40); RED CELL DISTRIBUTION WIDTH 16.3 % (11.6-13.7)
[2023-06-12 07:54] LABS: ALBUMIN 3.3 g/dL (3.4-5.0); ANION GAP 12.9 (8-16); CALCIUM 8.6 mg/dL (8.5-10.1); CARBON DIOXIDE 23.8 mmol/L (21-32); CREATININE 0.7 mg/dL (0.6-1.3); PHOSPHORUS 3.3 mg/dL (2.5-4.9); POTASSIUM 3.7 mmol/L (3.5-5.1); TOTAL BILIRUBIN 0.3 mg/dL (0.0-1.0); TOTAL PROTEIN, SERUM 6.8 g/dL (6.4-8.2)
[2023-06-12 08:00] VITALS: BP 128/81; PULSE 84; RESP 18; TEMP 98.3; O2SAT 98
[2023-06-12 08:28] VITALS: PULSE 78; RESP 20; O2SAT 100
[2023-06-12 08:32] VITALS: RESP 19; O2SAT 100
[2023-06-12] MEDS: MORPHINE SULFATE 4 MG/ML SYR IVP PRN (17:54)
[2023-06-12 20:00] VITALS: BP 126/79; PULSE 81; RESP 18; RESP 19; TEMP 97.9; O2SAT 98
[2023-06-13 02:00] VITALS: PULSE 84; RESP 18; O2SAT 100
[2023-06-13] MEDS: ALBUTEROL 0.083% 2.5 MG/3 ML NEBU INH PRN (02:00)
[2023-06-13 04:00] VITALS: BP 127/85; PULSE 70; RESP 18; TEMP 97.8; O2SAT 96
[2023-06-13 07:10] LABS: BASOPHILS % (AUTO) 0.3 % (0.0-2.0); EOSINOPHILS # (AUTO) 0.1 K/uL (0-0.4); EOSINOPHILS % (AUTO) 1.9 % (0.0-4.0); HEMATOCRIT 30.4 % (36-48); HEMOGLOBIN 10.3 g/dL (12.0-16.0); LYMPHOCYTES # (AUTO) 0.9 K/uL (2.5-16.5); LYMPHOCYTES % (AUTO) 11.9 % (20.5-51.1); MEAN CORPUSCULAR HEMOGLOBIN 24 pg (27-31); MEAN CORPUSCULAR HGB CONC 34 g/dL (33-37); MEAN CORPUSCULAR VOLUME 70.7 fL (80-94); MONOCYTES # (AUTO) 0.4 K/uL (0.8-1.0); MONOCYTES % (AUTO) 5.4 % (1.7-9.3); NEUTROPHILS # (AUTO) 6.1 K/uL (1.8-7.7); NEUTROPHILS % (AUTO) 80.5 % (42.2-75.2); PLATELET COUNT (AUTO) 271 K/uL (140-450); RED BLOOD CELL COUNT(AUTO) 4.31 MIL/uL (4.20-5.40); RED CELL DISTRIBUTION WIDTH 16.3 % (11.6-13.7); WHITE BLOOD COUNT (AUTO) 7.6 K/uL (4.8-10.8)
[2023-06-13 07:35] LABS: ALBUMIN 3.4 g/dL (3.4-5.0); ANION GAP 12.7 (8-16); CALCIUM 8.6 mg/dL (8.5-10.1); CARBON DIOXIDE 26.2 mmol/L (21-32); CREATININE 0.6 mg/dL (0.6-1.3); PHOSPHORUS 4.1 mg/dL (2.5-4.9); POTASSIUM 3.9 mmol/L (3.5-5.1); TOTAL BILIRUBIN 0.3 mg/dL (0.0-1.0)
[2023-06-13] MEDS ORDERED: ACET-9525 PO (13:35)
[2023-06-13] MEDS ORDERED: [UNRECOGNIZED DRUG - CODE] PO (13:35)
== END 2023-06-13 15:30 | disposition home or self-care (01) | DRG 566 ==
LOC: MED 17:29 → MTU 20:45
PROVIDERS: ADMIT Family Medicine; ATTEND Family Medicine
DX: O99.891 Other specified diseases and conditions complicating pregnancy (principal); D50.9 Iron deficiency anemia, unspecified; O16.1 Unspecified maternal hypertension, first trimester; N80.9 Endometriosis, unspecified; O99.011 Anemia complicating pregnancy, first trimester; Z3A.01 Less than 8 weeks gestation of pregnancy; Z88.0 Allergy status to penicillin; Z88.8 Allergy status to other drugs, medicaments and biological substances; Z91.018 Allergy to other foods; Z79.2 Long term (current) use of antibiotics; Z79.899 Other long term (current) drug therapy; Z98.891 History of uterine scar from previous surgery; Z90.49 Acquired absence of other specified parts of digestive tract
CPT/HCPCS: 36415; 80048; 80053; 83540; 83735; 84100; 85025; 87081; 94640; 96374; 96375; 99285; J2270; J2405; J7030; J7613

== ENCOUNTER 2023-06-21 16:20 | Emergency (ER) | payer MEDICAID ==
[~2023-06-21] VITALS: Ht 152.4 cm; Wt 81.2 kg
[~2023-06-21 16:20] MED LIST changes: -ACET-10509 PO; -ACET-503 PO; -ACET-8905 PO; +ACET-9525 PO; -ALBU0.0912 INH; -AMLO5TAB PO; -BEN10 PO; -CEPH-588 PO; -CIPR250T6 PO; -CIPR500T4 PO; -CLIN300C2 PO; -DIPH25TA41 PO; -GUANFACINE; -HYDR-5080 PO; -IBUP-2213 PO; -KETO5SOL OP; -LEVO750T75 PO; -LID5T TP; -MAGN400S60 PO; -MELA10CA PO; -METH-1681 PO; -METO-485 PO; -METR-435 PO; -NAPR-337 PO; -NITR100C7 PO; -ONDA-188 PO; -ONDA-188 SL; -ONDA4TAB PO; -ONDA8TAB87 PO; -OXYCARBAZEPINE; -PHEN-1877 PO; -PRETAB PO; -SULF-59 PO; -TOBR5SOL38 RIGHT EYE; -ZOLP5TAB1 PO; +[UNRECOGNIZED DRUG - CODE] PO; -[UNRECOGNIZED DRUG - CODE] PO
[2023-06-21 16:25] VITALS: BP 149/108; PULSE 96; RESP 18; TEMP 98.1; O2SAT 100
[2023-06-21] MEDS: NACL 0.9% 1,000 ML IV ONE (16:54)
[2023-06-21] MEDS: ONDANSETRON 4 MG/2 ML VIAL IVP ONE (17:00)
[2023-06-21] MEDS: HYDROcodone/APAP 5/325 MG 1 TAB TAB PO ONE (17:07)
[2023-06-21] MEDS: MORPHINE SULFATE 4 MG/ML SYR IVP ONE (17:58)
[2023-06-21] MEDS ORDERED: ACET-5629 PO (18:05)
[2023-06-21 18:14] VITALS: BP 138/93; PULSE 78; RESP 16; TEMP 98.3; O2SAT 98
== END 2023-06-21 18:14 | disposition home or self-care (01) ==
LOC: MED 16:20
DX: O03.9 Complete or unspecified spontaneous abortion without complication (principal); J45.909 Unspecified asthma, uncomplicated; I10 Essential (primary) hypertension; Z88.0 Allergy status to penicillin; Z88.8 Allergy status to other drugs, medicaments and biological substances; Z79.899 Other long term (current) drug therapy
CPT/HCPCS: 96361; 96374; 96375; 99284; J2270; J2405; J7030

== ENCOUNTER 2023-06-26 14:18 | Emergency (ER) | payer MEDICAID ==
[~2023-06-26] VITALS: Ht 152.4 cm; Wt 83.0 kg
[~2023-06-26 14:18] MED LIST changes: +ACET-5629 PO
[2023-06-26 14:34] VITALS: BP 159/68; PULSE 88; RESP 18; TEMP 97.5; O2SAT 100
[2023-06-26] MEDS: MORPHINE SULFATE 4 MG/ML SYR IVP ONE ×2 (16:10→17:09)
[2023-06-26] MEDS: ONDANSETRON 4 MG/2 ML VIAL IVP ONE (16:20)
[2023-06-26] MEDS: NACL 0.9% 1,000 ML IV ONE (16:20)
[2023-06-26 16:55] LABS: BASOPHILS % (AUTO) 0.4 % (0.0-2.0); EOSINOPHILS # (AUTO) 0.1 K/uL (0-0.4); EOSINOPHILS % (AUTO) 1.5 % (0.0-4.0); HEMATOCRIT 31.2 % (36-48); HEMOGLOBIN 10.4 g/dL (12.0-16.0); LYMPHOCYTES # (AUTO) 1.3 K/uL (2.5-16.5); LYMPHOCYTES % (AUTO) 25.8 % (20.5-51.1); MEAN CORPUSCULAR HEMOGLOBIN 24 pg (27-31); MEAN CORPUSCULAR HGB CONC 33 g/dL (33-37); MEAN CORPUSCULAR VOLUME 71.9 fL (80-94); MONOCYTES # (AUTO) 0.3 K/uL (0.8-1.0); MONOCYTES % (AUTO) 5.6 % (1.7-9.3); NEUTROPHILS # (AUTO) 3.4 K/uL (1.8-7.7); NEUTROPHILS % (AUTO) 66.7 % (42.2-75.2); PLATELET COUNT (AUTO) 315 K/uL (140-450); RED BLOOD CELL COUNT(AUTO) 4.34 MIL/uL (4.20-5.40); RED CELL DISTRIBUTION WIDTH 17.1 % (11.6-13.7); WHITE BLOOD COUNT (AUTO) 5.1 K/uL (4.8-10.8)
[2023-06-26 19:31] VITALS: BP 114/68; PULSE 86; RESP 17; TEMP 98; O2SAT 100
== END 2023-06-26 19:31 | disposition home or self-care (01) ==
LOC: MED 14:18
DX: O26.891 Other specified pregnancy related conditions, first trimester (principal); J45.909 Unspecified asthma, uncomplicated; I10 Essential (primary) hypertension; Z3A.01 Less than 8 weeks gestation of pregnancy; Z88.0 Allergy status to penicillin; Z79.1 Long term (current) use of non-steroidal anti-inflammatories (NSAID); Z88.8 Allergy status to other drugs, medicaments and biological substances; Z79.899 Other long term (current) drug therapy
CPT/HCPCS: 36415; 76817; 81025; 84702; 85025; 96361; 96374; 96375; 96376; 99285; J2270; J2405; Q0092

== ENCOUNTER 2023-06-26 21:52 | Emergency (ER) | payer MEDICAID ==
[~2023-06-26] VITALS: Ht 152.4 cm; Wt 82.6 kg
[2023-06-26 22:16] VITALS: BP 123/104; PULSE 87; RESP 18; TEMP 98.7; O2SAT 100
[2023-06-26 22:22] VITALS: BP 123/104; PULSE 87; RESP 18; TEMP 98.7; O2SAT 100
== END 2023-06-26 22:30 | disposition left against medical advice (07) ==
LOC: MED 21:52
DX: O26.891 Other specified pregnancy related conditions, first trimester (principal); Z3A.01 Less than 8 weeks gestation of pregnancy; Z53.21 Procedure and treatment not carried out due to patient leaving prior to being seen by health care provider

== ENCOUNTER 2023-07-06 13:51 | Emergency (ER) | payer MEDICAID ==
[~2023-07-06] VITALS: Ht 152.4 cm; Wt 81.6 kg
[2023-07-06 14:02] VITALS: BP 111/100; PULSE 93; RESP 18; TEMP 98.3; O2SAT 100
[2023-07-06 14:47] LABS: APPEARANCE,URINE CLEAR (CLEAR); BILIRUBIN,URINE NEGATIVE (NEGATIVE); BLOOD, URINE TRACE-I (NEGATIVE); COLOR,URINE YELLOW (YELLOW); LEUKOCYTE ESTERASE ,URINE NEGATIVE (NEGATIVE); NITRITE, URINE NEGATIVE (NEGATIVE); PROTEIN,URINE NEGATIVE (NEGATIVE); UGLUCOSE NEGATIVE (NEGATIVE); UROBILINOGEN,URINE 0.2 EU/dL (0.2 - 1)
[2023-07-06] MEDS: ACETAMINOPHEN EXTRA STRENGTH 500 MG TAB PO ONE (15:11)
[2023-07-06 15:27] LABS: BASOPHILS % (AUTO) 0.4 % (0.0-2.0); EOSINOPHILS # (AUTO) 0.1 K/uL (0-0.4); EOSINOPHILS % (AUTO) 1.4 % (0.0-4.0); LYMPHOCYTES # (AUTO) 1.3 K/uL (2.5-16.5); LYMPHOCYTES % (AUTO) 20.6 % (20.5-51.1); MEAN CORPUSCULAR HEMOGLOBIN 24 pg (27-31); MEAN CORPUSCULAR HGB CONC 33 g/dL (33-37); MONOCYTES # (AUTO) 0.4 K/uL (0.8-1.0); MONOCYTES % (AUTO) 6.6 % (1.7-9.3); NEUTROPHILS # (AUTO) 4.3 K/uL (1.8-7.7); PLATELET COUNT (AUTO) 278 K/uL (140-450); RED BLOOD CELL COUNT(AUTO) 4.59 MIL/uL (4.20-5.40); RED CELL DISTRIBUTION WIDTH 17.8 % (11.6-13.7); WHITE BLOOD COUNT (AUTO) 6.1 K/uL (4.8-10.8)
[2023-07-06] MEDS: MORPHINE SULFATE 4 MG/ML SYR IVP ONE (16:32)
[2023-07-06] MEDS ORDERED: ACET-10509 PO (17:19)
[2023-07-06 17:52] VITALS: BP 101/89; PULSE 88; RESP 18; TEMP 98.3; O2SAT 100
== END 2023-07-06 17:57 | disposition home or self-care (01) ==
LOC: MED 13:51
DX: O26.891 Other specified pregnancy related conditions, first trimester (principal); J45.909 Unspecified asthma, uncomplicated; I10 Essential (primary) hypertension; Z3A.08 8 weeks gestation of pregnancy; Z79.899 Other long term (current) drug therapy; Z88.0 Allergy status to penicillin; Z79.1 Long term (current) use of non-steroidal anti-inflammatories (NSAID); Z88.8 Allergy status to other drugs, medicaments and biological substances
CPT/HCPCS: 36415; 76801; 81003; 81025; 84702; 85025; 86900; 86901; 96374; 99285; J2270; Q0092

== ENCOUNTER 2023-07-08 10:12 | Emergency (ER) | payer MEDICAID ==
[~2023-07-08] VITALS: Ht 152.4 cm; Wt 82.6 kg
[~2023-07-08 10:12] MED LIST changes: +ACET-10509 PO
[2023-07-08 10:31] VITALS: BP 127/87; PULSE 94; RESP 18; TEMP 97.6; O2SAT 100
[2023-07-08 11:05] VITALS: O2SAT 98
[2023-07-08] MEDS ORDERED: MORPHINE SULFATE 4 MG/ML SYR IVP ONE (14:10)
[2023-07-08] MEDS ORDERED: ACET-8905 PO (14:59)
[2023-07-08] MEDS ORDERED: DOXY1TCP PO (14:59)
[2023-07-08] MEDS: MORPHINE SULFATE 4 MG/ML SYR IM ONE (15:16)
== END 2023-07-08 15:27 | disposition home or self-care (01) ==
LOC: MED 10:12
DX: O26.891 Other specified pregnancy related conditions, first trimester (principal); J45.909 Unspecified asthma, uncomplicated; I10 Essential (primary) hypertension; Z3A.08 8 weeks gestation of pregnancy; Z88.0 Allergy status to penicillin; Z79.1 Long term (current) use of non-steroidal anti-inflammatories (NSAID); Z88.8 Allergy status to other drugs, medicaments and biological substances; Z79.899 Other long term (current) drug therapy; Z90.49 Acquired absence of other specified parts of digestive tract
CPT/HCPCS: 96372; 99283; J2270

== ENCOUNTER 2023-07-15 22:16 | Emergency (ER) | payer MEDICAID ==
[~2023-07-15] VITALS: Ht 152.4 cm; Wt 83.0 kg
[~2023-07-15 22:16] MED LIST changes: +ACET-8905 PO; +DOXY1TCP PO
[2023-07-15 22:46] VITALS: BP 136/101; PULSE 97; RESP 18; TEMP 99.1; O2SAT 100
[2023-07-15 23:26] LABS: APPEARANCE,URINE CLEAR (CLEAR); BILIRUBIN,URINE NEGATIVE (NEGATIVE); BLOOD, URINE NEGATIVE (NEGATIVE); COLOR,URINE YELLOW (YELLOW); LEUKOCYTE ESTERASE ,URINE NEGATIVE (NEGATIVE); NITRITE, URINE NEGATIVE (NEGATIVE); PROTEIN,URINE NEGATIVE (NEGATIVE); UGLUCOSE NEGATIVE (NEGATIVE); UROBILINOGEN,URINE 0.2 EU/dL (0.2 - 1)
[2023-07-16 00:36] LABS: BASOPHILS % (AUTO) 0.5 % (0.0-2.0); EOSINOPHILS # (AUTO) 0.1 K/uL (0-0.4); EOSINOPHILS % (AUTO) 0.8 % (0.0-4.0); HEMATOCRIT 32.5 % (36-48); HEMOGLOBIN 10.7 g/dL (12.0-16.0); LYMPHOCYTES # (AUTO) 2.3 K/uL (2.5-16.5); LYMPHOCYTES % (AUTO) 22.5 % (20.5-51.1); MEAN CORPUSCULAR HEMOGLOBIN 24 pg (27-31); MEAN CORPUSCULAR HGB CONC 33 g/dL (33-37); MEAN CORPUSCULAR VOLUME 72.6 fL (80-94); MONOCYTES # (AUTO) 0.5 K/uL (0.8-1.0); MONOCYTES % (AUTO) 5.3 % (1.7-9.3); NEUTROPHILS # (AUTO) 7.2 K/uL (1.8-7.7); NEUTROPHILS % (AUTO) 70.9 % (42.2-75.2); PLATELET COUNT (AUTO) 291 K/uL (140-450); RED BLOOD CELL COUNT(AUTO) 4.48 MIL/uL (4.20-5.40); RED CELL DISTRIBUTION WIDTH 18.2 % (11.6-13.7); WHITE BLOOD COUNT (AUTO) 10.2 K/uL (4.8-10.8)
[2023-07-16 00:58] LABS: ANION GAP 13.1 (8-16); CALCIUM 9.8 mg/dL (8.5-10.1); CARBON DIOXIDE 26.2 mmol/L (21-32); CREATININE 0.7 mg/dL (0.6-1.3); POTASSIUM 4.3 mmol/L (3.5-5.1)
[2023-07-16 01:19] LABS: ALBUMIN 3.8 g/dL (3.4-5.0); BILIRUBIN,DIRECT 0.1 mg/dL (0.0-0.3); TOTAL BILIRUBIN 0.1 mg/dL (0.0-1.0); TOTAL PROTEIN, SERUM 7.9 g/dL (6.4-8.2)
[2023-07-16] MEDS ORDERED: ACET-10509 PO (02:24)
[2023-07-16] MEDS: MORPHINE SULFATE 4 MG/ML SYR IM ONE (02:28)
[2023-07-16 02:35] VITALS: BP 136/101; PULSE 97; RESP 18; TEMP 98; O2SAT 100
== END 2023-07-16 02:35 | disposition home or self-care (01) ==
LOC: MED 22:16
DX: O26.891 Other specified pregnancy related conditions, first trimester (principal); I10 Essential (primary) hypertension; J45.909 Unspecified asthma, uncomplicated; Z3A.09 9 weeks gestation of pregnancy; Z88.0 Allergy status to penicillin; Z79.1 Long term (current) use of non-steroidal anti-inflammatories (NSAID); Z88.8 Allergy status to other drugs, medicaments and biological substances; Z79.899 Other long term (current) drug therapy
CPT/HCPCS: 36415; 76815; 80048; 80076; 81003; 81025; 84702; 85025; 96372; 99285; J2270

== ENCOUNTER 2023-07-28 14:37 | Emergency (ER) | payer MEDICAID ==
[~2023-07-28] VITALS: Ht 152.4 cm; Wt 84.4 kg
[2023-07-28 14:54] VITALS: BP 164/98; PULSE 95; RESP 18; TEMP 98.2; O2SAT 100
[2023-07-28] MEDS: MORPHINE SULFATE 4 MG/ML SYR IVP ONE ×2 (15:18→17:01)
[2023-07-28 15:20] LABS: BASOPHILS % (AUTO) 0.5 % (0.0-2.0); EOSINOPHILS # (AUTO) 0.1 K/uL (0-0.4); EOSINOPHILS % (AUTO) 0.8 % (0.0-4.0); HEMATOCRIT 32.3 % (36-48); HEMOGLOBIN 10.8 g/dL (12.0-16.0); LYMPHOCYTES # (AUTO) 1.8 K/uL (2.5-16.5); LYMPHOCYTES % (AUTO) 25.7 % (20.5-51.1); MEAN CORPUSCULAR HEMOGLOBIN 24 pg (27-31); MEAN CORPUSCULAR HGB CONC 34 g/dL (33-37); MEAN CORPUSCULAR VOLUME 72.6 fL (80-94); MONOCYTES # (AUTO) 0.3 K/uL (0.8-1.0); NEUTROPHILS # (AUTO) 4.6 K/uL (1.8-7.7); PLATELET COUNT (AUTO) 306 K/uL (140-450); RED BLOOD CELL COUNT(AUTO) 4.45 MIL/uL (4.20-5.40); RED CELL DISTRIBUTION WIDTH 17.8 % (11.6-13.7); WHITE BLOOD COUNT (AUTO) 6.8 K/uL (4.8-10.8)
[2023-07-28 16:17] VITALS: BP 129/92; PULSE 87; RESP 18; TEMP 98.2; O2SAT 100
== END 2023-07-28 16:40 | disposition home or self-care (01) ==
LOC: MED 14:37
DX: O03.9 Complete or unspecified spontaneous abortion without complication (principal); O99.511 Diseases of the respiratory system complicating pregnancy, first trimester; O10.911 Unspecified pre-existing hypertension complicating pregnancy, first trimester; J45.909 Unspecified asthma, uncomplicated; Z90.49 Acquired absence of other specified parts of digestive tract; Z98.890 Other specified postprocedural states; Z3A.10 10 weeks gestation of pregnancy; Z79.1 Long term (current) use of non-steroidal anti-inflammatories (NSAID); Z79.899 Other long term (current) drug therapy; Z88.0 Allergy status to penicillin; Z88.6 Allergy status to analgesic agent; Z91.018 Allergy to other foods; Z91.048 Other nonmedicinal substance allergy status
CPT/HCPCS: 36415; 84702; 85025; 96374; 96376; 99284; J2270

== ENCOUNTER 2023-07-30 17:33 | Emergency (ER) | payer MEDICAID ==
[~2023-07-30] VITALS: Ht 152.4 cm; Wt 84.4 kg
[2023-07-30 18:08] VITALS: BP 134/93; PULSE 93; RESP 17; TEMP 98.1; O2SAT 100
[2023-07-30 19:24] LABS: EOSINOPHILS % (AUTO) 0.6 % (0.0-4.0); HEMATOCRIT 32.3 % (36-48); HEMOGLOBIN 10.9 g/dL (12.0-16.0); LYMPHOCYTES # (AUTO) 1.4 K/uL (2.5-16.5); LYMPHOCYTES % (AUTO) 21.8 % (20.5-51.1); MEAN CORPUSCULAR HEMOGLOBIN 25 pg (27-31); MEAN CORPUSCULAR HGB CONC 34 g/dL (33-37); MEAN CORPUSCULAR VOLUME 72.8 fL (80-94); MONOCYTES # (AUTO) 0.4 K/uL (0.8-1.0); MONOCYTES % (AUTO) 5.6 % (1.7-9.3); NEUTROPHILS # (AUTO) 4.5 K/uL (1.8-7.7); PLATELET COUNT (AUTO) 314 K/uL (140-450); RED BLOOD CELL COUNT(AUTO) 4.44 MIL/uL (4.20-5.40); RED CELL DISTRIBUTION WIDTH 18.1 % (11.6-13.7); WHITE BLOOD COUNT (AUTO) 6.3 K/uL (4.8-10.8)
[2023-07-30] MEDS: MORPHINE SULFATE 4 MG/ML SYR IM ONE (19:45)
[2023-07-30 20:44] VITALS: BP 132/90; PULSE 92; RESP 18; TEMP 98; O2SAT 100
[2023-07-31] MEDS ORDERED: ACET-5629 PO (16:53)
== END 2023-07-30 20:44 | disposition home or self-care (01) ==
LOC: MED 17:33
DX: O20.0 Threatened abortion (principal); O99.519 Diseases of the respiratory system complicating pregnancy, unspecified trimester; O10.919 Unspecified pre-existing hypertension complicating pregnancy, unspecified trimester; J45.909 Unspecified asthma, uncomplicated; Z79.1 Long term (current) use of non-steroidal anti-inflammatories (NSAID); Z79.899 Other long term (current) drug therapy; Z88.0 Allergy status to penicillin; Z88.6 Allergy status to analgesic agent; Z88.5 Allergy status to narcotic agent; Z91.018 Allergy to other foods; Z3A.00 Weeks of gestation of pregnancy not specified
CPT/HCPCS: 36415; 84702; 85025; 96372; 99283; J2270

== ENCOUNTER 2023-07-31 15:25 | Emergency (ER) | payer MEDICAID ==
[~2023-07-31] VITALS: Ht 152.4 cm; Wt 83.5 kg
[2023-07-31 15:40] VITALS: BP 142/98; PULSE 100; RESP 22; TEMP 98; O2SAT 100
[2023-07-31] MEDS: MORPHINE SULFATE 4 MG/ML SYR IM ONE (16:00)
[2023-07-31] MEDS ORDERED: ACET-5629 PO (16:53)
[2023-07-31 16:59] VITALS: BP 142/98; PULSE 100; RESP 22; TEMP 98; O2SAT 100
== END 2023-07-31 16:50 | disposition home or self-care (01) ==
LOC: MED 15:25
DX: O03.9 Complete or unspecified spontaneous abortion without complication (principal); O99.511 Diseases of the respiratory system complicating pregnancy, first trimester; O10.911 Unspecified pre-existing hypertension complicating pregnancy, first trimester; R10.33 Periumbilical pain; Z98.890 Other specified postprocedural states; Z79.1 Long term (current) use of non-steroidal anti-inflammatories (NSAID); Z79.899 Other long term (current) drug therapy; Z88.0 Allergy status to penicillin; Z88.6 Allergy status to analgesic agent; Z88.5 Allergy status to narcotic agent; Z91.018 Allergy to other foods
CPT/HCPCS: 81002; 96372; 99283; J2270

== ENCOUNTER 2023-08-06 00:42 | Emergency (ER) | payer MEDICAID | END 2023-08-06 00:49 | disposition left against medical advice (07) | LOC: MED 00:42 | DX: Z53.21 Procedure and treatment not carried out due to patient leaving prior to being seen by health care provider (principal) ==

== ENCOUNTER 2023-08-09 16:26 | Emergency (ER) | payer MEDICAID ==
[~2023-08-09] VITALS: Ht 152.4 cm; Wt 83.5 kg
[2023-08-09 16:30] VITALS: BP 133/98; PULSE 106; RESP 16; TEMP 98.4; O2SAT 100
[2023-08-09] MEDS: MORPHINE SULFATE 4 MG/ML SYR IM ONE (16:58)
[2023-08-09] MEDS: ONDANSETRON 4 MG ODT PO ONE (16:59)
[2023-08-09 17:19] LABS: APPEARANCE,URINE CLEAR (CLEAR); BILIRUBIN,URINE NEGATIVE (NEGATIVE); BLOOD, URINE NEGATIVE (NEGATIVE); COLOR,URINE YELLOW (YELLOW); LEUKOCYTE ESTERASE ,URINE NEGATIVE (NEGATIVE); NITRITE, URINE NEGATIVE (NEGATIVE); PROTEIN,URINE NEGATIVE (NEGATIVE); UGLUCOSE NEGATIVE (NEGATIVE); UROBILINOGEN,URINE 0.2 EU/dL (0.2 - 1)
[2023-08-09] MEDS ORDERED: ONDA8TAB87 PO (17:33)
[2023-08-09 17:40] VITALS: PULSE 88; RESP 16; TEMP 98.4; O2SAT 100
== END 2023-08-09 17:40 | disposition home or self-care (01) ==
LOC: MED 16:26
DX: N39.0 Urinary tract infection, site not specified (principal); Z98.890 Other specified postprocedural states; J45.909 Unspecified asthma, uncomplicated; I10 Essential (primary) hypertension; Z79.1 Long term (current) use of non-steroidal anti-inflammatories (NSAID); Z79.899 Other long term (current) drug therapy; Z88.0 Allergy status to penicillin; Z88.6 Allergy status to analgesic agent; Z88.5 Allergy status to narcotic agent; Z91.018 Allergy to other foods; Z91.09 Other allergy status, other than to drugs and biological substances
CPT/HCPCS: 81003; 81025; 96372; 99283; J2270; Q0162

== ENCOUNTER 2023-08-12 02:10 | Emergency (ER) | payer MEDICAID ==
[~2023-08-12] VITALS: Ht 152.4 cm; Wt 83.5 kg
[~2023-08-12 02:10] MED LIST changes: +ONDA8TAB87 PO
[2023-08-12 02:37] VITALS: BP 136/81; PULSE 100; RESP 18; TEMP 98.3; O2SAT 98
[2023-08-12 04:06] VITALS: BP 130/81; PULSE 98; RESP 18; TEMP 98; O2SAT 98
[2023-08-12] MEDS: ACETAMINOPHEN EXTRA STRENGTH 500 MG TAB PO ONE (04:45)
== END 2023-08-12 04:45 | disposition left against medical advice (07) ==
LOC: MED 02:10
DX: O99.891 Other specified diseases and conditions complicating pregnancy (principal); O20.9 Hemorrhage in early pregnancy, unspecified; O99.511 Diseases of the respiratory system complicating pregnancy, first trimester; J45.901 Unspecified asthma with (acute) exacerbation; O10.919 Unspecified pre-existing hypertension complicating pregnancy, unspecified trimester; R30.0 Dysuria; Z3A.11 11 weeks gestation of pregnancy; Z79.1 Long term (current) use of non-steroidal anti-inflammatories (NSAID); Z79.899 Other long term (current) drug therapy; Z88.0 Allergy status to penicillin; Z88.6 Allergy status to analgesic agent; Z91.018 Allergy to other foods
CPT/HCPCS: 81002; 81025; 99282

== ENCOUNTER 2023-08-13 15:10 | Emergency (ER) | payer MEDICAID ==
[~2023-08-13] VITALS: Ht 152.4 cm; Wt 83.5 kg
[2023-08-13 15:21] VITALS: BP 140/89; PULSE 98; RESP 16; TEMP 98.5; O2SAT 99
[2023-08-13 17:09] VITALS: BP 135/87; PULSE 95; RESP 16; TEMP 98.3; O2SAT 99
[2023-08-13 18:34] LABS: APPEARANCE,URINE CLOUDY (CLEAR); BILIRUBIN,URINE NEGATIVE (NEGATIVE); BLOOD, URINE NEGATIVE (NEGATIVE); LEUKOCYTE ESTERASE ,URINE TRACE (NEGATIVE); NITRITE, URINE NEGATIVE (NEGATIVE); PROTEIN,URINE NEGATIVE (NEGATIVE); UGLUCOSE NEGATIVE (NEGATIVE); UROBILINOGEN,URINE 0.2 EU/dL (0.2 - 1)
[2023-08-13 18:35] LABS: COLOR,URINE AMBER (YELLOW)
[2023-08-13 18:43] LABS: BACTERIA,URINE FEW /HPF (None Seen); RBC,URINE 0-5 /HPF (0-5); WBC,URINE 0-5 /HPF (0-5)
== END 2023-08-13 18:08 | disposition home or self-care (01) ==
LOC: MED 15:10
DX: O26.851 Spotting complicating pregnancy, first trimester (principal); O26.891 Other specified pregnancy related conditions, first trimester; G89.29 Other chronic pain; R10.30 Lower abdominal pain, unspecified; O99.511 Diseases of the respiratory system complicating pregnancy, first trimester; J45.909 Unspecified asthma, uncomplicated; O10.911 Unspecified pre-existing hypertension complicating pregnancy, first trimester; Z3A.12 12 weeks gestation of pregnancy; Z79.1 Long term (current) use of non-steroidal anti-inflammatories (NSAID); Z79.899 Other long term (current) drug therapy; Z88.0 Allergy status to penicillin; Z91.018 Allergy to other foods; Z88.8 Allergy status to other drugs, medicaments and biological substances; Z88.6 Allergy status to analgesic agent
CPT/HCPCS: 36415; 81001; 81025; 84702; 99283

== ENCOUNTER 2023-08-15 01:50 | Emergency (ER) | payer MEDICAID ==
[~2023-08-15] VITALS: Ht 152.4 cm; Wt 83.5 kg
[2023-08-15 01:56] VITALS: BP 156/109; PULSE 96; RESP 14; TEMP 97.7; O2SAT 99
[2023-08-15 02:30] VITALS: BP 144/92; PULSE 96; RESP 14; TEMP 97.7; O2SAT 99
[2023-08-15 02:31] LABS: APPEARANCE,URINE CLEAR (CLEAR); BILIRUBIN,URINE NEGATIVE (NEGATIVE); BLOOD, URINE 1+ (NEGATIVE); COLOR,URINE YELLOW (YELLOW); LEUKOCYTE ESTERASE ,URINE NEGATIVE (NEGATIVE); NITRITE, URINE NEGATIVE (NEGATIVE); PROTEIN,URINE NEGATIVE (NEGATIVE); UGLUCOSE NEGATIVE (NEGATIVE); UROBILINOGEN,URINE 0.2 EU/dL (0.2 - 1)
[2023-08-15 02:51] LABS: BACTERIA,URINE 10-30 (MOD) /HPF (None Seen); MUCUS,URINE 1+ /LPF (None Seen); RBC,URINE 0-5 /HPF (0-5); SQUAMOUS EPITHELIAL CELL,UR 4-10 (MOD) /LPF (0-3 (FEW)); WBC,URINE 0-5 /HPF (0-5)
[2023-08-15] MEDS ORDERED: CEPH-588 PO (02:58)
== END 2023-08-15 03:06 | disposition home or self-care (01) ==
LOC: MED 01:50
DX: O20.0 Threatened abortion (principal); O23.91 Unspecified genitourinary tract infection in pregnancy, first trimester; O99.511 Diseases of the respiratory system complicating pregnancy, first trimester; R82.71 Bacteriuria; J45.909 Unspecified asthma, uncomplicated; O10.911 Unspecified pre-existing hypertension complicating pregnancy, first trimester; Z3A.13 13 weeks gestation of pregnancy; Z79.1 Long term (current) use of non-steroidal anti-inflammatories (NSAID); Z79.2 Long term (current) use of antibiotics; Z79.899 Other long term (current) drug therapy; Z88.0 Allergy status to penicillin; Z88.5 Allergy status to narcotic agent; Z88.6 Allergy status to analgesic agent; Z88.8 Allergy status to other drugs, medicaments and biological substances
CPT/HCPCS: 81001; 87086; 99284

== ENCOUNTER 2023-08-21 19:12 | Emergency (ER) | payer MEDICAID ==
[~2023-08-21] VITALS: Ht 152.4 cm; Wt 83.2 kg
[~2023-08-21 19:12] MED LIST changes: +CEPH-588 PO
[2023-08-21 19:22] VITALS: BP 123/92; PULSE 78; RESP 18; TEMP 98.5; O2SAT 100
[2023-08-21] MEDS: ACETAMINOPHEN EXTRA STRENGTH 500 MG TAB PO ONE (20:50)
[2023-08-21 21:09] LABS: BASOPHILS % (AUTO) 0.3 % (0.0-2.0); EOSINOPHILS % (AUTO) 0.3 % (0.0-4.0); HEMATOCRIT 31.9 % (36-48); HEMOGLOBIN 10.6 g/dL (12.0-16.0); LYMPHOCYTES # (AUTO) 1.6 K/uL (2.5-16.5); LYMPHOCYTES % (AUTO) 18.8 % (20.5-51.1); MEAN CORPUSCULAR HEMOGLOBIN 24 pg (27-31); MEAN CORPUSCULAR HGB CONC 33 g/dL (33-37); MEAN CORPUSCULAR VOLUME 73.2 fL (80-94); MONOCYTES # (AUTO) 0.4 K/uL (0.8-1.0); MONOCYTES % (AUTO) 4.4 % (1.7-9.3); NEUTROPHILS # (AUTO) 6.6 K/uL (1.8-7.7); NEUTROPHILS % (AUTO) 76.2 % (42.2-75.2); PLATELET COUNT (AUTO) 322 K/uL (140-450); RED BLOOD CELL COUNT(AUTO) 4.36 MIL/uL (4.20-5.40); RED CELL DISTRIBUTION WIDTH 16.3 % (11.6-13.7); WHITE BLOOD COUNT (AUTO) 8.7 K/uL (4.8-10.8)
[2023-08-21 21:16] LABS: APPEARANCE,URINE CLEAR (CLEAR); BILIRUBIN,URINE NEGATIVE (NEGATIVE); BLOOD, URINE NEGATIVE (NEGATIVE); COLOR,URINE YELLOW (YELLOW); NITRITE, URINE NEGATIVE (NEGATIVE); PH,URINE 6.5 (5.0-9.0); PROTEIN,URINE NEGATIVE (NEGATIVE); UGLUCOSE NEGATIVE (NEGATIVE); UROBILINOGEN,URINE 0.2 EU/dL (0.2 - 1)
[2023-08-21 21:17] LABS: LEUKOCYTE ESTERASE ,URINE NEGATIVE (NEGATIVE)
[2023-08-21 21:30] LABS: ANION GAP 11.9 (8-16); CALCIUM 9.1 mg/dL (8.5-10.1); CARBON DIOXIDE 26.3 mmol/L (21-32); CREATININE 0.6 mg/dL (0.6-1.3); POTASSIUM 4.2 mmol/L (3.5-5.1)
[2023-08-21 21:35] VITALS: BP 123/92; PULSE 78; RESP 18; TEMP 98.5; O2SAT 100
== END 2023-08-21 21:30 | disposition home or self-care (01) ==
LOC: MED 19:12
DX: O99.511 Diseases of the respiratory system complicating pregnancy, first trimester (principal); R10.2 Pelvic and perineal pain; J45.909 Unspecified asthma, uncomplicated; O10.011 Pre-existing essential hypertension complicating pregnancy, first trimester; Z3A.13 13 weeks gestation of pregnancy; Z79.1 Long term (current) use of non-steroidal anti-inflammatories (NSAID); Z79.2 Long term (current) use of antibiotics; Z79.899 Other long term (current) drug therapy; Z88.0 Allergy status to penicillin; Z88.5 Allergy status to narcotic agent; Z88.6 Allergy status to analgesic agent; Z91.018 Allergy to other foods
CPT/HCPCS: 36415; 80048; 81003; 85025; 99284

== ENCOUNTER 2023-08-22 10:29 | Emergency (ER) | payer MEDICAID ==
[~2023-08-22] VITALS: Ht 152.4 cm; Wt 83.0 kg
[2023-08-22 11:10] VITALS: BP 134/97; PULSE 97; RESP 18; TEMP 97.3; O2SAT 100
[2023-08-22 11:42] VITALS: BP 134/97; PULSE 97; RESP 18; TEMP 97.3; O2SAT 100
== END 2023-08-22 11:42 | disposition home or self-care (01) ==
LOC: MED 10:29
DX: O26.891 Other specified pregnancy related conditions, first trimester (principal); R10.9 Unspecified abdominal pain; Z3A.13 13 weeks gestation of pregnancy; O10.911 Unspecified pre-existing hypertension complicating pregnancy, first trimester; Z87.09 Personal history of other diseases of the respiratory system; J45.909 Unspecified asthma, uncomplicated; Z79.1 Long term (current) use of non-steroidal anti-inflammatories (NSAID); Z79.2 Long term (current) use of antibiotics; Z79.899 Other long term (current) drug therapy; Z88.0 Allergy status to penicillin; Z88.5 Allergy status to narcotic agent; Z88.6 Allergy status to analgesic agent; Z91.018 Allergy to other foods
CPT/HCPCS: 99284

== ENCOUNTER 2023-08-27 19:07 | Emergency (ER) | payer MEDICAID | END 2023-08-27 19:20 | disposition left against medical advice (07) | LOC: MED 19:07 | DX: Z76.89 Persons encountering health services in other specified circumstances (principal); Z53.21 Procedure and treatment not carried out due to patient leaving prior to being seen by health care provider ==

== ENCOUNTER 2023-09-08 18:23 | Emergency (ER) | payer MEDICAID ==
[~2023-09-08] VITALS: Ht 152.4 cm; Wt 83.9 kg
[2023-09-08 18:34] VITALS: BP 132/85; PULSE 87; RESP 19; TEMP 97.9; O2SAT 100
[2023-09-08 19:41] VITALS: O2SAT 100
[2023-09-08] MEDS ORDERED: ACET-10509 PO (19:41)
== END 2023-09-08 19:45 | disposition left against medical advice (07) ==
LOC: MED 18:23
DX: O26.891 Other specified pregnancy related conditions, first trimester (principal); R10.31 Right lower quadrant pain; O99.341 Other mental disorders complicating pregnancy, first trimester; F41.9 Anxiety disorder, unspecified; O99.511 Diseases of the respiratory system complicating pregnancy, first trimester; J45.909 Unspecified asthma, uncomplicated; O10.911 Unspecified pre-existing hypertension complicating pregnancy, first trimester; Z3A.13 13 weeks gestation of pregnancy; Z79.899 Other long term (current) drug therapy; Z88.0 Allergy status to penicillin; Z91.018 Allergy to other foods; Z88.6 Allergy status to analgesic agent; Z91.09 Other allergy status, other than to drugs and biological substances
CPT/HCPCS: 99284

== ENCOUNTER 2023-09-15 22:45 | Emergency (ER) | payer MEDICAID ==
[~2023-09-15] VITALS: Ht 152.4 cm; Wt 85.3 kg
[2023-09-15 22:52] VITALS: BP 126/84; PULSE 97; RESP 20; TEMP 98.7; O2SAT 100
[2023-09-15 23:30] VITALS: BP 126/84; PULSE 97; RESP 20; TEMP 98.7
[2023-09-16 00:49] LABS: APPEARANCE,URINE CLEAR (CLEAR); BILIRUBIN,URINE NEGATIVE (NEGATIVE); BLOOD, URINE NEGATIVE (NEGATIVE); COLOR,URINE YELLOW (YELLOW); LEUKOCYTE ESTERASE ,URINE NEGATIVE (NEGATIVE); NITRITE, URINE NEGATIVE (NEGATIVE); PH,URINE 6.5 (5.0-9.0); PROTEIN,URINE NEGATIVE (NEGATIVE); UGLUCOSE NEGATIVE (NEGATIVE); UROBILINOGEN,URINE 0.2 EU/dL (0.2 - 1)
[2023-09-16 01:28] VITALS: O2SAT 98
== END 2023-09-16 01:27 | disposition home or self-care (01) ==
LOC: MED 22:45
DX: O26.892 Other specified pregnancy related conditions, second trimester (principal); R10.30 Lower abdominal pain, unspecified; O99.512 Diseases of the respiratory system complicating pregnancy, second trimester; J45.909 Unspecified asthma, uncomplicated; O10.912 Unspecified pre-existing hypertension complicating pregnancy, second trimester; Z3A.19 19 weeks gestation of pregnancy; Z79.899 Other long term (current) drug therapy; Z88.0 Allergy status to penicillin; Z91.018 Allergy to other foods; Z88.6 Allergy status to analgesic agent; Z91.09 Other allergy status, other than to drugs and biological substances
CPT/HCPCS: 81003; 81025; 99283

== ENCOUNTER 2023-09-17 20:14 | Emergency (ER) | payer MEDICAID ==
[~2023-09-17] VITALS: Ht 152.4 cm; Wt 84.4 kg
[2023-09-17 20:48] VITALS: BP 117/95; PULSE 64; RESP 20; TEMP 97.5; O2SAT 97
[2023-09-17 22:56] VITALS: BP 121/97; PULSE 70; RESP 20; TEMP 98; O2SAT 97
[2023-09-17 23:44] LABS: APPEARANCE,URINE CLEAR (CLEAR); BILIRUBIN,URINE NEGATIVE (NEGATIVE); BLOOD, URINE NEGATIVE (NEGATIVE); COLOR,URINE YELLOW (YELLOW); LEUKOCYTE ESTERASE ,URINE NEGATIVE (NEGATIVE); NITRITE, URINE NEGATIVE (NEGATIVE); PROTEIN,URINE NEGATIVE (NEGATIVE); UGLUCOSE NEGATIVE (NEGATIVE); UROBILINOGEN,URINE 0.2 EU/dL (0.2 - 1)
[2023-09-18] MEDS ORDERED: CYCL-711 PO
[2023-09-18] MEDS: CYCLOBENZAPRINE 10 MG TAB PO ONE (00:15)
== END 2023-09-18 00:16 | disposition home or self-care (01) ==
LOC: MED 20:14
DX: O26.892 Other specified pregnancy related conditions, second trimester (principal); G89.29 Other chronic pain; R10.2 Pelvic and perineal pain; O99.512 Diseases of the respiratory system complicating pregnancy, second trimester; J45.909 Unspecified asthma, uncomplicated; O10.912 Unspecified pre-existing hypertension complicating pregnancy, second trimester; Z3A.19 19 weeks gestation of pregnancy; Z79.899 Other long term (current) drug therapy; Z88.0 Allergy status to penicillin; Z91.018 Allergy to other foods; Z88.6 Allergy status to analgesic agent; Z91.048 Other nonmedicinal substance allergy status
CPT/HCPCS: 76815; 81003; 81025; 99284

== ENCOUNTER 2023-09-23 22:19 | Emergency (ER) | payer MEDICAID ==
[~2023-09-23] VITALS: Ht 152.4 cm; Wt 81.6 kg
[~2023-09-23 22:19] MED LIST changes: +CYCL-711 PO
[2023-09-23 22:24] VITALS: BP 147/103; PULSE 94; RESP 18; TEMP 97.5; O2SAT 98
[2023-09-23 22:47] VITALS: BP 147/103; PULSE 94; RESP 18; TEMP 97.5; O2SAT 98
== END 2023-09-23 22:47 | disposition left against medical advice (07) ==
LOC: MED 22:19
DX: O26.892 Other specified pregnancy related conditions, second trimester (principal); M79.10 Myalgia, unspecified site; O99.512 Diseases of the respiratory system complicating pregnancy, second trimester; Z3A.20 20 weeks gestation of pregnancy; Z53.21 Procedure and treatment not carried out due to patient leaving prior to being seen by health care provider

== ENCOUNTER 2023-10-05 10:49 | Emergency (ER) | payer MEDICAID ==
[~2023-10-05] VITALS: Ht 152.4 cm; Wt 86.2 kg
[2023-10-05 09:59] LABS: AMPHETAMINE, URINE NEGATIVE ng/ml (NEG <=1000); BARBITURATE, URINE NEGATIVE ng/ml (NEG <=200); BENZODIAZEPINE, URINE NEGATIVE ng/mL (NEG <=200); CANNABINOID, URINE NEGATIVE ng/mL (NEG <=50); COCAINE, URINE NEGATIVE ng/mL (NEG <=300); PHENCYCLIDINE SCREEN,URINE NEGATIVE ng/mL (NEG <=25)
[2023-10-05 10:00] LABS: OPIATE, URINE NEGATIVE ng/mL (NEG <=2000)
[~2023-10-05 10:49] MED LIST changes: -ACET-10509 PO; +ACET500T99 PO; +TRA200 PO
[2023-10-05 10:53] VITALS: BP 167/80; PULSE 89; RESP 22; TEMP 98; O2SAT 98
[2023-10-05] MEDS: DICYCLOMINE 20 MG/2 ML VIAL IM ONE (11:23)
[2023-10-05 11:40] VITALS: O2SAT 98
[2023-10-05 12:46] VITALS: BP 148/80; PULSE 87; RESP 16; TEMP 98; O2SAT 88
== END 2023-10-05 12:50 | disposition home or self-care (01) ==
LOC: MED 10:49 → EDSTATUS 10:49 → MED 12:50
DX: O26.892 Other specified pregnancy related conditions, second trimester (principal); G89.29 Other chronic pain; R10.30 Lower abdominal pain, unspecified; O21.9 Vomiting of pregnancy, unspecified; R19.7 Diarrhea, unspecified; O10.912 Unspecified pre-existing hypertension complicating pregnancy, second trimester; O99.512 Diseases of the respiratory system complicating pregnancy, second trimester; J45.909 Unspecified asthma, uncomplicated; Z3A.00 Weeks of gestation of pregnancy not specified; Z79.899 Other long term (current) drug therapy; Z88.0 Allergy status to penicillin; Z88.6 Allergy status to analgesic agent; Z88.5 Allergy status to narcotic agent; Z91.018 Allergy to other foods
CPT/HCPCS: 59025; 76705; 80305; 81002; 81025; 96372; 99285; J0500; Q0092

== ENCOUNTER 2023-10-23 22:47 | Observation (INO) | payer MEDICAID ==
[~2023-10-23] VITALS: Ht 152.4 cm; Wt 88.5 kg
[~2023-10-23 22:47] MED LIST changes: -ACET-5629 PO; -ACET-8905 PO; -ACET-9525 PO; -ACET500T99 PO; -CEPH-588 PO; -CYCL-711 PO; -DOXY1TCP PO; -ONDA8TAB87 PO
[2023-10-24] MEDS ORDERED: ACETAMINOPHEN EXTRA STRENGTH 500 MG TAB PO SCH (00:05)
[2023-10-24] MEDS ORDERED: TERBUTALINE 1 MG/ML VIAL SUBQ SCH (00:05)
[2023-10-24 01:53] LABS: APPEARANCE,URINE CLEAR (CLEAR); BILIRUBIN,URINE NEGATIVE (NEGATIVE); BLOOD, URINE NEGATIVE (NEGATIVE); COLOR,URINE YELLOW (YELLOW); LEUKOCYTE ESTERASE ,URINE NEGATIVE (NEGATIVE); NITRITE, URINE NEGATIVE (NEGATIVE); PROTEIN,URINE NEGATIVE (NEGATIVE); UGLUCOSE NEGATIVE (NEGATIVE); UROBILINOGEN,URINE 0.2 EU/dL (0.2 - 1)
== END 2023-10-24 00:45 | disposition left against medical advice (07) ==
LOC: MLD 22:47
PROVIDERS: ADMIT Obstetrics & Gynecology; ATTEND Obstetrics & Gynecology
DX: O46.92 Antepartum hemorrhage, unspecified, second trimester (principal); O26.892 Other specified pregnancy related conditions, second trimester; R10.9 Unspecified abdominal pain; Z3A.23 23 weeks gestation of pregnancy
CPT/HCPCS: 81000; 81003; G0378; J3105

== ENCOUNTER 2023-10-24 00:50 | Emergency (ER) | payer MEDICAID ==
[~2023-10-24] VITALS: Ht 152.4 cm; Wt 89.0 kg
[2023-10-24 01:23] VITALS: BP 132/93; PULSE 87; RESP 18; TEMP 98.4; O2SAT 100
[2023-10-24] MEDS: NACL 0.9% 1,000 ML IV ONE (05:25)
[2023-10-24 05:56] LABS: BASOPHILS % (AUTO) 0.4 % (0.0-2.0); EOSINOPHILS # (AUTO) 0.1 K/uL (0-0.4); EOSINOPHILS % (AUTO) 0.7 % (0.0-4.0); HEMATOCRIT 29.2 % (36-48); HEMOGLOBIN 9.6 g/dL (12.0-16.0); LYMPHOCYTES # (AUTO) 1.9 K/uL (2.5-16.5); LYMPHOCYTES % (AUTO) 22.1 % (20.5-51.1); MEAN CORPUSCULAR HEMOGLOBIN 23 pg (27-31); MEAN CORPUSCULAR HGB CONC 33 g/dL (33-37); MEAN CORPUSCULAR VOLUME 70.3 fL (80-94); MONOCYTES # (AUTO) 0.3 K/uL (0.8-1.0); MONOCYTES % (AUTO) 3.7 % (1.7-9.3); NEUTROPHILS # (AUTO) 6.4 K/uL (1.8-7.7); NEUTROPHILS % (AUTO) 73.1 % (42.2-75.2); PLATELET COUNT (AUTO) 324 K/uL (140-450); RED BLOOD CELL COUNT(AUTO) 4.16 MIL/uL (4.20-5.40); RED CELL DISTRIBUTION WIDTH 15.8 % (11.6-13.7); WHITE BLOOD COUNT (AUTO) 8.7 K/uL (4.8-10.8)
[2023-10-24] MEDS: fentaNYL citrate 0.05 MG/ML VIAL IVP ONE (06:03)
[2023-10-24 06:13] LABS: ALBUMIN 2.7 g/dL (3.4-5.0); ANION GAP 14.3 (8-16); CALCIUM 8.8 mg/dL (8.5-10.1); CARBON DIOXIDE 22.6 mmol/L (21-32); CREATININE 0.5 mg/dL (0.6-1.3); POTASSIUM 3.9 mmol/L (3.5-5.1); TOTAL BILIRUBIN 0.3 mg/dL (0.0-1.0); TOTAL PROTEIN, SERUM 7.7 g/dL (6.4-8.2)
[2023-10-24] MEDS: ACETAMINOPHEN EXTRA STRENGTH 500 MG TAB PO ONE (07:38)
[2023-10-24 07:47] VITALS: BP 142/91; PULSE 85; RESP 19; O2SAT 100
== END 2023-10-24 07:51 | disposition home or self-care (01) ==
LOC: MED 00:50
DX: O26.92 Pregnancy related conditions, unspecified, second trimester (principal); R10.84 Generalized abdominal pain; O46.92 Antepartum hemorrhage, unspecified, second trimester; O99.512 Diseases of the respiratory system complicating pregnancy, second trimester; J45.909 Unspecified asthma, uncomplicated; O10.912 Unspecified pre-existing hypertension complicating pregnancy, second trimester; Z79.899 Other long term (current) drug therapy; Z3A.23 23 weeks gestation of pregnancy; Z88.0 Allergy status to penicillin; Z91.018 Allergy to other foods; Z88.6 Allergy status to analgesic agent; Z91.048 Other nonmedicinal substance allergy status
CPT/HCPCS: 36415; 80053; 81002; 83690; 85025; 96361; 96374; 99284; J3010; J7030; 99283

== ENCOUNTER 2023-11-11 16:00 | Emergency (ER) | payer MEDICAID ==
[~2023-11-11] VITALS: Ht 152.4 cm; Wt 89.4 kg
[2023-11-11 16:28] VITALS: BP 131/87; PULSE 95; RESP 18; TEMP 98.1; O2SAT 100
[2023-11-11 18:07] LABS: APPEARANCE,URINE CLEAR (CLEAR); BILIRUBIN,URINE NEGATIVE (NEGATIVE); BLOOD, URINE NEGATIVE (NEGATIVE); COLOR,URINE YELLOW (YELLOW); LEUKOCYTE ESTERASE ,URINE NEGATIVE (NEGATIVE); NITRITE, URINE NEGATIVE (NEGATIVE); PROTEIN,URINE NEGATIVE (NEGATIVE); UGLUCOSE NEGATIVE (NEGATIVE); UROBILINOGEN,URINE 0.2 EU/dL (0.2 - 1)
== END 2023-11-11 19:38 | disposition home or self-care (01) ==
LOC: MED 16:00
DX: O26.892 Other specified pregnancy related conditions, second trimester (principal); R10.30 Lower abdominal pain, unspecified; R11.0 Nausea; O99.512 Diseases of the respiratory system complicating pregnancy, second trimester; J45.909 Unspecified asthma, uncomplicated; O10.912 Unspecified pre-existing hypertension complicating pregnancy, second trimester; Z3A.26 26 weeks gestation of pregnancy; Z90.49 Acquired absence of other specified parts of digestive tract; Z79.899 Other long term (current) drug therapy; Z88.0 Allergy status to penicillin; Z91.018 Allergy to other foods; Z88.6 Allergy status to analgesic agent; Z91.048 Other nonmedicinal substance allergy status
CPT/HCPCS: 81003; 99283

== ENCOUNTER 2023-12-04 17:43 | Emergency (ER) | payer MEDICAID ==
[~2023-12-04] VITALS: Ht 152.4 cm; Wt 88.6 kg
[2023-12-04 18:02] VITALS: BP 135/113; PULSE 94; RESP 18; TEMP 98.4; O2SAT 100
[2023-12-04 19:10] LABS: BASOPHILS % (AUTO) 0.2 % (0.0-2.0); EOSINOPHILS % (AUTO) 0.5 % (0.0-4.0); HEMATOCRIT 29.1 % (36-48); HEMOGLOBIN 9.4 g/dL (12.0-16.0); LYMPHOCYTES # (AUTO) 1.5 K/uL (2.5-16.5); LYMPHOCYTES % (AUTO) 14.9 % (20.5-51.1); MEAN CORPUSCULAR HEMOGLOBIN 22 pg (27-31); MEAN CORPUSCULAR HGB CONC 32 g/dL (33-37); MEAN CORPUSCULAR VOLUME 66.9 fL (80-94); MONOCYTES # (AUTO) 0.6 K/uL (0.8-1.0); NEUTROPHILS # (AUTO) 7.6 K/uL (1.8-7.7); NEUTROPHILS % (AUTO) 78.4 % (42.2-75.2); PLATELET COUNT (AUTO) 335 K/uL (140-450); RED BLOOD CELL COUNT(AUTO) 4.35 MIL/uL (4.20-5.40); RED CELL DISTRIBUTION WIDTH 17.5 % (11.6-13.7); WHITE BLOOD COUNT (AUTO) 9.7 K/uL (4.8-10.8)
[2023-12-04 19:32] LABS: BILIRUBIN,URINE NEGATIVE (NEGATIVE); BLOOD, URINE NEGATIVE (NEGATIVE); COLOR,URINE YELLOW (YELLOW); LEUKOCYTE ESTERASE ,URINE NEGATIVE (NEGATIVE); NITRITE, URINE NEGATIVE (NEGATIVE); PROTEIN,URINE 1+ (NEGATIVE); UGLUCOSE NEGATIVE (NEGATIVE); UROBILINOGEN,URINE 0.2 EU/dL (0.2 - 1)
[2023-12-04 19:34] LABS: APPEARANCE,URINE SLIGHTLY HAZY (CLEAR)
[2023-12-04 19:46] LABS: BACTERIA,URINE 1+ /HPF (None Seen); MUCUS,URINE None Seen /LPF (None Seen); RBC,URINE 0 /HPF (0-5); SQUAMOUS EPITHELIAL CELL,UR 4-10 (MOD) /LPF (0-3 (FEW)); WBC,URINE 0-5 /HPF (0-5)
[2023-12-04] MEDS: ACETAMINOPHEN 100 ML IV ONE (19:49)
[2023-12-04 20:12] LABS: ALBUMIN 2.6 g/dL (3.4-5.0); ANION GAP 11.2 (8-16); CALCIUM 8.7 mg/dL (8.5-10.1); CARBON DIOXIDE 25.8 mmol/L (21-32); CREATININE 0.6 mg/dL (0.6-1.3); TOTAL BILIRUBIN 0.3 mg/dL (0.0-1.0); TOTAL PROTEIN, SERUM 7.6 g/dL (6.4-8.2)
[2023-12-04] MEDS: fentaNYL citrate 0.05 MG/ML VIAL IVP ONE (20:27)
[2023-12-04] MEDS ORDERED: cefTRIAXone 1,000 MG VIAL ONE (22:26)
[2023-12-04 22:50] VITALS: BP 127/72; PULSE 88; RESP 20; TEMP 97.9; O2SAT 100
[2023-12-04] MEDS ORDERED: CEPH-588 PO (22:56)
== END 2023-12-04 22:50 | disposition home or self-care (01) ==
LOC: MED 17:43
DX: O99.891 Other specified diseases and conditions complicating pregnancy (principal); R82.71 Bacteriuria; O26.893 Other specified pregnancy related conditions, third trimester; R10.31 Right lower quadrant pain; O99.513 Diseases of the respiratory system complicating pregnancy, third trimester; J45.909 Unspecified asthma, uncomplicated; O10.913 Unspecified pre-existing hypertension complicating pregnancy, third trimester; Z3A.29 29 weeks gestation of pregnancy; Z79.899 Other long term (current) drug therapy; Z90.49 Acquired absence of other specified parts of digestive tract; Z88.0 Allergy status to penicillin
CPT/HCPCS: 36415; 76705; 80053; 81001; 83690; 85025; 96361; 96365; 96367; 99285; J0696; J3010; J7030; Q0092